=== PATIENT | female | born 1945 | race Caucasian/White ===

== ENCOUNTER → 2016-11-07 | Outpatient (CLI) | payer MEDICARE ==
--- NOTE | 2016-11-08 09:52 | MM ---
Reason for exam: screening (asymptomatic). Last mammogram was performed 3 years and 8 months ago. History: Patient is postmenopausal. Physical Findings: A clinical breast exam by your physician is recommended on an annual basis and results should be correlated with mammographic findings. MG 3D Screening Mammo W/Cad Bilateral CC and MLO view(s) were taken. Prior study comparison: March 03, 2013, bilateral digital screening mammo w/CAD. July 22, 2011, bilateral digital screening mammo w/CAD. There are scattered fibroglandular densities. Finding: There are typically benign round calcifications. There is no discrete abnormality. No significant changes in finding since March 03, 2013 and July 22, 2011. ASSESSMENT: Benign, BI-RAD 2 RECOMMENDATION: Routine screening mammogram of both breasts in 1 year.
== END | disposition home or self-care (01) ==
LOC: RADMAMWWP 10:33
PROVIDERS: ATTEND Family Medicine
DX: Z12.31 Encounter for screening mammogram for malignant neoplasm of breast (principal)
CPT/HCPCS: 77063; G0202

== ENCOUNTER → 2017-03-18 | Outpatient (CLI) | payer MEDICARE ==
--- NOTE | 2017-03-18 13:49 | US ---
EXAMINATION TYPE: US extremity nonvascular ltd RT DATE OF EXAM: 03/18/2017 10:24 AM COMPARISON: NONE CLINICAL HISTORY: S90.851A SUSPECTED FOREIGN BODY. Patient stepped on glass 42 yrs ago, for many year s she has noticed a lump on the bottom of her right foot, doctor shaved it down when it became larger and started to hurt. No pain now but noticeable lump with discolored skin still there 0.9cm hypoechoic area noted on posterior right foot at site of lump. Non vascular, normal appearing soft tissue around it. IMPRESSION: Findings could possibly represent a granuloma or scar.
== END | disposition home or self-care (01) ==
LOC: RADUSWWP 10:08
PROVIDERS: ATTEND Podiatrist Foot & Ankle Surgery
DX: S90.851A Superficial foreign body, right foot, initial encounter (principal); X58.XXXA Exposure to other specified factors, initial encounter

== ENCOUNTER 2019-08-11 08:15 | Emergency (ER) | payer MEDICARE ==
[2019-08-11 08:33] VITALS: RESP 18; TEMP 97.3
--- NOTE | 2019-08-11 09:18 | ED ---
General Adult HPI - General Chief complaint: Upper Respiratory Infection Stated complaint: sinus infection/tremors Time Seen by Provider: 08/11/19 08:34 Source: patient, family, RN notes reviewed, old records reviewed Mode of arrival: ambulatory Limitations: no limitations - History of Present Illness Initial comments: This is a 74-year-old female with a history of hypertension and a history of tremors who states she's been fighting a upper respiratory infection for the past 6 days. She was started on antibiotic x-rays ago she has had phlegm that c hanged from yellow clear she states she doesn't feel that she feels tired all time she still has nasal congestion with drainage she has a slight cough. No earache sore throat though this is how the incident started she believes she may have caught it from her brother. No nausea no vomiting she states she's eating well no diarrhea no dysuria hematuria she does state her head feels full. She has had increased shaking she is on a different antibiotic including steroids. She does state her blood pressure is been elevated. She also states she's feeling more depressed than usual due to her being in a senior living. No thoughts of harm or hurting herself. No other modifying factors at this time - Related Data Home Medications Medication Instructions Recorded Confirmed Biotin 10 mg PO DAILY 08/11/19 08/11/19 Cholecalciferol [Vitamin D3 (25 1,000 unit PO DAILY 08/11/19 08/11/19 Mcg = 1000 Iu)] Fluticasone Nasal [place] [Flonase 1 spr EA NOSTRIL DAILY 08/11/19 08/11/19 Nasal [place]] Levofloxacin [Levaquin] 500 mg PO DAILY 08/11/19 08/11/19 Lisinopril [Zestril] 10 mg PO DAILY 08/11/19 08/11/19 Meclizine [Antivert] 25 mg PO Q12H PRN 08/11/19 08/11/19 Mirtazapine [Remeron] 45 mg PO HS 08/11/19 08/11/19 Omeprazole [PriLOSEC] 20 mg PO AC-BRKFST 08/11/19 08/11/19 Primidone [Mysoline] 250 mg PO BID 08/11/19 08/11/19 Propranolol LA [Inderal LA] 80 mg PO DAILY 08/11/19 08/11/19 Simvastatin [Zocor] 20 mg PO HS 08/11/19 08/11/19 buPROPion HCL [Wellbutrin SR] 150 mg PO BID 08/11/19 08/11/19 methylPREDNISolone Dose Pack See Taper PO DAILY 08/11/19 08/11/19 [Medrol Dose Pack] Allergies Allergy/AdvReac Type Severity Reaction Status Date / Time Sulfa (Sulfonamide Allergy Unknown Verified 08/11/19 09:27 Antibiotics) Childhood Review of Systems ROS Statement: Those systems with pertinent positive or pertinent negative responses have been documented in the HPI. ROS Other: All systems not noted in ROS Statement are negative. Past Medical History Past Medical History: GERD/Reflux, Hyperlipidemia, Hypertension Additional Past Medical History / Comment(s): tremors History of Any Multi-Drug Resistant Organisms: None Reported Past Surgical History: Tonsillectomy Past Psychological History: Bipolar, Depression Smoking Status: Former smoker Past Alcohol Use History: None Reported Past Drug Use History: None Reported General Exam - General Exam Comments Initial Comments: This a well-developed well-nourished awake alert oriented 3 female Limitations: no limitations General appearance: alert, anxious Head exam: Present: atraumatic, normocephalic, normal inspection Eye exam: Present: normal appearance, PERRL, EOMI. Absent: scleral icterus, conjunctival injection, periorbital swelling ENT exam: Present: mucous membranes moist, TM's normal bilaterally, other (Boggy swollen nasal mucosa no evidence of any bleeding) Neck exam: Present: normal inspection. Absent: tenderness, meningismus, lymphadenopathy Respiratory exam: Present: normal lung sounds bilaterally. Absent: respiratory distress, wheezes, rales, rhonchi, stridor Cardiovascular Exam: Present: regular rate, normal rhythm, normal heart sounds. Absent: systolic murmur, diastolic murmur, rubs, gallop, clicks GI/Abdominal exam: Present: soft, normal bowel sounds. Absent: distended, tenderness, guarding, rebound, rigid Extremities exam: Present: normal inspection, full ROM, normal capillary refill. Absent: tenderness, pedal edema, joint swelling, calf tenderness Back exam: Present: normal inspection Neurological exam: Present: alert, oriented X3, CN II-XII intact Psychiatric exam: Present: normal affect, normal mood Skin exam: Present: warm, dry, intact, normal color. Absent: rash Course Vital Signs 08/11/19 08/11/19 08:26 10:51 Temperature 97.3 F L Pulse Rate 66 90 Respiratory 18 18 Rate Blood Pressure 161/84 153/87 O2 Sat by Pulse 98 100 Oximetry Medical Decision Making - Medical Decision Making I did a long discussion with patient regarding findings and her daughter was present. Patient will be discharged with instructions to continue with her current medications she is also instructed to increase her oral fluids and follow-up with her doctor as needed - Lab Data Result diagrams: 08/11/19 09:00 08/11/19 09:00 Lab Results 08/11/19 08/11/19 08/11/19 Range/Units 09:00 09:00 09:00 WBC 11.0 H (3.8-10.6) k/uL RBC 4.88 (3.80-5.40) m/uL Hgb 14.6 (11.4-16.0) gm/dL Hct 43.3 (34.0-46.0) % MCV 88.9 (80.0-100.0) fL MCH 30.0 (25.0-35.0) pg MCHC 33.7 (31.0-37.0) g/dL RDW 13.8 (11.5-15.5) % Plt Count 229 (150-450) k/uL Neutrophils % 72 % Lymphocytes % 19 % Monocytes % 6 % Eosinophils % 1 % Basophils % 0 % Neutrophils # 7.9 H (1.3-7.7) k/uL Lymphocytes # 2.1 (1.0-4.8) k/uL Monocytes # 0.6 (0-1.0) k/uL Eosinophils # 0.1 (0-0.7) k/uL Basophils # 0.0 (0-0.2) k/uL Sodium 135 L (137-145) mmol/L Potassium 4.8 (3.5-5.1) mmol/L Chloride 101 (98-107) mmol/L Carbon Dioxide 22 (22-30) mmol/L Anion Gap 12 mmol/L BUN 23 H (7-17) mg/dL Creatinine 1.03 (0.52-1.04) mg/dL Est GFR (CKD-EPI)AfAm 61 (>60 ml/min/1.73 sqM) Est GFR (CKD-EPI)NonAf 53 (>60 ml/min/1.73 sqM) Glucose 106 H (74-99) mg/dL Calcium 9.4 (8.4-10.2) mg/dL Magnesium 2.1 (1.6-2.3) mg/dL Total Bilirubin 0.6 (0.2-1.3) mg/dL AST 24 (14-36) U/L ALT 31 (9-52) U/L Alkaline Phosphatase 117 (38-126) U/L Creatine Kinase 25 L (30-135) U/L Troponin I (0.000-0.034) ng/mL Total Protein 7.5 (6.3-8.2) g/dL Albumin 4.1 (3.5-5.0) g/dL TSH 2.410 (0.465-4.680) mIU/L Urine Color Urine Appearance (Clear) Urine pH (5.0-8.0) Ur Specific [place] (1.001-1.035) Urine Protein (Negative) Urine Glucose (UA) (Negative) Urine Ketones (Negative) Urine Blood (Negative) Urine Nitrite (Negative) Urine Bilirubin (Negative) Urine Urobilinogen (<2.0) mg/dL Ur Leukocyte Esterase (Negative) Urine RBC (0-5) /hpf Urine WBC (0-5) /hpf Ur Squamous Epith Cells (0-4) /hpf Hyaline Casts (0-2) /lpf Urine Mucus (None) /hpf Influenza Type A RNA Not Detected (Not Detectd) Influenza Type B (PCR) Not Detected (Not Detectd) 08/11/19 08/11/19 Range/Units 09:00 10:15 WBC (3.8-10.6) k/uL RBC (3.80-5.40) m/uL Hgb (11.4-16.0) gm/dL Hct (34.0-46.0) % MCV (80.0-100.0) fL MCH (25.0-35.0) pg MCHC (31.0-37.0) g/dL RDW (11.5-15.5) % Plt Count (150-450) k/uL Neutrophils % % Lymphocytes % % Monocytes % % Eosinophils % % Basophils % % Neutrophils # (1.3-7.7) k/uL Lymphocytes # (1.0-4.8) k/uL Monocytes # (0-1.0) k/uL Eosinophils # (0-0.7) k/uL Basophils # (0-0.2) k/uL Sodium (137-145) mmol/L Potassium (3.5-5.1) mmol/L Chloride (98-107) mmol/L Carbon Dioxide (22-30) mmol/L Anion Gap mmol/L BUN (7-17) mg/dL Creatinine (0.52-1.04) mg/dL Est GFR (CKD-EPI)AfAm (>60 ml/min/1.73 sqM) Est GFR (CKD-EPI)NonAf (>60 ml/min/1.73 sqM) Glucose (74-99) mg/dL Calcium (8.4-10.2) mg/dL Magnesium (1.6-2.3) mg/dL Total Bilirubin (0.2-1.3) mg/dL AST (14-36) U/L ALT (9-52) U/L Alkaline Phosphatase (38-126) U/L Creatine Kinase (30-135) U/L Troponin I <0.012 (0.000-0.034) ng/mL Total Protein (6.3-8.2) g/dL Albumin (3.5-5.0) g/dL TSH (0.465-4.680) mIU/L Urine Color Yellow Urine Appearance Clear (Clear) Urine pH 5.5 (5.0-8.0) Ur Specific [place] 1.016 (1.001-1.035) Urine Protein Negative (Negative) Urine Glucose (UA) Negative (Negative) Urine Ketones Negative (Negative) Urine Blood Negative (Negative) Urine Nitrite Negative (Negative) Urine Bilirubin Negative (Negative) Urine Urobilinogen <2.0 (<2.0) mg/dL Ur Leukocyte Esterase Small H (Negative) Urine RBC 1 (0-5) /hpf Urine WBC 4 (0-5) /hpf Ur Squamous Epith Cells 3 (0-4) /hpf Hyaline Casts 4 H (0-2) /lpf Urine Mucus Rare H (None) /hpf Influenza Type A RNA (Not Detectd) Influenza Type B (PCR) (Not Detectd) - EKG Data -: EKG Interpreted by Id EKG shows normal: sinus rhythm, axis, intervals, QRS complexes, ST-T waves (Sinus rhythm a 64. Interval 148 QRS duration 80 QT since QTC 380/400) Rate: normal - Radiology Data Radiology results: report reviewed (I did review the imaging and report no acute findings.), image reviewed Disposition Clinical Impression: Upper respiratory tract infection, Dehydration Disposition: HOME SELF-CARE Condition: Good Instructions (If sedation given, give patient instructions): Upper Respiratory Infection (ED), Dehydration (ED) Is patient prescribed a controlled substance at d/c from ED?: No Referrals: Brenda Barrera III, MD [Primary Care Provider] - 1-2 days
--- NOTE | 2019-08-11 09:31 | XR ---
EXAMINATION TYPE: XR chest 2V DATE OF EXAM: 08/11/2019 COMPARISON: NONE HISTORY: Productive cough and sinus infection. TECHNIQUE: Frontal and lateral views of the chest are obtained. FINDINGS: There is chronic parenchymal changes without suspicious focal air space opacity, pleural e ffusion, or pneumothorax seen. Eventration of right hemidiaphragm. The cardiac silhouette size is upp er limits of normal with atherosclerotic aorta. The osseous structures are demineralized. Rounded d ensity right mid to lower cervical spine on frontal view not clearly seen on lateral view may be exte rnal to patient. IMPRESSION: Chronic changes without suspicious acute infiltrate.
[2019-08-11 09:51] LABS: Basophils % (A) 0 %; Eosinophils # (A) 0.1 k/uL (0-0.7); Eosinophils % (A) 1 %; HCT 43.3 % (34.0-46.0); HGB 14.6 gm/dL (11.4-16.0); Lymphocytes # (A) 2.1 k/uL (1.0-4.8); Lymphocytes % (A) 19 %; MCHC 33.7 g/dL (31.0-37.0); MCV 88.9 fL (80.0-100.0); Mean Platelet Volume 9.5; Monocytes # (A) 0.6 k/uL (0-1.0); Monocytes % (A) 6 %; Neutrophils # (A) 7.9 k/uL (1.3-7.7); Neutrophils % (A) 72 %; Platelet Count 229 k/uL (150-450); RBC 4.88 m/uL (3.80-5.40); RDW 13.8 % (11.5-15.5)
[2019-08-11 10:11] LABS: Albumin 4.1 g/dL (3.5-5.0); Calcium 9.4 mg/dL (8.4-10.2); Magnesium 2.1 mg/dL (1.6-2.3); Potassium 4.8 mmol/L (3.5-5.1); Total Bilirubin 0.6 mg/dL (0.2-1.3); Total Protein 7.5 g/dL (6.3-8.2)
[2019-08-11 10:44] LABS: Appearance,Urine Clear (Clear); Bilirubin,Urine Negative (Negative); Blood,Urine Negative (Negative); Color,Urine Yellow; Glucose,Urine (UA) Negative (Negative); Hyaline Casts,Urine 4 /lpf (0-2); Ketones,Urine Negative (Negative); Leukocyte Esterase,Urine Small (Negative); Mucus,Urine Rare /hpf; Nitrite,Urine Negative (Negative); PH, Urine 5.5 (5.0-8.0); Protein,Urine Negative (Negative); RBC,Urine 1 /hpf (0-5); Specific Gravity,Urine 1.016 (1.001-1.035); Squamous Epithelial Cell,Urine 3 /hpf (0-4); Urobilinogen,Urine <2.0 mg/dL (<2.0)
[2019-08-11 10:54] VITALS: BP 153/87; PULSE 90
== END 2019-08-11 11:35 | disposition home or self-care (01) ==
LOC: EC 08:15
DX: J06.9 Acute upper respiratory infection, unspecified (principal); E86.0 Dehydration; R25.9 Unspecified abnormal involuntary movements; K21.9 Gastro-esophageal reflux disease without esophagitis; E78.5 Hyperlipidemia, unspecified; I10 Essential (primary) hypertension; F31.9 Bipolar disorder, unspecified; Z87.891 Personal history of nicotine dependence; Z88.2 Allergy status to sulfonamides; Z79.51 Long term (current) use of inhaled steroids; Z79.52 Long term (current) use of systemic steroids; Z79.82 Long term (current) use of aspirin; Z79.899 Other long term (current) drug therapy; Z90.89 Acquired absence of other organs
CPT/HCPCS: 36415; 71046; 80053; 81001; 82550; 83735; 84443; 84484; 85025; 87040; 87502; 93005; 99284

== ENCOUNTER 2019-12-21 22:05 | Emergency (ER) | payer MEDICARE ==
--- NOTE | 2019-12-21 22:21 | ED ---
Nausea/Vomiting/Diarrhea HPI - General Stated complaint: NVD Time Seen by Provider: 12/21/19 22:09 Source: patient, family Limitations: no limitations - History of Present Illness Initial comments: This patient is 74-year-old woman with history of previous episodes of vertigo who states that she had been at the [facility] this afternoon when she developed the same. The patient states she had an intense sensation that things were spinning and she was having multiple episodes of vomiting. She states that initially things were better if she closed her eyes. She states that she had her brother bring her home, she took some meclizine that was there and then was better for a period of time. The symptoms started to recur tonight and when she took the meclizine she had vomiting. She states that now closing her eyes does not really help either. Patient denies headache or neck pain. No ear symptoms. No neurologic symptoms. No chest or abdominal pain. No change in bowel movements MD complaint: nausea, vomiting, other (Vertigo) -: hour(s) Description of Vomiting: food contents Severity scale (1-10): 0 Improves with: none Worsens with: movement Associated Symptoms: nausea/vomiting - Related Data Home Medications Medication Instructions Recorded Confirmed Fluticasone Nasal [place] [Flonase 1 spray EA NOSTRIL BID 08/11/19 12/21/19 Nasal [place]] Lisinopril [Zestril] 10 mg PO HS 08/11/19 12/21/19 Mirtazapine [Remeron] 45 mg PO HS 08/11/19 12/21/19 Primidone [Mysoline] 250 mg PO BID 08/11/19 12/21/19 Propranolol LA [Inderal LA] 80 mg PO DAILY 08/11/19 12/21/19 Simvastatin [Zocor] 20 mg PO HS 08/11/19 12/21/19 buPROPion HCL [Wellbutrin SR] 150 mg PO BID 08/11/19 12/21/19 Aspirin/Acetaminophen/Caffeine 1 tab PO ONCE PRN 12/21/19 12/21/19 [Excedrin Migraine Caplet] Loratadine [Claritin] 10 mg PO HS 12/21/19 12/21/19 Multivit with Calcium,Iron,Min 1 tab PO DAILY 12/21/19 12/21/19 [Women's Multivitamin] Vit A/Vit C/Vit E/Zinc/Copper 1 cap PO DAILY 12/21/19 12/21/19 [ICAPS SOFTGEL] Previous Rx's Medication Instructions Recorded Ondansetron Odt [Zofran ODT] 4 mg PO Q8HR PRN #10 tab 12/22/19 Allergies Allergy/AdvReac Type Severity Reaction Status Date / Time Sulfa (Sulfonamide Allergy Unknown Verified 12/21/19 23:17 Antibiotics) Childhood methylprednisolone AdvReac Makes Verified 12/21/19 23:17 tremors worse Review of Systems ROS Statement: Those systems with pertinent positive or pertinent negative responses have been documented in the HPI. ROS Other: All systems not noted in ROS Statement are negative. Constitutional: Denies: fever, chills, weakness Eyes: Denies: vision change ENT: Denies: ear pain, hearing loss Respiratory: Denies: cough, dyspnea Cardiovascular: Denies: chest pain, palpitations, syncope Gastrointestinal: Reports: nausea, vomiting. Denies: abdominal pain, diarrhea, constipation Genitourinary: Denies: dysuria, frequency Musculoskeletal: Denies: back pain Skin: Denies: rash Neurological: Reports: vertigo. Denies: headache, weakness, numbness, paresthesias, confusion Past Medical History Past Medical History: GERD/Reflux, Hyperlipidemia, Hypertension Additional Past Medical History / Comment(s): tremors History of Any Multi-Drug Resistant Organisms: None Reported Past Surgical History: Tonsillectomy Past Psychological History: Bipolar, Depression Smoking Status: Former smoker Past Alcohol Use History: None Reported Past Drug Use History: None Reported General Exam General appearance: alert, in no apparent distress Head exam: Present: atraumatic, normocephalic Eye exam: Present: normal appearance, PERRL, EOMI, nystagmus. Absent: scleral icterus, conjunctival injection ENT exam: Present: normal oropharynx, TM's normal bilaterally, normal external e ar exam Neck exam: Present: normal inspection, full ROM, other (No carotid bruit) Respiratory exam: Present: normal lung sounds bilaterally. Absent: respiratory distress, wheezes, rales, rhonchi, stridor Cardiovascular Exam: Present: regular rate, normal rhythm, normal heart sounds. Absent: systolic murmur, diastolic murmur, rubs, gallop GI/Abdominal exam: Present: soft. Absent: distended, tenderness, guarding, rebound, rigid, mass Extremities exam: Present: normal inspection, normal capillary refill. Absent: pedal edema Back exam: Present: normal inspection Neurological exam: Present: alert, oriented X3, CN II-XII intact. Absent: motor sensory deficit Skin exam: Present: warm, dry, intact, normal color. Absent: rash Course Vital Signs 12/21/19 12/21/19 12/21/19 22:10 22:30 23:00 Temperature 97.8 F Pulse Rate 72 74 70 Respiratory 18 17 Rate Blood Pressure 180/89 180/89 182/81 O2 Sat by Pulse 99 99 99 Oximetry 12/22/19 00:17 Temperature Pulse Rate 64 Respiratory 18 Rate Blood Pressure 155/73 O2 Sat by Pulse 100 Oximetry Medical Decision Making - Lab Data Result diagrams: 12/21/19 22:52 12/21/19 22:52 Lab Results 12/21/19 12/21/19 12/21/19 Range/Units 22:52 22:52 22:52 WBC 10.4 (3.8-10.6) k/uL RBC 4.15 (3.80-5.40) m/uL Hgb 11.8 (11.4-16.0) gm/dL Hct 36.4 (34.0-46.0) % MCV 87.8 (80.0-100.0) fL MCH 28.5 (25.0-35.0) pg MCHC 32.4 (31.0-37.0) g/dL RDW 13.6 (11.5-15.5) % Plt Count 189 (150-450) k/uL Neutrophils % 77 % Lymphocytes % 14 % Monocytes % 4 % Eosinophils % 3 % Basophils % 0 % Neutrophils # 8.0 H (1.3-7.7) k/uL Lymphocytes # 1.5 (1.0-4.8) k/uL Monocytes # 0.4 (0-1.0) k/uL Eosinophils # 0.3 (0-0.7) k/uL Basophils # 0.0 (0-0.2) k/uL Sodium 133 L (137-145) mmol/L Potassium 4.7 (3.5-5.1) mmol/L Chloride 103 (98-107) mmol/L Carbon Dioxide 25 (22-30) mmol/L Anion Gap 5 mmol/L BUN 17 (7-17) mg/dL Creatinine 0.96 (0.52-1.04) mg/dL Est GFR (CKD-EPI)AfAm 67 (>60 ml/min/1.73 sqM) Est GFR (CKD-EPI)NonAf 58 (>60 ml/min/1.73 sqM) Glucose 129 H (74-99) mg/dL Calcium 8.5 (8.4-10.2) mg/dL Total Bilirubin 0.2 (0.2-1.3) mg/dL AST 27 (14-36) U/L ALT 21 (4-34) U/L Alkaline Phosphatase 87 (38-126) U/L Troponin I <0.012 (0.000-0.034) ng/mL Total Protein 6.7 (6.3-8.2) g/dL Albumin 3.8 (3.5-5.0) g/dL - EKG Data -: EKG Interpreted by Ga EKG shows normal: sinus rhythm, axis (Normal), intervals (Normal), QRS complexes (Normal) Rate: normal (Rate 74 bpm) Interpretation: nonspecific ST-T wave changes Disposition Clinical Impression: Vertigo Disposition: HOME SELF-CARE Condition: Good Instructions (If sedation given, give patient instructions): Vertigo (ED) Prescriptions: Ondansetron Odt [Zofran ODT] 4 mg PO Q8HR PRN #10 tab PRN Reason: Nausea Is patient prescribed a controlled substance at d/c from ED?: No Referrals: Brenda Barrera III, MD [Primary Care Provider] - 1-2 days
[2019-12-21 22:32] VITALS: TEMP 97.8
[2019-12-21] MEDS ORDERED: METOCLOPRAMIDE 5 MG/ML 2 ML VIAL IVP STA (22:35)
[2019-12-21] MEDS ORDERED: DIAZEPAM 5 MG/ML 2 ML INJ IVP STA (22:35)
[2019-12-21 23:04] LABS: Basophils % (A) 0 %; Eosinophils # (A) 0.3 k/uL (0-0.7); Eosinophils % (A) 3 %; HCT 36.4 % (34.0-46.0); HGB 11.8 gm/dL (11.4-16.0); Lymphocytes # (A) 1.5 k/uL (1.0-4.8); Lymphocytes % (A) 14 %; MCH 28.5 pg (25.0-35.0); MCHC 32.4 g/dL (31.0-37.0); MCV 87.8 fL (80.0-100.0); Mean Platelet Volume 10.1; Monocytes # (A) 0.4 k/uL (0-1.0); Monocytes % (A) 4 %; Neutrophils % (A) 77 %; Platelet Count 189 k/uL (150-450); RBC 4.15 m/uL (3.80-5.40); RDW 13.6 % (11.5-15.5); WBC 10.4 k/uL (3.8-10.6)
[2019-12-21 23:10] LABS: Albumin 3.8 g/dL (3.5-5.0); Calcium 8.5 mg/dL (8.4-10.2); Potassium 4.7 mmol/L (3.5-5.1); Total Bilirubin 0.2 mg/dL (0.2-1.3); Total Protein 6.7 g/dL (6.3-8.2)
--- NOTE | 2019-12-22 00:10 | CT ---
EXAMINATION TYPE: CT angio head neck DATE OF EXAM: 12/21/2019 COMPARISON: None HISTORY: Dizziness CT DLP: 402.70 mGycm Automated exposure control for dose reduction was used. CONTRAST: Performed with IV Contrast, patient injected with 65 mL of Isovue 370. There are 3-D post processed images. There is normal branching pattern of the great vessels on the aortic arch. There is bilateral arteria l flow in the subclavian arteries. There is bilateral arterial flow in the common internal and machine deicer element winder al carotid arteries. There is bilateral arterial flow in the vertebral arteries. I see no evidence of carotid or vertebral artery aneurysm or dissection. There is minimal plaque at the carotid artery bi furcations and less than 10% stenosis. There is arterial flow in the vertebrobasilar artery system. There is arterial flow in the anterior m iddle and posterior cerebral arteries. The right posterior cerebral artery appears to fill mostly thr ough the right posterior communicating artery. I see no mass effect. There is no evidence of intracra nial aneurysm or neovascularity. I see no evidence of intracranial arterial stenosis. There is extens rowdy mucosal thickening in the sphenoid sinus. This is more likely related to inflammatory disease. I see no bone destruction. Temporal bones appear intact. IMPRESSION: Minimal atherosclerotic disease at the carotid arteries without evidence of stenosis. Less than 10% s tenosis of the proximal internal carotid arteries.
[2019-12-22 00:20] VITALS: BP 155/73; PULSE 64; RESP 18
== END 2019-12-22 01:01 | disposition home or self-care (01) ==
LOC: EC 22:05
DX: H55.00 Unspecified nystagmus (principal); R11.2 Nausea with vomiting, unspecified; E78.5 Hyperlipidemia, unspecified; I10 Essential (primary) hypertension; F31.9 Bipolar disorder, unspecified; Z87.891 Personal history of nicotine dependence; Z88.2 Allergy status to sulfonamides; Z88.8 Allergy status to other drugs, medicaments and biological substances; Z79.51 Long term (current) use of inhaled steroids; Z79.899 Other long term (current) drug therapy; Z87.19 Personal history of other diseases of the digestive system
CPT/HCPCS: 36415; 93005; 80053; 84484; 85025; 70496; 70498; 99285; 96374; 96375; J2765; J3360; Q9967

== ENCOUNTER 2019-12-25 13:49 | Emergency (ER) | payer MEDICARE ==
[2019-12-25 14:13] VITALS: TEMP 96.8
[2019-12-25] MEDS ORDERED: DIAZEPAM 5 MG/ML 2 ML INJ IVP STA (14:41)
[2019-12-25] MEDS ORDERED: ONDANSETRON 4 MG/2 ML VIAL IVP STA (14:42)
[2019-12-25] MEDS ORDERED: SODIUM CHLORIDE 0.9% 1,000 ML IV STA (14:42)
[2019-12-25] MEDS ORDERED: diphenhydrAMINE 50 MG/ML 1 ML VIAL IVP STA (14:42)
--- NOTE | 2019-12-25 14:46 | ED ---
General Adult HPI - General Chief complaint: Dizziness Stated complaint: vertigo Time Seen by Provider: 12/25/19 14:23 Source: patient, EMS Mode of arrival: EMS Limitations: no limitations - History of Present Illness Initial comments: Dictation was produced using [employer] dictation software. please excuse any grammatical, word or spelling errors. Chief Complaint: 74-year-old female past medical history of vertigo, dyslipidemia and hypertension presents with persistent vertigo History of Present Illness: 74-year-old female she presents today with persistent vertigo. Patient states that she has had these multiple times in the past. She reports that her first episode happened when she was 18 years old. Since then she has had 4 episodes. She was recently seen here in emergency department 3 days ago for the same complaint. Patient states she was at home feeling well when she try to get 70 to eat when she all of a sudden developed acute onset vertigo. She denies any pain complaints. As soon as her symptoms started she began having nausea and vomiting. Patient has not seen a specialist for this before. She started taking some meclizine however throughout before she could swallow it. Patient is here in emergency department 3 days ago were she was evaluated for the same thing. She is given some Valium and discharged home with prescription for meclizine. Patient denies any history of strokes. The ROS documented in this emergency department record has been reviewed and confirmed by me. Those systems with pertinent positive or negative responses have been documented in the HPI. All other systems are other negative and/or noncontributory. PHYSICAL EXAM: General Impression: Alert and oriented x3, acute distress secondary to nausea, tremulous HEENT: Normocephalic atraumatic, extra-ocular movements intact, pupils equal and reactive to light bilaterally, mucous membranes moist, poor dentition Cardiovascular: Heart regular rate and rhythm, S1&S2 audible, no murmurs, rubs or gallops Chest: Lungs clear to auscultation bilaterally, no rhonchi, no wheeze, no rales Abdomen: Bowel sounds present, abdomen soft, non-tender, non-distended, no organomegaly Musculoskeletal: Pulses present and equal in all extremities, no peripheral edema Motor: no focal deficits noted Neurological: CN II-XII grossly intact, persistent nystagmus to bilateral pupils Skin: Intact with no visualized rashes ED course: 74 -year-old female presents with acute severe vertiginous symptoms since 11 AM this morning. Upon arrival are within acceptable limits Laboratory evaluation obtained. CBC, metabolic panel is unremarkable. Patient treated with Valium, Benadryl and Zofran. Patient reevaluated bedside still appears very toxic. She has is persistent nystagmus with fast beating face to the left. Does not direction changing. Been patient has intractable vertigo that patient transferred to [facility] for evaluation by neurology. Patient understandable agreeable to plan. Patient's symptoms are likely peripheral vertigo however she does have some features to consider central vertigo. Discussed patient case Dr. Moran who is willing to accept transfer. EKG interpretation: Ventricular rate 62, normal sinus rhythm, NV interval 144, QRS 74, QTC 421. No NV prolongation, no QTC prolongation, no ST or T-wave changes noted. . Overall, this EKG is unremarkable - Related Data Home Medications Medication Instructions Recorded Confirmed Fluticasone Nasal [place] [Flonase 1 spray EA NOSTRIL BID 08/11/19 12/21/19 Nasal [place]] Lisinopril [Zestril] 10 mg PO HS 08/11/19 12/21/19 Mirtazapine [Remeron] 45 mg PO HS 08/11/19 12/21/19 Primidone [Mysoline] 250 mg PO BID 08/11/19 12/21/19 Propranolol LA [Inderal LA] 80 mg PO DAILY 08/11/19 12/21/19 Simvastatin [Zocor] 20 mg PO HS 08/11/19 12/21/19 buPROPion HCL [Wellbutrin SR] 150 mg PO BID 08/11/19 12/21/19 Aspirin/Acetaminophen/Caffeine 1 tab PO ONCE PRN 12/21/19 12/21/19 [Excedrin Migraine Caplet] Loratadine [Claritin] 10 mg PO HS 12/21/19 12/21/19 Multivit with Calcium,Iron,Min 1 tab PO DAILY 12/21/19 12/21/19 [Women's Multivitamin] Vit A/Vit C/Vit E/Zinc/Copper 1 cap PO DAILY 12/21/19 12/21/19 [ICAPS SOFTGEL] Previous Rx's Medication Instructions Recorded Ondansetron Odt [Zofran ODT] 4 mg PO Q8HR PRN #10 tab 12/22/19 Allergies Allergy/AdvReac Type Severity Reaction Status Date / Time Sulfa (Sulfonamide Allergy Unknown Verified 12/21/19 23:17 Antibiotics) Childhood methylprednisolone AdvReac Makes Verified 12/21/19 23:17 tremors worse Review of Systems ROS Statement: Those systems with pertinent positive or pertinent negative responses have been documented in the HPI. ROS Other: All systems not noted in ROS Statement are negative. Past Medical History Past Medical History: GERD/Reflux, Hyperlipidemia, Hypertension Additional Past Medical History / Comment(s): tremors. Vertigo History of Any Multi-Drug Resistant Organisms: None Reported Past Surgical History: Tonsillectomy Past Psychological History: Bipolar, Depression Smoking Status: Former smoker Past Alcohol Use History: None Reported Past Drug Use History: None Reported General Exam Limitations: no limitations Course Vital Signs 12/25/19 14:07 Temperature 96.8 F L Pulse Rate 63 Respiratory 20 Rate Blood Pressure 146/100 O2 Sat by Pulse 99 Oximetry Medical Decision Making - Lab Data Result diagrams: 12/25/19 14:38 12/25/19 14:38 Lab Results 12/25/19 12/25/19 12/25/19 Range/Units 13:56 14:38 14:38 WBC 10.6 (3.8-10.6) k/uL RBC 4.31 (3.80-5.40) m/uL Hgb 12.2 (11.4-16.0) gm/dL Hct 38.4 (34.0-46.0) % MCV 89.1 (80.0-100.0) fL MCH 28.3 (25.0-35.0) pg MCHC 31.8 (31.0-37.0) g/dL RDW 14.0 (11.5-15.5) % Plt Count 183 (150-450) k/uL Neutrophils % 81 % Lymphocytes % 11 % Monocytes % 5 % Eosinophils % 2 % Basophils % 0 % Neutrophils # 8.6 H (1.3-7.7) k/uL Lymphocytes # 1.1 (1.0-4.8) k/uL Monocytes # 0.5 (0-1.0) k/uL Eosinophils # 0.2 (0-0.7) k/uL Basophils # 0.0 (0-0.2) k/uL Sodium 135 L (137-145) mmol/L Potassium 4.6 (3.5-5.1) mmol/L Chloride 104 (98-107) mmol/L Carbon Dioxide 23 (22-30) mmol/L Anion Gap 8 mmol/L BUN 15 (7-17) mg/dL Creatinine 0.85 (0.52-1.04) mg/dL Est GFR (CKD-EPI)AfAm 77 (>60 ml/min/1.73 sqM) Est GFR (CKD-EPI)NonAf 67 (>60 ml/min/1.73 sqM) Glucose 129 H (74-99) mg/dL Plasma Lactic Acid Bladimir 1.3 (0.7-2.0) mmol/L Calcium 8.7 (8.4-10.2) mg/dL Magnesium 2.1 (1.6-2.3) mg/dL Disposition Clinical Impression: Vertigo Disposition: OTHER INSTITUTION NOT DEFINED Condition: Fair Referrals: Brenda Barrera III, MD [Primary Care Provider] - 1-2 days Time of Disposition: 15:46 - Out of Hospital Transfer - Req. Specs Out of Hospital Transfer - Requested Specifics: Other Emergency Center ([facility])
[2019-12-25 14:52] LABS: Basophils % (A) 0 %; Eosinophils # (A) 0.2 k/uL (0-0.7); Eosinophils % (A) 2 %; HCT 38.4 % (34.0-46.0); HGB 12.2 gm/dL (11.4-16.0); Lymphocytes # (A) 1.1 k/uL (1.0-4.8); Lymphocytes % (A) 11 %; MCH 28.3 pg (25.0-35.0); MCHC 31.8 g/dL (31.0-37.0); MCV 89.1 fL (80.0-100.0); Mean Platelet Volume 10.4; Monocytes # (A) 0.5 k/uL (0-1.0); Monocytes % (A) 5 %; Neutrophils # (A) 8.6 k/uL (1.3-7.7); Neutrophils % (A) 81 %; Platelet Count 183 k/uL (150-450); RBC 4.31 m/uL (3.80-5.40); WBC 10.6 k/uL (3.8-10.6)
[2019-12-25 15:06] LABS: Calcium 8.7 mg/dL (8.4-10.2); Magnesium 2.1 mg/dL (1.6-2.3); Potassium 4.6 mmol/L (3.5-5.1)
[2019-12-25 16:02] VITALS: BP 180/72; PULSE 61
[2019-12-25 16:06] VITALS: RESP 20
== END 2019-12-25 17:10 | disposition other institution (70) ==
LOC: EC 13:49
DX: R42 Dizziness and giddiness (principal); I10 Essential (primary) hypertension; E78.5 Hyperlipidemia, unspecified; F31.9 Bipolar disorder, unspecified; H55.00 Unspecified nystagmus; Z79.51 Long term (current) use of inhaled steroids; Z79.899 Other long term (current) drug therapy; Z88.2 Allergy status to sulfonamides; Z88.8 Allergy status to other drugs, medicaments and biological substances; Z87.891 Personal history of nicotine dependence
CPT/HCPCS: 36415; 93005; 80048; 83605; 83735; 85025; 99285; 96374; 96375 ×2; 96361; J1200; J3360; J2405

== ENCOUNTER → 2020-04-21 | Outpatient (CLI) | payer MEDICARE ==
--- NOTE | 2020-04-23 19:46 | CT ---
EXAMINATION TYPE: CT sinus wo/w con DATE OF EXAM: 04/21/2020 COMPARISON: None HISTORY: 74-year-old female Vertigo and sinusitis. CT DLP: 844.8 mGycm Automated exposure control for dose reduction was used. TECHNIQUE: Pre and postcontrast axial views of the paranasal sinuses were obtained after administrati on of 100 mL Isovue 300 IV contrast. Coronal reconstructions performed. FINDINGS: PARANASAL SINUSES: Minimal trace mucosal thickening floor of the right maxillary sinus. Moderate to severe mucosal thick ening left maxillary sinus with some hyperdense material within. Right maxillary, ethmoid, and frontal sinuses are well-pneumatized. There is no air-fluid level. Reactive jaymie- osteogenesis is not seen. There is no destruction of the osseous santoro of the paranasal sinuses. THE NASAL CAVITY: The osteomeatal complexes are patent. No significant nasal septal deviation. The orbits are normal in appearance. Minimal scattered fluid in the left mastoid air cells. Middle ear cavities are clear. Reformatted images confirm above findings. IMPRESSION: Moderate to severe chronic left sphenoid sinus disease. Some hyperdense material within likely repres ents inspissated mucus. Trace mucosal thickening left maxillary sinus.
== END | disposition home or self-care (01) ==
LOC: RADCTMAIN 16:41
PROVIDERS: ATTEND Psychiatry & Neurology Neurology
DX: J32.3 Chronic sphenoidal sinusitis (principal)
CPT/HCPCS: 70488

== ENCOUNTER → 2020-04-21 | Outpatient (CLI) | payer MEDICARE ==
--- NOTE | 2020-04-23 19:42 | CT ---
EXAMINATION TYPE: CT brain wo/w con DATE OF EXAM: 04/21/2020 COMPARISON: None HISTORY: 74-year-old male Vertigo and sinusitis. TECHNIQUE: Examination was done in axial plane before and after administration of 100 mL Isovue 300 intravenous contrast. Coronal and sagittal reconstructions performed. CT DLP: 2127.2 mGycm Automated exposure control for dose reduction was used. FINDINGS: There is no evidence of acute intracranial hemorrhage, acute ischemic changes, mass, mass-effect, or extra-axial fluid collection. There is no effacement of cerebral sulci or basal subarachnoid cister ns. There is no hydrocephalus. There is no midline shift. Haines-white matter distinction is preserv ed. Tiny lacunar infarct left basal ganglia. Mild atherosclerotic calcifications within the carotid sipho ns. Persistent origin right posterior cerebral artery. No enhancing intracranial lesions. Dural venous sinuses are patent. Moderate to severe mucosal thickening left sphenoid sinus with some hyperdense material within, likel y inspissated mucus. Some scattered minimal fluid within left mastoid air cells. Globes appear intact . IMPRESSION: Tiny old lacunar infarct left basal ganglia. No acute intracranial abnormality seen. No enhancing int racranial lesions. Severe chronic left sphenoid sinus disease. Small amount of fluid in the left mastoid air cells. Ashley elate for any mastoid and to exclude mastoiditis.
--- NOTE | 2020-04-23 19:51 | CT ---
EXAMINATION TYPE: CT iac wo/w con DATE OF EXAM: 04/21/2020 COMPARISON: None HISTORY: 74-year-old female Vertigo and sinusitis. CT DLP: 292.7 mGycm Automated exposure control for dose reduction was used. TECHNIQUE: Contiguous high-resolution axial scanning of the temporal bones performed without and wit h IV Contrast, patient injected with 100ml mL of Isovue 300. Coronal reformatted images obtained. FINDINGS: There is no evident cerebellopontine angle mass. The skull base appears normal. Minimal linear debris in the right external auditory canal. Otherwise, the external auditory canals a re clear. The middle ear cavities are well pneumatized. Small amount of scattered fluid in the left mastoid air cells. The adjacent dural venous sinus remains well opacified. There is no abnormality of middle ear ossicles. The round and oval windows are normal. There is no abnormality of bony labyrinths. No dehiscence of the superior semicircular canals. The vestibular and cochlear aqueducts are well visualized. The facial nerve canal is normal bilaterally. The internal auditory canal and meati are symmetrical bilaterally. There is no evidence of fractures. Paranasal sinuses and brain reported separately. Reformatted images confirm above findings. IMPRESSION: Minimal linear debris within the right external auditory canal. Small amount of scattered fluid in le ft mastoid air cells. Correlate for any mastoid pain to exclude mastoiditis. Otherwise, unremarkable CT of the temporal bones.
== END | disposition home or self-care (01) ==
LOC: RADCTMAIN 16:33
PROVIDERS: ATTEND Psychiatry & Neurology Neurology
DX: J32.9 Chronic sinusitis, unspecified (principal); R93.0 Abnormal findings on diagnostic imaging of skull and head, not elsewhere classified
CPT/HCPCS: 82565; 84520; 70482; 70470; 36415; Q9967; 70488

== ENCOUNTER → 2020-07-06 | Outpatient (CLI) | payer MEDICARE | END | disposition home or self-care (01) | LOC: LABWHC1 11:48 | PROVIDERS: ATTEND Psychiatry & Neurology Neurology | DX: Z20.828 Contact with and (suspected) exposure to other viral communicable diseases (principal) | CPT/HCPCS: 36415; 86769 ==

== ENCOUNTER 2020-10-06 06:33 | Day surgery (SDC) | payer MEDICARE ==
[2020-10-04 16:16] VITALS: BMI 32.9
[~2020-10-06 06:33] MED LIST: ALPRAZolam 0.25 MG TAB PO PRN; ALPRAZolam 0.5 MG TAB PO PRN; NITROGLYCERIN SL TABS 0.4 MG TAB SUBLINGUAL PRN; SODIUM CHLORIDE 0.9% 1,000 ML in EMPTY BAG 1 BAG IV ONE
[2020-10-06] MEDS ORDERED: SODIUM CHLORIDE 0.9% 1,000 ML IV ONE (06:53)
[2020-10-06] MEDS ORDERED: ATORVASTATIN 80 MG TAB PO ONE (07:00)
[2020-10-06] MEDS ORDERED: ASPIRIN 325 MG TAB PO ONE (07:00)
[2020-10-06 07:24] VITALS: RESP 16; TEMP 98.2
[2020-10-06] MEDS ORDERED: BENZOCAINE SPRAY 1 CAN TOPICAL ONE (07:44)
[2020-10-06] MEDS ORDERED: fentaNYL (PF) 50 MCG/ML 2 ML AMP IVP ONE (07:58)
[2020-10-06] MEDS ORDERED: MIDAZOLAM 2 MG/2 ML VIAL IVP ONE ×2 (07:58→08:01)
[2020-10-06] MEDS ORDERED: IV FLUID CONTINUATION 1,000 ML IV ONE (08:25)
[2020-10-06] MEDS ORDERED: LIDOCAINE 1% INJ 10MG/ML (20 ML MDV) SQ ONE (08:33)
[2020-10-06] MEDS ORDERED: ONDANSETRON 4 MG/2 ML VIAL IVP ONE (08:53)
[2020-10-06] MEDS ORDERED: IOPAMIDOL-370 125ML BTL INJ ONE (08:53)
[2020-10-06] MEDS ORDERED: RX INFO: IV CONTRAST WAS GIVEN 1 EACH MISC MISCELLANE PRN (08:54)
[2020-10-06] MEDS ORDERED: SODIUM CHLORIDE 0.9% 1,000 ML IV SCH (09:00)
--- NOTE | 2020-10-06 10:29 | ECHOT ---
TRANSESOPHAGEAL ECHOCARDIOGRAM DATE OF SERVICE: 10/06/2020 PERFORMING PHYSICIAN: Jay Chapa MD. PROCEDURE PERFORMED: Transesophageal echocardiogram. INDICATION: Mitral regurgitation. COMPLICATION: None. LEVEL OF SEDATION: Moderate with sedation length of 12 minutes. PROCEDURE DESCRIPTION: After obtaining an informed consent, the patient was brought to the cardiac labor standards director. The patient was turned into left lateral position. A bite guard was placed. The throat was sprayed using lidocaine. A pulse oximetry and heart rate monitors were attached to the patient. Subsequently, the transesophageal echocardiogram probe was advanced through the bite guard to the mid esophageal where 2D echocardiogram images as well as color Doppler images of various cardiac structures were obtained. After that, I did interrogate the mitral valve using 2-D images, color Doppler images, pulse-wave Doppler, as well as continuous-wave Doppler images. The procedure was completed without any complication. FINDING: The left ventricular dimension and systolic function appeared to be within normal limits. The ejection fraction appeared to be in the range of 50% to 55%. The right ventricle appeared to be of normal size and function. The left atrium appeared to be severely dilated. The left atrial appendage appeared to be free from any thrombus. The interatrial septum appeared to be intact. The aortic valve is trileaflet valve without stenosis and without regurgitation. The mitral valve appeared to be thickened with evidence of severe mitral regurgitation. I could not do quantitative mitral regurgitation because I could not achieve good piece. But there was reversal flow in the into pulmonic veins. The tricuspid valve showed evidence of moderate tricuspid regurgitation. The pulmonic valve showed evidence of mild pulmonic insufficiency. No pericardial effusion seen. CONCLUSION: 1. Normal left ventricular dimension and systolic function. 2. Normal right ventricular dimension and systolic function. 3. Severe left atrial dilatation. 4. Intact interatrial septum without any evidence of shunt. 5. Normal left atrial appendage without any evidence of thrombus. 6. Trileaflet aortic valve without stenosis or regurgitation. 7. Thickened mitral valve leaflets with evidence of severe mitral regurgitation by color-flow Doppler. Quantitative measurements were not done because I could not achieve good piece. There was reversal flow in the right and left lower pulmonic vein. 8. Moderate tricuspid regurgitation. 9. Mild pulmonic insufficiency. 10.No evidence of pericardial effusion. MMODL / IJN: [id number] /
--- NOTE | 2020-10-06 10:59 | CC ---
CARDIAC CATHETERIZATION REPORT DATE OF SERVICE: 10/06/2020 PERFORMING PHYSICIAN: Jay Chapa MD. PROCEDURE PERFORMED: 1. Right heart catheterization. 2. Left heart catheterization. 3. Left ventriculography. 4. Selective right and left coronary angiogram. 5. Selective right common femoral artery angiogram. INDICATION: This is a 75-year-old female patient who was diagnosed recently with severe mitral regurgitation after she was experiencing symptoms of shortness of breath with exertion associated with symptoms of being tired and fatigued. She underwent a AMY earlier today and she was brought today to undergo a heart catheterization. APPROACH: Right common femoral vein and right common femoral artery. COMPLICATION: None. LEVEL OF SEDATION CATHETERIZATION: Sedation length of 21 minutes. PROCEDURE DESCRIPTION: After obtaining an informed consent, the patient was brought to the cardiac cardiac cath tech. The right common femoral artery and the right common femoral vein were cannulated using micropuncture technique and a micropuncture wire passed easily, then I placed a 6- [place] sheath in the right common femoral vein and right common femoral arteries. Right heart catheterization was performed using 6-[place] Busby catheter. Left heart catheterization was performed using 6-[place] pigtail catheter. Also, left ventriculography was performed using 6-[place] pigtail catheter. Selective right and left coronary angiogram performed using JR4 and JL4 catheters. The procedure was completed without any complication. HEMODYNAMICS: 1. The pulmonary capillary wedge pressure was 14 mmHg. 2. PA pressures were as follows: Systolic 32, end-diastolic of 13, and mean of 23 mmHg. 3. RV pressures were as follows: Systolic 33 and end-diastolic of 10 mmHg. 4. RA pressure was 7 mmHg. 5. EDP was 14 mm Hg. LEFT VENTRICULOGRAPHY: Left ventriculography was performed in the LESTER projection and using a power injection. The left ventricular systolic function appeared to be around 50% with about 2+ mitral regurgitation seen. SELECTIVE CORONARY ANGIOGRAM: 1. The RCA is a moderate caliber vessel. It is a dominant vessel and appeared to be angiographically normal. Distally bifurcates into PDA and PLV branches, both appeared to be angiographically normal. 2. The left main is angiographically normal, it bifurcates into LCX and LAD. 3. The LCX is a large caliber vessel, it is a nondominant vessel. The LCX is angiographically normal. In the proximal portion, it gives rise into a small to medium first OM branch and then it gives rise into a second OM branch which appeared to be angiographically normal. 4. The LAD, the LAD is a large caliber vessel. It is angiographically normal, it gives rise into a large diagonal branch which seems to be angiographically normal. CONCLUSION: 1. Normal right heart pressures. 2. Normal coronary angiogram. 3. Low normal left ventricular systolic function with ejection fraction around 50%. 4. 2+ mitral regurgitation on LV-gram. POSTPROCEDURE MANAGEMENT: 1. Medical treatment. 2. Follow up with the patient. MMODL / IJN: [id number] /
[2020-10-06 15:16] VITALS: PULSE 54
[2020-10-06 15:18] VITALS: BP 145/68
== END 2020-10-06 15:28 | disposition home or self-care (01) ==
LOC: CATHCVL 06:33
PROVIDERS: ATTEND Internal Medicine Interventional Cardiology
DX: I08.8 Other rheumatic multiple valve diseases (principal); I10 Essential (primary) hypertension; E78.5 Hyperlipidemia, unspecified; R41.3 Other amnesia; G25.0 Essential tremor; E78.00 Pure hypercholesterolemia, unspecified; Z87.828 Personal history of other (healed) physical injury and trauma; Z72.0 Tobacco use; Z79.899 Other long term (current) drug therapy; Z88.8 Allergy status to other drugs, medicaments and biological substances; Z88.2 Allergy status to sulfonamides
CPT/HCPCS: 93312; 93320; 93325; 93460; C1769 ×3; C1751; C1894; J2250; J2405; J2001; J3010; Q9967

== ENCOUNTER 2020-11-03 09:18 | Emergency (ER) | payer MEDICARE ==
[2020-11-03 09:27] VITALS: RESP 18
[2020-11-03] MEDS ORDERED: MECLIZINE 12.5 MG TAB PO STA (09:31)
[2020-11-03] MEDS ORDERED: SODIUM CHLORIDE 0.9% 1,000 ML IV STA (09:31)
[2020-11-03] MEDS ORDERED: diphenhydrAMINE 50 MG/ML 1 ML VIAL IVP STA (09:31)
[2020-11-03] MEDS ORDERED: METOCLOPRAMIDE 5 MG/ML 2 ML VIAL IVP STA (09:32)
--- NOTE | 2020-11-03 09:44 | ED ---
Dizziness HPI - General Chief Complaint: Dizziness Stated Complaint: Vertigo Time Seen by Provider: 11/03/20 09:22 Source: patient, EMS Mode of arrival: EMS - History of Present Illness Initial Comments: Patient is a 75-year-old female with history of vertigo, presenting to emergency Department via EMS with complaints of vertigo, nausea and vomiting that started first thing this morning. Patient states she did have a fall about 3 days ago, she tripped and fell onto her laundry basket. she thought she bruised her arm, but shes having no pain today. She denies hitting her head, she has no other pain from this fall. Patient states she feels like the room is spinning and she is very nauseous. she said it feels exactly like her other episodes. She denies any recent fever or chills. She denies any chest pain or shortness of breath, no abdominal pain. She denies recent coughs. She states she normally walks with a walker at home. She has no further complaints at this time. Patient received 4 mg of Zofran and the EMS prior to arrival. Her vital signs are stable. - Related Data Home Medications Medication Instructions Recorded Confirmed Mirtazapine [Remeron] 45 mg PO HS 08/11/19 10/06/20 Primidone [Mysoline] 250 mg PO HS 08/11/19 10/06/20 Propranolol LA [Inderal LA] 80 mg PO DAILY 08/11/19 10/06/20 Simvastatin [Zocor] 20 mg PO HS 08/11/19 10/06/20 buPROPion HCL [Wellbutrin SR] 150 mg PO BID 08/11/19 10/06/20 lisinopriL [Zestril] 10 mg PO HS 08/11/19 10/06/20 Cetirizine HCl [Zyrtec] 10 mg PO DAILY 10/04/20 10/06/20 Primidone [Mysoline] 500 mg PO QAM 10/04/20 10/06/20 Aspirin 81 mg PO DAILY 10/06/20 10/06/20 Multivitamin [Multivitamins Adult 1 tablet PO DAILY 10/06/20 10/06/20 Gummies] Allergies Allergy/AdvReac Type Severity Reaction Status Date / Time Sulfa (Sulfonamide Allergy Unknown Verified 10/06/20 06:57 Antibiotics) Childhood methylprednisolone AdvReac Makes Verified 10/06/20 06:57 tremors worse Review of Systems ROS Statement: Those systems with pertinent positive or pertinent negative responses have been documented in the HPI. ROS Other: All systems not noted in ROS Statement are negative. Past Medical History Past Medical History: GERD/Reflux, Hyperlipidemia, Hypertension Additional Past Medical History / Comment(s): tremors. Vertigo History of Any Multi-Drug Resistant Organisms: None Reported Past Surgical History: Tonsillectomy Past Psychological History: Bipolar, Depression Smoking Status: Former smoker Past Alcohol Use History: None Reported Past Drug Use History: None Reported General Exam - General Exam Comments Initial Comments: GENERAL: Patient is well-developed and well-nourished. Patient is nontoxic and in mild distress, actively vomiting in the ER. HEAD: Atraumatic, normocephalic. EYES: Pupils equal round and reactive to light, extraocular movements intact, sclera anicteric, conjunctiva are normal. Eyelids were unremarkable. ENT: TMs normal, nares patent, oropharynx clear without exudates. Moist mucous membranes. NECK: Normal range of motion, supple without lymphadenopathy or JVD. LUNGS: Unlabored respirations. Breath sounds clear to auscultation bilaterally and equal. No wheezes rales or rhonchi. HEART: Regular rate and rhythm without murmurs, rubs or gallops. ABDOMEN: Soft, nontender, normoactive bowel sounds. No guarding, no rebound. No masses appreciated. : Deferred MUSCULOSKELETAL: Normal extremities with adequate strength and normal range of motion, no pitting or edema. No clubbing or cyanosis. NEUROLOGICAL: Patient is alert and oriented x 3. Motor and sensory are also intact. Cranial nerves II through XII grossly intact. Symmetrical smile. Normal speech, normal gait. Normal finger to nose, no ataxia. Patient does have mild tremors of bilateral hands, but this is normal for patient. PSYCH: Normal mood, normal affect. SKIN: Warm, Dry, normal turgor, no rashes or lesions noted. Course Vital Signs 11/03/20 11/03/20 11/03/20 09:22 11:54 13:18 Temperature 96.9 F L 98.2 F Pulse Rate 68 55 L 62 Respiratory 18 18 18 Rate Blood Pressure 166/76 154/67 132/84 O2 Sat by Pulse 95 97 98 Oximetry EKG Findings - EKG Comments: EKG Findings:: Normal sinus rhythm, nonspecific T-wave abnormalities, no signs of acute process. Ventricular rate 64, DE 174, QT 432. Medical Decision Making - Medical Decision Making Patient is a 75-year-old female with history of vertigo presenting for vertigo-type symptoms started this morning along with nausea and vomiting. She did receive 4mg Zofran EMS prior to arrival. She is afebrile, vitals are normal. Patient's exam is unremarkable, no acute neuro deficits, she does have a mild tremor however patient and patient's daughter states this is normal for her. Patient received fluids, Reglan, meclizine, Benadryl and Valium. She does report improvement in her symptoms. I did sit patient up, she does admit to some very mild dizziness still for patient wishes to go home. Patient's daughter is here with her now and states that she will take patient home with her. Patient needs to follow up with her PCP in the next 1-3 days. Patient is in agreement this plan of care. Strict return parameters were discussed with the patient she verbalized understanding. Case discussed Dr. Meraz. - Lab Data Result diagrams: 11/03/20 09:59 11/03/20 09:59 Lab Results 11/03/20 11/03/20 11/03/20 Range/Units 09:59 09:59 09:59 WBC 8.6 (3.8-10.6) k/uL RBC 4.07 (3.80-5.40) m/uL Hgb 12.2 (11.4-16.0) gm/dL Hct 36.4 (34.0-46.0) % MCV 89.3 (80.0-100.0) fL MCH 29.9 (25.0-35.0) pg MCHC 33.5 (31.0-37.0) g/dL RDW 13.8 (11.5-15.5) % Plt Count 180 (150-450) k/uL MPV 9.7 Neutrophils % 72 % Lymphocytes % 18 % Monocytes % 5 % Eosinophils % 4 % Basophils % 1 % Neutrophils # 6.2 (1.3-7.7) k/uL Lymphocytes # 1.6 (1.0-4.8) k/uL Monocytes # 0.4 (0-1.0) k/uL Eosinophils # 0.3 (0-0.7) k/uL Basophils # 0.1 (0-0.2) k/uL Sodium 138 (137-145) mmol/L Potassium 4.8 (3.5-5.1) mmol/L Chloride 110 H (98-107) mmol/L Carbon Dioxide 23 (22-30) mmol/L Anion Gap 5 mmol/L BUN 19 H (7-17) mg/dL Creatinine 0.80 (0.52-1.04) mg/dL Est GFR (CKD-EPI)AfAm 82 (>60 ml/min/1.73 sqM) Est GFR (CKD-EPI)NonAf 72 (>60 ml/min/1.73 sqM) Glucose 145 H (74-99) mg/dL Calcium 8.7 (8.4-10.2) mg/dL Total Bilirubin 0.3 (0.2-1.3) mg/dL AST 26 (14-36) U/L ALT 25 (4-34) U/L Alkaline Phosphatase 96 (38-126) U/L Troponin I <0.012 (0.000-0.034) ng/mL Total Protein 6.4 (6.3-8.2) g/dL Albumin 3.5 (3.5-5.0) g/dL Urine Color Urine Appearance (Clear) Urine pH (5.0-8.0) Ur Specific [place] (1.001-1.035) Urine Protein (Negative) Urine Glucose (UA) (Negative) Urine Ketones (Negative) Urine Blood (Negative) Urine Nitrite (Negative) Urine Bilirubin (Negative) Urine Urobilinogen (<2.0) mg/dL Ur Leukocyte Esterase (Negative) 11/03/20 Range/Units 11:17 WBC (3.8-10.6) k/uL RBC (3.80-5.40) m/uL Hgb (11.4-16.0) gm/dL Hct (34.0-46.0) % MCV (80.0-100.0) fL MCH (25.0-35.0) pg MCHC (31.0-37.0) g/dL RDW (11.5-15.5) % Plt Count (150-450) k/uL MPV Neutrophils % % Lymphocytes % % Monocytes % % Eosinophils % % Basophils % % Neutrophils # (1.3-7.7) k/uL Lymphocytes # (1.0-4.8) k/uL Monocytes # (0-1.0) k/uL Eosinophils # (0-0.7) k/uL Basophils # (0-0.2) k/uL Sodium (137-145) mmol/L Potassium (3.5-5.1) mmol/L Chloride (98-107) mmol/L Carbon Dioxide (22-30) mmol/L Anion Gap mmol/L BUN (7-17) mg/dL Creatinine (0.52-1.04) mg/dL Est GFR (CKD-EPI)AfAm (>60 ml/min/1.73 sqM) Est GFR (CKD-EPI)NonAf (>60 ml/min/1.73 sqM) Glucose (74-99) mg/dL Calcium (8.4-10.2) mg/dL Total Bilirubin (0.2-1.3) mg/dL AST (14-36) U/L ALT (4-34) U/L Alkaline Phosphatase (38-126) U/L Troponin I (0.000-0.034) ng/mL Total Protein (6.3-8.2) g/dL Albumin (3.5-5.0) g/dL Urine Color Yellow Urine Appearance Clear (Clear) Urine pH 6.5 (5.0-8.0) Ur Specific [place] 1.016 (1.001-1.035) Urine Protein Negative (Negative) Urine Glucose (UA) Negative (Negative) Urine Ketones Negative (Negative) Urine Blood Negative (Negative) Urine Nitrite Negative (Negative) Urine Bilirubin Negative (Negative) Urine Urobilinogen <2.0 (<2.0) mg/dL Ur Leukocyte Esterase Negative (Negative) Disposition Clinical Impression: Vertigo, Nausea & vomiting Disposition: HOME SELF-CARE Condition: Stable Instructions (If sedation given, give patient instructions): Vertigo (ED) Additional Instructions: Please return to the Emergency Department if symptoms worsen or any other concerns. May take meclizine for continued dizziness. Please follow-up with your regular doctor as discussed. Is patient prescribed a controlled substance at d/c from ED?: No Referrals: Brenda Barrera III, MD [Primary Care Provider] - 1-2 days
[2020-11-03 10:13] LABS: Basophils # (A) 0.1 k/uL (0-0.2); Basophils % (A) 1 %; Eosinophils # (A) 0.3 k/uL (0-0.7); Eosinophils % (A) 4 %; HCT 36.4 % (34.0-46.0); HGB 12.2 gm/dL (11.4-16.0); Lymphocytes # (A) 1.6 k/uL (1.0-4.8); Lymphocytes % (A) 18 %; MCH 29.9 pg (25.0-35.0); MCHC 33.5 g/dL (31.0-37.0); MCV 89.3 fL (80.0-100.0); Mean Platelet Volume 9.7; Monocytes # (A) 0.4 k/uL (0-1.0); Monocytes % (A) 5 %; Neutrophils # (A) 6.2 k/uL (1.3-7.7); Neutrophils % (A) 72 %; Platelet Count 180 k/uL (150-450); RBC 4.07 m/uL (3.80-5.40); RDW 13.8 % (11.5-15.5); WBC 8.6 k/uL (3.8-10.6)
[2020-11-03 10:22] LABS: Albumin 3.5 g/dL (3.5-5.0); Calcium 8.7 mg/dL (8.4-10.2); Potassium 4.8 mmol/L (3.5-5.1); Total Bilirubin 0.3 mg/dL (0.2-1.3); Total Protein 6.4 g/dL (6.3-8.2)
[2020-11-03] MEDS ORDERED: DIAZEPAM 5 MG/ML 2 ML INJ IVP STA (11:12)
[2020-11-03 11:38] LABS: Appearance,Urine Clear (Clear); Bilirubin,Urine Negative (Negative); Blood,Urine Negative (Negative); Color,Urine Yellow; Glucose,Urine (UA) Negative (Negative); Ketones,Urine Negative (Negative); Leukocyte Esterase,Urine Negative (Negative); Nitrite,Urine Negative (Negative); PH, Urine 6.5 (5.0-8.0); Protein,Urine Negative (Negative); Specific Gravity,Urine 1.016 (1.001-1.035); Urobilinogen,Urine <2.0 mg/dL (<2.0)
[2020-11-03 13:19] VITALS: BP 132/84; PULSE 62; TEMP 98.2
== END 2020-11-03 13:29 | disposition home or self-care (01) ==
LOC: EC 09:18
DX: R42 Dizziness and giddiness (principal); R11.2 Nausea with vomiting, unspecified; F31.9 Bipolar disorder, unspecified; Z79.899 Other long term (current) drug therapy; Z88.2 Allergy status to sulfonamides; Z88.8 Allergy status to other drugs, medicaments and biological substances; Z90.89 Acquired absence of other organs; Z87.891 Personal history of nicotine dependence; W01.0XXA Fall on same level from slipping, tripping and stumbling without subsequent striking against object, initial encounter
CPT/HCPCS: 36415; 93005; 80053; 84484; 85025; 81003; 99284; 96374; 96375 ×2; 96361 ×3; J1200; J2765; J3360

== ENCOUNTER 2020-11-04 21:04 | Inpatient (IN) | payer MEDICARE ==
--- NOTE | 2020-11-04 21:31 | ED ---
General Adult HPI - General Chief complaint: Dizziness Stated complaint: Vertigo Time Seen by Provider: 11/04/20 21:22 Source: patient, family Mode of arrival: wheelchair Limitations: no limitations - History of Present Illness Initial comments: Patient presents the ED with her daughter for evaluation. Patient states that she was seen in the ED yesterday for vertigo, and she was offered admission at that time, but she declined. Patient states that she made the wrong decision, and she now wishes to be admitted to the hospital. Patient states that she continues to have vertigo, and she states that her vertigo has become worse today. Patient describes her vertigo as a spinning sensation with associated nausea that is worse with changes in position and when laying flat. Patient states that she was vomiting yesterday, but she denies vomiting today. Patient does state that she has had a diffuse headache today, which she states was not present yesterday. Patient's daughter states that she has been giving the patient meclizine regularly without much improvement. Patient states that she awoke with her vertigo yesterday morning. Patient denies trauma or injury, sudden onset of headache, LOC, neck pain or stiffness, fever or chills, focal numbness/weakness/neuro deficit, visual changes, speech difficulty, otalgia, sore throat, chest pain, dyspnea, cough or cold symptoms, palpitations, syncope, abdominal pain, nausea/vomiting/diarrhea, bloody or melanotic stool, dysuria or urinary symptoms, or any other symptoms or complaints. - Related Data Home Medications Medication Instructions Recorded Confirmed Mirtazapine [Remeron] 45 mg PO HS 08/11/19 11/04/20 Primidone [Mysoline] 250 mg PO HS 08/11/19 11/04/20 Propranolol LA [Inderal LA] 80 mg PO HS 08/11/19 11/04/20 Simvastatin [Zocor] 20 mg PO HS 08/11/19 11/04/20 buPROPion HCL [Wellbutrin SR] 150 mg PO BID 08/11/19 11/04/20 lisinopriL [Zestril] 10 mg PO HS 08/11/19 11/04/20 Cetirizine HCl [Zyrtec] 10 mg PO HS 10/04/20 11/04/20 Primidone [Mysoline] 500 mg PO QA 10/04/20 11/04/20 Aspirin 81 mg PO HS 10/06/20 11/04/20 Multivitamin [Multivitamins Adult 1 tablet PO DAILY 10/06/20 11/04/20 Gummies] Acetaminophen Tab [Tylenol] 650 mg PO Q4H PRN 11/04/20 11/04/20 Ibuprofen [Motrin Ib] 400 mg PO Q8H PRN 11/04/20 11/04/20 Meclizine HCl [Bonine] 25 mg PO TID PRN 11/04/20 11/04/20 dimenhyDRINATE [Dimenhydrinate] 50 mg PO Q4H PRN 11/04/20 11/04/20 Allergies Allergy/AdvReac Type Severity Reaction Status Date / Time Sulfa (Sulfonamide Allergy Unknown Verified 11/04/20 22:32 Antibiotics) Childhood methylprednisolone AdvReac Makes Verified 11/04/20 22:32 tremors worse Review of Systems ROS Statement: Those systems with pertinent positive or pertinent negative responses have been documented in the HPI. ROS Other: All systems not noted in ROS Statement are negative. Past Medical History Past Medical History: GERD/Reflux, Hyperlipidemia, Hypertension Additional Past Medical History / Comment(s): tremors. Vertigo History of Any Multi-Drug Resistant Organisms: None Reported Past Surgical History: Tonsillectomy Past Psychological History: Bipolar, Depression Smoking Status: Former smoker Past Alcohol Use History: None Reported Past Drug Use History: None Reported General Exam Limitations: no limitations General appearance: alert, in no apparent distress Head exam: Present: atraumatic, normocephalic Eye exam: Present: normal appearance, PERRL, EOMI, other (Subtle horizontal nystagmus is noted) ENT exam: Present: mucous membranes moist Neck exam: Present: other (Trachea is in midline). Absent: tenderness, meningismus Respiratory exam: Present: normal lung sounds bilaterally. Absent: respiratory distress, wheezes, rales, rhonchi, stridor Cardiovascular Exam: Present: regular rate, normal rhythm, normal heart sounds, other (Normal radial pulses bilaterally) GI/Abdominal exam: Present: soft. Absent: distended, tenderness, guarding Extremities exam: Present: full ROM. Absent: tenderness, pedal edema, calf tenderness Neurological exam: Present: alert, oriented X3, CN II-XII intact. Absent: motor sensory deficit Psychiatric exam: Present: normal affect, normal mood Skin exam: Present: warm, dry, intact, normal color Course Vital Signs 11/04/20 11/04/20 21:11 22:15 Temperature 98.6 F Pulse Rate 66 70 Respiratory 19 16 Rate Blood Pressure 194/87 188/87 O2 Sat by Pulse 98 Oximetry - Reevaluation(s) Reevaluation #1: 11/04/20 22:09 Case was discussed with Dr. Liu. He accepts hospital admission. He has no further recommendations at time. 11/04/20 22:48 Patient denies development of any new symptoms while in the ED. Patient and daughter are aware the patient's test results, and they both agree with hospital admission at this time. Patient remains alert and breathing comfortably. EKG Findings - EKG Comments: EKG Findings:: Normal sinus rhythm, ventricular rate of 64 bpm, normal OH and QRS intervals, normal QT interval, normal axis, no ST or T-wave abnormality Medical Decision Making - Medical Decision Making Patient's labs, EKG and noncontrast head CT are all fairly unremarkable. Patient has a normal/nonfocal neurological exam. Patient reports that her dizziness is worse with changes in position and when laying down. Patient reports that her dizziness began when she awoke yesterday morning. Patient describes her dizziness as a spinning sensation with associated nausea. I suspect that the patient's dizziness is likely secondary to positional vertigo. Patient and daughter are requesting hospital admission, and Dr. Liu has accepted hospital admission. - Lab Data Result diagrams: 11/04/20 21:54 11/04/20 21:54 Lab Results 11/04/20 11/04/20 11/04/20 Range/Units 21:54 21:54 21:54 WBC 6.5 (3.8-10.6) k/uL RBC 3.86 (3.80-5.40) m/uL Hgb 11.8 (11.4-16.0) gm/dL Hct 34.5 (34.0-46.0) % MCV 89.3 (80.0-100.0) fL MCH 30.5 (25.0-35.0) pg MCHC 34.1 (31.0-37.0) g/dL RDW 13.8 (11.5-15.5) % Plt Count 168 (150-450) k/uL MPV 10.0 Neutrophils % 48 % Lymphocytes % 36 % Monocytes % 8 % Eosinophils % 5 % Basophils % 1 % Neutrophils # 3.1 (1.3-7.7) k/uL Lymphocytes # 2.3 (1.0-4.8) k/uL Monocytes # 0.5 (0-1.0) k/uL Eosinophils # 0.3 (0-0.7) k/uL Basophils # 0.1 (0-0.2) k/uL Sodium 137 (137-145) mmol/L Potassium 4.3 (3.5-5.1) mmol/L Chloride 107 (98-107) mmol/L Carbon Dioxide 26 (22-30) mmol/L Anion Gap 4 mmol/L BUN 20 H (7-17) mg/dL Creatinine 1.06 H (0.52-1.04) mg/dL Est GFR (CKD-EPI)AfAm 59 (>60 ml/min/1.73 sqM) Est GFR (CKD-EPI)NonAf 51 (>60 ml/min/1.73 sqM) Glucose 105 H (74-99) mg/dL Calcium 8.6 (8.4-10.2) mg/dL Total Bilirubin 0.2 (0.2-1.3) mg/dL AST 29 (14-36) U/L ALT 29 (4-34) U/L Alkaline Phosphatase 97 (38-126) U/L Troponin I <0.012 (0.000-0.034) ng/mL Total Protein 6.6 (6.3-8.2) g/dL Albumin 3.6 (3.5-5.0) g/dL - Radiology Data Radiology results: report reviewed (Noncontrast head CT shows no acute intracranial abnormality) Disposition Clinical Impression: Nausea & vomiting, Dizziness Narrative: Suspected positional vertigo Disposition: ADMITTED IP TO THIS [facility] Condition: Stable Is patient prescribed a controlled substance at d/c from ED?: No Referrals: Brenda Barrera III, MD [Primary Care Provider] - 1-2 days Time of Disposition: 22:46
[2020-11-04] MEDS ORDERED: LORazepam 2 MG/ML INJ IV STA (21:38)
[2020-11-04] MEDS ORDERED: ONDANSETRON 4 MG/2 ML VIAL IVP STA (21:38)
[2020-11-04] MEDS ORDERED: SODIUM CHLORIDE 0.9% 500 ML 500 ML IV STA (21:38)
[2020-11-04 22:04] LABS: Basophils # (A) 0.1 k/uL (0-0.2); Basophils % (A) 1 %; Eosinophils # (A) 0.3 k/uL (0-0.7); Eosinophils % (A) 5 %; HCT 34.5 % (34.0-46.0); HGB 11.8 gm/dL (11.4-16.0); Lymphocytes # (A) 2.3 k/uL (1.0-4.8); Lymphocytes % (A) 36 %; MCH 30.5 pg (25.0-35.0); MCHC 34.1 g/dL (31.0-37.0); MCV 89.3 fL (80.0-100.0); Monocytes # (A) 0.5 k/uL (0-1.0); Monocytes % (A) 8 %; Neutrophils # (A) 3.1 k/uL (1.3-7.7); Neutrophils % (A) 48 %; Platelet Count 168 k/uL (150-450); RBC 3.86 m/uL (3.80-5.40); RDW 13.8 % (11.5-15.5); WBC 6.5 k/uL (3.8-10.6)
[2020-11-04 22:14] LABS: Albumin 3.6 g/dL (3.5-5.0); Calcium 8.6 mg/dL (8.4-10.2); Potassium 4.3 mmol/L (3.5-5.1); Total Bilirubin 0.2 mg/dL (0.2-1.3); Total Protein 6.6 g/dL (6.3-8.2)
--- NOTE | 2020-11-04 22:35 | CT ---
EXAMINATION TYPE: CT brain wo con DATE OF EXAM: 11/04/2020 COMPARISON: 04/21/2020 HISTORY: vertigo CT DLP: 1091.4 mGycm Automated exposure control for dose reduction was used. There is mild cerebral atrophy. There is no mass effect nor midline shift. There is no sign of intrac ranial hemorrhage. The calvarium is intact. There is extensive sphenoid sinus mucosal thickening with out bone destruction. IMPRESSION: Mild atrophy. No acute intracranial abnormality. Chronic sphenoid sinusitis unchanged compared to old exam.
[2020-11-04] MEDS ORDERED: ONDANSETRON 4 MG/2 ML VIAL IVP PRN (22:46)
[2020-11-04] MEDS ORDERED: lisinopriL 10 MG TAB PO STA (22:51)
[2020-11-04] MEDS ORDERED: ATORVASTATIN 20 MG TAB PO STA (22:52)
[2020-11-04] MEDS ORDERED: PROPRANOLOL LA 80 MG CAP.SA.24H PO ONE (23:15)
[2020-11-05 07:04] LABS: Basophils % (A) 1 %; Eosinophils # (A) 0.3 k/uL (0-0.7); Eosinophils % (A) 5 %; HCT 33.3 % (34.0-46.0); HGB 11.2 gm/dL (11.4-16.0); Lymphocytes # (A) 1.8 k/uL (1.0-4.8); Lymphocytes % (A) 30 %; MCH 30.5 pg (25.0-35.0); MCHC 33.7 g/dL (31.0-37.0); MCV 90.8 fL (80.0-100.0); Mean Platelet Volume 9.7; Monocytes # (A) 0.4 k/uL (0-1.0); Monocytes % (A) 6 %; Neutrophils # (A) 3.4 k/uL (1.3-7.7); Neutrophils % (A) 56 %; Platelet Count 146 k/uL (150-450); RBC 3.67 m/uL (3.80-5.40); RDW 13.9 % (11.5-15.5)
[2020-11-05 07:07] LABS: Albumin 3.3 g/dL (3.5-5.0); Calcium 8.4 mg/dL (8.4-10.2); Potassium 4.2 mmol/L (3.5-5.1); Total Bilirubin 0.4 mg/dL (0.2-1.3); Total Protein 6.1 g/dL (6.3-8.2)
[2020-11-05] MEDS ORDERED: MECLIZINE 25 MG TAB PO PRN (09:00)
--- NOTE | 2020-11-05 13:03 | P.HPIM ---
History of Present Illness 75-year-old cousin female came in with complaints of vertigo. 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 Patient the vertigo worsens with head movement. Although her symptoms completely resolved with meclizine at this time. Patient is bit unstable. Patient has a generalized deconditioning going on for a while and patient recently lost her because of which patient has not been functional much. Patient is quite a bit depressed and is on antidepressants. Patient does have benign essential tremor for which patient is on propranolol patient is bit weak because of which she will need evaluation by physical therapy and occupational therapy, PT and OT will be consulted. Patient had a recent fall. Patient usually uses a walker. Patient doesn't is comparing of mild headache Review of Systems REVIEW OF SYSTEMS: CONSTITUTIONAL: No fever, no malaise, no fatigue. HEENT: No recent visual problems or hearing problems. Denied any sore throat. CARDIOVASCULAR: No chest pain, orthopnea, PND, no palpitations, no syncope. PULMONARY: No shortness of breath, no cough, no hemoptysis. GASTROINTESTINAL: No diarrhea, no nausea, no vomiting, no abdominal pain. NEUROLOGICAL: no weakness, no numbness. HEMATOLOGICAL: Denies any bleeding or petechiae. GENITOURINARY: Denies any burning micturition, frequency, or urgency. MUSCULOSKELETAL/RHEUMATOLOGICAL: Denies any joint pain, swelling, or any muscle pain. ENDOCRINE: Denies any polyuria or polydipsia. The rest of the 14-point review of systems is negative. Past Medical History Past Medical History: GERD/Reflux, Hyperlipidemia, Hypertension Additional Past Medical History / Comment(s): tremors. Vertigo History of Any Multi-Drug Resistant Organisms: None Reported Past Surgical History: Tonsillectomy Past Anesthesia/Blood Transfusion Reactions: Postoperative Nausea & Vomiting (PO NV) Past Psychological History: Bipolar, Depression Smoking Status: Former smoker Past Alcohol Use History: None Reported Past Drug Use History: None Reported Medications and Allergies Home Medications Medication Instructions Recorded Confirmed Type Mirtazapine [Remeron] 45 mg PO HS 08/11/19 11/04/20 History Primidone [Mysoline] 250 mg PO HS 08/11/19 11/04/20 History Propranolol LA [Inderal LA] 80 mg PO HS 08/11/19 11/04/20 History Simvastatin [Zocor] 20 mg PO HS 08/11/19 11/04/20 History buPROPion HCL [Wellbutrin SR] 150 mg PO BID 08/11/19 11/04/20 History lisinopriL [Zestril] 10 mg PO HS 08/11/19 11/04/20 History Cetirizine HCl [Zyrtec] 10 mg PO HS 10/04/20 11/04/20 History Primidone [Mysoline] 500 mg PO QAM 10/04/20 11/04/20 History Aspirin 81 mg PO HS 10/06/20 11/04/20 History Multivitamin [Multivitamins Adult 1 tablet PO DAILY 10/06/20 11/04/20 History Gummies] Acetaminophen Tab [Tylenol] 650 mg PO Q4H PRN 11/04/20 11/04/20 History Ibuprofen [Motrin Ib] 400 mg PO Q8H PRN 11/04/20 11/04/20 History Meclizine HCl [Bonine] 25 mg PO TID PRN 11/04/20 11/04/20 History dimenhyDRINATE [Dimenhydrinate] 50 mg PO Q4H PRN 11/04/20 11/04/20 History Allergies Allergy/AdvReac Type Severity Reaction Status Date / Time Sulfa (Sulfonamide Allergy Unknown Verified 11/04/20 22:32 Antibiotics) Childhood methylprednisolone AdvReac Makes Verified 11/04/20 22:32 tremors worse Physical Exam Vitals: Vital Signs Temp Pulse Pulse Resp BP BP Pulse Ox 11/05/20 07:29 97.1 F L 68 18 144/90 98 11/05/20 02:00 97.4 F L 63 18 133/78 99 11/04/20 23:16 98.0 F 60 16 174/76 96 11/04/20 23:04 97.5 F L 64 16 167/73 98 11/04/20 22:15 70 16 188/87 11/04/20 21:11 98.6 F 66 19 194/87 98 Intake and Output 11/04/20 11/05/20 11/05/20 22:59 06:59 14:59 Intake Total 250 450 Balance 250 450 Intake: Oral 250 450 Other: Voiding Method Bedside Commode Bedside Commode Weight 90.718 kg 90.718 kg PHYSICAL EXAMINATION: GENERAL: The patient is alert and oriented x3, not in any acute distress. Well developed, well nourished. HEENT: Pupils are round and equally reacting to light. EOMI. No scleral icterus. No conjunctival pallor. Normocephalic, atraumatic. No pharyngeal erythema. No thyromegaly. CARDIOVASCULAR: S1 and S2 present. No murmurs, rubs, or gallops. PULMONARY: Chest is clear to auscultation, no wheezing or crackles. ABDOMEN: Soft, nontender, nondistended, normoactive bowel sounds. No palpable organomegaly. MUSCULOSKELETAL: No joint swelling or deformity. EXTREMITIES: No cyanosis, clubbing, or pedal edema. NEUROLOGICAL: She does have a benign essential tremor and a tremor at rest. Patient does have generalized weakness without any focal weakness patient doesn't have any truncal ataxia SKIN: No rashes. Results CBC & Chem 7: 11/05/20 06:45 11/05/20 06:45 Labs: Abnormal Lab Results - Last 24 Hours (Table) 11/04/20 11/05/20 11/05/20 Range/Units 21:54 06:45 06:45 RBC 3.67 L (3.80-5.40) m/uL Hgb 11.2 L (11.4-16.0) gm/dL Hct 33.3 L (34.0-46.0) % Plt Count 146 L (150-450) k/uL Chloride 109 H (98-107) mmol/L BUN 20 H (7-17) mg/dL Creatinine 1.06 H (0.52-1.04) mg/dL Glucose 105 H (74-99) mg/dL Total Protein 6.1 L (6.3-8.2) g/dL Albumin 3.3 L (3.5-5.0) g/dL Thrombosis Risk Factor Assmnt - Choose All That Apply Any of the Below Risk Factors Present?: Yes Each Factor Represents 1 point: Obesity (BMI >25) Other Risk Factors: Yes Each Risk Factor Represents 3 Points: Age 75 years or older Thrombosis Risk Factor Assessment Total Risk Factor Score: 4 Thrombosis Risk Factor Assessment Level: Moderate Risk Assessment and Plan Plan: -Vertigo: Appears to be benign push vertigo continue meclizine her symptoms appear to have improved -Generalized deconditioning: Secondary to age-related muscle atrophy, depression. Physical therapy and occupational therapy will evaluate the patient depending on the recommendations patient most probably can be discharged tomorrow -Mild acute renal failure prerenal azotemia resolved at this time -Benign essential tremor for which patient uses propranolol which will be continued -Hypertension -Hyperlipidemia -Bipolar disorder for which the patient uses bupropion which she wants to continue. -DVT prophylaxis: Early ambulation
[2020-11-05] MEDS: ACETAMINOPHEN TAB 325 MG TAB PO PRN ×2 (15:27→19:31)
[2020-11-05] MEDS ORDERED: ASPIRIN 81 MG PO SCH (21:00)
[2020-11-05] MEDS ORDERED: lisinopriL 10 MG TAB PO SCH (21:00)
[2020-11-05] MEDS ORDERED: ATORVASTATIN 10 MG TAB PO SCH (21:00)
[2020-11-05] MEDS ORDERED: PROPRANOLOL LA 80 MG CAP.SA.24H PO SCH (21:00)
[2020-11-05] MEDS ORDERED: PRIMIDONE 250 MG TAB PO SCH (21:00)
[2020-11-05] MEDS ORDERED: LORATADINE 10 MG TAB PO SCH (21:00)
[2020-11-05] MEDS: buPROPion SR 150 MG TABLET.ER PO SCH (21:53)
[2020-11-06] MEDS: buPROPion SR 150 MG TABLET.ER PO SCH (08:05)
[2020-11-06] MEDS: ACETAMINOPHEN TAB 325 MG TAB PO PRN (08:06)
[2020-11-06] MEDS ORDERED: PRIMIDONE 250 MG TAB PO SCH (09:00)
--- NOTE | 2020-11-06 16:07 | P.DS ---
Providers Date of admission: 11/04/20 22:46 Expected date of discharge: 11/06/20 Attending physician: Rocio Liu Consults: 11/06/20 10:50 Consult Physician Stat Consulting Provider: Karely Marrero Reason/Comments: vertigo Do you want consulting provider notified?: Yes Primary care physician: Brenda Barrera [facility] Course: Final diagnosis -Vertigo: Appears to be benign paroxysmal vertigo -Generalized deconditioning: Secondary to age-related muscle atrophy, depression -Mild acute renal failure prerenal azotemia resolved at this time -Benign essential tremor -Hypertension -Hyperlipidemia -Bipolar disorder -DVT prophylaxis Discharge disposition Patient is being discharged in a stable condition with guarded prognosis to home. Patient will follow-up with Dr. Barrera upon discharge. Patient also instructed to follow up with neurology that she has seen previously in the outpatient setting upon discharge. Patient will continue with home care in the outpatient setting. Total time taken is greater than 35 minutes. Hospital course This is a 75-year-old female who was recently admitted with vertigo and dizziness and was being closely monitored. 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 Patient underwent head CT during this admission showing mild atrophy with no acute intracranial abnormality and chronic sphenoid sinusitis unchanged from previous exam with no mass or midline shift noted. Neurology was consulted although patient was not seen by them and would like to follow-up outpatient with the neurologist she was seen before. Patient's Dizziness has subsided and would like to go home. Her brother will be staying with her and she will be continuing with home care in the outpatient setting. Patient also instructed to call Dr. Barrera and follow-up upon discharge. Currently no reports of chest pain, shortness of breath, or palpitations. Patient is afebrile. No reports of nausea or vomiting and patient is tolerating diet. Patient denies any dizziness, lightheadedness and gait was steady with a walker to the bathroom witnessed on exam. Patient will be discharged today and again instructed to follow-up with neurologist along with primary care provider upon discharge. Guarded prognosis. On exam vital signs are stable. Temp is 97.6F, pulse is 67, respirations are 16, blood pressure is 157/86, oxygen saturation is 99% on room air. Cardio S1, S2 are muffled. Respiratory shows diminished breath sounds at the bases with no wheezing or rhonchi noted. Abdomen is soft and nontender. Nervous system shows no focal deficits. Please refer to medication reconciliation sheet for a list of medications. Patient Condition at Discharge: Stable Plan - Discharge Summary Discharge Rx Participant: No New Discharge Prescriptions: Continue Primidone [Mysoline] 250 mg PO HS lisinopriL [Zestril] 10 mg PO HS buPROPion HCL [Wellbutrin SR] 150 mg PO BID Simvastatin [Zocor] 20 mg PO HS Propranolol LA [Inderal LA] 80 mg PO HS Cetirizine HCl [Zyrtec] 10 mg PO HS Primidone [Mysoline] 500 mg PO QAM Multivitamin [Multivitamins Adult Gummies] 1 tablet PO DAILY Aspirin 81 mg PO HS dimenhyDRINATE [Dimenhydrinate] 50 mg PO Q4H PRN PRN Reason: Vertigo Acetaminophen Tab [Tylenol] 650 mg PO Q4H PRN PRN Reason: Pain Meclizine HCl [Bonine] 25 mg PO TID PRN PRN Reason: Vertigo Ibuprofen [Motrin Ib] 400 mg PO Q8H PRN PRN Reason: Pain Discontinued Mirtazapine [Remeron] 45 mg PO HS Discharge Medication List Primidone [Mysoline] 250 mg PO HS 08/11/19 [History] Propranolol LA [Inderal LA] 80 mg PO HS 08/11/19 [History] Simvastatin [Zocor] 20 mg PO HS 08/11/19 [History] buPROPion HCL [Wellbutrin SR] 150 mg PO BID 08/11/19 [History] lisinopriL [Zestril] 10 mg PO HS 08/11/19 [History] Cetirizine HCl [Zyrtec] 10 mg PO HS 10/04/20 [History] Primidone [Mysoline] 500 mg PO QAM 10/04/20 [History] Aspirin 81 mg PO HS 10/06/20 [History] Multivitamin [Multivitamins Adult Gummies] 1 tablet PO DAILY 10/06/20 [History] Acetaminophen Tab [Tylenol] 650 mg PO Q4H PRN 11/04/20 [History] Ibuprofen [Motrin Ib] 400 mg PO Q8H PRN 11/04/20 [History] Meclizine HCl [Bonine] 25 mg PO TID PRN 11/04/20 [History] dimenhyDRINATE [Dimenhydrinate] 50 mg PO Q4H PRN 11/04/20 [History] Follow up Appointment(s)/Referral(s): Brenda Barrera III, MD [Primary Care Provider] - 1-2 days [facility] Visiting Nurse, [NON-STAFF] - 1-2 Days Activity/Diet/Wound Care/Special Instructions: Activity Limited until follow-up Follow-up with primary care provider upon discharge Continue follow-up with cardiology as previously scheduled Follow-up with neurology in the outpatient setting Continue to use a walker while walking Sit up 1-2 minutes at the edge of the bed or chair prior to standing Discharge Disposition: HOME WITH HOME HEALTH SERVICES
[2020-11-06 19:21] VITALS: BP 151/80; PULSE 77; RESP 17; TEMP 97.9
--- NOTE | 2020-11-06 19:59 | P.CNNES ---
History of Present Illness Consult date: 11/06/20 Requesting physician: Yessenia Fraser Reason for Consult: Vertigo History of Present Illness: Patient is a 75-year-old female with history of benign familial tremors came to the hospital on 11/04/2020 at around 9:15 PM for dizziness. Patient states that she has history of vertigo and was hospitalized multiple times from November through April 2020. At one point she had severe vertigo. She also has followed up with Dr. Samayoa, who performed EEG. Patient tells me that she was at one time diagnosed with carbon monoxide poisoning. Patient states that since April she has been doing quite well, but the symptoms reappeared a week ago. She has been feeling dizzy, not to the point of vertigo. She has been to [facility] twice as well. Last Friday, a week ago patient went to the bathroom, and sat down on laundry basket instead of the commode. She did not hurt herself. She has been feeling dizzy recently. She was afraid that she may get vertigo therefore she decided to come to the ER. This time her daughter brought her to [facility]. Patient denies any focal symptoms. Vital signs on arrival blood pressure 194/87, pulse rate [address] head showed mild atrophy. No acute intracranial abnormality. Chronic sphenoid sinusitis unchanged compared to old exam. EKG shows normal sinus rhythm. Patient had a CTA of head and neck on 12/21/2019, which revealed minimal atherosclerotic disease at the carotid arteries without evidence of stenosis. Less than 10% stenosis of proximal ICAs. Patient's previous CT of the sinuses shows moderate to severe chronic left sphenoid sinus disease. Some hyperdense material within likely represent inspissated mucus. Trace mucosal thickening left medullary sinus. CT of the IAC from 04/23/2020 showed minimal linear database within the right external auditory canal. Small amount of scattered fluid in the left mastoid air cells. Correlate for any mastoid pain to exclude mastoiditis. Otherwise unremarkable CT of the temporal bones. Nhung ent had a AMY in 10/06/2020, which revealed normal left-ventricular dimension and systolic function. Severe left atrial dilation. Intact interatrial septum without any evidence of shunt. Normal left atrial appendage. Moderate TR. Patient does take aspirin 81 mg, Lipitor 10 mg meclizine, primidone 250 mg at bedtime and 500 mg every morning. Propranolol 80 mg at bedtime. Patient's blood tests shows WBC 6.0 hemoglobin 11.2, platelets 146. Chem-20 is normal. UA negative. Hepatic panel normal. Patient had a normal TSH 2.41 on 08/11/2019. Patient states that her recently on 10/15/2020. She has been under a lot of stress. Patient has history of chronic sinus disease. She has seen ENT specialist long time ago. Patient states that sometimes she uses [place] pot, Zyrtec and Flonase, which helps her dizziness. 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 She is currently on primidone 500 mg the morning and 250 mg at bedtime. Patient has history of smoking 1 pack per day from age [age], that after she quit. She never drank any alcohol. Patient states her son also has tremors. Review of Systems As above in detail per HPI. All other review of systems completely unremarkable. Denies any chest pain shortness of breath. She does have chronic tremors. Past Medical History Past Medical History: GERD/Reflux, Hyperlipidemia, Hypertension Additional Past Medical History / Comment(s): tremors. Vertigo History of Any Multi-Drug Resistant Organisms: None Reported Past Surgical History: Tonsillectomy Past Anesthesia/Blood Transfusion Reactions: Postoperative Nausea & Vomiting (PONV) Past Psychological History: Bipolar, Depression Smoking Status: Former smoker Past Alcohol Use History: None Reported Past Drug Use History: None Reported Medications and Allergies Home Medications Medication Instructions Recorded Confirmed Type Primidone [Mysoline] 250 mg PO HS 08/11/19 11/04/20 History Propranolol LA [Inderal LA] 80 mg PO HS 08/11/19 11/04/20 History Simvastatin [Zocor] 20 mg PO HS 08/11/19 11/04/20 History buPROPion HCL [Wellbutrin SR] 150 mg PO BID 08/11/19 11/04/20 History lisinopriL [Zestril] 10 mg PO HS 08/11/19 11/04/20 History Cetirizine HCl [Zyrtec] 10 mg PO HS 10/04/20 11/04/20 History Primidone [Mysoline] 500 mg PO QA 10/04/20 11/04/20 History Aspirin 81 mg PO HS 10/06/20 11/04/20 History Multivitamin [Multivitamins Adult 1 tablet PO DAILY 10/06/20 11/04/20 History Gummies] Acetaminophen Tab [Tylenol] 650 mg PO Q4H PRN 11/04/20 11/04/20 History Ibuprofen [Motrin Ib] 400 mg PO Q8H PRN 11/04/20 11/04/20 History Meclizine HCl [Bonine] 25 mg PO TID PRN 11/04/20 11/04/20 History dimenhyDRINATE [Dimenhydrinate] 50 mg PO Q4H PRN 11/04/20 11/04/20 History Allergies Allergy/AdvReac Type Severity Reaction Status Date / Time Sulfa (Sulfonamide Allergy Unknown Verified 11/04/20 22:32 Antibiotics) Childhood methylprednisolone AdvReac Makes Verified 11/04/20 22:32 tremors worse Physical Examination - Vital Signs Vital Signs: Vital Signs Temp Pulse Pulse Resp BP Pulse Ox 11/06/20 12:43 97.6 F 67 16 157/86 99 11/06/20 08:00 16 11/06/20 07:03 97.9 F 64 16 167/77 97 11/06/20 01:39 97.9 F 66 17 105/56 96 11/05/20 19:17 97.6 F 65 18 162/84 Intake and Output 11/06/20 11/06/20 11/06/20 06:59 14:59 22:59 Other: # Voids 0 On examination patient is an elderly female, in no acute distress. Patient is alert and awake her speech has mild to moderate tremors noticed. She has had tremors, as well as postural and intention tremors consistent with her diagnosis of essential tremors. Attention and concentration fund of knowledge is adequate. Detail testing deferred. On cranial nerve examination pupils are round and reacting, visual pascual are full, extraocular muscles are intact with no nystagmus. Face is symmetric, tongue protrudes to the midline. Palatal elevation and sensation normal. Hearing and shoulder shrug normal. Facial sensations normal. On muscle strength testing, there is no pronator drift and the strength is normal in arms and legs distally and proximally reflexes are 1+ and plantars downgoing. Sensory touch is equal. No ataxia for [id number] testing. She does have significant tremors of outstretched hands. Tone and bulk of muscles normal. Gait deferred. There is no obvious bruit, S1 and S2 audible, abdomen soft nontender, chest is clear, peripheral pulses present. Results - Laboratory Findings CBC and BMP: 11/05/20 06:45 11/05/20 06:45 Abnormal Lab Findings: Abnormal Labs 11/04/20 11/05/20 11/05/20 21:54 06:45 06:45 RBC 3.67 L Hgb 11.2 L Hct 33.3 L Plt Count 146 L Chloride 109 H BUN 20 H Creatinine 1.06 H Glucose 105 H Total Protein 6.1 L Albumin 3.3 L Assessment and Plan Assessment: * Chronic recurrent vertigo. 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 Patient does have chronic left sphenoid sinusitis, and also has some left mastoid sinus disease, which likely is contributing to this dizziness/vertigo. * Benign essential tremors * Chronic sphenoid sinusitis. * Hypertension Plan: * Patient's vertigo has improved. Patient states that she will continue using [place] pot, with Zyrtec and Flonase to help with sinus drainage. Patient was recommended to follow up with ENT specialist as outpatient for chronic sphenoid sinusitis, rule out Mnire's, if vertigo and dizziness persist. * Patient also has benign familial tremors. Patient is on fairly high dose of Mysoline. Patient was recommended to follow up with her primary physician and undergo primidone and phenobarbital level checked. * Consider checking B12, folate. Patient is already to go home. Neurologically clear.
== END 2020-11-06 19:30 | disposition home health service (06) | DRG 149 ==
LOC: EC 21:04 → 5NMEDONC 22:46 → OBSVTOIN 11-06 16:40
PROVIDERS: ADMIT Hospitalist; ATTEND Hospitalist
DX: H81.10 Benign paroxysmal vertigo, unspecified ear (principal); N17.9 Acute kidney failure, unspecified; F31.9 Bipolar disorder, unspecified; E78.5 Hyperlipidemia, unspecified; I10 Essential (primary) hypertension; G25.0 Essential tremor; J32.3 Chronic sphenoidal sinusitis; K21.9 Gastro-esophageal reflux disease without esophagitis; R51.9 Headache, unspecified; M62.50 Muscle wasting and atrophy, not elsewhere classified, unspecified site; Z79.82 Long term (current) use of aspirin; Z79.899 Other long term (current) drug therapy; Z63.4 Disappearance and death of family member; Z87.891 Personal history of nicotine dependence; Z90.89 Acquired absence of other organs; Z98.890 Other specified postprocedural states; Z88.2 Allergy status to sulfonamides; Z88.8 Allergy status to other drugs, medicaments and biological substances
CPT/HCPCS: 36415; 70450; 80053; 84484; 85025; 93005; 96374; 96375; 99285

== ENCOUNTER 2022-03-01 08:32 | Day surgery (SDC) | payer MEDICARE ==
[2022-02-28 12:37] VITALS: BMI 32.9
[~2022-03-01 08:32] MED LIST changes: +ASPIRIN 325 MG TAB PO STA; +ATORVASTATIN 80 MG TAB PO STA; +HEPARIN SODIUM,PORCINE 10,000 UNIT in SODIUM CHLORIDE 0.9% 1,000 ML IRRIGATION PRN; +HEPARIN SODIUM,PORCINE 2,500 UNIT in SODIUM CHLORIDE 0.9% 250 ML IRRIGATION PRN; -SODIUM CHLORIDE 0.9% 1,000 ML in EMPTY BAG 1 BAG IV ONE; +SODIUM CHLORIDE 0.9% 1,000 ML in EMPTY BAG 1 BAG IV SCH
[2022-03-01 09:35] VITALS: TEMP 98.2
[2022-03-01] MEDS ORDERED: ONDANSETRON 4 MG/2 ML VIAL IVP STA (09:36)
[2022-03-01 09:39] LABS: Basophils # (A) 0.1 k/uL (0-0.2); Basophils % (A) 1 %; Eosinophils # (A) 0.2 k/uL (0-0.7); Eosinophils % (A) 2 %; HCT 36.7 % (34.0-46.0); HGB 11.8 gm/dL (11.4-16.0); Lymphocytes # (A) 1.6 k/uL (1.0-4.8); Lymphocytes % (A) 23 %; MCH 29.4 pg (25.0-35.0); MCHC 32.2 g/dL (31.0-37.0); MCV 91.2 fL (80.0-100.0); Mean Platelet Volume 9.7; Monocytes # (A) 0.4 k/uL (0-1.0); Monocytes % (A) 6 %; Neutrophils # (A) 4.5 k/uL (1.3-7.7); Neutrophils % (A) 64 %; Platelet Count 217 k/uL (150-450); RBC 4.02 m/uL (3.80-5.40); RDW 14.2 % (11.5-15.5)
[2022-03-01] MEDS ORDERED: PROPOFOL 10 MG/ML 20 ML VIAL IV ONE (10:07)
[2022-03-01] MEDS ORDERED: IV FLUID CONTINUATION 1,000 ML IV ONE (10:16)
[2022-03-01] MEDS ORDERED: BENZOCAINE SPRAY 1 CAN MUCOUS MEM ONE (10:16)
[2022-03-01] MEDS ORDERED: VERAPAMIL 2.5 MG/ML 2 ML AMP ONE (10:59)
[2022-03-01] MEDS ORDERED: HEPARIN SODIUM 1,000 UN/ML (10ML VL) ONE (11:01)
[2022-03-01] MEDS: LIDOCAINE 1% INJ 10MG/ML (30 ML VIAL-PF) SQ ONE ×2 (11:09→11:15)
[2022-03-01] MEDS: VERAPAMIL SYRINGE (5 MG/10 ML) INTRAARTER ONE ×2 (11:10→11:30)
[2022-03-01] MEDS ORDERED: MIDAZOLAM 2 MG/2 ML VIAL IV ONE (11:15)
[2022-03-01] MEDS ORDERED: IOPAMIDOL-370 125ML BTL INJ ONE (11:30)
[2022-03-01] MEDS ORDERED: RX INFO: IV CONTRAST WAS GIVEN 1 EACH MISC MISCELLANE PRN (11:37)
[2022-03-01] MEDS ORDERED: SODIUM CHLORIDE 0.9% 1,000 ML IV SCH (11:45)
--- NOTE | 2022-03-01 11:48 | P.PCN ---
Date of Procedure: 03/01/22 Operative Findings: CARDIAC CATHETERIZATION PERFORMING PHYSICIAN: Jay Chapa MD, RPVI PROCEDURE PERFORMED: 1. Selective right and left coronary angiogram 2. Left heart catheterization 3. Right heart catheterization 4. Ultrasound-guided access of the right common femoral vein INDICATION: Severe mitral regurgitation COMPLICATION: None APPROACH: Right common femoral vein Right radial artery LEVEL OF SEDATION: Moderate with a sedation length of 23 minutes PROCEDURE DESCRIPTION: After obtaining an informed consent, the patient was brought to cardiac open hearth laborer. Local anesthesia was performed using lidocaine subcutaneously. The right radial artery was cannulated using Seldinger technique, the guidewire passed easily, following that we advanced a 5-Polish sheath dilator assembly, the wire and dilator were removed and sheath was flushed. Subsequently the right common femoral vein was cannulated using micropuncture technique under ultrasound guidance, the wire passed easily then I placed an 8-Polish sheath. Right heart catheterization was performed using 6-Polish Walton catheter which was advanced into wedge position initially it was pulled back into the pulmonary artery and RV and RA. Selective right and left coronary angiogram using a 6-Polish JR4 and JL 3.5 catheters. Following that we did left heart catheterization using 6-Polish pigtail catheter. Please note that the patient was given 2 mg of verapamil intra-arterial through the radial sheath and also she was given 4000 use of heparin intravenous The procedure was completed there was no complication. SELECTIVE CORONARY ANGIOGRAM: The right coronary artery: Is a large caliber vessel and dominant vessel. The RCA has mild disease in the midportion. Distally bifurcates into PDA and PLV branches both appeared to be angiographically normal Left main: Is angiographically normal. Bifurcates into LCx and LAD The left circumflex: Is a large caliber vessel and nondominant vessel. Its angiographically normal. It gives rises into an OM branch which seems to be angiographically normal The left anterior descending artery: Is a large caliber vessel. Its angiographically normal and gives rise into a diagonal branch which seems to be angiographically normal HEMODYNAMICS: #1 the pulmonary capillary wedge pressure was 15 mmHg was a V-wave up to 25 mmHg #2 PA pressures were as follow systolic of 37 and diastolic of 13 and mean of 25 mmHg #3 RV pressures were as follow systolic of 46 and end-diastolic of 14 mmHg #4 RA pressure was 10 mmHg #5 cardiac output was 4.30 L/m with a cardiac index of 2.13 L/m/m #6 transpulmonary gradient was 10 mm #7 the LVEDP was 10 mmHg #8 pulmonary vascular resistance was 2.3 Eldridge units CONCLUSION: 1. Mildly elevated left and right side filling pressures 2. Mild pulmonary hypertension, WHO group 2 3. Mild nonobstructive coronary artery disease POSTPROCEDURE MANAGEMENT: The patient to be evaluated for mitral valve repair surgically or percutaneously
--- NOTE | 2022-03-01 11:50 | P.PCN ---
Date of Procedure: 03/01/22 Operative Findings: TRANSESOPHAGEAL ECHOCARDIOGRAM PLANER OPERATOR: DEV MARIA MD, RPVI INDICATION: Mitral regurgitation SEDATION: Conscious sedation COMPLICATION: None LEVEL OF SEDATION The procedure was performed under general anesthesia PROCEDURE DESCRIPTION: After obtaining an informed consent, the patient was brought to transesophageal echocardiogram room. Pulse oximetry and heart monitors were attached to the patient. The patient throat was sprayed using lidocaine. The patient was turned into left lateral position. After that a bite guard was placed. The patient requested the procedure to be under general anesthesia and for that reason the p atient was sedated using propofol with DIVISION SUPERVISOR A 2-D echocardiogram images, color Doppler images, continuous wave images, pulse-wave images, of various cardiac structure were performed. After that the transesophageal echocardiogram probe was advanced into the stomach and fixed to obtain transgastric view was. The probe was brought into the mid esophagus. Inter-atrial septum was interrogated using 2D images, color Doppler images, and then contrast study. After that transesophageal echocardiogram was withdrawn out and upon withdrawing the descending thoracic aorta all the way up to the arch was evaluated. FINDING: The left ventricular systolic function appeared to be on the low limits of normal was EF around 50% with global hypokinesia appeared to be very mild. The right ventricle appeared to be mildly dilated. The left atrium is severely dilated. Left atrial appendage appeared to be free from any thrombus. The interatrial septum appeared to be intact. The aortic valve is trileaflet valve without stenosis with mild insufficiency of the valve appeared to be sclerotic. The mitral valve seems to be thickened with thickness of the anterior and posterior mitral leaflet with evidence of severe mitral regurgitation with evidence of reversal of flow in the right lower pulmonary vein. There is moderate tricuspid regurgitation seen. No evidence of pericardial effusion identified. CONCLUSION: 1. Thickened anterior and posterior mitral leaflets with evidence of severe mitral regurgitation with a central jet and reversal flow in the right lower pulmonary vein 2. The left ventricular systolic function appeared to be on the limits of normal was EF around 50% 3. Mildly dilated right ventricle with a normal function 4. Aortic sclerosis without stenosis with mild insufficiency 5. Moderate tricuspid regurgitation 6. No evidence of pericardial effusion
[2022-03-01 17:06] VITALS: RESP 16
[2022-03-01 17:28] VITALS: BP 132/60; PULSE 58
== END 2022-03-01 16:35 | disposition home or self-care (01) ==
LOC: CATHCVL 08:32
PROVIDERS: ATTEND Internal Medicine Interventional Cardiology
DX: I08.3 Combined rheumatic disorders of mitral, aortic and tricuspid valves (principal); I27.20 Pulmonary hypertension, unspecified; I25.10 Atherosclerotic heart disease of native coronary artery without angina pectoris; I10 Essential (primary) hypertension; E78.5 Hyperlipidemia, unspecified; F32.A Depression, unspecified; K21.9 Gastro-esophageal reflux disease without esophagitis; I69.398 Other sequelae of cerebral infarction; R25.1 Tremor, unspecified; Z20.822 Contact with and (suspected) exposure to COVID-19; Z87.891 Personal history of nicotine dependence; Z79.899 Other long term (current) drug therapy; Z88.2 Allergy status to sulfonamides; Z88.8 Allergy status to other drugs, medicaments and biological substances
CPT/HCPCS: 93312; 93320; 93325; 93460; 76937; 85025; 87635; C1769 ×3; C1894 ×2; J2250; J2405; J2001; J2704; J1644; Q9967

== ENCOUNTER 2022-03-28 20:09 | Inpatient (IN) | payer MEDICARE ==
--- NOTE | 2022-03-28 21:35 | XR ---
EXAMINATION TYPE: XR chest 2V DATE OF EXAM: 03/28/2022 9:21 PM COMPARISON: Chest radiographs from 08/11/2019 TECHNIQUE: XR chest 2V Frontal and lateral views of the chest. CLINICAL INDICATION:Female, 76 years old with history of altered mental status; FINDINGS: Lungs/Pleura: Airspace opacities within the right mid and upper lung which are new from prior imaging . No evidence of pleural effusion or pneumothorax. Pulmonary vascularity: Unremarkable. Heart/mediastinum: Cardiomediastinal silhouette is unremarkable. Musculoskeletal: No acute osseous pathology. IMPRESSION: Airspace opacities in the right mid and upper lung correlate for pneumonia.
[2022-03-28 21:57] LABS: Basophils # (A) 0.1 k/uL (0-0.2); Basophils % (A) 0 %; Eosinophils % (A) 0 %; HCT 37.1 % (34.0-46.0); HGB 11.5 gm/dL (11.4-16.0); Lymphocytes # (A) 1.4 k/uL (1.0-4.8); Lymphocytes % (A) 8 %; MCH 28.8 pg (25.0-35.0); Monocytes # (A) 1.1 k/uL (0-1.0); Monocytes % (A) 6 %; Neutrophils # (A) 15.5 k/uL (1.3-7.7); Neutrophils % (A) 83 %; Platelet Count 199 k/uL (150-450); RBC 3.99 m/uL (3.80-5.40); RDW 13.3 % (11.5-15.5); WBC 18.6 k/uL (3.8-10.6)
[2022-03-28 22:01] LABS: Partial Thromboplastin Time 22.5 sec (22.0-30.0); Prothrombin Time 10.5 sec (9.0-12.0)
[2022-03-28 22:03] LABS: Albumin 3.8 g/dL (3.5-5.0); Calcium 8.3 mg/dL (8.4-10.2); Potassium 4.3 mmol/L (3.5-5.1); Total Bilirubin 0.7 mg/dL (0.2-1.3)
[2022-03-28] MEDS ORDERED: ASPIRIN 325 MG TAB PO STA (22:30)
[2022-03-28] MEDS ORDERED: AZITHROMYCIN 500 MG in SODIUM CHLORIDE 0.9% 250 ML IVPB STA (23:11)
[2022-03-28] MEDS ORDERED: SODIUM CHLORIDE 0.9% 1,000 ML IV STA (23:11)
--- NOTE | 2022-03-28 23:11 | ED ---
Altered Mental Status HPI - General Chief Complaint: Altered Mental Status Stated Complaint: Weakness Time Seen by Provider: 03/28/22 20:35 Source: patient, family, EMS Mode of arrival: EMS - History of Present Illness Initial Comments: Patient is a 76-year-old female who presents for evaluation of altered mental status. Patient's daughter states that patient has been acting confused for the past couple days. She states that patient has had a runny nose and dry cough this week but has otherwise not expressed other concerns. Patient is a questionable historian. She denies fever, chills, upper respiratory symptoms, shortness of breath, chest pain, abdominal pain, nausea, vomiting, and burning with urination. - Related Data Home Medications Medication Instructions Recorded Confirmed Primidone [Mysoline] 500 mg PO DAILY 08/11/19 03/28/22 Propranolol LA [Inderal LA] 80 mg PO HS 08/11/19 03/28/22 Simvastatin [Zocor] 20 mg PO HS 08/11/19 03/28/22 buPROPion HCL [Wellbutrin SR] 150 mg PO BID 08/11/19 03/28/22 lisinopriL [Zestril] 10 mg PO HS 08/11/19 03/28/22 Cetirizine HCl [Zyrtec] 10 mg PO HS 10/04/20 03/28/22 Multivitamin [Multivitamins Adult 1 tab PO DAILY 10/06/20 03/28/22 Gummies] Acetaminophen Tab [Tylenol] 650 mg PO Q4H PRN 11/04/20 03/28/22 Meclizine HCl [Bonine Chew] 25 mg PO TID PRN 11/04/20 03/28/22 dimenhyDRINATE [Dimenhydrinate] 50 mg PO Q4H PRN 11/04/20 03/28/22 Mirtazapine 45 mg PO HS 03/28/22 03/28/22 Primidone [Mysoline] 250 mg PO HS 03/28/22 03/28/22 Allergies Allergy/AdvReac Type Severity Reaction Status Date / Time Sulfa (Sulfonamide Allergy Unknown Verified 03/28/22 22:03 Antibiotics) Childhood methylprednisolone AdvReac Makes Verified 03/28/22 22:03 tremors worse Review of Systems ROS Statement: Those systems with pertinent positive or pertinent negative responses have been documented in the HPI. ROS Other: All systems not noted in ROS Statement are negative. Past Medical History Past Medical History: GERD/Reflux, Hyperlipidemia, Hypertension Additional Past Medical History / Comment(s): tremors. Vertigo History of Any Multi-Drug Resistant Organisms: None Reported Past Surgical History: Tonsillectomy Additional Past Surgical History / Comment(s): COLONOSCOPY Past Anesthesia/Blood Transfusion Reactions: Postoperative Nausea & Vomiting (PONV) Past Psychological History: Bipolar, Depression Smoking Status: Former smoker Past Alcohol Use History: None Reported Past Drug Use History: None Reported - Past Family History Mother Family Medical History: No Reported History General Exam General appearance: alert, in no apparent distress Head exam: Present: atraumatic, normocephalic, normal inspection ENT exam: Present: normal oropharynx Neck exam: Present: normal inspection, full ROM. Absent: tenderness Respiratory exam: Present: rales (right sided ). Absent: respiratory distress, wheezes, rhonchi, stridor, chest wall tenderness, accessory muscle use, prolonged expiratory Cardiovascular Exam: Present: regular rate, normal rhythm, normal heart sounds. Absent: systolic murmur, diastolic murmur, rubs, gallop, clicks GI/Abdominal exam: Present: soft, normal bowel sounds. Absent: distended, tenderness, guarding, rebound, rigid Neurological exam: Present: alert, CN II-XII intact. Absent: oriented X3 (Oriented to person and place but not time) Psychiatric exam: Present: normal affect, normal mood Skin exam: Present: warm, dry, intact, normal color. Absent: rash Course Vital Signs 03/28/22 03/29/22 20:34 00:00 Pulse Rate 100 93 Respiratory 24 32 H Rate Blood Pressure 183/80 153/67 O2 Sat by Pulse 98 95 Oximetry Medical Decision Making - Medical Decision Making This is a 76-year-old female who presents with confusion and upper respiratory symptoms. Thorough history and examination were performed. Patient is well- appearing and in no apparent distress .Right-sided rales are appreciated on lung auscultation. Pulse ox is 98% on room air. Pulse and respiratory rate are normal. Laboratory studies were obtained and significant for elevation of white count at 18.6 and elevated troponin at 0.087. Patient denies chest pain and shortness of breath. EKG shows sinus rhythm with shortened NM interval with possible ST depression in avF however there is artifact. Chest x-ray shows airspace opacities in the right mid and upper lung. Covid-19 and influenza A/B are not detected. Blood cultures pending. Patient given ceftriaxone and azithromycin for pneumonia. I will trend troponin. Case discussed with Yessenia Fraser NP. Patient will be admitted to her service for further evaluation and management. Results discussed with patient and her family. They verbalize understanding and are agreeable to admission. Dr. Mc is my attending. - Lab Data Result diagrams: 03/28/22 21:28 03/28/22 21:28 Lab Results 03/28/22 03/28/22 03/28/22 Range/Units 21:28 21:28 21:28 WBC 18.6 H (3.8-10.6) k/uL RBC 3.99 (3.80-5.40) m/uL Hgb 11.5 (11.4-16.0) gm/dL Hct 37.1 (34.0-46.0) % MCV 93.0 (80.0-100.0) fL MCH 28.8 (25.0-35.0) pg MCHC 31.0 (31.0-37.0) g/dL RDW 13.3 (11.5-15.5) % Plt Count 199 (150-450) k/uL MPV 10.0 Neutrophils % 83 % Lymphocytes % 8 % Monocytes % 6 % Eosinophils % 0 % Basophils % 0 % Neutrophils # 15.5 H (1.3-7.7) k/uL Lymphocytes # 1.4 (1.0-4.8) k/uL Monocytes # 1.1 H (0-1.0) k/uL Eosinophils # 0.0 (0-0.7) k/uL Basophils # 0.1 (0-0.2) k/uL PT 10.5 (9.0-12.0) sec INR 1.0 (<1.2) APTT 22.5 (22.0-30.0) sec Sodium 136 L (137-145) mmol/L Potassium 4.3 (3.5-5.1) mmol/L Chloride 104 (98-107) mmol/L Carbon Dioxide 20 L (22-30) mmol/L Anion Gap 12 mmol/L BUN 16 (7-17) mg/dL Creatinine 0.81 (0.52-1.04) mg/dL Est GFR (CKD-EPI)AfAm 81 (>60 ml/min/1.73 sqM) Est GFR (CKD-EPI)NonAf 70 (>60 ml/min/1.73 sqM) Glucose 127 H (74-99) mg/dL Calcium 8.3 L (8.4-10.2) mg/dL Total Bilirubin 0.7 (0.2-1.3) mg/dL AST 28 (14-36) U/L ALT 22 (4-34) U/L Alkaline Phosphatase 153 H (38-126) U/L Troponin I (0.000-0.034) ng/mL Total Protein 7.0 (6.3-8.2) g/dL Albumin 3.8 (3.5-5.0) g/dL Coronavirus (PCR) (Not Detectd) Influenza Type A RNA (Not Detectd) Influenza Type B (PCR) (Not Detectd) 03/28/22 03/28/22 03/28/22 Range/Units 21:28 21:28 21:28 WBC (3.8-10.6) k/uL RBC (3.80-5.40) m/uL Hgb (11.4-16.0) gm/dL Hct (34.0-46.0) % MCV (80.0-100.0) fL MCH (25.0-35.0) pg MCHC (31.0-37.0) g/dL RDW (11.5-15.5) % Plt Count (150-450) k/uL MPV Neutrophils % % Lymphocytes % % Monocytes % % Eosinophils % % Basophils % % Neutrophils # (1.3-7.7) k/uL Lymphocytes # (1.0-4.8) k/uL Monocytes # (0-1.0) k/uL Eosinophils # (0-0.7) k/uL Basophils # (0-0.2) k/uL PT (9.0-12.0) sec INR (<1.2) APTT (22.0-30.0) sec Sodium (137-145) mmol/L Potassium (3.5-5.1) mmol/L Chloride (98-107) mmol/L Carbon Dioxide (22-30) mmol/L Anion Gap mmol/L BUN (7-17) mg/dL Creatinine (0.52-1.04) mg/dL Est GFR (CKD-EPI)AfAm (>60 ml/min/1.73 sqM) Est GFR (CKD-EPI)NonAf (>60 ml/min/1.73 sqM) Glucose (74-99) mg/dL Calcium (8.4-10.2) mg/dL Total Bilirubin (0.2-1.3) mg/dL AST (14-36) U/L ALT (4-34) U/L Alkaline Phosphatase (38-126) U/L Troponin I 0.087 H* (0.000-0.034) ng/mL Total Protein (6.3-8.2) g/dL Albumin (3.5-5.0) g/dL Coronavirus (PCR) Not Detected (Not Detectd) Influenza Type A RNA Not Detected (Not Detectd) Influenza Type B (PCR) Not Detected (Not Detectd) Disposition Clinical Impression: Pneumonia, Elevated troponin, Confusion associated with infection Disposition: ADMITTED IP TO THIS [facility] Condition: Fair Referrals: Brenda Barrera III, MD [Primary Care Provider] - 1-2 days Decision Time: 23:11
[2022-03-28] MEDS ORDERED: cefTRIAXone IN SWFI 1,000 MG/10 ML SYRINGE IVP STA (23:12)
[2022-03-28] MEDS ORDERED: MECLIZINE 25 MG TAB PO PRN (23:46)
[2022-03-29] MEDS: lisinopriL 10 MG TAB PO SCH ×2 (00:59→20:06)
[2022-03-29] MEDS: ATORVASTATIN 10 MG TAB PO SCH ×2 (00:59→20:06)
[2022-03-29] MEDS: PROPRANOLOL LA 80 MG CAP.SA.24H PO SCH ×2 (00:59→20:06)
[2022-03-29] MEDS: buPROPion SR 150 MG TABLET.ER PO SCH ×3 (01:00→20:06)
[2022-03-29] MEDS ORDERED: ALPRAZolam 0.25 MG TAB PO STA (06:20)
[2022-03-29] MEDS ORDERED: ASPIRIN 81 MG PO STA (07:58)
[2022-03-29] MEDS ORDERED: SODIUM CHLORIDE 0.9% 1,000 ML IV SCH (08:00)
--- NOTE | 2022-03-29 08:43 | P.HPIM ---
History of Present Illness This is a pleasant 76 years old female with past medical history of GERD/Reflux, Hyperlipidemia, Hypertension, Vertigo,Bipolar, Depression. She is patient of Dr. Barrera. She follows up with Dr. Chapa for leaky valves Patient presents because of tachypnea and shortness of breath is been going on for about a month as per patient associated with a little green yellowish phlegm. With no chest pain, no abdominal pain or nausea vomiting. No dysuria but she has stress incontinence. No headache or dizziness. No weakness or numbness in one limb. She has generalized weakness and she has tremor of head and extremities worse with movement Denies smoking, alcohol or illicit drugs. She smoked from age [age] Patient blood pressures and heart rate looks stable and she is saturating 96% on room air blood patient is tachypneic 24 breaths per minute. Labs show leukocytosis at 18.6, INR, BMP is unremarkable. Creatinine is normal 0.8. Liver enzymes and bilirubin not elevated. Elevated troponin 0.08 0.1 and 0.14 Influenza and covid and detected EKG showing normal sinus rhythm at [address]-T changes and QTC of 397. Chest x-ray right middle and upper lung opacities suspicious for pneumonia On admission was started on Zithromax and ceftriaxone Review of Systems CONSTITUTIONAL: No fever, no malaise, no fatigue. HEENT: No recent visual problems or hearing problems. Denied any sore throat. CARDIOVASCULAR: No orthopnea, PND, no palpitations, no syncope. PULMONARY: No shortness of breath, no cough, no hemoptysis. GASTROINTESTINAL: No diarrhea, no nausea, no vomiting, no abdominal pain. Normoactive bowel sounds. NEUROLOGICAL: No headaches, no weakness, no numbness. HEMATOLOGICAL: Denies any bleeding or petechiae. GENITOURINARY: Denies any burning micturition, frequency, or urgency. MUSCULOSKELETAL/RHEUMATOLOGICAL: Denies any joint pain, swelling, or any muscle pain. ENDOCRINE: Denies any polyuria or polydipsia. Past Medical History Past Medical History: GERD/Reflux, Hyperlipidemia, Hypertension Additional Past Medical History / Comment(s): tremors. Vertigo History of Any Multi-Drug Resistant Organisms: None Reported Past Surgical History: Tonsillectomy Additional Past Surgical History / Comment(s): COLONOSCOPY Past Anesthesia/Blood Transfusion Reactions: Postoperative Nausea & Vomiting ( PONV) Past Psychological History: Bipolar, Depression Smoking Status: Former smoker Past Alcohol Use History: None Reported Past Drug Use History: None Reported - Past Family History Mother Family Medical History: No Reported History Medications and Allergies Home Medications Medication Instructions Recorded Confirmed Type Primidone [Mysoline] 500 mg PO DAILY 08/11/19 03/28/22 History Propranolol LA [Inderal LA] 80 mg PO HS 08/11/19 03/28/22 History Simvastatin [Zocor] 20 mg PO HS 08/11/19 03/28/22 History buPROPion HCL [Wellbutrin SR] 150 mg PO BID 08/11/19 03/28/22 History lisinopriL [Zestril] 10 mg PO HS 08/11/19 03/28/22 History Cetirizine HCl [Zyrtec] 10 mg PO HS 10/04/20 03/28/22 History Multivitamin [Multivitamins Adult 1 tab PO DAILY 10/06/20 03/28/22 History Gummies] Acetaminophen Tab [Tylenol] 650 mg PO Q4H PRN 11/04/20 03/28/22 History Meclizine HCl [Bonine Chew] 25 mg PO TID PRN 11/04/20 03/28/22 History dimenhyDRINATE [Dimenhydrinate] 50 mg PO Q4H PRN 11/04/20 03/28/22 History Mirtazapine 45 mg PO HS 03/28/22 03/28/22 History Primidone [Mysoline] 250 mg PO HS 03/28/22 03/28/22 History Allergies Allergy/AdvReac Type Severity Reaction Status Date / Time Sulfa (Sulfonamide Allergy Unknown Verified 03/28/22 22:03 Antibiotics) Childhood methylprednisolone AdvReac Makes Verified 03/28/22 22:03 tremors worse Physical Exam Vitals: Vital Signs Pulse Resp BP Pulse Ox 03/29/22 06:00 84 24 148/124 96 03/29/22 01:00 82 24 134/100 03/29/22 00:00 93 32 H 153/67 95 03/28/22 20:34 100 24 183/80 98 Intake and Output 03/28/22 03/29/22 03/29/22 22:59 06:59 14:59 Other: Weight 72 kg -GENERAL: The patient is alert and oriented x3, not in any acute distress. Well developed, well nourished. Head and upper extremity tremor worse with movement. Generally weak HEENT: Pupils are round and equally reacting to light. EOMI. No scleral icterus. No conjunctival pallor. Normocephalic, atraumatic. No pharyngeal erythema. No thyromegaly. CARDIOVASCULAR: S1 and S2 present. No murmurs, rubs, or gallops. -PULMONARY: Chest is clear to auscultation, Scattered wheezing and harsh breath sounds on the right side. Patient is tachypneic ABDOMEN: Soft, nontender, nondistended, normoactive bowel sounds. No palpable organomegaly. MUSCULOSKELETAL: No joint swelling or deformity. EXTREMITIES: No cyanosis, clubbing, or pedal edema. NEUROLOGICAL: Gross neurological examination did not reveal any focal deficits. SKIN: No rashes. No petechiae Results CBC & Chem 7: 03/28/22 21:28 03/28/22 21:28 Labs: Abnormal Lab Results - Last 24 Hours (Table) 03/28/22 03/28/22 03/28/22 Range/Units 21:28 21:28 21:28 WBC 18.6 H (3.8-10.6) k/uL Neutrophils # 15.5 H (1.3-7.7) k/uL Monocytes # 1.1 H (0-1.0) k/uL Sodium 136 L (137-145) mmol/L Carbon Dioxide 20 L (22-30) mmol/L Glucose 127 H (74-99) mg/dL Calcium 8.3 L (8.4-10.2) mg/dL Alkaline Phosphatase 153 H (38-126) U/L Troponin I 0.087 H* (0.000-0.034) ng/mL 03/29/22 03/29/22 Range/Units 00:20 04:22 WBC (3.8-10.6) k/uL Neutrophils # (1.3-7.7) k/uL Monocytes # (0-1.0) k/uL Sodium (137-145) mmol/L Carbon Dioxide (22-30) mmol/L Glucose (74-99) mg/dL Calcium (8.4-10.2) mg/dL Alkaline Phosphatase (38-126) U/L Troponin I 0.149 H* 0.145 H* (0.000-0.034) ng/mL Assessment and Plan Assessment: Right upper and middle lung Community acquired pneumonia Mild COPD exacerbation elevated troponin Metabolic encephalopathy secondary to above Exaggerated essential tremor Stress incontinence Hypertension Hyperlipidemia History of GERD History of vertigo History of bipolar and depression, 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 Continue same treatment. Continue with symptomatic treatment. Resume home medication. Monitor lytes and vitals. DVT and GI prophylaxis. Further recommendations depends on the clinical course of the patient DVT prophylaxis: Subcutaneous heparin GI Prophylaxis: Pepcid PT/OT: Pending Prognosis is guarded
[2022-03-29 09:23] LABS: African American GFR (CKD) >90 (>60 ml/min/1.73 sqM); Anion Gap 14 mmol/L; Blood Urea Nitrogen 16 mg/dL (7-17); Calcium 8.1 mg/dL (8.4-10.2); Carbon Dioxide 14 mmol/L (22-30); Chloride 111 mmol/L (98-107); Glucose 112 mg/dL (74-99); Non-African American GFR(CKD) 83 (>60 ml/min/1.73 sqM); Potassium 4.4 mmol/L (3.5-5.1); Sodium 139 mmol/L (137-145)
[2022-03-29 09:34] LABS: Basophils # (A) 0.1 k/uL (0-0.2); Basophils % (A) 0 %; Eosinophils % (A) 0 %; HCT 34.1 % (34.0-46.0); HGB 10.9 gm/dL (11.4-16.0); Lymphocytes # (A) 1.1 k/uL (1.0-4.8); Lymphocytes % (A) 6 %; MCH 29.3 pg (25.0-35.0); MCHC 31.9 g/dL (31.0-37.0); MCV 91.9 fL (80.0-100.0); Mean Platelet Volume 9.7; Monocytes # (A) 1.1 k/uL (0-1.0); Monocytes % (A) 6 %; Neutrophils # (A) 15.1 k/uL (1.3-7.7); Neutrophils % (A) 84 %; Platelet Count 219 k/uL (150-450); RBC 3.71 m/uL (3.80-5.40); RDW 13.9 % (11.5-15.5); WBC 17.9 k/uL (3.8-10.6)
[2022-03-29] MEDS: FAMOTIDINE 20 MG/2 ML VIAL IV SCH ×2 (10:12→20:06)
[2022-03-29] MEDS: HEPARIN SODIUM,PORCINE/PF 5,000 UNIT/0.5 ML SYRINGE SQ SCH ×2 (10:12→20:06)
--- NOTE | 2022-03-29 11:48 | P.CRDCN ---
History of Present Illness History of present illness: HISTORY OF PRESENTING ILLNESS This is a pleasant 76-year-old female past medical history significant for mild nonobstructive coronary artery disease, severe mitral regurgitation, hypertension, dyslipidemia, tremors. She follows in the office with Dr. Chapa. We have been asked to see in consultation for elevated troponin. Patient presents to the ER via EMS secondary to altered mental status. Patient states she was at home and her daughter came to visit, apparently she had increased confusion, dry cough, runny nose. She was brought to the ER for further evaluation. She denies any chest pain, lightheadedness, dizziness, palpitations, symptoms of orthopnea or PND. She is alert and oriented x 3 on exam. She does continue to have some shortness of breath. Patient recently underwent AMY, Right and left heart catheterization with Dr. Chapa on 03/01/2022. * AMY Revealed thickened anterior and posterior mitral leaflets with evidence of severe mitral regurgitation. EF 50%, mildly dilated right ventricle and normal function, aortic sclerosis without stenosis with mild insufficiency. Moderate tricuspid regurgitation, no evidence of pericardial effusion * Right and Left Heart cath Revealed mild nonobstructive coronary artery disease, mild pulmonary hypertension, WHO group 2, mildly elevated left and right sided filling pressures Patient following up outpatient with Dr. Wade in regards to her mitral valve. DIAGNOSTICS EKG reveals sinus rhythm, heart rate 92, mild ST depression in inferior leads, no acute ischemia noted. Prior EKG in 2020 with similar findings. Telemetry tracings indicate sinus mechanism Chest xray airspace opacity in the right mid and upper lung correlate for pneumonia. Laboratory reviewed, WBC 17.9, hemoglobin 10.9, platelets 219, sodium 139, potassium 4.4, BUN 16, serum 0.7, Troponin 0.08, 0.14, 0.14, 0.09, ProBNP 1230, COVID-19 Negative, Influenza A and Influenza B Negative Current home medications include lisinopril 10 mg nightly, simvastatin 20 mg nightly, propranolol 80 mg nightly REVIEW OF SYSTEMS At the time of my exam: CONSTITUTIONAL: Denies fever or chills. CARDIOVASCULAR: Denies chest pain, reports shortness of breath, denies orthopnea, PND or palpitations. RESPIRATORY: Denies cough. GASTROINTESTINAL: Denies abdominal pain, diarrhea, constipation, nausea or vomiting. MUSCULOSKELETAL: Denies myalgias. NEUROLOGIC: Denies numbness, tingling, headacbe or weakness. ENDOCRINE: Denies fatigue, weight change, polydipsia or polyurina. GENITOURINARY: Denies burning, hematuria or urgency with micturation. HEMATOLOGIC: Denies history of anemia or bleeding. PHYSICAL EXAMINATION Blood pressure 160/67, heart rate 82, afebrile, oxygen saturation 97% room air CONSTITUTIONAL: No apparent distress. HEENT: Head is normocephalic. Pupils are equal, round. Sclerae anicteric. Mucous membranes of the mouth are moist. No JVD. No carotid bruit. CHEST EXAMINATION: Lungs are clear to auscultation. No chest wall tenderness is noted on palpation or with deep breathing. HEART EXAMINATION: Regular rate and rhythm. S1, S2 heard. No murmurs, gallops or rub. ABDOMEN: Soft, nontender. Positive bowel sounds. EXTREMITIES: 2+ peripheral pulses, no lower extremity edema and no calf tenderness. NEUROLOGIC EXAMINATION: Patient is awake, alert and oriented x3. ASSESSMENT Altered mental status, improved Possible Pneumonia Elevated troponin, not indicative of acute coronary syndrome, likely related to hypoxia and pneumonia, recent left cardiac catheterization on 03/01/22 with mild non-obstructive CAD, AMY performed with normal LV systolic function, no acute ischemia on EKG Severe mitral regurgitation Hypertension Dyslipidemia Essential tremors PLAN From cardiology perspective no further inpatient treatment indicate this time for elevated troponin. Start Lasix PO 20mg BID Continue home cardiac medications. We will follow the patient has been reviewed. Please reconsult if needed. Follow up as scheduled with Dr. Wade and Dr. Chapa Nurse practitioner note has been reviewed by physician. Signing provider agrees with the documented findings, assessment, and plan of care. Past Medical History Past Medical History: GERD/Reflux, Hyperlipidemia, Hypertension Additional Past Medical History / Comment(s): tremors. Vertigo History of Any Multi-Drug Resistant Organisms: None Reported Past Surgical History: Tonsillectomy Additional Past Surgical History / Comment(s): COLONOSCOPY Past Anesthesia/Blood Transfusion Reactions: Postoperative Nausea & Vomiting (PONV) Past Psychological History: Bipolar, Depression Smoking Status: Former smoker Past Alcohol Use History: None Reported Past Drug Use History: None Reported - Past Family History Mother Family Medical History: No Reported History Medications and Allergies Home Medications Medication Instructions Recorded Confirmed Type Primidone [Mysoline] 500 mg PO DAILY 08/11/19 03/28/22 History Propranolol LA [Inderal LA] 80 mg PO HS 08/11/19 03/28/22 History Simvastatin [Zocor] 20 mg PO HS 08/11/19 03/28/22 History buPROPion HCL [Wellbutrin SR] 150 mg PO BID 08/11/19 03/28/22 History lisinopriL [Zestril] 10 mg PO HS 08/11/19 03/28/22 History Cetirizine HCl [Zyrtec] 10 mg PO HS 10/04/20 03/28/22 History Multivitamin [Multivitamins Adult 1 tab PO DAILY 10/06/20 03/28/22 History Gummies] Acetaminophen Tab [Tylenol] 650 mg PO Q4H PRN 11/04/20 03/28/22 History Meclizine HCl [Bonine Chew] 25 mg PO TID PRN 11/04/20 03/28/22 History dimenhyDRINATE [Dimenhydrinate] 50 mg PO Q4H PRN 11/04/20 03/28/22 History Mirtazapine 45 mg PO HS 03/28/22 03/28/22 History Primidone [Mysoline] 250 mg PO HS 03/28/22 03/28/22 History Allergies Allergy/AdvReac Type Severity Reaction Status Date / Time Sulfa (Sulfonamide Allergy Unknown Verified 03/28/22 22:03 Antibiotics) Childhood methylprednisolone AdvReac Makes Verified 03/28/22 22:03 tremors worse Physical Exam Vitals: Vital Signs Pulse Resp BP Pulse Ox 03/29/22 06:00 84 24 148/124 96 03/29/22 01:00 82 24 134/100 03/29/22 00:00 93 32 H 153/67 95 03/28/22 20:34 100 24 183/80 98 Intake and Output 03/28/22 03/29/22 03/29/22 22:59 06:59 14:59 Other: Weight 72 kg Results 03/29/22 08:45 03/29/22 08:45 Cardiac Enzymes 03/28/22 03/28/22 03/29/22 Range/Units 21:28 21:28 00:20 AST 28 (14-36) U/L Troponin I 0.087 H* 0.149 H* (0.000-0.034) ng/mL 03/29/22 Range/Units 04:22 AST (14-36) U/L Troponin I 0.145 H* (0.000-0.034) ng/mL Coagulation 03/28/22 Range/Units 21:28 PT 10.5 (9.0-12.0) sec APTT 22.5 (22.0-30.0) sec CBC 03/28/22 Range/Units 21:28 WBC 18.6 H (3.8-10.6) k/uL RBC 3.99 (3.80-5.40) m/uL Hgb 11.5 (11.4-16.0) gm/dL Hct 37.1 (34.0-46.0) % Plt Count 199 (150-450) k/uL Comprehensive Metabolic Panel 03/28/22 Range/Units 21:28 Sodium 136 L (137-145) mmol/L Potassium 4.3 (3.5-5.1) mmol/L Chloride 104 (98-107) mmol/L Carbon Dioxide 20 L (22-30) mmol/L BUN 16 (7-17) mg/dL Creatinine 0.81 (0.52-1.04) mg/dL Glucose 127 H (74-99) mg/dL Calcium 8.3 L (8.4-10.2) mg/dL AST 28 (14-36) U/L ALT 22 (4-34) U/L Alkaline Phosphatase 153 H (38-126) U/L Total Protein 7.0 (6.3-8.2) g/dL Albumin 3.8 (3.5-5.0) g/dL Current Medications Generic Name Dose Route Start Last Admin Trade Name Freq PRN Reason Stop Dose Admin Atorvastatin Calcium 10 mg 03/28/22 23:45 03/29/22 00:59 Atorvastatin 10 Mg Tab PO 10 mg HS LEMUEL Administration Bupropion HCl 150 mg 03/28/22 23:45 03/29/22 01:00 Bupropion Sr 150 Mg Tablet.Er PO 150 mg BID LEMUEL Administration Lisinopril 10 mg 03/28/22 23:45 03/29/22 00:59 Lisinopril 10 Mg Tab PO 10 mg HS LEMUEL Administration Loratadine 10 mg 03/29/22 21:00 Loratadine 10 Mg Tab PO HS LEMUEL Meclizine HCl 25 mg 03/28/22 23:46 Meclizine 25 Mg Tab PO TID PRN Vertigo Mirtazapine 45 mg 03/29/22 21:00 Mirtazapine 45 Mg Tablet PO HS LEMUEL Primidone 250 mg 03/29/22 21:00 Primidone 250 Mg Tab PO HS LEMUEL Propranolol HCl 80 mg 03/28/22 23:45 03/29/22 00:59 Propranolol La 80 Mg Cap.Sa.24h PO 80 mg HS LEMUEL Administration Intake and Output 03/28/22 03/29/22 03/29/22 22:59 06:59 14:59 Other: Weight 72 kg 03/28/22 21:28 03/28/22 21:28
--- NOTE | 2022-03-29 12:03 | P.CNPUL ---
History of Present Illness Consult date: 03/29/22 Requesting physician: Brenda Barrera III Reason for consult: dyspnea, cough, hypoxemia, pneumonia, abnormal CXR/CT Chief complaint: Pneumonia. History of present illness: Pulmonary consult dated 03/29/2022. 76-year-old female who was seen in, in room 25. The patient was seen in the emergency department on March 28, for mental status changes, and weakness. The patient apparently had been confused according to her daughter for a number days prior to admission. The patient was having a runny nose, and a dry cough. The patient was a very poor historian, and cannot give me any additional history. All the history is obtained from the ER nich[facility], and subsequent evaluations by other physicians and nurses. The patient's resting comfortably in the room. She's on room air. A basic IV is running. White count 17.9, hemoglobin 10.9, hematocrit 34.1, and platelet count is normal. Sodium 139, potassium 4.4, chlorides 111, CO2 14, anion gap 14, BUN 16, and creatinine 0.7. Magnesium is 2. Troponins were 0.087, 0.149, 0.145, and 0.090. N-terminal proBNP was 1230. Chest x-ray showed primarily right sided abnormalities, consistent with possible pneumonia. The patient was started on azithromycin, and Rocephin. Review of Systems REVIEW OF SYSTEMS: The patient herself, cannot really add anything to her history. She is very confused, and cannot detail any symptoms or issues that she was having prior to admission. CONSTITUTIONAL: [Negative.] NEUROLOGIC: [ Negative.] HEENT: [ Negative.] CARDIAC: [Negative.] PULMONARY: [Negative.] GI: [Negative.] : [Negative.] RHEUMATOLOGIC: [ Negative.] IMMUNOLOGIC: [ Negative.] ENDOCRINE: [Negative. ] DERMATOLOGIC: [Negative.] Past Medical History Past Medical History: GERD/Reflux, Hyperlipidemia, Hypertension Additional Past Medical History / Comment(s): tremors. Vertigo History of Any Multi-Drug Resistant Organisms: None Reported Past Surgical History: Tonsillectomy Additional Past Surgical History / Comment(s): COLONOSCOPY Past Anesthesia/Blood Transfusion Reactions: Postoperative Nausea & Vomiting (PONV) Past Psychological History: Bipolar, Depression Smoking Status: Former smoker Past Alcohol Use History: None Reported Past Drug Use History: None Reported - Past Family History Mother Family Medical History: No Reported History Medications and Allergies Home Medications Medication Instructions Recorded Confirmed Type Primidone [Mysoline] 500 mg PO DAILY 08/11/19 03/28/22 History Propranolol LA [Inderal LA] 80 mg PO HS 08/11/19 03/28/22 History Simvastatin [Zocor] 20 mg PO HS 08/11/19 03/28/22 History buPROPion HCL [Wellbutrin SR] 150 mg PO BID 08/11/19 03/28/22 History lisinopriL [Zestril] 10 mg PO HS 08/11/19 03/28/22 History Cetirizine HCl [Zyrtec] 10 mg PO HS 10/04/20 03/28/22 History Multivitamin [Multivitamins Adult 1 tab PO DAILY 10/06/20 03/28/22 History Gummies] Acetaminophen Tab [Tylenol] 650 mg PO Q4H PRN 11/04/20 03/28/22 History Meclizine HCl [Bonine Chew] 25 mg PO TID PRN 11/04/20 03/28/22 History dimenhyDRINATE [Dimenhydrinate] 50 mg PO Q4H PRN 11/04/20 03/28/22 History Mirtazapine 45 mg PO HS 03/28/22 03/28/22 History Primidone [Mysoline] 250 mg PO HS 03/28/22 03/28/22 History Allergies Allergy/AdvReac Type Severity Reaction Status Date / Time Sulfa (Sulfonamide Allergy Unknown Verified 03/28/22 22:03 Antibiotics) Childhood methylprednisolone AdvReac Makes Verified 03/28/22 22:03 tremors worse Physical Exam Osteopathic Statement: *. No significant issues noted on an osteopathic structural exam other than those noted in the History and Physical/Consult. Vitals: Vital Signs Temp Pulse Pulse Resp BP BP Pulse Ox 03/29/22 10:00 82 24 162/67 97 03/29/22 08:00 98.1 F 79 26 H 162/67 94 L 03/29/22 06:00 84 24 148/124 96 03/29/22 01:00 82 24 134/100 03/29/22 00:00 93 32 H 153/67 95 03/28/22 20:34 100 24 183/80 98 Intake and Output 03/28/22 03/29/22 03/29/22 22:59 06:59 14:59 Other: Voiding Method Diaper Incontinent Weight 72 kg No acute distress, confused, currently on room air. Room air saturation 97%. HEENT examination is grossly unremarkable. Neck supple. Full range of motion. No adenopathy thyromegaly or neck vein distention. Cardiovascular examination reveals regular rhythm rate. S1-S2 normal. No S3 or S4. No discernible murmur noted. Heart rate 82 bpm. Lungs reveal mostly clear breath sounds. Scattered rhonchi are noted, with predominance in the right lung. No wheezes or crackles. Room air saturation 97%. Abdomen soft bowel sounds are heard. No masses or tenderness. Extremities are intact. No cyanosis clubbing or edema. Skin is without rash or lesion. Neurologic examination is brief but nonfocal. Results - Laboratory Findings CBC and BMP: 03/29/22 08:45 03/29/22 08:45 PT/INR, D-dimer PT 10.5 sec (9.0-12.0) 03/28/22 21:28 INR 1.0 (<1.2) 03/28/22 21:28 Abnormal lab findings: Abnormal Labs 03/28/22 03/28/22 03/28/22 21:28 21:28 21:28 WBC 18.6 H RBC Hgb Neutrophils # 15.5 H Monocytes # 1.1 H Sodium 136 L Chloride Carbon Dioxide 20 L Glucose 127 H Calcium 8.3 L Alkaline Phosphatase 153 H Troponin I 0.087 H* 03/29/22 03/29/22 03/29/22 00:20 04:22 08:45 WBC 17.9 H RBC 3.71 L Hgb 10.9 L Neutrophils # 15.1 H Monocytes # 1.1 H Sodium Chloride Carbon Dioxide Glucose Calcium Alkaline Phosphatase Troponin I 0.149 H* 0.145 H* 03/29/22 03/29/22 08:45 08:45 WBC RBC Hgb Neutrophils # Monocytes # Sodium Chloride 111 H Carbon Dioxide 14 L Glucose 112 H Calcium 8.1 L Alkaline Phosphatase Troponin I 0.090 H* - Diagnostic Findings Chest x-ray: image reviewed Assessment and Plan Assessment: Acute mental status changes, likely secondary to pneumonia and possible sepsis. Elevated troponins, thought to be related to supply demand mismatch, in a patient with nonobstructive CAD, based on recent cardiac catheterization. Severe mitral regurgitation. Mild anion gap metabolic acidosis. History of hypertension. History of hyperlipidemia. History of essential tremor. History of gastroesophageal reflux disease. History of bipolar disorder. Plan: Plan dated 03/29/2022. The patient was started on Rocephin and azithromycin. The patient will be given DuoNeb's 4 times a day and when necessary. No corticosteroids aren't necessary at this time. We will continue to follow make recommendations were appropriate. Follow-up chest x-ray in a day or 2. The patient has been seen by cardiology. Prognosis is guarded. Time with Patient: Greater than 30
[2022-03-29] MEDS ORDERED: IPRATROPIUM-ALBUTEROL 3 ML NEB INHALATION PRN (12:04)
[2022-03-29] MEDS: IPRATROPIUM-ALBUTEROL 3 ML NEB INHALATION SCH ×2 (15:42→20:33)
[2022-03-29] MEDS: FUROSEMIDE 20 MG TAB PO SCH (16:50)
[2022-03-29 19:40] LABS: Amorphous Sediment,Urine Few /hpf; Appearance,Urine Cloudy (Clear); Bacteria,Urine Occasional /hpf; Bilirubin,Urine 1+ (Negative); Blood,Urine Small (Negative); Color,Urine Yellow; Glucose,Urine (UA) Negative (Negative); Ketones,Urine 2+ (Negative); Leukocyte Esterase,Urine Moderate (Negative); Mucus,Urine Rare /hpf; Nitrite,Urine Negative (Negative); Protein,Urine 2+ (Negative); RBC,Urine 7 /hpf (0-5); Specific Gravity,Urine 1.031 (1.001-1.035); Squamous Epithelial Cell,Urine 8 /hpf (0-4); WBC,Urine 47 /hpf (0-5)
[2022-03-29] MEDS ORDERED: BUDESONIDE 1 MG/2 ML NEBU INHALATION SCH (20:00)
[2022-03-29] MEDS ORDERED: FORMOTEROL FUMARATE 20 MCG/2 ML NEBU INHALATION SCH (20:00)
[2022-03-29] MEDS: PRIMIDONE 250 MG TAB PO SCH (20:06)
[2022-03-29] MEDS: LORATADINE 10 MG TAB PO SCH (20:06)
[2022-03-29] MEDS: MIRTAZAPINE 45 MG TABLET PO SCH (20:06)
[2022-03-29] MEDS: AZITHROMYCIN 500 MG in SODIUM CHLORIDE 0.9% 250 ML IVPB SCH (20:12)
[2022-03-30] MEDS: IPRATROPIUM-ALBUTEROL 3 ML NEB INHALATION SCH ×4 (08:11→20:01)
[2022-03-30] MEDS: FAMOTIDINE 20 MG TAB PO SCH ×2 (08:41→20:34)
[2022-03-30] MEDS: FUROSEMIDE 20 MG TAB PO SCH ×2 (08:41→17:26)
[2022-03-30] MEDS: HEPARIN SODIUM,PORCINE/PF 5,000 UNIT/0.5 ML SYRINGE SQ SCH ×2 (08:42→20:34)
[2022-03-30] MEDS: buPROPion SR 150 MG TABLET.ER PO SCH ×2 (08:42→20:34)
[2022-03-30 09:30] LABS: Basophils # (A) 0.1 k/uL (0-0.2); Basophils % (A) 1 %; Eosinophils # (A) 0.2 k/uL (0-0.7); Eosinophils % (A) 2 %; HGB 10.1 gm/dL (11.4-16.0); Lymphocytes # (A) 1.4 k/uL (1.0-4.8); Lymphocytes % (A) 11 %; MCH 28.7 pg (25.0-35.0); MCHC 31.4 g/dL (31.0-37.0); MCV 91.2 fL (80.0-100.0); Mean Platelet Volume 9.1; Monocytes % (A) 8 %; Neutrophils # (A) 10.3 k/uL (1.3-7.7); Neutrophils % (A) 77 %; Platelet Count 227 k/uL (150-450); RBC 3.51 m/uL (3.80-5.40); RDW 13.3 % (11.5-15.5); WBC 13.3 k/uL (3.8-10.6)
[2022-03-30 09:50] LABS: African American GFR (CKD) >90 (>60 ml/min/1.73 sqM); Anion Gap 13 mmol/L; Blood Urea Nitrogen 14 mg/dL (7-17); Calcium 7.3 mg/dL (8.4-10.2); Carbon Dioxide 18 mmol/L (22-30); Chloride 99 mmol/L (98-107); Glucose 117 mg/dL (74-99); Magnesium 1.9 mg/dL (1.6-2.3); Non-African American GFR(CKD) 85 (>60 ml/min/1.73 sqM); Potassium 3.9 mmol/L (3.5-5.1); Sodium 130 mmol/L (137-145)
--- NOTE | 2022-03-30 10:42 | P.PN ---
Subjective This is a pleasant 76 years old female with past medical history of GERD/Reflux, Hyperlipidemia, Hypertension, Vertigo,Bipolar, Depression. She is patient of Dr. Barrera. She follows up with Dr. Chapa for leaky valves Patient presents because of tachypnea and shortness of breath is been going on for about a month as per patient associated with a little green yellowish phlegm. With no chest pain, no abdominal pain or nausea vomiting. No dysuria but she has stress incontinence. No headache or dizziness. No weakness or numbness in one limb. She has generalized weakness and she has tremor of head and extremities worse with movement Denies smoking, alcohol or illicit drugs. She smoked from age [age] Patient blood pressures and heart rate looks stable and she is saturating 96% on room air blood patient is tachypneic 24 breaths per minute. Labs show leukocytosis at 18.6, INR, BMP is unremarkable. Creatinine is normal 0.8. Liver enzymes and bilirubin not elevated. Elevated troponin 0.08 0.1 and 0.14 Influenza and covid and detected EKG showing normal sinus rhythm at [address]-T changes and QTC of 397. Chest x-ray right middle and upper lung opacities suspicious for pneumonia On admission was started on Zithromax and ceftriaxone 03/30/2022 Patient awake but lethargic, she follows commands, she looks good with drowsy and confused but same as yesterday. She still tachypneic with some better air entry. She is saturating well on 2 L oxygen via nasal cannula She has evidence of conjunctivitis and she was started on ophthalmic Cipro. She feels generally weak. Urine analysis Suspicious for UTI and urine culture is pending. She remains on Zithromax and and ceftriaxone Patient had negative cardiac cath recently Objective - Vital Signs Vital signs: Vital Signs Temp 98.9 F 03/30/22 08:00 Pulse 60 03/30/22 08:00 Resp 20 03/30/22 08:00 BP 176/72 03/30/22 08:00 Pulse Ox 98 03/30/22 08:00 FiO2 Intake & Output 03/29/22 03/30/22 03/30/22 18:59 06:59 18:59 Intake Total 118 400 Output Total 602 Balance 118 -202 Intake: Intake, IV Titration 250 Amount Azithromycin 500 mg In 250 Sodium Chloride 0.9% 250 ml @ 250 mls/hr IVPB [facility] Rx#:[id number] Oral 118 150 Output: Urine 602 Other: Voiding Method Diaper Diaper Incontinent Incontinent External Catheter - Exam -GENERAL: The patient is alert and oriented x3, not in any acute distress. Generally weak -HEENT: Pupils are round and equally reacting to light. EOMI. No scleral icterus. No conjunctival pallor. Normocephalic, atraumatic. No pharyngeal erythema. No thyromegaly. Bilateral purulent conjunctivitis CARDIOVASCULAR: S1 and S2 present. No murmurs, rubs, or gallops. -PULMONARY: Chest is clear to auscultation, no wheezing or crackles. Tachypnea ABDOMEN: Soft, nontender, nondistended, normoactive bowel sounds. No palpable organomegaly. MUSCULOSKELETAL: No joint swelling or deformity. EXTREMITIES: No cyanosis, clubbing, or pedal edema. NEUROLOGICAL: Gross neurological examination did not reveal any focal deficits. SKIN: No rashes. no petechiae. - Labs CBC & Chem 7: 03/30/22 09:15 03/30/22 09:15 Labs: Abnormal Lab Results - Last 24 Hours (Table) 03/29/22 03/29/22 03/30/22 Range/Units 08:45 17:20 09:15 WBC 13.3 H (3.8-10.6) k/uL RBC 3.51 L (3.80-5.40) m/uL Hgb 10.1 L (11.4-16.0) gm/dL Hct 32.0 L (34.0-46.0) % Neutrophils # 10.3 H (1.3-7.7) k/uL Sodium (137-145) mmol/L Carbon Dioxide (22-30) mmol/L Glucose (74-99) mg/dL Calcium (8.4-10.2) mg/dL Procalcitonin 0.10 H (0.02-0.09) ng/mL Urine Appearance Cloudy H (Clear) Urine Protein 2+ H (Negative) Urine Ketones 2+ H (Negative) Urine Blood Small H (Negative) Urine Bilirubin 1+ H (Negative) Ur Leukocyte Esterase Moderate H (Negative) Urine RBC 7 H (0-5) /hpf Urine WBC 47 H (0-5) /hpf Ur Squamous Epith Cells 8 H (0-4) /hpf Amorphous Sediment Few H (None) /hpf Urine Bacteria Occasional H (None) /hpf Urine Mucus Rare H (None) /hpf 03/30/22 Range/Units 09:15 WBC (3.8-10.6) k/uL RBC (3.80-5.40) m/uL Hgb (11.4-16.0) gm/dL Hct (34.0-46.0) % Neutrophils # (1.3-7.7) k/uL Sodium 130 L (137-145) mmol/L Carbon Dioxide 18 L (22-30) mmol/L Glucose 117 H (74-99) mg/dL Calcium 7.3 L (8.4-10.2) mg/dL Procalcitonin (0.02-0.09) ng/mL Urine Appearance (Clear) Urine Protein (Negative) Urine Ketones (Negative) Urine Blood (Negative) Urine Bilirubin (Negative) Ur Leukocyte Esterase (Negative) Urine RBC (0-5) /hpf Urine WBC (0-5) /hpf Ur Squamous Epith Cells (0-4) /hpf Amorphous Sediment (None) /hpf Urine Bacteria (None) /hpf Urine Mucus (None) /hpf Microbiology - Last 24 Hours (Table) 03/29/22 17:20 Urine Culture - Preliminary Urine,Voided 03/29/22 00:20 Blood Culture - Preliminary Blood No Growth after 24 hours Assessment and Plan Assessment: Right upper and middle lung Community acquired pneumonia Mild COPD exacerbation elevated troponin Metabolic encephalopathy secondary to above Exaggerated essential tremor Stress incontinence Hypertension Hyperlipidemia History of GERD History of vertigo History of bipolar and depression, 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 Continue same treatment. Continue with symptomatic treatment. Resume home medication. Monitor lytes and vitals. DVT and GI prophylaxis. Further recommendations depends on the clinical course of the patient DVT prophylaxis: Subcutaneous heparin GI Prophylaxis: Pepcid PT/OT: Pending Prognosis is guarded
--- NOTE | 2022-03-30 12:01 | P.PN ---
Subjective Progress Note Date: 03/30/22 Principal diagnosis: Pneumonia. Pulmonary consult dated 03/29/2022. 76-year-old female who was seen in, in room 25. The patient was seen in the emergency department on March 28, for mental status changes, and weakness. The patient apparently had been confused according to her daughter for a number days prior to admission. The patient was having a runny nose, and a dry cough. The patient was a very poor historian, and cannot give me any additional history. All the history is obtained from the ER nich[facility], and subsequent evaluations by other physicians and nurses. The patient's resting comfortably in the room. She's on room air. A basic IV is running. White count 17.9, hemoglobin 10.9, hematocrit 34.1, and platelet count is normal. Sodium 139, potassium 4.4, chlorides 111, CO2 14, anion gap 14, BUN 16, and creatinine 0.7. Magnesium is 2. Troponins were 0.087, 0.149, 0.145, and 0.090. N-terminal proBNP was 1230. Chest x-ray showed primarily right sided abnormalities, consistent with possible pneumonia. The patient was started on azithromycin, and Rocephin. Progress note dated 03/30/2022. 76-year-old female seen in the emergency room, yesterday, for pneumonia. She was admitted with a diagnosis of acute mental status changes, and weakness. The patient was discovered to have pneumonia. She is a very poor historian. No additional history can be obtained from the patient. The patient remains on antibiotics. White count 13.3, hemoglobin 10.1, hematocrit 32, and platelet count 227,000. Sodium 1:30, potassium 3.9, chlorides 99, CO2 18, anion gap 13, BUN 14, creatinine 0.66. Urine is suspicious. Chest x-ray showed right-sided infiltrate, suspicious for pneumonia. Objective - Vital Signs Vital signs: Vital Signs Temp 98.9 F 03/30/22 08:00 Pulse 85 03/30/22 11:38 Resp 20 03/30/22 08:00 BP 176/72 03/30/22 08:00 Pulse Ox 98 03/30/22 08:00 FiO2 Intake & Output 03/29/22 03/30/22 03/30/22 18:59 06:59 18:59 Intake Total 118 400 120 Output Total 602 Balance 118 -202 120 Intake: Intake, IV Titration 250 Amount Azithromycin 500 mg In 250 Sodium Chloride 0.9% 250 ml @ 250 mls/hr IVPB HS [facility] Rx#:[id number] Oral 118 150 120 Output: Urine 602 Other: Voiding Method Diaper Diaper Diaper Incontinent Incontinent Incontinent External Catheter External Catheter - Exam No acute distress, confused, currently on room air. 2 L saturation is 98%. HEENT examination is grossly unremarkable. Neck supple. Full range of motion. No adenopathy thyromegaly or neck vein distention. Cardiovascular examination reveals regular rhythm rate. S1-S2 normal. No S3 or S4. No discernible murmur noted. Heart rate 85 bpm. Lungs reveal mostly clear breath sounds. Scattered rhonchi are noted, with predominance in the right lung. No wheezes or crackles. Abdomen soft bowel sounds are heard. No masses or tenderness. Extremities are intact. No cyanosis clubbing or edema. Skin is without rash or lesion. Neurologic examination is brief but nonfocal. - Labs CBC & Chem 7: 03/30/22 09:15 03/30/22 09:15 Labs: Abnormal Lab Results - Last 24 Hours (Table) 03/29/22 03/29/22 03/30/22 Range/Units 08:45 17:20 09:15 WBC 13.3 H (3.8-10.6) k/uL RBC 3.51 L (3.80-5.40) m/uL Hgb 10.1 L (11.4-16.0) gm/dL Hct 32.0 L (34.0-46.0) % Neutrophils # 10.3 H (1.3-7.7) k/uL Sodium (137-145) mmol/L Carbon Dioxide (22-30) mmol/L Glucose (74-99) mg/dL Calcium (8.4-10.2) mg/dL Procalcitonin 0.10 H (0.02-0.09) ng/mL Urine Appearance Cloudy H (Clear) Urine Protein 2+ H (Negative) Urine Ketones 2+ H (Negative) Urine Blood Small H (Negative) Urine Bilirubin 1+ H (Negative) Ur Leukocyte Esterase Moderate H (Negative) Urine RBC 7 H (0-5) /hpf Urine WBC 47 H (0-5) /hpf Ur Squamous Epith Cells 8 H (0-4) /hpf Amorphous Sediment Few H (None) /hpf Urine Bacteria Occasional H (None) /hpf Urine Mucus Rare H (None) /hpf 03/30/22 Range/Units 09:15 WBC (3.8-10.6) k/uL RBC (3.80-5.40) m/uL Hgb (11.4-16.0) gm/dL Hct (34.0-46.0) % Neutrophils # (1.3-7.7) k/uL Sodium 130 L (137-145) mmol/L Carbon Dioxide 18 L (22-30) mmol/L Glucose 117 H (74-99) mg/dL Calcium 7.3 L (8.4-10.2) mg/dL Procalcitonin (0.02-0.09) ng/mL Urine Appearance (Clear) Urine Protein (Negative) Urine Ketones (Negative) Urine Blood (Negative) Urine Bilirubin (Negative) Ur Leukocyte Esterase (Negative) Urine RBC (0-5) /hpf Urine WBC (0-5) /hpf Ur Squamous Epith Cells (0-4) /hpf Amorphous Sediment (None) /hpf Urine Bacteria (None) /hpf Urine Mucus (None) /hpf Microbiology - Last 24 Hours (Table) 03/29/22 17:20 Urine Culture - Preliminary Urine,Voided 03/29/22 00:20 Blood Culture - Preliminary Blood No Growth after 24 hours Assessment and Plan Assessment: Acute mental status changes, likely secondary to pneumonia and possible sepsis. Possible urinary tract infection/urosepsis. Elevated troponins, thought to be related to supply demand mismatch, in a patient with nonobstructive CAD, based on recent cardiac catheterization. Severe mitral regurgitation. Mild anion gap metabolic acidosis. History of hypertension. History of hyperlipidemia. History of essential tremor. History of gastroesophageal reflux disease. History of bipolar disorder. Plan: Plan dated 03/29/2022. The patient was started on Rocephin and azithromycin. The patient will be given DuoNeb's 4 times a day and when necessary. No corticosteroids aren't necessary at this time. We will continue to follow make recommendations were appropriate. Follow-up chest x-ray in a day or 2. The patient has been seen by cardiology. Prognosis is guarded. Plan dated 03/30/2022. The patient currently remains on antibiotics. The patient is on breathing treatments as well. Her respiratory status is stable. The patient is a very poor historian. Pro-calcitonin level though, was rather low at 0.10. N- terminal proBNP is 1230. The patient has been seen by cardiology. Labs, x- rays, and medications are reviewed. Her prognosis is guarded. We will continue to follow the patient and make recommendations where appropriate. Time with Patient: Less than 30
[2022-03-30] MEDS: CIPROFLOXACIN 0.3% OPHTH SOLN 5 ML BTL BOTH EYES SCH ×4 (12:13→23:31)
[2022-03-30] MEDS: AZITHROMYCIN 500 MG in SODIUM CHLORIDE 0.9% 250 ML IVPB SCH (19:50)
[2022-03-30] MEDS: PROPRANOLOL LA 80 MG CAP.SA.24H PO SCH (20:34)
[2022-03-30] MEDS: PRIMIDONE 250 MG TAB PO SCH (20:34)
[2022-03-30] MEDS: LORATADINE 10 MG TAB PO SCH (20:34)
[2022-03-30] MEDS: lisinopriL 10 MG TAB PO SCH (20:34)
[2022-03-30] MEDS: MIRTAZAPINE 45 MG TABLET PO SCH (20:34)
[2022-03-30] MEDS: ATORVASTATIN 10 MG TAB PO SCH (20:34)
[2022-03-31] MEDS: CIPROFLOXACIN 0.3% OPHTH SOLN 5 ML BTL BOTH EYES SCH ×5 (04:37→20:58)
[2022-03-31] MEDS: IPRATROPIUM-ALBUTEROL 3 ML NEB INHALATION SCH ×4 (07:46→19:52)
[2022-03-31] MEDS: FUROSEMIDE 20 MG TAB PO SCH ×2 (09:19→17:44)
[2022-03-31] MEDS: buPROPion SR 150 MG TABLET.ER PO SCH ×2 (09:20→20:57)
[2022-03-31] MEDS: FAMOTIDINE 20 MG TAB PO SCH ×2 (09:20→20:57)
[2022-03-31] MEDS: HEPARIN SODIUM,PORCINE/PF 5,000 UNIT/0.5 ML SYRINGE SQ SCH ×2 (09:20→20:57)
[2022-03-31] MEDS: methylPREDNISolone SOD SUCCI 40 MG/ML 1 ML VIAL IV SCH ×3 (12:15→21:04)
[2022-03-31] MEDS ORDERED: PHENAZOPYRIDINE 100 MG TAB PO PRN (13:01)
--- NOTE | 2022-03-31 13:54 | P.PN ---
Subjective Progress Note Date: 03/31/22 Principal diagnosis: Pneumonia. Pulmonary consult dated 03/29/2022. 76-year-old female who was seen in, in room 25. The patient was seen in the emergency department on March 28, for mental status changes, and weakness. The patient apparently had been confused according to her daughter for a number days prior to admission. The patient was having a runny nose, and a dry cough. The patient was a very poor historian, and cannot give me any additional history. All the history is obtained from the ER nicholas, and subsequent evaluations by other physicians and nurses. The patient's resting comfortably in the room. She's on room air. A basic IV is running. White count 17.9, hemoglobin 10.9, hematocrit 34.1, and platelet count is normal. Sodium 139, potassium 4.4, chlorides 111, CO2 14, anion gap 14, BUN 16, and creatinine 0.7. Magnesium is 2. Troponins were 0.087, 0.149, 0.145, and 0.090. N-terminal proBNP was 1230. Chest x-ray showed primarily right sided abnormalities, consistent with possible pneumonia. The patient was started on azithromycin, and Rocephin. Progress note dated 03/30/2022. 76-year-old female seen in the emergency room, yesterday, for pneumonia. She was admitted with a diagnosis of acute mental status changes, and weakness. The patient was discovered to have pneumonia. She is a very poor historian. No additional history can be obtained from the patient. The patient remains on antibiotics. White count 13.3, hemoglobin 10.1, hematocrit 32, and platelet count 227,000. Sodium 1:30, potassium 3.9, chlorides 99, CO2 18, anion gap 13, BUN 14, creatinine 0.66. Urine is suspicious. Chest x-ray showed right-sided infiltrate, suspicious for pneumonia. Progress note dated 03/31/2022. 76-year-old female admitted with a diagnosis of pneumonia. The patient presented to the hospital with mental status changes, and profound weakness. She is much more alert and awake today. In fact, her daughter is at the bedside. He is able to answer questions whereas, yesterday she was not able to. No new labs today. Most recent white count was 13.3. Sodium 130. From the pulmonary standpoint, the patient remains on Symbicort, Rocephin, updrafts, and Solu-Medrol. Objective - Vital Signs Vital signs: Vital Signs Temp 97.4 F L 03/31/22 08:00 Pulse 76 03/31/22 13:17 Resp 18 03/31/22 13:17 BP 134/80 03/31/22 12:00 Pulse Ox 99 03/31/22 12:00 FiO2 Intake & Output 03/30/22 03/31/22 03/31/22 18:59 06:59 18:59 Intake Total 960 1220 420 Output Total 700 2120 1000 Balance 260 -900 -580 Intake: Intake, IV Titration 735 Amount Azithromycin 500 mg In 735 Sodium Chloride 0.9% 250 ml @ 250 mls/hr IVPB [facility] Rx#:[id number] Oral 960 485 420 Output: Urine 700 2120 1000 Other: Voiding Method Diaper Diaper Diaper Incontinent Incontinent Incontinent External Catheter External Catheter External Catheter - Exam No acute distress, confused, currently on room air. Room air saturation 99%. HEENT examination is grossly unremarkable. Neck supple. Full range of motion. No adenopathy thyromegaly or neck vein distention. Cardiovascular examination reveals regular rhythm rate. S1-S2 normal. No S3 or S4. No discernible murmur noted. Heart rate 76 bpm. Lungs reveal mostly clear breath sounds. Scattered rhonchi are noted, with predominance in the right lung. No wheezes or crackles. Abdomen soft bowel sounds are heard. No masses or tenderness. Extremities are intact. No cyanosis clubbing or edema. Skin is without rash or lesion. Neurologic examination is brief but nonfocal. - Labs CBC & Chem 7: 03/30/22 09:15 03/30/22 09:15 Labs: Microbiology - Last 24 Hours (Table) 03/29/22 17:20 Urine Culture - Final Urine,Voided 03/29/22 00:20 Blood Culture - Preliminary Blood No Growth after 48 hours Assessment and Plan Assessment: Acute mental status changes, likely secondary to pneumonia and possible sepsis. Possible urinary tract infection/urosepsis. Elevated troponins, thought to be related to supply demand mismatch, in a patient with nonobstructive CAD, based on recent cardiac catheterization. Severe mitral regurgitation. Mild anion gap metabolic acidosis. History of hypertension. History of hyperlipidemia. History of essential tremor. History of gastroesophageal reflux disease. History of bipolar disorder. Plan: Plan dated 03/29/2022. The patient was started on Rocephin and azithromycin. The patient will be given DuoNeb's 4 times a day and when necessary. No corticosteroids aren't necessary at this time. We will continue to follow make recommendations were appropriate. Follow-up chest x-ray in a day or 2. The patient has been seen by cardiology. Prognosis is guarded. Plan dated 03/30/2022. The patient currently remains on antibiotics. The patient is on breathing treatments as well. Her respiratory status is stable. The patient is a very poor historian. Pro-calcitonin level though, was rather low at 0.10. N- terminal proBNP is 1230. The patient has been seen by cardiology. Labs, x- rays, and medications are reviewed. Her prognosis is guarded. We will continue to follow the patient and make recommendations where appropriate. Plan dated 03/31/2022. The patient appears to be doing much better. Room air saturation is 98%. She remains on Rocephin. Labs, x-rays, and medications are reviewed. We will continue to follow make recommendations where appropriate. Microbiologic studies are thus far negative. X-rays, and laboratory data reviewed. Prognosis is certainly guarded. The patient was much more awake and alert today. Her daughter is sitting at the bedside. Time with Patient: Less than 30
--- NOTE | 2022-03-31 15:39 | P.PN ---
Subjective This is a pleasant 76 years old female with past medical history of GERD/Reflux, Hyperlipidemia, Hypertension, Vertigo,Bipolar, Depression. She is patient of Dr. Barrera. She follows up with Dr. Chapa for leaky valves Patient presents because of tachypnea and shortness of breath is been going on for about a month as per patient associated with a little green yellowish phlegm. With no chest pain, no abdominal pain or nausea vomiting. No dysuria but she has stress incontinence. No headache or dizziness. No weakness or numbness in one limb. She has generalized weakness and she has tremor of head and extremities worse with movement Denies smoking, alcohol or illicit drugs. She smoked from age [age] Patient blood pressures and heart rate looks stable and she is saturating 96% on room air blood patient is tachypneic 24 breaths per minute. Labs show leukocytosis at 18.6, INR, BMP is unremarkable. Creatinine is normal 0.8. Liver enzymes and bilirubin not elevated. Elevated troponin 0.08 0.1 and 0.14 Influenza and covid and detected EKG showing normal sinus rhythm at [address]-T changes and QTC of 397. Chest x-ray right middle and upper lung opacities suspicious for pneumonia On admission was started on Zithromax and ceftriaxone 03/30/2022 Patient awake but lethargic, she follows commands, she looks good with drowsy and confused but same as yesterday. She still tachypneic with some better air entry. She is saturating well on 2 L oxygen via nasal cannula She has evidence of conjunctivitis and she was started on ophthalmic Cipro. She feels generally weak. Urine analysis Suspicious for UTI and urine culture is pending. She remains on Zithromax and and ceftriaxone Patient had negative cardiac cath recently 03/31/2022 Patient still looks very tired however she is less tachypneic, she still have scattered wheezing on like examination and currently she is scoped and antibiotic Zithromax and ceftriaxone and inhaled steroids. However looks like she is improving although we will keep monitoring closely. Her conjunctivitis also improving. She is continued on ophthalmic Cipro eyedrops Urine culture came back negative. Repeat labs in the morning Objective - Vital Signs Vital signs: Vital Signs Temp 97.4 F L 03/31/22 08:00 Pulse 87 03/31/22 11:29 Resp 18 03/31/22 08:00 BP 112/74 03/31/22 08:00 Pulse Ox 92 L 03/31/22 08:00 FiO2 Intake & Output 03/30/22 03/31/22 03/31/22 18:59 06:59 18:59 Intake Total 960 1220 240 Output Total 700 2120 550 Balance 260 -900 -310 Intake: Intake, IV Titration 735 Amount Azithromycin 500 mg In 735 Sodium Chloride 0.9% 250 ml @ 250 mls/hr IVPB HS [facility] Rx#:[id number] Oral 960 485 240 Output: Urine 700 2120 550 Other: Voiding Method Diaper Diaper Diaper Incontinent Incontinent Incontinent External Catheter External Catheter External Catheter - Exam -GENERAL: The patient is alert and oriented x3, not in any acute distress. Generally weak -HEENT: Pupils are round and equally reacting to light. EOMI. No scleral icterus. No conjunctival pallor. Normocephalic, atraumatic. No pharyngeal erythema. No thyromegaly. Bilateral purulent conjunctivitis CARDIOVASCULAR: S1 and S2 present. No murmurs, rubs, or gallops. -PULMONARY: Chest is clear to auscultation, no wheezing or crackles. Tachypnea ABDOMEN: Soft, nontender, nondistended, normoactive bowel sounds. No palpable organomegaly. MUSCULOSKELETAL: No joint swelling or deformity. EXTREMITIES: No cyanosis, clubbing, or pedal edema. NEUROLOGICAL: Gross neurological examination did not reveal any focal deficits. SKIN: No rashes. no petechiae. 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 Continue same treatment. Continue with symptomatic treatment. Resume home medication. Monitor lytes and vitals. DVT and GI prophylaxis. Further recommendations depends on the clinical course of the patient DVT prophylaxis: Subcutaneous heparin GI Prophylaxis: Pepcid PT/OT: Pending Prognosis is guarded
[2022-03-31] MEDS: SYMBICORT 160-4.5 MCG INHALER INHALATION SCH (19:52)
[2022-03-31] MEDS: ATORVASTATIN 10 MG TAB PO SCH (20:57)
[2022-03-31] MEDS: PRIMIDONE 250 MG TAB PO SCH (20:58)
[2022-03-31] MEDS: MIRTAZAPINE 45 MG TABLET PO SCH (20:58)
[2022-03-31] MEDS: PROPRANOLOL LA 80 MG CAP.SA.24H PO SCH (20:58)
[2022-03-31] MEDS: lisinopriL 10 MG TAB PO SCH (20:58)
[2022-04-01] MEDS: CIPROFLOXACIN 0.3% OPHTH SOLN 5 ML BTL BOTH EYES SCH ×5 (00:06→16:54)
[2022-04-01] MEDS: methylPREDNISolone SOD SUCCI 40 MG/ML 1 ML VIAL IV SCH ×2 (03:59→11:41)
[2022-04-01 06:13] LABS: Glucose,Whole Blood 131 mg/dL (75-99)
[2022-04-01 08:26] VITALS: TEMP 97.3
[2022-04-01] MEDS: HEPARIN SODIUM,PORCINE/PF 5,000 UNIT/0.5 ML SYRINGE SQ SCH (08:31)
[2022-04-01] MEDS: FAMOTIDINE 20 MG TAB PO SCH (08:32)
[2022-04-01] MEDS: FUROSEMIDE 20 MG TAB PO SCH ×2 (08:32→16:54)
[2022-04-01] MEDS: buPROPion SR 150 MG TABLET.ER PO SCH (08:32)
[2022-04-01] MEDS: SYMBICORT 160-4.5 MCG INHALER INHALATION SCH (08:37)
[2022-04-01] MEDS: IPRATROPIUM-ALBUTEROL 3 ML NEB INHALATION SCH ×3 (08:37→16:03)
--- NOTE | 2022-04-01 08:59 | XR ---
EXAMINATION TYPE: XR chest 1V portable DATE OF EXAM: 04/01/2022 COMPARISON: 03/28/2022 HISTORY: Cough TECHNIQUE: Single frontal view of the chest is obtained. FINDINGS: Patchy multifocal areas of infiltrate are seen. Heart is enlarged suspect underlying COPD and chronic interstitial lung disease. No pneumothorax. Atherosclerotic change aorta. IMPRESSION: Patchy bilateral areas of infiltrate/pneumonia with small effusion likely superimposed o n a background COPD chronic interstitial lung disease. Interstitial pneumonitis or venous congestion not excluded correlate clinically.
[2022-04-01 09:42] LABS: Basophils # (A) 0.1 k/uL (0-0.2); Basophils % (A) 1 %; Eosinophils # (A) 0.2 k/uL (0-0.7); Eosinophils % (A) 1 %; HCT 34.8 % (34.0-46.0); HGB 11.2 gm/dL (11.4-16.0); Lymphocytes # (A) 1.1 k/uL (1.0-4.8); Lymphocytes % (A) 9 %; MCH 29.3 pg (25.0-35.0); MCHC 32.2 g/dL (31.0-37.0); Mean Platelet Volume 9.3; Monocytes # (A) 0.9 k/uL (0-1.0); Monocytes % (A) 8 %; Neutrophils # (A) 9.5 k/uL (1.3-7.7); Neutrophils % (A) 80 %; Platelet Count 308 k/uL (150-450); RBC 3.82 m/uL (3.80-5.40); RDW 13.7 % (11.5-15.5)
[2022-04-01 10:18] LABS: African American GFR (CKD) >90 (>60 ml/min/1.73 sqM); Anion Gap 15 mmol/L; Blood Urea Nitrogen 12 mg/dL (7-17); Calcium 8.4 mg/dL (8.4-10.2); Carbon Dioxide 22 mmol/L (22-30); Chloride 96 mmol/L (98-107); Glucose 166 mg/dL (74-99); Magnesium 1.9 mg/dL (1.6-2.3); Non-African American GFR(CKD) 83 (>60 ml/min/1.73 sqM); Sodium 133 mmol/L (137-145)
--- NOTE | 2022-04-01 11:32 | P.PN ---
Subjective Progress Note Date: 04/01/22 76-year-old female who was seen in, in room 25. The patient was seen in the emergency department on March 28, for mental status changes, and weakness. The patient apparently had been confused according to her daughter for a number days prior to admission. The patient was having a runny nose, and a dry cough. The patient was a very poor historian, and cannot give me any additional history. All the history is obtained from the ER nicholas, and subsequent evaluations by other physicians and nurses. The patient's resting comfortably in the room. She's on room air. A basic IV is running. White count 17.9, hemoglobin 10.9, hematocrit 34.1, and platelet count is normal. Sodium 139, potassium 4.4, ch lorides 111, CO2 14, anion gap 14, BUN 16, and creatinine 0.7. Magnesium is 2. Troponins were 0.087, 0.149, 0.145, and 0.090. N-terminal proBNP was 1230. Chest x-ray showed primarily right sided abnormalities, consistent with possible pneumonia. The patient was started on azithromycin, and Rocephin. Progress note dated 03/30/2022. 76-year-old female seen in the emergency room, yesterday, for pneumonia. She was admitted with a diagnosis of acute mental status changes, and weakness. The patient was discovered to have pneumonia. She is a very poor historian. No additional history can be obtained from the patient. The patient remains on antibiotics. White count 13.3, hemoglobin 10.1, hematocrit 32, and platelet count 227,000. Sodium 1:30, potassium 3.9, chlorides 99, CO2 18, anion gap 13, BUN 14, creatinine 0.66. Urine is suspicious. Chest x-ray showed right-sided infiltrate, suspicious for pneumonia. Progress note dated 03/31/2022. 76-year-old female admitted with a diagnosis of pneumonia. The patient presented to the hospital with mental status changes, and profound weakness. She is much more alert and awake today. In fact, her daughter is at the bedside. He is able to answer questions whereas, yesterday she was not able to. No new labs today. Most recent white count was 13.3. Sodium 130. From the pulmonary standpoint, the patient remains on Symbicort, Rocephin, updrafts, and Solu-Medrol. 04/01/2022, the patient is doing well. The patient has been sitting up on a chair on the recliner on room air oxygen. She was admitted for altered mentation sepsis. This was suspected to be related to pneumonia/UTI. The follow-up chest x-ray showed patchy bilateral areas of infiltrates with small effusion along with possible underlying COPD/ALT. The right sided patchy pulmonary infiltrates have been showing some interval improvement. The white cell count is down to 12. UA was abnormal. The urine cultures were negative. The pro calcitonin LEVEL AT THE TIME OF ADMISSION WAS 0.1. PROBNP LEVEL WAS 1230. THE PATIENT IS CURRENTLY ON ROOM AIR OXYGEN. HER CARDIAC STATUS IS STABLE. NO HYPOTENSION. NO HEMODYNAMIC INSTABILITY. NO POSITIVE BLOOD CUL TURES AND THE PATIENT HAS BEEN MAINTAINED ON IV ROCEPHIN AN EMPIRIC ANTIBIOTIC COVERAGE. The patient also has history of admission still tremors. She does have also history of valvular heart disease and she's been worked up through cardiology in [place] for possible TAVR. Locally, she has seen Dr. Leal and she has undergone a cardiac catheterization that showed mild nonobstructive coronary artery disease. AMY showed thickening of the anterior and the posterior mitral valve leaflets and the patient has severe MR with an ejection fraction of 50%. Objective - Vital Signs Vital signs: Vital Signs Temp 97.3 F L 04/01/22 08:24 Pulse 82 04/01/22 08:49 Resp 18 04/01/22 08:24 BP 119/71 04/01/22 08:24 Pulse Ox 95 04/01/22 08:37 FiO2 Intake & Output 03/31/22 04/01/22 04/01/22 18:59 06:59 18:59 Intake Total 540 Output Total 1000 Balance -460 Intake: Oral 540 Output: Urine 1000 Other: Voiding Method Diaper Toilet Toilet Incontinent Diaper Diaper External Catheter # Voids 3 4 - Exam No acute distress, confused, currently on room air. Room air saturation 99%. HEENT examination is grossly unremarkable. Neck supple. Full range of motion. No adenopathy thyromegaly or neck vein distention. Cardiovascular examination reveals regular rhythm rate. S1-S2 normal. No S3 or S4. No discernible murmur noted. Lungs reveal mostly clear breath sounds. Scattered rhonchi are noted, with predominance in the right lung. No wheezes or crackles. Abdomen soft bowel sounds are heard. No masses or tenderness. Extremities are intact. No cyanosis clubbing or edema. Skin is without rash or lesion. Neurologic examination is brief but nonfocal. He has tremors - Labs CBC & Chem 7: 04/01/22 08:34 04/01/22 08:34 Labs: Abnormal Lab Results - Last 24 Hours (Table) 04/01/22 04/01/22 04/01/22 Range/Units 06:11 08:34 08:34 WBC 12.0 H (3.8-10.6) k/uL Hgb 11.2 L (11.4-16.0) gm/dL Neutrophils # 9.5 H (1.3-7.7) k/uL Sodium 133 L (137-145) mmol/L Chloride 96 L (98-107) mmol/L Glucose 166 H (74-99) mg/dL POC Glucose (mg/dL) 131 H (75-99) mg/dL Microbiology - Last 24 Hours (Table) 03/29/22 00:20 Blood Culture - Preliminary Blood No Growth after 72 hours 03/29/22 17:20 Urine Culture - Final Urine,Voided Assessment and Plan Plan: Acute mental status changes, likely secondary to pneumonia and possible sepsis. Improved and the patient's mentation air is back to baseline at this point in time. Cultures of been all negative and this acute mental status changes were thought to be related to an underlying infection/sepsis and the patient was found to improve with empiric antibiotic coverage. All of the cultures are negative thus far. Chest x-ray showing patchy right-sided pulmonary infiltrates, probably with some slight interval improvement. Oxygenation is stable and the patient is currently on room air oxygen. Possible urinary tract infection/urosepsis. Severe mitral regurgitation Elevated troponins, thought to be related to supply demand mismatch, in a sejal ent with nonobstructive CAD, based on recent cardiac catheterization. Mild anion gap metabolic acidosis, recovered History of hypertension. History of hyperlipidemia. History of essential tremor. History of gastroesophageal reflux disease. History of bipolar disorder. Essential tremors Plan Clinically improved Complete a seven-day course of antibiotics which will be essentially an empiric antibiotic coverage for now. Patient is currently on room air oxygen Discharge planning is in progress. She is being followed up with cardiology in [facility] regarding her severe mitral regurgitation.
[2022-04-01 11:43] LABS: Glucose,Whole Blood 126 mg/dL (75-99)
[2022-04-01] MEDS ORDERED: risperiDONE 0.5 MG TAB PO PRN (12:27)
--- NOTE | 2022-04-01 12:38 | P.CN ---
Psychiatric Consult - . Consult date: 04/01/22 Consult:: 04/01/22 11:43 IDENTIFYING DATA: This patient is a 76-year-old female who currently is , lives alone in a house and has 4 children. REASON FOR REFERRAL: Psychiatry was consulted for changing Remeron due to patient's tremor urinary frequency and tiredness HISTORY OF PRESENT ILLNESS: The patient presented to the hospital on 03/28 for altered mental status and weakness. Patient was found to have pneumonia and UTI was also found to be septic. The patient's cultures were negative. Patient was placed on broad-spectrum antibiotics and has been improving since then. Patient's nurse claims that patient is improving and is more clear today in terms of her mental status. She also reports the patient does have a significant tremor. The patient was seen today at the bedside and was agreeable to seek a staff writer. Patient was calm and pleasant with staff writer. She was directable during conversation and appropriate. She claims that she has a history of depression however has been seeing a therapist in [place] which she likes a lot. She claims that she has a good connection and trusts her primary care physician as well with her medications. She did speak about an oncoming mitral valve surgery that she has soon in [place]. She claims that her mood at this time is "okay" and is denying any depression or anxiety at this time. She was mildly confused when asked about her orientation and states that it is "04/02/2022 and does not know the current name of the president however and described him. She claims that she is in [facility]. She knows her full name and age. She claims that she has been dealing with pneumonia for about a week now. She states that she has essential tremor and it runs in the family and the propranolol has been helping her. She claims that she has been on Remeron for several decades now and does not want to have it changed. She states that her sleep is fair and appetite is fair.. At this time patient denies any suicidal or homical ideations, intent or plan. Patient denies any auditory, visual hallucinations and denies any paranoia or delusions. Patients admits to using PAST PSYCHIATRIC HISTORY: Patient has a a history of depression and anxiety. Patient is currently on Wellbutrin and Remeron. Patient denies any previous psychiatric hospitalizations. Patient denies any psychiatric outpatient follow- up. Patient does state that she sees a therapist regularly in [place]. Patient denies any history of suicide attempts in the past. PAST MEDICAL HISTORY: As per medicine H&P ALLERGIES: as per EMR. CHEMICAL DEPENDENCY HISTORY: as per HPI. FAMILY PSYCHIATRIC/SUBSTANCE USE HISTORY: Claims that her son has schizophrenia SOCIAL HISTORY: Patient was born and raised in [place], [place]. She states that she also grew up around the [facility]. She claims that she has had various jobs in the past. She states that she completed her GED in school. She claims that she has 4 kids, currently lives in a house. She lives alone. She is . MENTAL STATUS EXAM: General Appearance: Patient appears to be stated age is alert, pleasant, and cooperative. Prominent tremor. Patient appears to have fair hygiene and grooming wearing hospital gown with fair eye contact. Behavior: Patient is calmly lying in bed without any agitated behavior. Cooperative Speech: Patient's speech is fluent and nonpressured. Mood/Affect: Patient reports their mood is "good", affect is congruent and euthymic Suicidality/Homicidality: Patient denies having any suicidal or homicidal ideation intent or plan. Perceptions: Patient denies any visual hallucinations and denies any auditory hallucinations Though content/process: There is no evidence of any delusional thought content and thought process is linear and goal-directed. Rambles at times. Memory and concentration: AOX3, grossly intact for the purposes of this session. Can spell "WORLD" backwards Judgment and insight: Fair IMPRESSIONS: Delirium, likely secondary to medications i.e. steroids and also infection PLAN: -At this time patient DOES NOT meet criteria for inpatient psychiatric admission. -Delirium precautions recommended with patient including - avoiding use of narcotics and MET[employer] WIRE [employer]ATING OPER[employer] sedatives, limit anticholinergic medications when possible, frequent re-orientation, minimize use of restraints, open window shades during the day and close them at night -Would recommend the following medication changes/additions: Steroids were likely the cause of patient's delirium/confusion and will take time to clear from her body. Continue with current treatment of underlying infection and me dical comorbidities. [employer] discussed with patient about alternatives including trazodone or melatonin to Remeron however she claims that she does not want it changed at this time and claims that it is helping her significantly. Can continue with current dose of Remeron and Wellbutrin. added risperdal 0.5 mg daily prn for delirium/psychosis however if patient is being d/c home then she will not need this -painting trades worker to provide patient with outpatient mental health/psychiatry resources for appropriate follow up upon discharge -Communicated plan to patient's nurse -Psychiatry will sign off at this time -Please contact with any questions. 04/01/22 12:28
[2022-04-01 16:54] VITALS: BP 151/75; PULSE 81; RESP 16
--- NOTE | 2022-04-04 15:07 | P.DS ---
Providers Date of admission: 03/29/22 01:02 Expected date of discharge: 04/01/22 Attending physician: Rocio Liu Consults: 03/29/22 01:49 Consult Physician Urgent Consulting Provider: Otilio Kerr Consult Reason/Comments: elevated troponin Do you want consulting provider notified?: Yes 03/29/22 08:39 Consult Physician Urgent Consulting Provider: Chris Wilson Consult Reason/Comments: pna Do you want consulting provider notified?: Yes 03/31/22 15:41 Consult Physician Routine Consulting Provider: Barry Martin Consult Reason/Comments: change remeron for tremor and urinary frequency and tirdnress Do you want consulting provider notified?: Yes Primary care physician: Brenda Barrera Hospital Course: Discharge diagnosis Right upper and middle lung Community acquired pneumonia Mild COPD exacerbation elevated troponin likley due to Pna. 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 She is patient of Dr. Barrera. She follows up with Dr. Chapa for leaky valves Patient presents because of tachypnea and shortness of breath is been going on for about a month as per patient associated with a little green yellowish phlegm. With no chest pain, no abdominal pain or nausea vomiting. No dysuria but she has stress incontinence. No headache or dizziness. No weakness or numbness in one limb. She has generalized weakness and she has tremor of head and extremities worse with movement Denies smoking, alcohol or illicit drugs. She smoked from age [age] Patient blood pressures and heart rate looks stable and she is saturating 96% on room air blood patient is tachypneic 24 breaths per minute. Labs show leukocytosis at 18.6, INR, BMP is unremarkable. Creatinine is normal 0.8. Liver enzymes and bilirubin not elevated. Elevated troponin 0.08 0.1 and 0.14 Influenza and covid and detected EKG showing normal sinus rhythm at [address]-T changes and QTC of 397. Chest x-ray right middle and upper lung opacities suspicious for pneumonia On admission was started on Zithromax and ceftriaxone 03/30/2022 Patient awake but lethargic, she follows commands, she looks good with drowsy and confused but same as yesterday. She still tachypneic with some better air entry. She is saturating well on 2 L oxygen via nasal cannula She has evidence of conjunctivitis and she was started on ophthalmic Cipro. She feels generally weak. Urine analysis Suspicious for UTI and urine culture is pending. She remains on Zithromax and and ceftriaxone Patient had negative cardiac cath recently 03/31/2022 Patient still looks very tired however she is less tachypneic, she still have scattered wheezing on like examination and currently she is scoped and antibiotic Zithromax and ceftriaxone and inhaled steroids. However looks like she is improving although we will keep monitoring closely. Her conjunctivitis also improving. She is continued on ophthalmic Cipro eyedrops Urine culture came back negative. Repeat labs in the morning 04/01/2022 Patient is currently sitting up in a chair. Saturating well on room air. Mental status is much improved. Patient is being continued on antibiotics in the form of ceftriaxone and azithromycin. Clinically improved. Patient was see n by cardiology due to elevated troponin level. Recently had cardiac catheterization on 03/01/2022 which is nonobstructive. Patient had a AMY showed thickening of the anterior and posterior mitral valve leaflets and severe MR. Ejection fraction 50%. Patient is currently hemodynamically stable. Started on Lasix 20 mg twice a day. Patient will be continued on antibiotic course to be completed for 7 days. Would like to be discharged home. Laboratory data reviewed. Patient is being discharged home today. - Exam -GENERAL: The patient is alert and oriented x3, not in any acute distress. Generally weak -HEENT: Pupils are round and equally reacting to light. EOMI. No scleral icterus. No conjunctival pallor. Normocephalic, atraumatic. No pharyngeal erythema. No thyromegaly. Bilateral purulent conjunctivitis CARDIOVASCULAR: S1 and S2 present. No murmurs, rubs, or gallops. -PULMONARY: Chest is clear to auscultation, no wheezing or crackles. Tachypnea ABDOMEN: Soft, nontender, nondistended, normoactive bowel sounds. No palpable organomegaly. MUSCULOSKELETAL: No joint swelling or deformity. EXTREMITIES: No cyanosis, clubbing, or pedal edema. NEUROLOGICAL: Gross neurological examination did not reveal any focal deficits. SKIN: No rashes. no petechiae. Vital signs: Vital Signs Temp 97.3 F L 04/01/22 08:24 Pulse 82 04/01/22 08:49 Resp 18 04/01/22 08:24 BP 119/71 04/01/22 08:24 Pulse Ox 95 04/01/22 08:37 FiO2 Intake & Output 03/31/22 04/01/22 04/01/22 18:59 06:59 18:59 Intake Total 540 Output Total 1000 Balance -460 Intake: Oral 540 Output: Urine 1000 Other: Voiding Method Diaper Toilet Toilet Incontinent Diaper Diaper External Catheter # Voids 3 4 Total time taken greater than 35 minutes including 18 minutes for counseling and coordination of care. Patient Condition at Discharge: Fair Plan - Discharge Summary New Discharge Prescriptions: New Cefuroxime Axetil [Ceftin] 500 mg PO BID 4 Days #8 tab Ciprofloxacin Ophth Soln [Ciloxan 0.3% Ophth Soln] 2 drops BOTH EYES Q4HR 5 Days #15 ml predniSONE See Taper PO DIRECTED #15 tab Furosemide [Lasix] 20 mg PO BID@0900,1600 #30 tab Continue Primidone [Mysoline] 500 mg PO DAILY lisinopriL [Zestril] 10 mg PO HS buPROPion HCL [Wellbutrin SR] 150 mg PO BID Simvastatin [Zocor] 20 mg PO HS Propranolol LA [Inderal LA] 80 mg PO HS Cetirizine HCl [Zyrtec] 10 mg PO HS Multivitamin [Multivitamins Adult Gummies] 1 tab PO DAILY dimenhyDRINATE [Dimenhydrinate] 50 mg PO Q4H PRN PRN Reason: Vertigo Acetaminophen Tab [Tylenol] 650 mg PO Q4H PRN PRN Reason: Pain Meclizine HCl [Bonine Chew] 25 mg PO TID PRN PRN Reason: Vertigo Mirtazapine 45 mg PO HS Primidone [Mysoline] 250 mg PO HS Discharge Medication List Primidone [Mysoline] 500 mg PO DAILY 08/11/19 [History] Propranolol LA [Inderal LA] 80 mg PO HS 08/11/19 [History] Simvastatin [Zocor] 20 mg PO HS 08/11/19 [History] buPROPion HCL [Wellbutrin SR] 150 mg PO BID 08/11/19 [History] lisinopriL [Zestril] 10 mg PO HS 08/11/19 [History] Cetirizine HCl [Zyrtec] 10 mg PO HS 10/04/20 [History] Multivitamin [Multivitamins Adult Gummies] 1 tab PO DAILY 10/06/20 [History] Acetaminophen Tab [Tylenol] 650 mg PO Q4H PRN 11/04/20 [History] Meclizine HCl [Bonine Chew] 25 mg PO TID PRN 11/04/20 [History] dimenhyDRINATE [Dimenhydrinate] 50 mg PO Q4H PRN 11/04/20 [History] Mirtazapine 45 mg PO HS 03/28/22 [History] Primidone [Mysoline] 250 mg PO HS 03/28/22 [History] Cefuroxime Axetil [Ceftin] 500 mg PO BID 4 Days #8 tab 04/01/22 [Rx] Ciprofloxacin Ophth Soln [Ciloxan 0.3% Ophth Soln] 2 drops BOTH EYES Q4HR 5 Days #15 ml 04/01/22 [Rx] Furosemide [Lasix] 20 mg PO BID@0900,1600 #30 tab 04/01/22 [Rx] predniSONE See Taper PO DIRECTED #15 tab 04/01/22 [Rx] Follow up Appointment(s)/Referral(s): Brenda Barrera III, MD [Primary Care Provider] - 1-2 days (Unable to get through. Please call to schedule appointment) Samantha Cabrera MD [STAFF PHYSICIAN] - 1 Week (Office is closed, please call to schedule appointment) [facility] Visiting Nurse, [NON-STAFF] - 1-2 Days Patient Instructions/Handouts: Pneumonia (DC) Activity/Diet/Wound Care/Special Instructions: Follow up with your freight adjuster in [place] Discharge/Stand Alone Forms: Who Do I Call?, Personal Entry Level Finance Discharge Disposition: HOME WITH HOME HEALTH SERVICES
--- NOTE | 2022-04-05 06:00 | CDI ---
Documentation Clarification Form Date: 04/05/22 From: Francisca Lazaro Admit Date: 03/29/2022 01:02:00 AM Patient Name: Ashley Wilson Visit Number: [id number] Discharge Date: 04/01/2022 07:45:00 PM ATTENTION: The Clinical Documentation Specialists (CDI) and [facility] Coding Staff appreciate your assistance in clarifying documentation. Please respond to the clarification below the line at the bottom and electronically sign. The CDI & [facility] Coding staff will review the response and follow-up if needed. Please note: Queries are made part of the Legal Health Record. If you have any questions, please contact the author of this message via ITS. Dr. Amadeo Watson, Documentation has been found in the medical record that needs clarification. As attending physician, please provide clarification. Per Dr Wilson's consult "Acute mental status changes, likely secondary to pneumonia and possible sepsis." Per Dr Cabrera's 03/01 PN "Acute mental status changes, likely secondary to pneumonia and possible sepsis" History/Risk Factors: COPD, pulmonary HTN, Bipolar, HTN, HLD, essential tremor, stress incontinence, CAD, GERD Clinical Indicators: WBC 18.6, Neutrophils 15.5, no lactic acid, t 98.1, P 79, R 26, BP 163/67, O2 94, mental status changes, pneumonia Treatment: IV Azithromycin, IV Rocephin, IV fluids Please clarify which diagnosis is most appropriate: [ x ] Sepsis ruled in [ ] Sepsis ruled out [ ] Other (please specify) [ ] Unable to determine MTDD
== END 2022-04-01 19:45 | disposition home health service (06) | DRG 871 ==
LOC: EC 20:09 → 3SCARD 03-29 01:02
PROVIDERS: ADMIT Hospitalist; ATTEND Hospitalist
DX: A41.9 Sepsis, unspecified organism (principal); J18.9 Pneumonia, unspecified organism; G93.41 Metabolic encephalopathy; J44.0 Chronic obstructive pulmonary disease with (acute) lower respiratory infection; J44.1 Chronic obstructive pulmonary disease with (acute) exacerbation; E87.2 Acidosis; I27.22 Pulmonary hypertension due to left heart disease; F31.9 Bipolar disorder, unspecified; Z20.822 Contact with and (suspected) exposure to COVID-19; I10 Essential (primary) hypertension; E78.5 Hyperlipidemia, unspecified; I08.3 Combined rheumatic disorders of mitral, aortic and tricuspid valves; G25.0 Essential tremor; N39.3 Stress incontinence (female) (male); R35.0 Frequency of micturition; K21.9 Gastro-esophageal reflux disease without esophagitis; I25.10 Atherosclerotic heart disease of native coronary artery without angina pectoris; H10.9 Unspecified conjunctivitis; R09.02 Hypoxemia; R77.8 Other specified abnormalities of plasma proteins; Z79.899 Other long term (current) drug therapy; Z87.891 Personal history of nicotine dependence; Z60.2 Problems related to living alone; Z90.89 Acquired absence of other organs; Z98.890 Other specified postprocedural states; Z88.2 Allergy status to sulfonamides; Z88.8 Allergy status to other drugs, medicaments and biological substances
CPT/HCPCS: 36415; 71045; 71046; 80048; 80053; 81001; 83735; 83880; 84145; 84484; 85025; 85610; 85730; 87040; 87086; 87502; 87635; 93005; 94640; 94760; 96361; 96365; 96367; 96372; 96375; 99285

== ENCOUNTER 2022-04-04 11:34 | Inpatient (IN) | payer MEDICARE ==
[2022-04-04] MEDS ORDERED: SODIUM CHLORIDE 0.9% 500 ML 500 ML IV ONE (11:48)
[2022-04-04 11:49] LABS: Glucose,Whole Blood 113 mg/dL (75-99)
[2022-04-04 12:19] LABS: Appearance,Urine Clear (Clear); Bilirubin,Urine Negative (Negative); Blood,Urine Negative (Negative); Color,Urine Yellow; Glucose,Urine (UA) Negative (Negative); Ketones,Urine 1+ (Negative); Leukocyte Esterase,Urine Negative (Negative); Nitrite,Urine Negative (Negative); PH, Urine 5.5 (5.0-8.0); Protein,Urine Trace (Negative); Urobilinogen,Urine <2.0 mg/dL (<2.0)
[2022-04-04 12:20] LABS: Basophils # (A) 0.1 k/uL (0-0.2); Basophils % (A) 1 %; Eosinophils # (A) 0.2 k/uL (0-0.7); Eosinophils % (A) 2 %; HCT 34.9 % (34.0-46.0); HGB 11.2 gm/dL (11.4-16.0); Lymphocytes # (A) 1.8 k/uL (1.0-4.8); Lymphocytes % (A) 15 %; MCH 29.1 pg (25.0-35.0); MCHC 32.2 g/dL (31.0-37.0); MCV 90.3 fL (80.0-100.0); Mean Platelet Volume 8.5; Monocytes # (A) 0.7 k/uL (0-1.0); Monocytes % (A) 6 %; Neutrophils # (A) 8.9 k/uL (1.3-7.7); Neutrophils % (A) 75 %; Platelet Count 404 k/uL (150-450); RBC 3.86 m/uL (3.80-5.40); RDW 13.8 % (11.5-15.5); WBC 11.9 k/uL (3.8-10.6)
[2022-04-04 12:30] LABS: Cocaine Screen,Urine Not Detected (NotDetected); Phencyclidine Screen,Urine Not Detected (NotDetected); Urn Cannabinoid Scrn Not Detected (NotDetected)
--- NOTE | 2022-04-04 12:30 | ED ---
Altered Mental Status HPI - General Chief Complaint: Altered Mental Status Stated Complaint: Altered Mental Status Time Seen by Provider: 04/04/22 11:39 Source: patient, EMS, RN notes reviewed Mode of arrival: EMS Limitations: altered mental status - History of Present Illness Initial Comments: 76-year-old female presents emergency from via EMS from home chief complaint altered mental status. Patient reportedly was admitted recently for pneumonia and discharged on antibiotics, steroids. Patient's been having bouts of intermittent confusion over the last couple days and which family contribute this to the prednisone. Patient reportedly took her prednisone dose today became very confused and remains very confused. Patient has intermittent coher ent thoughts. Patient does have mild cough states that she has pain diffusely. Patient denies any chest pain, abdominal pain or any focal weakness. She states she just feels weak, not eating and drinking well. - Related Data Home Medications Medication Instructions Recorded Confirmed Primidone [Mysoline] 500 mg PO DAILY 08/11/19 04/04/22 Propranolol LA [Inderal LA] 80 mg PO HS 08/11/19 04/04/22 Simvastatin [Zocor] 20 mg PO HS 08/11/19 04/04/22 buPROPion HCL [Wellbutrin SR] 150 mg PO BID 08/11/19 04/04/22 lisinopriL [Zestril] 10 mg PO HS 08/11/19 04/04/22 Cetirizine HCl [Zyrtec] 10 mg PO HS 10/04/20 04/04/22 Multivitamin [Multivitamins Adult 1 tab PO DAILY 10/06/20 04/04/22 Gummies] Acetaminophen Tab [Tylenol] 650 mg PO Q4H PRN 11/04/20 04/04/22 Meclizine HCl [Bonine Chew] 25 mg PO TID PRN 11/04/20 04/04/22 dimenhyDRINATE [Dimenhydrinate] 50 mg PO Q4H PRN 11/04/20 04/04/22 Mirtazapine 45 mg PO HS 03/28/22 04/04/22 Primidone [Mysoline] 250 mg PO HS 03/28/22 04/04/22 Previous Rx's Medication Instructions Recorded Cefuroxime Axetil [Ceftin] 500 mg PO BID 4 Days #8 tab 04/01/22 Ciprofloxacin Ophth Soln [Ciloxan 2 drops BOTH EYES Q4HR 5 Days #15 04/01/22 0.3% Ophth Soln] ml Furosemide [Lasix] 20 mg PO BID@0900,1600 #30 tab 04/01/22 predniSONE See Taper PO DIRECTED #15 tab 04/01/22 Allergies Allergy/AdvReac Type Severity Reaction Status Date / Time Sulfa (Sulfonamide Allergy Unknown Verified 04/04/22 12:56 Antibiotics) Childhood methylprednisolone AdvReac Makes Verified 04/04/22 12:56 tremors worse prednisone AdvReac See Verified 04/04/22 13:00 Comments Review of Systems ROS Statement: Those systems with pertinent positive or pertinent negative responses have been documented in the HPI. ROS Other: All systems not noted in ROS Statement are negative. Past Medical History Past Medical History: GERD/Reflux, Hyperlipidemia, Hypertension Additional Past Medical History / Comment(s): tremors. Vertigo History of Any Multi-Drug Resistant Organisms: None Reported Past Surgical History: Unable to Obtain, Tonsillectomy Additional Past Surgical History / Comment(s): COLONOSCOPY Past Anesthesia/Blood Transfusion Reactions: Postoperative Nausea & Vomiting (PONV) Past Psychological History: Bipolar, Depression Smoking Status: Former smoker Past Alcohol Use History: None Reported Past Drug Use History: None Reported - Past Family History Mother Family Medical History: No Reported History General Exam Limitations: altered mental status General appearance: alert, in no apparent distress Head exam: Present: atraumatic, normocephalic, normal inspection Eye exam: Present: normal appearance, PERRL, EOMI. Absent: scleral icterus, conjunctival injection, periorbital swelling ENT exam: Present: normal exam, normal oropharynx, mucous membranes moist Neck exam: Present: normal inspection, full ROM. Absent: tenderness, meningismus, lymphadenopathy Respiratory exam: Present: normal lung sounds bilaterally. Absent: respiratory distress, wheezes, rales, rhonchi, stridor Cardiovascular Exam: Present: regular rate, normal rhythm, normal heart sounds. Absent: systolic murmur, diastolic murmur, rubs, gallop, clicks GI/Abdominal exam: Present: soft, normal bowel sounds. Absent: distended, tenderness, guarding, rebound, rigid Neurological exam: Present: alert, CN II-XII intact. Absent: oriented X3 Skin exam: Present: warm, dry, intact, normal color. Absent: rash Course Vital Signs 04/04/22 04/04/22 11:35 12:46 Temperature 98.4 F Pulse Rate 79 75 Respiratory 18 18 Rate Blood Pressure 186/103 187/74 O2 Sat by Pulse 97 97 Oximetry Medical Decision Making - Medical Decision Making 76-year-old female presented for confusion or altered mental status. Patient persistently has evidence of bilateral pneumonia, patient is confused. CT of brain diarrhea acute processes. Patient mild leukocytosis. Patient be admitted for altered mental status, bilateral pneumonia was started on Zosyn but cult ures are drawn. - Lab Data Result diagrams: 04/04/22 11:51 04/04/22 11:51 Lab Results 04/04/22 04/04/22 04/04/22 Range/Units 11:48 11:51 11:51 WBC 11.9 H (3.8-10.6) k/uL RBC 3.86 (3.80-5.40) m/uL Hgb 11.2 L (11.4-16.0) gm/dL Hct 34.9 (34.0-46.0) % MCV 90.3 (80.0-100.0) fL MCH 29.1 (25.0-35.0) pg MCHC 32.2 (31.0-37.0) g/dL RDW 13.8 (11.5-15.5) % Plt Count 404 (150-450) k/uL MPV 8.5 Neutrophils % 75 % Lymphocytes % 15 % Monocytes % 6 % Eosinophils % 2 % Basophils % 1 % Neutrophils # 8.9 H (1.3-7.7) k/uL Lymphocytes # 1.8 (1.0-4.8) k/uL Monocytes # 0.7 (0-1.0) k/uL Eosinophils # 0.2 (0-0.7) k/uL Basophils # 0.1 (0-0.2) k/uL PT 10.1 (9.0-12.0) sec INR 0.9 (<1.2) APTT 23.1 (22.0-30.0) sec Sodium (137-145) mmol/L Potassium (3.5-5.1) mmol/L Chloride (98-107) mmol/L Carbon Dioxide (22-30) mmol/L Anion Gap mmol/L BUN (7-17) mg/dL Creatinine (0.52-1.04) mg/dL Est GFR (CKD-EPI)AfAm (>60 ml/min/1.73 sqM) Est GFR (CKD-EPI)NonAf (>60 ml/min/1.73 sqM) Glucose (74-99) mg/dL POC Glucose (mg/dL) 113 H (75-99) mg/dL POC Glu Bonbon Dipper ID Lazaro Torres Calcium (8.4-10.2) mg/dL Total Bilirubin (0.2-1.3) mg/dL AST (14-36) U/L ALT (4-34) U/L Alkaline Phosphatase (38-126) U/L Ammonia (<30) umol/L Troponin I (0.000-0.034) ng/mL Total Protein (6.3-8.2) g/dL Albumin (3.5-5.0) g/dL Urine Color Urine Appearance (Clear) Urine pH (5.0-8.0) Ur Specific [place] (1.001-1.035) Urine Protein (Negative) Urine Glucose (UA) (Negative) Urine Ketones (Negative) Urine Blood (Negative) Urine Nitrite (Negative) Urine Bilirubin (Negative) Urine Urobilinogen (<2.0) mg/dL Ur Leukocyte Esterase (Negative) Urine Opiates Screen (NotDetected) Ur Oxycodone Screen (NotDetected) Urine Methadone Screen (NotDetected) Ur Propoxyphene Screen (NotDetected) Ur Barbiturates Screen (NotDetected) U Tricyclic Antidepress (NotDetected) Ur Phencyclidine Scrn (NotDetected) Ur Amphetamines Screen (NotDetected) U Methamphetamines Scrn (NotDetected) U Benzodiazepines Scrn (NotDetected) Urine Cocaine Screen (NotDetected) U Marijuana (THC) Screen (NotDetected) 04/04/22 04/04/22 04/04/22 Range/Units 11:51 11:51 11:51 WBC (3.8-10.6) k/uL RBC (3.80-5.40) m/uL Hgb (11.4-16.0) gm/dL Hct (34.0-46.0) % MCV (80.0-100.0) fL MCH (25.0-35.0) pg MCHC (31.0-37.0) g/dL RDW (11.5-15.5) % Plt Count (150-450) k/uL MPV Neutrophils % % Lymphocytes % % Monocytes % % Eosinophils % % Basophils % % Neutrophils # (1.3-7.7) k/uL Lymphocytes # (1.0-4.8) k/uL Monocytes # (0-1.0) k/uL Eosinophils # (0-0.7) k/uL Basophils # (0-0.2) k/uL PT (9.0-12.0) sec INR (<1.2) APTT (22.0-30.0) sec Sodium 136 L (137-145) mmol/L Potassium 4.1 (3.5-5.1) mmol/L Chloride 99 (98-107) mmol/L Carbon Dioxide 26 (22-30) mmol/L Anion Gap 11 mmol/L BUN 21 H (7-17) mg/dL Creatinine 0.77 (0.52-1.04) mg/dL Est GFR (CKD-EPI)AfAm 86 (>60 ml/min/1.73 sqM) Est GFR (CKD-EPI)NonAf 74 (>60 ml/min/1.73 sqM) Glucose 115 H (74-99) mg/dL POC Glucose (mg/dL) (75-99) mg/dL POC Glu Bon[place] Dipper ID Calcium 8.2 L (8.4-10.2) mg/dL Total Bilirubin 0.5 (0.2-1.3) mg/dL AST 65 H (14-36) U/L ALT 59 H (4-34) U/L Alkaline Phosphatase 183 H (38-126) U/L Ammonia <9 (<30) umol/L Troponin I (0.000-0.034) ng/mL Total Protein 6.7 (6.3-8.2) g/dL Albumin 3.3 L (3.5-5.0) g/dL Urine Color Yellow Urine Appearance Clear (Clear) Urine pH 5.5 (5.0-8.0) Ur Specific [place] 1.010 (1.001-1.035) Urine Protein Trace H (Negative) Urine Glucose (UA) Negative (Negative) Urine Ketones 1+ H (Negative) Urine Blood Negative (Negative) Urine Nitrite Negative (Negative) Urine Bilirubin Negative (Negative) Urine Urobilinogen <2.0 (<2.0) mg/dL Ur Leukocyte Esterase Negative (Negative) Urine Opiates Screen Not Detected (NotDetected) Ur Oxycodone Screen Not Detected (NotDetected) Urine Methadone Screen Not Detected (NotDetected) Ur Propoxyphene Screen Not Detected (NotDetected) Ur Barbiturates Screen Detected H (NotDetected) U Tricyclic Antidepress Not Detected (NotDetected) Ur Phencyclidine Scrn Not Detected (NotDetected) Ur Amphetamines Screen Not Detected (NotDetected) U Methamphetamines Scrn Not Detected (NotDetected) U Benzodiazepines Scrn Not Detected (NotDetected) Urine Cocaine Screen Not Detected (NotDetected) U Marijuana (THC) Screen Not Detected (NotDetected) 04/04/22 Range/Units 11:51 WBC (3.8-10.6) k/uL RBC (3.80-5.40) m/uL Hgb (11.4-16.0) gm/dL Hct (34.0-46.0) % MCV (80.0-100.0) fL MCH (25.0-35.0) pg MCHC (31.0-37.0) g/dL RDW (11.5-15.5) % Plt Count (150-450) k/uL MPV Neutrophils % % Lymphocytes % % Monocytes % % Eosinophils % % Basophils % % Neutrophils # (1.3-7.7) k/uL Lymphocytes # (1.0-4.8) k/uL Monocytes # (0-1.0) k/uL Eosinophils # (0-0.7) k/uL Basophils # (0-0.2) k/uL PT (9.0-12.0) sec INR (<1.2) APTT (22.0-30.0) sec Sodium (137-145) mmol/L Potassium (3.5-5.1) mmol/L Chloride (98-107) mmol/L Carbon Dioxide (22-30) mmol/L Anion Gap mmol/L BUN (7-17) mg/dL Creatinine (0.52-1.04) mg/dL Est GFR (CKD-EPI)AfAm (>60 ml/min/1.73 sqM) Est GFR (CKD-EPI)NonAf (>60 ml/min/1.73 sqM) Glucose (74-99) mg/dL POC Glucose (mg/dL) (75-99) mg/dL POC Glu Bonbon Dipper ID Calcium (8.4-10.2) mg/dL Total Bilirubin (0.2-1.3) mg/dL AST (14-36) U/L ALT (4-34) U/L Alkaline Phosphatase (38-126) U/L Ammonia (<30) umol/L Troponin I 0.025 (0.000-0.034) ng/mL Total Protein (6.3-8.2) g/dL Albumin (3.5-5.0) g/dL Urine Color Urine Appearance (Clear) Urine pH (5.0-8.0) Ur Specific [place] (1.001-1.035) Urine Protein (Negative) Urine Glucose (UA) (Negative) Urine Ketones (Negative) Urine Blood (Negative) Urine Nitrite (Negative) Urine Bilirubin (Negative) Urine Urobilinogen (<2.0) mg/dL Ur Leukocyte Esterase (Negative) Urine Opiates Screen (NotDetected) Ur Oxycodone Screen (NotDetected) Urine Methadone Screen (NotDetected) Ur Propoxyphene Screen (NotDetected) Ur Barbiturates Screen (NotDetected) U Tricyclic Antidepress (NotDetected) Ur Phencyclidine Scrn (NotDetected) Ur Amphetamines Screen (NotDetected) U Methamphetamines Scrn (NotDetected) U Benzodiazepines Scrn (NotDetected) Urine Cocaine Screen (NotDetected) U Marijuana (THC) Screen (NotDetected) Disposition Clinical Impression: Bilateral pneumonia, Altered mental status, Failure of outpatient treatment Disposition: ADMITTED IP TO THIS HOSP Condition: Poor Referrals: Brenda Barrera III, MD [Primary Care Provider] - 1-2 days Time of Disposition: 12:55
[2022-04-04 12:31] LABS: Amphetamine Screen,Urine Not Detected (NotDetected); Barbiturate Screen,Urine Detected (NotDetected); Benzodiazepines Screen,Urine Not Detected (NotDetected); Methadone Screen, Urine Not Detected (NotDetected); Opiate Screen,Urine Not Detected (NotDetected); Oxycodone Screen, Urine Not Detected (NotDetected); Tricyclic Antidepressant,Urine Not Detected (NotDetected)
[2022-04-04 12:37] LABS: Albumin 3.3 g/dL (3.5-5.0); Calcium 8.2 mg/dL (8.4-10.2); Total Bilirubin 0.5 mg/dL (0.2-1.3); Total Protein 6.7 g/dL (6.3-8.2)
--- NOTE | 2022-04-04 12:42 | XR ---
EXAMINATION TYPE: XR chest 2V DATE OF EXAM: 04/04/2022 COMPARISON: NONE TECHNIQUE: PA and lateral views submitted. HISTORY: altered mental status FINDINGS: Patchy multifocal areas of infiltrate are seen. Heart is enlarged suspect underlying COPD and chronic interstitial lung disease. No pneumothorax. Atherosclerotic change aorta. IMPRESSION: 1. Patchy bilateral areas of infiltrate/pneumonia with small effusion likely superimposed on a backgr ound COPD chronic interstitial lung disease. Interstitial pneumonitis or venous congestion not exclud ed correlate clinically.
--- NOTE | 2022-04-04 12:45 | CT ---
EXAMINATION TYPE: CT brain wo con DATE OF EXAM: 04/04/2022 COMPARISON: CT dated 11/04/2020 HISTORY: Altered mental status CT DLP: 1143.4 mGycm Automated exposure control for dose reduction was used. TECHNIQUE: CT scan of the brain is performed without IV contrast administration. FINDINGS: Brain volume loss changes, likely age-related. Bilateral cerebral white matter hypodensities, likely representing minimal chronic microvascular ischemic changes. Scattered arterial atherosclerotic calci fications. No acute intracranial hemorrhage. No gross acute cortical infarct. No midline shift, herniation or ve ntriculomegaly. Unremarkable [place]-white matter differentiation, basal cisterns, sella and CP angles. No gross space-o ccupying lesion, vasogenic edema or mass effect. Unremarkable orbits. Mucosal thickening of the sphenoid sinus. Opacified left inferior mastoid air ce lls. No aggressive bone lesion. IMPRESSION: No acute intracranial abnormality or gross space-occupying lesion by this nonenhanced CT scan. Chroni c and incidental findings as described above.
[2022-04-04 12:47] LABS: INR 0.9 (<1.2); Partial Thromboplastin Time 23.1 sec (22.0-30.0); Potassium 4.1 mmol/L (3.5-5.1); Prothrombin Time 10.1 sec (9.0-12.0)
[2022-04-04] MEDS ORDERED: PIPERACILLIN-TAZOBACTAM 3.375 GM in SODIUM CHLORIDE 0.9% 100 ML IVPB STA (13:05)
[2022-04-04] MEDS ORDERED: PNEUMONIA PROTOCOL UTILIZED 1 EACH MISC PO PRN (13:06)
[2022-04-04] MEDS ORDERED: RX INFO: IV CONTRAST WAS GIVEN 1 EACH MISC MISCELLANE PRN (13:12)
[2022-04-04] MEDS ORDERED: ACETAMINOPHEN TAB 325 MG TAB PO PRN (14:56)
--- NOTE | 2022-04-04 16:37 | CT ---
EXAMINATION TYPE: CT chest w con DATE OF EXAM: 04/04/2022 COMPARISON: No previous CT scan is available for comparison HISTORY: Bilateral pneumonia, confusion CT DLP: 337 mGycm Automated exposure control for dose reduction was used. TECHNIQUE: CT scan of the chest is performed with IV Contrast, patient injected with 100 mL of Isovue 300. FINDINGS: LUNGS: Areas of pulmonary consolidation and ground glass opacities seen in the right lower lobe and t o a lesser extent in the right upper lobe, middle lobe and lingula. This could be inflammatory/infect ious in etiology, please correlate clinically. Follow-up to complete resolution is advised. Patent tr achea and main bronchi. Small right pleural effusion. MEDIASTINUM: Enlarged left atrium, please correlate with echocardiographic results. Coronary and zaira rial atherosclerotic calcifications. No pathologically enlarged lymph nodes in the chest. No pericard ial effusion. OTHER: Right upper pole renal cyst without suspicious feature. Mild degenerative changes of the thor acic spine. IMPRESSION: The above-described pulmonary changes are likely related to acute inflammatory/infectious process lik e pneumonia however associated pulmonary edema cannot be excluded. Recommend clinical correlation and follow-up to complete resolution after appropriate treatment. Other findings as described above.
--- NOTE | 2022-04-04 16:47 | P.CNPUL ---
History of Present Illness Consult date: 04/04/22 Reason for consult: dyspnea, pneumonia History of present illness: 76-year-old female patient who got readmitted to the hospital after 3 days of being discharged because of altered mentation ongoing difficulties with shortness of breath and right lung pneumonia. The patient was in the hospital for the same where she was admitted on 03/29/2022. She came in for altered mentation. She was found to have a right lung pneumonia. The patient without antibiotics and she was given accommodation Rocephin and Zithromax. She improved clinically. I saw her in the hospital on 04/01/2022 and she was doing well and she was sitting up on a chair and she was on room air oxygen. The chest x-ray was showing patchy right-sided pulmonary infiltrates with interval improvement. The white cell count was now. The patient's UA was negative. Urine cultures was negative. The pro-calcitonin level was at 0.1. ProBNP level was 1230. She was hemodynamically stable. She was known to have valvular heart disease and she was supposed to follow-up with the cardiology group at planned for a possible TAVR at the later stage. There cardiac catheterization showed nonobstructive CAD. AMY showed thickening of the anterior and the posterior mitral valve leaflets and severe MR with an ejection fraction of 50%. The patient came in to the emergency on 04/04/2022 for the same. She was altered mentally. Her thoughts were noncoherent. The patient had ongoing mild cough. She was complaining of pain which was diffuse body aches. No chest pain. No nausea vomiting or abdominal pain. No focal neurological deficit. She was feeling weak. Upon discharge, she was given Ceftin and prednisone burst taper. Her temperature was afebrile. BP was stable. White cell count was 11.9. BUN was 21 with a creatinine of 0.7 and the electrodes were all within normal limits. The patient's LFTs were abnormal with an AST of 65, ALT of 59 and alkaline phosphatase of 183. Urine drug screen was positive for barbiturates. Chest x-ray showed persistent right lung patchy pulmonary infiltrates, and the CAT scan of the chest was consistent with multilobar pneum onia, worse in the right lower lobe.. Based on that, the patient was admitted to the hospital. Review of Systems CONSTITUTIONAL: No fever, no malaise, increased weakness and body aches HEENT: No recent visual problems or hearing problems. Denied any sore throat. CARDIOVASCULAR: No orthopnea, PND, no palpitations, no syncope. PULMONARY: No shortness of breath, no cough, no hemoptysis. GASTROINTESTINAL: No diarrhea, no nausea, no vomiting, no abdominal pain. Normo active bowel sounds. NEUROLOGICAL: No headaches, generalized weakness and altered mentation and phy sical dictated confusion. No focal neurological deficits. HEMATOLOGICAL: Denies any bleeding or petechiae. GENITOURINARY: Denies any burning micturition, frequency, or urgency. MUSCULOSKELETAL/RHEUMATOLOGICAL: Denies any joint pain, swelling, or any muscle pain. ENDOCRINE: Denies any polyuria or polydipsia. Past Medical History Past Medical History: GERD/Reflux, Hyperlipidemia, Hypertension Additional Past Medical History / Comment(s): tremors. Vertigo History of Any Multi-Drug Resistant Organisms: None Reported Past Surgical History: Unable to Obtain, Tonsillectomy Additional Past Surgical History / Comment(s): COLONOSCOPY Past Anesthesia/Blood Transfusion Reactions: Postoperative Nausea & Vomiting (PONV) Past Psychological History: Bipolar, Depression Smoking Status: Former smoker Past Alcohol Use History: None Reported Past Drug Use History: None Reported - Past Family History Mother Family Medical History: No Reported History Medications and Allergies Home Medications Medication Instructions Recorded Confirmed Type Primidone [Mysoline] 500 mg PO DAILY 08/11/19 04/04/22 History Propranolol LA [Inderal LA] 80 mg PO HS 08/11/19 04/04/22 History Simvastatin [Zocor] 20 mg PO HS 08/11/19 04/04/22 History buPROPion HCL [Wellbutrin SR] 150 mg PO BID 08/11/19 04/04/22 History lisinopriL [Zestril] 10 mg PO HS 08/11/19 04/04/22 History Cetirizine HCl [Zyrtec] 10 mg PO HS 10/04/20 04/04/22 History Multivitamin [Multivitamins Adult 1 tab PO DAILY 10/06/20 04/04/22 History Gummies] Acetaminophen Tab [Tylenol] 650 mg PO Q4H PRN 11/04/20 04/04/22 History Meclizine HCl [Bonine Chew] 25 mg PO TID PRN 11/04/20 04/04/22 History dimenhyDRINATE [Dimenhydrinate] 50 mg PO Q4H PRN 11/04/20 04/04/22 History Mirtazapine 45 mg PO HS 03/28/22 04/04/22 History Primidone [Mysoline] 250 mg PO HS 03/28/22 04/04/22 History Cefuroxime Axetil [Ceftin] 500 mg PO BID 4 Days #8 tab 04/01/22 04/04/22 Rx Ciprofloxacin Ophth Soln [Ciloxan 2 drops BOTH EYES Q4HR 5 Days #15 04/01/22 04/04/22 Rx 0.3% Ophth Soln] ml Furosemide [Lasix] 20 mg PO BID@0900,1600 #30 tab 04/01/22 04/04/22 Rx predniSONE See Taper PO DIRECTED #15 tab 04/01/22 04/04/22 Rx Allergies Allergy/AdvReac Type Severity Reaction Status Date / Time Sulfa (Sulfonamide Allergy Unknown Verified 04/04/22 12:56 Antibiotics) Childhood methylprednisolone AdvReac Makes Verified 04/04/22 12:56 tremors worse prednisone AdvReac See Verified 04/04/22 13:00 Comments Physical Exam Vitals: Vital Signs Temp Pulse Resp BP Pulse Ox 04/04/22 14:36 82 18 188/92 96 04/04/22 12:46 75 18 187/74 97 04/04/22 11:35 98.4 F 79 18 186/103 97 Intake and Output 04/04/22 04/04/22 04/04/22 06:59 14:59 22:59 Other: Weight 91.9 kg No acute distress, confused, currently on room air. Room air saturation 99%. HEENT examination is grossly unremarkable. Neck supple. Full range of motion. No adenopathy thyromegaly or neck vein distention. Cardiovascular examination reveals regular rhythm rate. S1-S2 normal. No S3 or S4. No discernible murmur noted. Lungs reveal mostly clear breath sounds. Scattered rhonchi are noted, with predominance in the right lung. No wheezes or crackles. Abdomen soft bowel sounds are heard. No masses or tenderness. Extremities are intact. No cyanosis clubbing or edema. Skin is without rash or lesion. Neurologic examination is brief but nonfocal. He has tremors Results - Laboratory Findings CBC and BMP: 04/04/22 11:51 04/04/22 11:51 PT/INR, D-dimer PT 10.1 sec (9.0-12.0) 04/04/22 11:51 INR 0.9 (<1.2) 04/04/22 11:51 Abnormal lab findings: Abnormal Labs 04/04/22 04/04/22 04/04/22 11:48 11:51 11:51 WBC 11.9 H Hgb 11.2 L Neutrophils # 8.9 H Sodium BUN Glucose POC Glucose (mg/dL) 113 H Calcium AST ALT Alkaline Phosphatase Albumin Urine Protein Trace H Urine Ketones 1+ H Ur Barbiturates Screen Detected H 04/04/22 11:51 WBC Hgb Neutrophils # Sodium 136 L BUN 21 H Glucose 115 H POC Glucose (mg/dL) Calcium 8.2 L AST 65 H ALT 59 H Alkaline Phosphatase 183 H Albumin 3.3 L Urine Protein Urine Ketones Ur Barbiturates Screen - Diagnostic Findings Chest x-ray: image reviewed CT scan - chest: image reviewed Assessment and Plan Plan: Acute mental status changes, likely secondary to pneumonia and possible sepsis. This computed tomography scan of the brain showed no acute abnormalities. Neurologic exam is nonfocal. This is likely secondary to metabolic encephalopathy. Multilobar pneumonia involving the right lung worse in the right lower lobe, treated initially with some initial Rocephin and Zithromax and she was sent home on Ceftin on a prednisone burst taper. Currently, the patient is readmitted and the patient is being treated for the same. Severe mitral regurgitation Elevated troponins, thought to be related to supply demand mismatch, in a patient with nonobstructive CAD, based on recent cardiac catheterization. History of hypertension. History of hyperlipidemia. History of essential tremor. History of gastroesophageal reflux disease. History of bipolar disorder. Plan Admit to the hospital Cover the patient with broad-spectrum antibiotics and give the patient combination of Levaquin and Zosyn Recheck pro-calcitonin level to evaluate the trend Oxygen therapy needed to maintain a saturation above 90% Put the patient on low-dose steroids 40 mg every 12 hours IV Solu-Medrol Resume all medications Check Legionella urine antigen We'll continue to follow
[2022-04-04] MEDS: LEVOFLOXACIN 500MG-D5W PMX 500 MG in DEXTROSE/WATER 1 100ML.BAG IVPB SCH (17:01)
[2022-04-04] MEDS: HEPARIN SODIUM,PORCINE/PF 5,000 UNIT/0.5 ML SYRINGE SQ SCH (17:01)
[2022-04-04] MEDS: lisinopriL 10 MG TAB PO SCH ×2 (17:01→20:50)
[2022-04-04] MEDS: FUROSEMIDE 10 MG/ML 2 ML VIAL IV SCH ×2 (17:01→21:54)
[2022-04-04] MEDS: MIRTAZAPINE 15 MG TAB PO SCH (21:54)
[2022-04-04] MEDS: ATORVASTATIN 10 MG TAB PO SCH (21:54)
[2022-04-04] MEDS: PROPRANOLOL LA 80 MG CAP.SA.24H PO SCH (22:03)
--- NOTE | 2022-04-05 00:55 | P.HPIM ---
History of Present Illness H&P Date: 04/04/22 Chief Complaint: Shortness of breath Patient is a 76-year-old female with a known history of hypertension, hyperlipidemia, GERD, bipolar disorder and previous history of smoking presents to ER with complaints of worsening shortness of breath. Patient was recently admitted to hospital due to right lung pneumonia and was continued on antibiotics in the form of ceftriaxone azithromycin. Patient was discharged home with oral antibiotic course. Patient did improve clinically and was discharged home. Patient was also found to have severe MR and had recent cardiac catheterization on 03/01/2022 which was nonobstructive. AMY showed thickening of the anterior and posterior mitral leaflets and severe MR. Ejection fraction 50%. Patient was started on Lasix 20 mg twice daily upon discharge. On admission patient has been afebrile. Blood pressures 186/103 and pulse 79 respiration 18 and pulse ox 97% on room air. Laboratory data showed WBC 11.9 hemoglobin 11.2 platelets 404 sodium 136 potassium 4.1 chloride 99 bicarb is 26 BUN 21 creatinine 0.77 and blood sugar 115 liver enzymes showed AST 65 ALT 59 alk phos 483 albumin 3.3 Urinalysis negative for infection UDS is positive for barbiturates. Chest x-ray showed patchy bilateral areas of infiltrate/pneumonia with small effusion likely superimposed on a background COPD, chronic interstitial lung disease. EKG showed sinus rhythm CT head showed no acute intracranial abnormality or gross space-occupying lesion by this nonenhanced CT scan. Review of Systems Complete review of systems could not be obtained from the patient except as per HPI. Past Medical History Past Medical History: GERD/Reflux, Hyperlipidemia, Hypertension Additional Past Medical History / Comment(s): tremors. Vertigo History of Any Multi-Drug Resistant Organisms: None Reported Past Surgical History: Unable to Obtain, Tonsillectomy Additional Past Surgical History / Comment(s): COLONOSCOPY Past Anesthesia/Blood Transfusion Reactions: Postoperative Nausea & Vomiting (PONV) Past Psychological History: Bipolar, Depression Smoking Status: Former smoker Past Alcohol Use History: None Reported Past Drug Use History: None Reported - Past Family History Mother Family Medical History: No Reported History Medications and Allergies Home Medications Medication Instructions Recorded Confirmed Type Primidone [Mysoline] 500 mg PO DAILY 08/11/19 04/04/22 History Propranolol LA [Inderal LA] 80 mg PO HS 08/11/19 04/04/22 History Simvastatin [Zocor] 20 mg PO HS 08/11/19 04/04/22 History buPROPion HCL [Wellbutrin SR] 150 mg PO BID 08/11/19 04/04/22 History lisinopriL [Zestril] 10 mg PO HS 08/11/19 04/04/22 History Cetirizine HCl [Zyrtec] 10 mg PO HS 10/04/20 04/04/22 History Multivitamin [Multivitamins Adult 1 tab PO DAILY 10/06/20 04/04/22 History Gummies] Acetaminophen Tab [Tylenol] 650 mg PO Q4H PRN 11/04/20 04/04/22 History Meclizine HCl [Bonine Chew] 25 mg PO TID PRN 11/04/20 04/04/22 History dimenhyDRINATE [Dimenhydrinate] 50 mg PO Q4H PRN 11/04/20 04/04/22 History Mirtazapine 45 mg PO HS 03/28/22 04/04/22 History Primidone [Mysoline] 250 mg PO HS 03/28/22 04/04/22 History Cefuroxime Axetil [Ceftin] 500 mg PO BID 4 Days #8 tab 04/01/22 04/04/22 Rx Ciprofloxacin Ophth Soln [Ciloxan 2 drops BOTH EYES Q4HR 5 Days #15 04/01/22 04/04/22 Rx 0.3% Ophth Soln] ml Furosemide [Lasix] 20 mg PO BID@0900,1600 #30 tab 04/01/22 04/04/22 Rx predniSONE See Taper PO DIRECTED #15 tab 04/01/22 04/04/22 Rx Allergies Allergy/AdvReac Type Severity Reaction Status Date / Time Sulfa (Sulfonamide Allergy Unknown Verified 04/04/22 12:56 Antibiotics) Childhood methylprednisolone AdvReac Makes Verified 04/04/22 12:56 tremors worse prednisone AdvReac See Verified 04/04/22 13:00 Comments Physical Exam Vitals: Vital Signs Temp Pulse Resp BP Pulse Ox 04/04/22 14:36 82 18 188/92 96 04/04/22 12:46 75 18 187/74 97 04/04/22 11:35 98.4 F 79 18 186/103 97 Intake and Output 04/03/22 04/04/22 04/04/22 22:59 06:59 14:59 Other: Weight 91.9 kg PHYSICAL EXAMINATION: Patient is lying in the bed. Awake alert but confused and delirious. HEENT: Normocephalic. Neck is supple. Pupils reactive. Nostrils clear. Oral cavity is moist. Neck reveals no JVD, carotid bruits, or thyromegaly. CHEST EXAMINATION: Trachea is central. Symmetrical expansion. Bibasilar diminished sounds. Coarse breath sounds.. CARDIAC: Normal S1, S2 with no gallops. No murmurs ABDOMEN: Soft. Bowel sounds present. Nontender. No organomegaly. No abdominal bruits. Extremities: Trace bilateral pedal edema. No clubbing or cyanosis Neurologically awake, alert, confused and delirious. No gross focal neurological deficit. Skin: No rash or skin lesions. Psychiatric: Coperative. Could not be assessed at this time.. Musculoskeletal: No joint swelling or deformity. Results CBC & Chem 7: 04/04/22 11:51 04/04/22 11:51 Labs: Abnormal Lab Results - Last 24 Hours (Table) 04/04/22 04/04/22 04/04/22 Range/Units 11:48 11:51 11:51 WBC 11.9 H (3.8-10.6) k/uL Hgb 11.2 L (11.4-16.0) gm/dL Neutrophils # 8.9 H (1.3-7.7) k/uL Sodium (137-145) mmol/L BUN (7-17) mg/dL Glucose (74-99) mg/dL POC Glucose (mg/dL) 113 H (75-99) mg/dL Calcium (8.4-10.2) mg/dL AST (14-36) U/L ALT (4-34) U/L Alkaline Phosphatase (38-126) U/L Albumin (3.5-5.0) g/dL Urine Protein Trace H (Negative) Urine Ketones 1+ H (Negative) Ur Barbiturates Screen Detected H (NotDetected) 04/04/22 Range/Units 11:51 WBC (3.8-10.6) k/uL Hgb (11.4-16.0) gm/dL Neutrophils # (1.3-7.7) k/uL Sodium 136 L (137-145) mmol/L BUN 21 H (7-17) mg/dL Glucose 115 H (74-99) mg/dL POC Glucose (mg/dL) (75-99) mg/dL Calcium 8.2 L (8.4-10.2) mg/dL AST 65 H (14-36) U/L ALT 59 H (4-34) U/L Alkaline Phosphatase 183 H (38-126) U/L Albumin 3.3 L (3.5-5.0) g/dL Urine Protein (Negative) Urine Ketones (Negative) Ur Barbiturates Screen (NotDetected) Thrombosis Risk Factor Assmnt - DVT/VTE Prophylaxis DVT/VTE Prophylaxis: Pharmacologic Prophylaxis ordered Assessment and Plan Assessment: Altered mental status possible metabolic encephalopathy due to infection Worsening shortness of breath due to multilobar pneumonia versus acute CHF Acute CHF with diastolic dysfunction with valvular abnormalities/severe MR. Recent echocardiogram showed ejection fraction 50%. Uncontrolled hypertension Recent admission with pneumonia and was on antibiotics in the form of ceftriaxone azithromycin with clinical improvement before discharge. Mild transaminitis Hypertension Hyperlipidemia GERD Bipolar/depression Previous history of smoking DVT prophylaxis Plan: Patient will be continued on antibiotics in the form of Zosyn and continue with Lasix 20 mg IV twice daily. Start back on losartan and propranolol and titrate dose as needed. Follow-up BNP level and procalcitonin level. Pulmonary was consulted. Current home medications and follow-up closely. Time with Patient: Greater than 30
[2022-04-05] MEDS: HEPARIN SODIUM,PORCINE/PF 5,000 UNIT/0.5 ML SYRINGE SQ SCH ×2 (01:15→08:43)
[2022-04-05] MEDS: FUROSEMIDE 10 MG/ML 2 ML VIAL IV SCH ×2 (08:44→20:58)
[2022-04-05] MEDS: PRIMIDONE 250 MG TAB PO SCH ×2 (08:44→20:58)
[2022-04-05] MEDS: SPIRONOLACTONE 25 MG TAB PO SCH (08:44)
[2022-04-05 08:57] LABS: Basophils % (A) 0.7 %; Eosinophils # (A) 0.11 X 10*3/uL (0.04-0.35); Eosinophils % (A) 0.8 %; HCT 36.8 % (37.2-46.3); HGB 11.9 g/dL (12.0-15.0); Immature Grans, Automated 2.1 %; Lymphocytes # (A) 1.81 X 10*3/uL (0.90-5.00); MCH 28.2 pg (27.0-32.0); MCHC 32.3 g/dL (32.0-37.0); MCV 87.2 fL (80.0-97.0); Mean Platelet Volume 11.3 fL (9.5-12.2); Monocytes % (A) 8.6 %; NRBC Per 100 WBC 0 /100 WBCS (0.0-0.0); Neutrophils # (A) 10.43 X 10*3/uL (1.80-7.70); Neutrophils % (A) 74.8 %; Platelet Count 456 X 10*3/uL (140-440); RBC 4.22 X 10*6/uL (4.10-5.20); RDW 13.8 % (11.5-14.5); WBC 13.94 X 10*3/uL (4.50-10.00)
[2022-04-05 09:04] LABS: African American GFR (CKD) 62.5 (60.0-200.0); Albumin 3.3 g/dL (3.8-4.9); Albumin/Globulin Ratio 1.06 (1.60-3.17); Anion Gap 19.8 mmol/L (10.00-18.00); BUN/Creat Ratio 21.3 Ratio (12.00-20.00); Blood Urea Nitrogen 21.3 mg/dL (9.0-27.0); Calcium 8.7 mg/dL (8.7-10.3); Carbon Dioxide 22.2 mmol/L (20.0-27.5); Globulin 3.1 g/dL (1.6-3.3); Non-African American GFR(CKD) 53.9 (60.0-200.0); Total Bilirubin 0.2 mg/dL (0.30-1.20); Total Protein 6.4 g/dL (6.2-8.2)
--- NOTE | 2022-04-05 09:14 | XR ---
EXAMINATION TYPE: XR chest 2V DATE OF EXAM: 04/05/2022 COMPARISON: 04/04/2022 TECHNIQUE: PA and lateral views submitted. HISTORY: Cough FINDINGS: The lungs are clear and there is no pneumothorax, pleural effusion, or focal pneumonia. Coarsened i nterstitium with nodularity in the left upper lobe. Underlying COPD suspected with bilateral subsegme ntal areas of consolidation. Atherosclerotic change aorta. Heart size stable. Biapical pleural thicke shanta. IMPRESSION: 1. Bilateral patchy areas of infiltrate superimposed on a background COPD suspected chronic interstit ial lung disease. Cannot exclude a 1 cm left upper lobe pulmonary nodule.
--- NOTE | 2022-04-05 09:28 | P.CRDCN ---
History of Present Illness Consult date: 04/05/22 History of present illness: HISTORY OF PRESENT ILLNESS: This is a 76-year-old female with a past medical history significant for mild nonobstructive coronary artery disease, severe mitral regurgitation, hypertension, hyperlipidemia, congestive heart failure, and tremors. Patient follows in the office with Dr. Chapa. She also follows with Dr. Wade outpatient for possible intervention of her mitral valve. We have been asked to see the patient in consultation for congestive heart failure. Patient examined at the bedside. Patient is admitted to the hospital with multilobe pneumonia, altered mental status, and possible sepsis. The patient is noncooperative this morning with physical examination or speaking with providers at the bedside. Patient is laying flat in bed and appears comfortable. She does not appear to be any acute distress. Vital signs are stable. * EKG reveals sinus mechanism with no signs of acute ischemia * Chest xray patchy bilateral areas of infiltrate/pneumonia with small effusion likely superimposed on Bactrim of COPD chronic interstitial lung disease. Interstitial pneumonitis versus venous congestion not excluded. * Laboratory data: WBC 13.94. Hemoglobin 11.9. Platelet count 456. Sodium 138. Potassium 4.0. BUN 21. Creatinine 1.0. ProBNP 57,500 * Current home cardiac medications include lisinopril 10 mg at night, Zocor 20 mg at night, Lasix 20 mg twice a day * Cardiac catheterization history: Patient underwent right and left heart catheterization on 03/01/2022 revealing mild nonobjective coronary artery disease, mild pulmonary hypertension, WHo group 2, mildly elevated left and right-sided filling pressures * Patient underwent AMY on 03/01/2022 revealing thickened anterior and posterior mitral leaflets with evidence of severe mitral regurgitation. Ejection fraction 50%, mildly dilated right ventricle and normal function, aortic sclerosis without stenosis with mild insufficiency. Moderate tricuspid regurgitation, no evidence of pericardial effusion REVIEW OF SYSTEMS: Unable to obtain thorough review of systems secondary to altered mental status and patient's lack of cooperation PHYSICAL EXAM: VITAL SIGNS: Reviewed. GENERAL: Well-developed in no acute distress. HEENT: Head is normocephalic. Pupils are equal, round. Sclerae anicteric. Mucous membranes of the mouth are moist. Neck supple. No JVD or thyromegaly LUNGS: Respirations even and unlabored. Lungs diminished to auscultation bilaterally. HEART: Regular rate and rhythm. S1 and S2 heard. Systolic murmur noted. ABDOMEN: Soft. Nondistended. Nontender. EXTREMITIES: Normal range of motion. No clubbing or cyanosis. Peripheral pulses intact. No lower extremity edema NEUROLOGIC: Awake and alert. Oriented x 3. ASSESSMENT: Altered mental status Multilobular pneumonia Acute on chronic heart failure with preserved ejection fraction Mild nonobjective coronary artery disease Severe mitral regurgitation Hypertension Hyperlipidemia PLAN: Obtain 2-D echo to assess cardiac structure and function Continue home cardiac medications Continue IV Lasix Monitor kidney function Accurate I&O Add spironolactone 12.5 mg daily Further recommendations pending patient's course Nurse practitioner note has been reviewed by physician. Signing provider agrees with the documented findings, assessment, and plan of care. Past Medical History Past Medical History: GERD/Reflux, Hyperlipidemia, Hypertension Additional Past Medical History / Comment(s): tremors. Vertigo History of Any Multi-Drug Resistant Organisms: None Reported Past Surgical History: Unable to Obtain, Tonsillectomy Additional Past Surgical History / Comment(s): COLONOSCOPY Past Anesthesia/Blood Transfusion Reactions: Postoperative Nausea & Vomiting (PONV) Past Psychological History: Bipolar, Depression Smoking Status: Former smoker Past Alcohol Use History: None Reported Past Drug Use History: None Reported - Past Family History Mother Family Medical History: No Reported History Medications and Allergies Home Medications Medication Instructions Recorded Confirmed Type Primidone [Mysoline] 500 mg PO DAILY 08/11/19 04/04/22 History Propranolol LA [Inderal LA] 80 mg PO HS 08/11/19 04/04/22 History Simvastatin [Zocor] 20 mg PO HS 08/11/19 04/04/22 History buPROPion HCL [Wellbutrin SR] 150 mg PO BID 08/11/19 04/04/22 History lisinopriL [Zestril] 10 mg PO HS 08/11/19 04/04/22 History Cetirizine HCl [Zyrtec] 10 mg PO HS 10/04/20 04/04/22 History Multivitamin [Multivitamins Adult 1 tab PO DAILY 10/06/20 04/04/22 History Gummies] Acetaminophen Tab [Tylenol] 650 mg PO Q4H PRN 11/04/20 04/04/22 History Meclizine HCl [Bonine Chew] 25 mg PO TID PRN 11/04/20 04/04/22 History dimenhyDRINATE [Dimenhydrinate] 50 mg PO Q4H PRN 11/04/20 04/04/22 History Mirtazapine 45 mg PO HS 03/28/22 04/04/22 History Primidone [Mysoline] 250 mg PO HS 03/28/22 04/04/22 History Cefuroxime Axetil [Ceftin] 500 mg PO BID 4 Days #8 tab 04/01/22 04/04/22 Rx Ciprofloxacin Ophth Soln [Ciloxan 2 drops BOTH EYES Q4HR 5 Days #15 04/01/22 04/04/22 Rx 0.3% Ophth Soln] ml Furosemide [Lasix] 20 mg PO BID@0900,1600 #30 tab 04/01/22 04/04/22 Rx predniSONE See Taper PO DIRECTED #15 tab 04/01/22 04/04/22 Rx Allergies Allergy/AdvReac Type Severity Reaction Status Date / Time Sulfa (Sulfonamide Allergy Unknown Verified 04/04/22 12:56 Antibiotics) Childhood methylprednisolone AdvReac Makes Verified 04/04/22 12:56 tremors worse prednisone AdvReac See Verified 04/04/22 13:00 Comments Physical Exam Vitals: Vital Signs Temp Pulse Pulse Resp BP BP Pulse Ox 04/05/22 07:58 89 19 04/05/22 07:57 98.2 F 89 19 133/76 92 L 04/05/22 01:29 99.7 F H 90 18 144/82 94 L 04/04/22 21:57 88 18 164/79 98 04/04/22 19:00 87 18 166/71 96 04/04/22 17:00 84 18 173/84 97 04/04/22 16:00 84 18 180/98 97 04/04/22 14:36 82 18 188/92 96 04/04/22 12:46 75 18 187/74 97 04/04/22 11:35 98.4 F 79 18 186/103 97 Intake and Output 04/04/22 04/05/22 04/05/22 22:59 06:59 14:59 Output Total 1800 300 Balance -1800 -300 Output: Urine 1800 300 Other: Voiding Method Indwelling Catheter Weight 91.9 kg Results 04/05/22 06:47 04/05/22 06:47 Cardiac Enzymes 04/04/22 04/04/22 Range/Units 11:51 11:51 AST 65 H (14-36) U/L Troponin I 0.025 (0.000-0.034) ng/mL Coagulation 04/04/22 Range/Units 11:51 PT 10.1 (9.0-12.0) sec APTT 23.1 (22.0-30.0) sec CBC 04/04/22 04/05/22 Range/Units 11:51 06:47 WBC 11.9 H 13.94 H (3.8-10.6) k/uL RBC 3.86 4.22 (3.80-5.40) m/uL Hgb 11.2 L 11.9 L (11.4-16.0) gm/dL Hct 34.9 36.8 L (34.0-46.0) % Plt Count 404 456 H (150-450) k/uL Comprehensive Metabolic Panel 04/04/22 Range/Units 11:51 Sodium 136 L (137-145) mmol/L Potassium 4.1 (3.5-5.1) mmol/L Chloride 99 (98-107) mmol/L Carbon Dioxide 26 (22-30) mmol/L BUN 21 H (7-17) mg/dL Creatinine 0.77 (0.52-1.04) mg/dL Glucose 115 H (74-99) mg/dL Calcium 8.2 L (8.4-10.2) mg/dL AST 65 H (14-36) U/L ALT 59 H (4-34) U/L Alkaline Phosphatase 183 H (38-126) U/L Total Protein 6.7 (6.3-8.2) g/dL Albumin 3.3 L (3.5-5.0) g/dL Current Medications Generic Name Dose Route Start Last Admin Trade Name Freq PRN Reason Stop Dose Admin Acetaminophen 650 mg 04/04/22 14:56 Acetaminophen Tab 325 Mg Tab PO Q4H PRN Pain Atorvastatin Calcium 10 mg 04/04/22 21:00 04/04/22 21:54 Atorvastatin 10 Mg Tab PO 10 mg HS LEMUEL Administration Furosemide 20 mg 04/04/22 15:00 04/05/22 08:44 Furosemide 10 Mg/Ml 2 Ml Vial IV 20 mg Q12HR LEMUEL Administration Heparin Sodium (Porcine) 5,000 unit 04/04/22 16:00 04/05/22 08:43 Heparin Sodium,Porcine/Pf 5,000 Unit/0.5 Ml Syringe SQ Not Given Q8HR LEMUEL Levofloxacin 500 mg/ IV 100 mls @ 100 mls/hr 04/04/22 17:00 04/04/22 17:01 Solution IVPB 100 mls/hr Q24H LEMUEL Administration Protocol Lisinopril 10 mg 04/04/22 15:00 04/04/22 20:50 Lisinopril 10 Mg Tab PO Not Given HS LEMUEL Mirtazapine 45 mg 04/04/22 21:00 04/04/22 21:54 Mirtazapine 15 Mg Tab PO 45 mg HS LEMUEL Administration Miscellaneous Information 1 each 04/04/22 13:06 Pneumonia Protocol Utilized 1 Each Misc PO ONCE PRN Per Protocol Miscellaneous Information 1 each 04/04/22 13:12 Rx Info: Iv Contrast Was Given 1 Each Misc MISCELLANE 04/06/22 13:13 DAILY PRN Per Protocol Primidone 250 mg 04/05/22 21:00 Primidone 250 Mg Tab PO HS LEMUEL Primidone 500 mg 04/05/22 09:00 04/05/22 08:44 Primidone 250 Mg Tab PO Not Given DAILY LEMUEL Propranolol HCl 80 mg 04/04/22 21:00 04/04/22 22:03 Propranolol La 80 Mg Cap.Sa.24h PO 80 mg HS LEMUEL Administration Spironolactone 12.5 mg 04/05/22 09:00 04/05/22 08:44 Spironolactone 25 Mg Tab PO Not Given DAILY LEMUEL Intake and Output 04/04/22 04/05/22 04/05/22 22:59 06:59 14:59 Output Total 1800 300 Balance -1800 -300 Output: Urine 1800 300 Other: Voiding Method Indwelling Catheter Weight 91.9 kg 04/05/22 06:47 04/04/22 11:51
--- NOTE | 2022-04-05 13:24 | P.PN ---
Subjective Progress Note Date: 04/05/22 76-year-old female patient who got readmitted to the hospital after 3 days of being discharged because of altered mentation ongoing difficulties with shortness of breath and right lung pneumonia. The patient was in the hospital for the same where she was admitted on 03/29/2022. She came in for altered mentation. She was found to have a right lung pneumonia. The patient without antibiotics and she was given accommodation Rocephin and Zithromax. She improved clinically. I saw her in the hospital on 04/01/2022 and she was doing well and she was sitting up on a chair and she was on room air oxygen. The chest x-ray was showing patchy right-sided pulmonary infiltrates with interval improvement. The white cell count was now. The patient's UA was negative. Urine cultures was negative. The pro-calcitonin level was at 0.1. ProBNP level was 1230. She was hemodynamically stable. She was known to have valvular heart disease and she was supposed to follow-up with the cardiology group at planned for a possible TAVR at the later stage. There cardiac catheterization showed nonobstructive CAD. AMY showed thickening of the anterior and the posterior mitral valve leaflets and severe MR with an ejection fraction of 50%. The patient came in to the emergency on 04/04/2022 for the same. She was altered mentally. Her thoughts were noncoherent. The patient had ongoing mild cough. She was complaining of pain which was diffuse body aches. No chest pain. No nausea vomiting or abdominal pain. No focal neurological deficit. She was feeling weak. Upon discharge, she was given Ceftin and prednisone burst taper. Her temperature was afebrile. BP was stable. White cell count was 11.9 . BUN was 21 with a creatinine of 0.7 and the electrodes were all within normal limits. The patient's LFTs were abnormal with an AST of 65, ALT of 59 and alkaline phosphatase of 183. Urine drug screen was positive for barbiturates. Chest x-ray showed persistent right lung patchy pulmonary infiltrates, and the CAT scan of the chest was consistent with multilobar pneumonia, worse in the right lower lobe.. Based on that, the patient was admitted to the hospital. 04/05/2022, the patient remains altered and confused. She is on room air oxygen. I'm unable to explain her altered mentation and confusion on the basis of a pneumonia. In fact, despite the significant infiltration of the right lung, the patient not having any significant respiratory distress. she has no fever. Chest x-ray findings are unchanged compared to yesterday. her blood work showed a white cell count of 13 , hemoglobin of 11.9, normal coagulation profile, a pro-calcitonin level of 0.12 , normal renal function, LFTs are mildly abnormal, UA was negative, urine drug screen was also negative. CAT scan of the brain showed no acute CLOSET BUILDER abnormalities. the patient will obviously need a neurologic evaluation. Objective - Vital Signs Vital signs: Vital Signs Temp 98.2 F 04/05/22 07:57 Pulse 89 04/05/22 07:58 Resp 19 04/05/22 07:58 BP 133/76 04/05/22 07:57 Pulse Ox 92 L 04/05/22 07:57 FiO2 Intake & Output 04/04/22 04/05/22 04/05/22 18:59 06:59 18:59 Output Total 2100 Balance -2100 Weight 91.9 kg 91.9 kg Output: Urine 2100 Other: Voiding Method Indwelling Catheter - Exam No acute distress, confused, currently on room air. Room air saturation 99%. HEENT examination is grossly unremarkable. Neck supple. Full range of motion. No adenopathy thyromegaly or neck vein distention. Cardiovascular examination reveals regular rhythm rate. S1-S2 normal. No S3 or S4. No discernible murmur noted. Lungs reveal mostly clear breath sounds. Scattered rhonchi are noted, with predominance in the right lung. No wheezes or crackles. Abdomen soft bowel sounds are heard. No masses or tenderness. Extremities are intact. No cyanosis clubbing or edema. Skin is without rash or lesion. Neurologic examination is brief but nonfocal. He has tremors - Labs CBC & Chem 7: 04/05/22 06:47 04/05/22 06:47 Labs: Abnormal Lab Results - Last 24 Hours (Table) 04/04/22 04/05/22 04/05/22 Range/Units 11:51 06:47 06:47 WBC 13.94 H (4.50-10.00) X 10*3/uL Hgb 11.9 L (12.0-15.0) g/dL Hct 36.8 L (37.2-46.3) % Plt Count 456 H (140-440) X 10*3/uL Immature Gran # 0.29 H (0.00-0.04) X 10*3/uL Neutrophils # 10.43 H (1.80-7.70) X 10*3/uL Monocytes # 1.20 H (0.20-1.00) X 10*3/uL Anion Gap 19.80 H (10.00-18.00) mmol/L Est GFR (CKD-EPI)NonAf 53.9 L (60.0-200.0) BUN/Creatinine Ratio 21.30 H (12.00-20.00) Ratio Total Bilirubin 0.20 L (0.30-1.20) mg/dL AST 45 H (13-35) U/L ALT 53 H (8-44) U/L Alkaline Phosphatase 177 H (41-126) U/L Albumin 3.3 L (3.8-4.9) g/dL Albumin/Globulin Ratio 1.06 L (1.60-3.17) g/dL Procalcitonin 0.12 H (0.02-0.09) ng/mL Assessment and Plan Plan: Acute mental status changes, likely secondary to pneumonia and possible sepsis. This computed tomography scan of the brain showed no acute abnormalities. Neurologic exam is nonfocal. This is likely secondary to metabolic en cephalopathy. possibility of CLOSET BUILDER infection cannot be completely ruled out as the patient is neurologic behavior is completely unusual, she is unable to speak appropriately Multilobar pneumonia involving the right lung worse in the right lower lobe, treated initially with some initial Rocephin and Zithromax and she was sent home on Ceftin on a prednisone burst taper. Currently, the patient is readmitted and the patient is being treated for the same. Severe mitral regurgitation Elevated troponins, thought to be related to supply demand mismatch, in a patient with nonobstructive CAD, based on recent cardiac catheterization. History of hypertension. History of hyperlipidemia. History of essential tremor. History of gastroesophageal reflux disease. History of bipolar disorder. Plan Continue Levaquin and Zosyn pro-calcitonin level was low Oxygen therapy needed to maintain a saturation above 90% [id number] mg every 12 hours IV Solu-Medrol Resume all medications Check Legionella urine antigen neurology needs to be consulted as the patient is encephalopathic. May need an MRI of the brain, lumbar puncture to further investigate her ongoing aaltered mentation and cannot be explained on the basis of a pneumonia. We'll continue to follow
--- NOTE | 2022-04-05 15:13 | P.CNNES ---
History of Present Illness Consult date: 04/05/22 Requesting physician: Abida Be Reason for Consult: altered mental status History of Present Illness: This is a 76-year-old woman with medical history of pneumonia, severe mitral regurgitation, hypertension, hyperlipidemia, essential tremor, bipolar who presented to the emergency department for altered mentation. She was obtained from medical record. Neurology is consulted for altered mental status. It seems the patient got readmitted after 3 days being discharged because of altered mental status, ongoing difficulty with shortness of breath and right lung pneumonia. Patient was discharged with antibiotic and steroids. On prior admission the patient was started on Rocephin and Zithromax and was sent home on Ceftin and on prednisone taper. Some of the workup in our facility during this hospital visit consisted of: T-max during this admission is 99.7 Fahrenheit oral and that was today otherwise patient has been afebrile. White blood cell on initial presentation is 11.9 repeated is 13.94 and it's slightly neutrophilic. AST 65 ALT of 59, ammonia is less than 9, glucose is 115. Calcium is 8.2 Urinalysis negative for urinary tract infection. Urine drug screen is positive for barbiturates others nondetected. Legionella of the urine is negative CT of the head is reported as no acute intracranial abnormality or gross space- occupying lesion by this nonenhanced computed tomography scan. I personally reviewed the CT of the head and there is no acute subacute ischemia and there is no intraparenchymal hemorrhages as appreciable. There is hyperdensity over the seems the left basal ganglia is minimal in size that can be due to calcification. CT of chest is reported as above described pulmonary changes are likely related to acute inflammatory/infection process likely pneumonia however associate pulmonary edema cannot be excluded. Review of Systems Review of system: is limited but the pertinent positive and negative as per HPI. Past Medical History Past Medical History: GERD/Reflux, Hyperlipidemia, Hypertension Additional Past Medical History / Comment(s): tremors. Vertigo History of Any Multi-Drug Resistant Organisms: None Reported Past Surgical History: Unable to Obtain, Tonsillectomy Additional Past Surgical History / Comment(s): COLONOSCOPY Past Anesthesia/Blood Transfusion Reactions: Postoperative Nausea & Vomiting (PONV) Past Psychological History: Bipolar, Depression Smoking Status: Former smoker Past Alcohol Use History: None Reported Past Drug Use History: None Reported - Past Family History Mother Family Medical History: No Reported History Medications and Allergies Home Medications Medication Instructions Recorded Confirmed Type Primidone [Mysoline] 500 mg PO DAILY 08/11/19 04/04/22 History Propranolol LA [Inderal LA] 80 mg PO HS 08/11/19 04/04/22 History Simvastatin [Zocor] 20 mg PO HS 08/11/19 04/04/22 History buPROPion HCL [Wellbutrin SR] 150 mg PO BID 08/11/19 04/04/22 History lisinopriL [Zestril] 10 mg PO HS 08/11/19 04/04/22 History Cetirizine HCl [Zyrtec] 10 mg PO HS 10/04/20 04/04/22 History Multivitamin [Multivitamins Adult 1 tab PO DAILY 10/06/20 04/04/22 History Gummies] Acetaminophen Tab [Tylenol] 650 mg PO Q4H PRN 11/04/20 04/04/22 History Meclizine HCl [Bonine Chew] 25 mg PO TID PRN 11/04/20 04/04/22 History dimenhyDRINATE [Dimenhydrinate] 50 mg PO Q4H PRN 11/04/20 04/04/22 History Mirtazapine 45 mg PO HS 03/28/22 04/04/22 History Primidone [Mysoline] 250 mg PO HS 03/28/22 04/04/22 History Cefuroxime Axetil [Ceftin] 500 mg PO BID 4 Days #8 tab 04/01/22 04/04/22 Rx Ciprofloxacin Ophth Soln [Ciloxan 2 drops BOTH EYES Q4HR 5 Days #15 04/01/22 04/04/22 Rx 0.3% Ophth Soln] ml Furosemide [Lasix] 20 mg PO BID@0900,1600 #30 tab 04/01/22 04/04/22 Rx predniSONE See Taper PO DIRECTED #15 tab 04/01/22 04/04/22 Rx Allergies Allergy/AdvReac Type Severity Reaction Status Date / Time Sulfa (Sulfonamide Allergy Unknown Verified 04/04/22 12:56 Antibiotics) Childhood methylprednisolone AdvReac Makes Verified 04/04/22 12:56 tremors worse prednisone AdvReac See Verified 04/04/22 13:00 Comments Physical Examination - Vital Signs Vital Signs: Vital Signs Temp Pulse Pulse Resp BP BP Pulse Ox 04/05/22 14:00 97.1 F L 86 19 135/77 92 L 04/05/22 07:58 89 19 04/05/22 07:57 98.2 F 89 19 133/76 92 L 04/05/22 01:29 99.7 F H 90 18 144/82 94 L 04/04/22 21:57 88 18 164/79 98 04/04/22 19:00 87 18 166/71 96 04/04/22 17:00 84 18 173/84 97 04/04/22 16:00 84 18 180/98 97 Intake and Output 04/04/22 04/05/22 04/05/22 22:59 06:59 14:59 Output Total 1800 300 800 Balance -1800 -300 -800 Output: Urine 1800 300 800 Other: Voiding Method Indwelling Catheter Weight 91.9 kg GENERAL: The patient is lying in bed and does not seem in acute distress. But is restless. HENT: Supple neck. CHEST: The heart rate is regular rate rhythm. No murmurs to auscultation. LUNG: Clear to auscultation bilaterally no wheezing noted throughout. Not labored breathing. ABDOMEN/GI: Bowel sounds present in all 4 quadrants. No tenderness to palpation throughout. NEUROLOGICAL: Limited because of her cooperation. Occasionally is restless. Higher mental function: The patient is drowsy but intermittently aweakeable to voice. she is oriented to self. She could not tell me place or time. She was able to name some objects such as pen, watch. She correctly stated the current state we are in. She is following few simple commands. Language is limited Cranial nerves: The pupils are round, equal and primary gaze is midline. Could not assess reactivitity because of her cooperation. No facial weakness. No dysarthria. Tongue is midline and moves side to side. Motor: The strength is hard to assess invidual muscle strength. Is moving bilateral uppers above gravity and moving ankles antigravity. Has tremors when lifting arms (has essential tremor). Normal tone and bulk. Cerebellum: Unable to assess. Sensation: Unable to assess because of cooperation. Plantars are mute bilaterally. Results - Laboratory Findings CBC and BMP: 04/05/22 06:47 04/05/22 06:47 Abnormal Lab Findings: Abnormal Labs 04/04/22 04/04/22 04/04/22 11:48 11:51 11:51 WBC 11.9 H Hgb 11.2 L Hct Plt Count Immature Gran # Neutrophils # 8.9 H Monocytes # Sodium Anion Gap BUN Est GFR (CKD-EPI)NonAf BUN/Creatinine Ratio Glucose POC Glucose (mg/dL) 113 H Calcium Total Bilirubin AST ALT Alkaline Phosphatase Albumin Albumin/Globulin Ratio Procalcitonin Urine Protein Trace H Urine Ketones 1+ H Ur Barbiturates Screen Detected H 04/04/22 04/04/22 04/05/22 11:51 11:51 06:47 WBC 13.94 H Hgb 11.9 L Hct 36.8 L Plt Count 456 H Immature Gran # 0.29 H Neutrophils # 10.43 H Monocytes # 1.20 H Sodium 136 L Anion Gap BUN 21 H Est GFR (CKD-EPI)NonAf BUN/Creatinine Ratio Glucose 115 H POC Glucose (mg/dL) Calcium 8.2 L Total Bilirubin AST 65 H ALT 59 H Alkaline Phosphatase 183 H Albumin 3.3 L Albumin/Globulin Ratio Procalcitonin 0.12 H Urine Protein Urine Ketones Ur Barbiturates Screen 04/05/22 06:47 WBC Hgb Hct Plt Count Immature Gran # Neutrophils # Monocytes # Sodium Anion Gap 19.80 H BUN Est GFR (CKD-EPI)NonAf 53.9 L BUN/Creatinine Ratio 21.30 H Glucose POC Glucose (mg/dL) Calcium Total Bilirubin 0.20 L AST 45 H ALT 53 H Alkaline Phosphatase 177 H Albumin 3.3 L Albumin/Globulin Ratio 1.06 L Procalcitonin Urine Protein Urine Ketones Ur Barbiturates Screen Assessment and Plan Assessment: Encephalopathy of unknown etiology. Possible due to underlying pneumonia and medication (steroids and antibiotics). Rule out encephalitis (does not seem meningitis has supple neck and has one low grade fever). Multilobar pneumonia involving the right long worse in the right lower lobe Essential hypertension Severe mitral regurgitation History of hypertension History of hyperlipidemia Bipolar Plan: I consulted anesthesiology team STAT for lumbar puncture to rule out PARBOILER infection (encephalitis). Ordered MRI of the brain with and without and an EEG urgently. I will not start the patient on antiepileptic drugs unless there is epileptiform discharges or seizure on the EEG. Ordered TSH, vitamin B12, folate. Every 4 hours neuro checks Rule out other underlying infection. Blood culture is ordered and is pending Pulmonary team is on board Currently the patient is on Levofloxacin. We'll defer the rest of the medical management to primary team For DVT: Avoid anticoagulation for lumbar puncture. The plan is discussed with the patient's nurse. Thank you for the consultation. Karlos Wilson M.D. Neuro-hospital Time with Patient: Greater than 30
--- NOTE | 2022-04-05 15:47 | EEG ---
ELECTROENCEPHALOGRAM REPORT DATE OF SERVICE: 04/05/2022 CLINICAL HISTORY: This is a 76-year-old woman with altered mental status. The video EEG is obtained to evaluate for seizure epileptiform activity. RELEVANT MEDICATION: The patient is not on any antiepileptic drug. EEG TYPE: A routine 21-channel EEG is performed with video using the 10/20 electrode placement system. DESCRIPTION: Only wakefulness is obtained. During awake state the background consists of low to moderate voltage of 9-9.5 hertz activity intermixed with delta. There is no physiological sleep architecture seen. There is no focal slowing. Interictal and ictal is none. ACTIVATION PROCEDURE: Photic stimulation and hyperventilation are not performed. CLINICAL INTERPRETATION: This is an abnormal routine EEG. The background slowing is suggestive of mild encephalopathy. There is no focal slowing, epileptiform discharges or seizure on the EEG. SARBJIT / LENY: [id number] / MTDD
[2022-04-05] MEDS ORDERED: SODIUM CHLORIDE 0.9% 1,000 ML IV ONE ×2 (15:50)
--- NOTE | 2022-04-05 16:27 | P.PCN ---
Date of Procedure: 04/05/22 Preoperative Diagnosis: Mental Status Change Postoperative Diagnosis: Same Procedure(s) Performed: Diagnostic LP Anesthesia: local (1% lidocain skin wheal), none Surgeon: Didier Mohamud Estimated Blood Loss (ml): 0.1 IV fluids (ml): 100 Pathology: other (3 cc clear untinges CSF in each of 4 specimin tubes 1-4 sequential) Condition: stable Disposition: floor Indications for Procedure: Mental Status change Operative Findings: Clear untinged CSF Description of Procedure: With the patient in left lateral decubitus position the the skin over the L3 4 interspace was sterilely prepped and draped. The L3 4 interspace was then palpated and a skin wheal was raised over same in the midline. A 20-gauge quinke spinal needle was then advanced through the skin wheal into the subarachnoid space without difficulty. At this time, 3 mL of clear un-tinged CSF was collected in each of 4 specimen tubes numbered 1 through 4 sequentially. Opening and closing pressures were not performed, however it was obvious that they were not elevated.
[2022-04-05 17:37] LABS: Glucose,CSF 65 mg/dL (40-70); Total Protein,CSF 68 mg/dL (12-60)
[2022-04-05] MEDS: LEVOFLOXACIN 500MG-D5W PMX 500 MG in DEXTROSE/WATER 1 100ML.BAG IVPB SCH (18:06)
--- NOTE | 2022-04-05 18:32 | P.PN ---
Subjective Progress Note Date: 04/05/22 76-year-old female with a known history of hypertension, hyperlipidemia, GERD, bipolar disorder and previous history of smoking presents to ER with complaints of worsening shortness of breath. Patient was recently admitted to hospital due to right lung pneumonia and was continued on antibiotics in the form of ceftriaxone azithromycin. Patient was discharged home with oral antibiotic course. Patient did improve clinically and was discharged home. Patient was also found to have severe MR and had recent cardiac catheterization on 03/01/2022 which was nonobstructive. AMY showed thickening of the anterior and posterior mitral leaflets and severe MR. Ejection fraction 50%. Patient was started on Lasix 20 mg twice daily upon discharge. On admission patient has been afebrile. Blood pressures 186/103 and pulse 79 respiration 18 and pulse ox 97% on room air. Laboratory data showed WBC 11.9 hemoglobin 11.2 platelets 404 sodium 136 potassium 4.1 chloride 99 bicarb is 26 BUN 21 creatinine 0.77 and blood sugar 115 liver enzymes showed AST 65 ALT 59 alk phos 483 albumin 3.3 Urinalysis negative for infection UDS is positive for barbiturates. Chest x-ray showed patchy bilateral areas of infiltrate/pneumonia with small effusion likely superimposed on a background COPD, chronic interstitial lung di sease. EKG showed sinus rhythm CT head showed no acute intracranial abnormality or gross space-occupying lesion by this nonenhanced CT scan. Objective - Vital Signs Vital signs: Vital Signs Temp 98.2 F 04/05/22 07:57 Pulse 89 04/05/22 07:58 Resp 19 04/05/22 07:58 BP 133/76 04/05/22 07:57 Pulse Ox 92 L 04/05/22 07:57 FiO2 Intake & Output 04/04/22 04/05/22 04/05/22 18:59 06:59 18:59 Output Total 2100 Balance -2100 Weight 91.9 kg 91.9 kg Output: Urine 2100 Other: Voiding Method Indwelling Catheter - Exam HEENT: Normocephalic. Neck is supple. Pupils reactive. Nostrils clear. Oral cavity is moist. Neck reveals no JVD, carotid bruits, or thyromegaly. CHEST EXAMINATION: Trachea is central. Symmetrical expansion. Bibasilar diminished sounds. Coarse breath sounds.. CARDIAC: Normal S1, S2 with no gallops. No murmurs ABDOMEN: Soft. Bowel sounds present. Nontender. No organomegaly. No abdominal bruits. Extremities: Trace bilateral pedal edema. No clubbing or cyanosis Neurologically awake, alert, confused and delirious. No gross focal neurological deficit. Skin: No rash or skin lesions. - Labs CBC & Chem 7: 04/05/22 06:47 04/05/22 06:47 Labs: Abnormal Lab Results - Last 24 Hours (Table) 04/04/22 04/04/22 04/05/22 Range/Units 11:51 11:51 06:47 WBC 13.94 H (4.50-10.00) X 10*3/uL Hgb 11.9 L (12.0-15.0) g/dL Hct 36.8 L (37.2-46.3) % Plt Count 456 H (140-440) X 10*3/uL Immature Gran # 0.29 H (0.00-0.04) X 10*3/uL Neutrophils # 10.43 H (1.80-7.70) X 10*3/uL Monocytes # 1.20 H (0.20-1.00) X 10*3/uL Sodium 136 L (137-145) mmol/L Anion Gap (10.00-18.00) mmol/L BUN 21 H (7-17) mg/dL Est GFR (CKD-EPI)NonAf (60.0-200.0) BUN/Creatinine Ratio (12.00-20.00) Ratio Glucose 115 H (74-99) mg/dL Calcium 8.2 L (8.4-10.2) mg/dL Total Bilirubin (0.30-1.20) mg/dL AST 65 H (14-36) U/L ALT 59 H (4-34) U/L Alkaline Phosphatase 183 H (38-126) U/L Albumin 3.3 L (3.5-5.0) g/dL Albumin/Globulin Ratio (1.60-3.17) g/dL Procalcitonin 0.12 H (0.02-0.09) ng/mL 04/05/22 Range/Units 06:47 WBC (4.50-10.00) X 10*3/uL Hgb (12.0-15.0) g/dL Hct (37.2-46.3) % Plt Count (140-440) X 10*3/uL Immature Gran # (0.00-0.04) X 10*3/uL Neutrophils # (1.80-7.70) X 10*3/uL Monocytes # (0.20-1.00) X 10*3/uL Sodium (137-145) mmol/L Anion Gap 19.80 H (10.00-18.00) mmol/L BUN (7-17) mg/dL Est GFR (CKD-EPI)NonAf 53.9 L (60.0-200.0) BUN/Creatinine Ratio 21.30 H (12.00-20.00) Ratio Glucose (74-99) mg/dL Calcium (8.4-10.2) mg/dL Total Bilirubin 0.20 L (0.30-1.20) mg/dL AST 45 H (14-36) U/L ALT 53 H (4-34) U/L Alkaline Phosphatase 177 H (38-126) U/L Albumin 3.3 L (3.5-5.0) g/dL Albumin/Globulin Ratio 1.06 L (1.60-3.17) g/dL Procalcitonin (0.02-0.09) ng/mL Assessment and Plan Assessment: Altered mental status possible metabolic encephalopathy due to infection Worsening shortness of breath due to multilobar pneumonia versus acute CHF Acute CHF with diastolic dysfunction with valvular abnormalities/severe MR. Recent echocardiogram showed ejection fraction 50%. Uncontrolled hypertension Recent admission with pneumonia and was on antibiotics in the form of ceftriaxone azithromycin with clinical improvement before discharge. Mild transaminitis Hypertension Hyperlipidemia GERD Bipolar/depression Previous history of smoking DVT prophylaxis Plan: Patient will be continued on antibiotics in the form of Zosyn and continue with Lasix 20 mg IV twice daily. Start back on losartan and propranolol and titrate dose as needed. Follow-up BNP level and procalcitonin level. Pulmonary was consulted. Current home medications and follow-up closely.
[2022-04-05 18:36] LABS: Appearance,CSF Clear; CSF Tube Number 4; CSF Tube Volume 2.8; Red Blood Cell,CSF 0 u/L (0-10)
[2022-04-05 18:37] LABS: Nucleated Cells, CSF 2 u/L (0-5)
[2022-04-05] MEDS: lisinopriL 10 MG TAB PO SCH (20:57)
[2022-04-05] MEDS: ATORVASTATIN 10 MG TAB PO SCH (20:57)
[2022-04-05] MEDS: MIRTAZAPINE 15 MG TAB PO SCH (20:57)
[2022-04-05] MEDS: PROPRANOLOL LA 80 MG CAP.SA.24H PO SCH (20:59)
[2022-04-06 02:33] LABS: Glucose,Whole Blood 96 mg/dL (75-99)
[2022-04-06] MEDS ORDERED: BENZOCAINE SPRAY 1 CAN MUCOUS MEM PRN (05:05)
[2022-04-06] MEDS ORDERED: Phenol 1.4% Sore Throat Spray Bottle MUCOUS MEM PRN (05:20)
[2022-04-06 06:47] LABS: Glucose,Whole Blood 137 mg/dL (75-99)
[2022-04-06] MEDS: FUROSEMIDE 10 MG/ML 2 ML VIAL IV SCH ×2 (08:27→21:47)
[2022-04-06] MEDS: PRIMIDONE 250 MG TAB PO SCH ×2 (08:29→22:03)
[2022-04-06] MEDS: SPIRONOLACTONE 25 MG TAB PO SCH (08:29)
--- NOTE | 2022-04-06 11:08 | XR ---
EXAMINATION TYPE: XR chest 1V DATE OF EXAM: 04/06/2022 COMPARISON: 04/05/2022 HISTORY: Pneumonia TECHNIQUE: Single frontal view of the chest is obtained. FINDINGS: There is moderate diffuse interstitial opacity unchanged compared to previous. There is no airspace consolidation. There is no pleural effusion or pneumothorax. Heart is normal. The osseous structures are intact. IMPRESSION: Moderate diffuse interstitial opacity similar to that seen on the prior study. Findings could reflect acute interstitial pneumonia or chronic interstitial lung disease. IMPRESSION: No acute process.
[2022-04-06] MEDS ORDERED: LORazepam 2 MG/ML INJ IM STA (11:11)
[2022-04-06 11:37] LABS: Glucose,Whole Blood 119 mg/dL (75-99)
[2022-04-06] MEDS ORDERED: HALOPERIDOL LACTATE 5 MG/ML 1 ML VIAL IM ONE (11:39)
[2022-04-06 12:06] LABS: African American GFR (CKD) 54.5 (60.0-200.0); BUN/Creat Ratio 29.55 Ratio (12.00-20.00); Blood Urea Nitrogen 33.1 mg/dL (9.0-27.0); Calcium 8.5 mg/dL (8.7-10.3); Carbon Dioxide 23.4 mmol/L (20.0-27.5); Chloride 95 mmol/L (96-109); Glucose 126 mg/dL (70-110); Potassium 4.1 mmol/L (3.5-5.5); Sodium 136 mmol/L (135-145)
--- NOTE | 2022-04-06 12:18 | P.PN ---
Subjective Progress Note Date: 04/06/22 76-year-old female patient who got readmitted to the hospital after 3 days of being discharged because of altered mentation ongoing difficulties with shortness of breath and right lung pneumonia. The patient was in the hospital for the same where she was admitted on 03/29/2022. She came in for altered mentation. She was found to have a right lung pneumonia. The patient without antibiotics and she was given accommodation Rocephin and Zithromax. She improved clinically. I saw her in the hospital on 04/01/2022 and she was doing well and she was sitting up on a chair and she was on room air oxygen. The chest x-ray was showing patchy right-sided pulmonary infiltrates with interval improvement. The white cell count was now. The patient's UA was negative. Urine cultures was negative. The pro-calcitonin level was at 0.1. ProBNP level was 1230. She was hemodynamically stable. She was known to have valvular heart disease and she was supposed to follow-up with the cardiology group at planned for a possible TAVR at the later stage. There cardiac catheterization showed nonobstructive CAD. AMY showed thickening of the anterior and the posterior mitral valve leaflets and severe MR with an ejection fraction of 50%. The patient came in to the emergency on 04/04/2022 for the same. She was altered mentally. Her thoughts were noncoherent. The patient had ongoing mild cough. She was complaining of pain which was diffuse body aches. No chest pain. No nausea vomiting or abdominal pain. No focal neurological deficit. She was feeling weak. Upon discharge, she was given Ceftin and prednisone burst taper. Her temperature was afebrile. BP was stable. White cell count was 11.9 . BUN was 21 with a creatinine of 0.7 and the electrodes were all within normal limits. The patient's LFTs were abnormal with an AST of 65, ALT of 59 and alkaline phosphatase of 183. Urine drug screen was positive for barbiturates. Chest x-ray showed persistent right lung patchy pulmonary infiltrates, and the CAT scan of the chest was consistent with multilobar pneumonia, worse in the right lower lobe.. Based on that, the patient was admitted to the hospital. 04/05/2022, the patient remains altered and confused. She is on room air oxygen. I'm unable to explain her altered mentation and confusion on the basis of a pneumonia. In fact, despite the significant infiltration of the right lung, the patient not having any significant respiratory distress. she has no fever. Chest x-ray findings are unchanged compared to yesterday. her blood work showed a white cell count of 13 , hemoglobin of 11.9, normal coagulation profile, a pro-calcitonin level of 0.12 , normal renal function, LFTs are mildly abnormal, UA was negative, urine drug screen was also negative. CAT scan of the brain showed no acute PEDIATRIC MEDICAL ASSISTANT abnormalities. the patient will obviously need a neurologic evaluation. 04/06/2022, the patient remains confused and the mentation continues to be altered. Despite all this, the patient is not having any respiratory decompensation. In view of her underlying altered mentation, a neurologic outpatient is been requested. CAT scan of the brain was negative. The patient underwent a lumbar puncture that showed no acute abnormalities. She will further have an MRI of the brain. Meanwhile, the patient remains on same antibiotic coverage. The patient remains on Levaquin. I'm essentially doubting the possibility of pneumonia and there could be another process involving the patient's lungs including the possibility of malignancy. The patient's BUN is at 32 with a creatinine of 1.1 and sodium level of 136. Her neurologic exam is nonfocal. She continues to be altered. The Legionella urine antigen antigen was negative. Objective - Vital Signs Vital signs: Vital Signs Temp 97.3 F L 04/06/22 07:41 Pulse 71 04/06/22 07:41 Resp 17 04/06/22 07:41 BP 118/74 04/06/22 07:41 Pulse Ox 97 04/06/22 07:41 FiO2 Intake & Output 04/05/22 04/06/22 04/06/22 18:59 06:59 18:59 Intake Total 50 Output Total 800 300 Balance -750 -300 Weight 88.592 kg Intake: IV 50 Output: Urine 800 300 Other: Voiding Method Indwelling Catheter Indwelling Catheter - Exam No acute distress, confused, currently on room air. Room air saturation 99%. HEENT examination is grossly unremarkable. Neck supple. Full range of motion. No adenopathy thyromegaly or neck vein distention. Cardiovascular examination reveals regular rhythm rate. S1-S2 normal. No S3 or S4. No discernible murmur noted. Lungs reveal mostly clear breath sounds. Scattered rhonchi are noted, with predominance in the right lung. No wheezes or crackles. Abdomen soft bowel sounds are heard. No masses or tenderness. Extremities are intact. No cyanosis clubbing or edema. Skin is without rash or lesion. Neurologic examination is brief but nonfocal. He has tremors. The patient remains confused. She remains encephalopathic. At times she has tremors. She is a bit restless and she is unable to tell day time and place. Please refer to the neurologist consultation regarding further details of her neurologic exam. - Labs CBC & Chem 7: 04/05/22 06:47 04/06/22 06:38 Labs: Abnormal Lab Results - Last 24 Hours (Table) 04/05/22 04/06/22 Range/Units 16:04 06:45 POC Glucose (mg/dL) 137 H (75-99) mg/dL CSF Total Protein 68 H (12-60) mg/dL Microbiology - Last 24 Hours (Table) 04/05/22 16:04 CSF Gram Stain - Preliminary Cerebral Spinal Fluid CSF Culture - Preliminary 04/04/22 14:30 Blood Culture - Preliminary Blood No Growth after 24 hours 04/04/22 14:10 Blood Culture - Preliminary Blood No Growth after 24 hours Assessment and Plan Plan: Acute mental status changes, likely secondary to pneumonia and possible sepsis. This computed tomography scan of the brain showed no acute abnormalities. Neurologic exam is nonfocal. This is likely secondary to metabolic encephalopathy. possibility of PEDIATRIC MEDICAL ASSISTANT infection cannot be completely ruled out as the patient is neurologic behavior is completely unusual, she is unable to speak appropriately. The patient underwent a lumbar puncture that came back negative. The patient's is going to undergo an MRI of the brain. Rule out paraneoplastic features. Rule out underlying CVA Multilobar pneumonia involving the right lung worse in the right lower lobe, treated initially with some initial Rocephin and Zithromax and she was sent home on Ceftin on a prednisone burst taper. Currently, the patient is readmitted and the patient is being treated for the same. The patient has a stable oxygenation. The patient remains on Levaquin. I'm essentially doubting the possibility of a pneumonia. Other considerations include malignancy. The pro- calcitonin level is at 0.12. Severe mitral regurgitation Elevated troponins, thought to be related to supply demand mismatch, in a patient with nonobstructive CAD, based on recent cardiac catheterization. History of hypertension. History of hyperlipidemia. History of essential tremor. History of gastroesophageal reflux disease. History of bipolar disorder. Plan Continue Levaquin pro-calcitonin level was low Oxygen therapy needed to maintain a saturation above 90% solumedrol 40 mg every 12 hours Legionella urine antigen is negative No fever no leukocytosis neurology consultations been appreciated MRI of the brain LP was noted We'll continue to follow
[2022-04-06] MEDS ORDERED: LORazepam 2 MG/ML INJ IV STA (12:34)
--- NOTE | 2022-04-06 13:11 | P.PN ---
Subjective Progress Note Date: 04/06/22 Patient is seen at bedside and per the patient's nurse she continues to be confused and agitated and the at times to be hostile. Yesterday the patient had lumbar puncture and clear, colorless, rbc 0, nucleated cell 2, glucose 65 and protein is 68 (normal is 12-60) which is slightly elevated and likely reactive from underlying pneumonia. CSF gram stain: No organism. Blood culture are no growth after 24 hours. Routine EEG on 04/05/22: Mild encephalopathy. There is no focal slowing, epileptiform discharges or seizure on the EEG. Objective - Vital Signs Vital signs: Vital Signs Temp 97.3 F L 04/06/22 07:41 Pulse 71 04/06/22 07:41 Resp 17 04/06/22 07:41 BP 118/74 04/06/22 07:41 Pulse Ox 97 04/06/22 07:41 FiO2 Intake & Output 04/05/22 04/06/22 04/06/22 18:59 06:59 18:59 Intake Total 50 Output Total 800 300 Balance -750 -300 Weight 88.592 kg Intake: IV 50 Output: Urine 800 300 Other: Voiding Method Indwelling Catheter Indwelling Catheter - Exam Neurological exam: Limited since patient is uncooperative/condition. She kept on saying "get away". And was talking in pressure speech and talking all over. Cranial Nerves: Had eyes opens are midline. No facial weakness. No dysarthria. Strength: Could not assess. SOME OF THE WORK-UP DURING THIS HOSPITAL VISIT CONSISTED OF: AST 65 ALT of 59, ammonia is less than 9, glucose is 115. Calcium is 8.2 [place] B12 is 671 Serum folate is more than 20 TSH is 3.3 at 7 Urinalysis negative for urinary tract infection. Urine drug screen is positive for barbiturates others nondetected. Legionella of the urine is negative CT of the head is reported as no acute intracranial abnormality or gross space- occupying lesion by this nonenhanced computed tomography scan. I personally reviewed the CT of the head and there is no acute subacute ischemia and there is no intraparenchymal hemorrhages as appreciable. There is hyperdensity over the seems the left basal ganglia is minimal in size that can be due to calcification. CT of chest is reported as above described pulmonary changes are likely related to acute inflammatory/infection process likely pneumonia however associate pulmonary edema cannot be excluded. CSF: clear, colorless, rbc 0, nucleated cell 2, glucose 65 and protein is 68 (normal is 12-60) which is slightly elevated and likely reactive from underlying pneumonia. CSF gram stain: No organism. Blood culture are no growth after 24 hours. Routine EEG on 04/05/22: Mild encephalopathy. There is no focal slowing, epileptiform discharges or seizure on the EEG. - Labs CBC & Chem 7: 04/05/22 06:47 04/06/22 06:38 Labs: Abnormal Lab Results - Last 24 Hours (Table) 04/05/22 04/06/22 04/06/22 Range/Units 16:04 06:38 06:45 Chloride 95 L (96-109) mmol/L BUN 33.1 H (9.0-27.0) mg/dL Est GFR (CKD-EPI)AfAm 54.5 L (60.0-200.0) Est GFR (CKD-EPI)NonAf 47.0 L (60.0-200.0) BUN/Creatinine Ratio 29.55 H (12.00-20.00) Ratio Glucose 126 H (70-110) mg/dL POC Glucose (mg/dL) 137 H (75-99) mg/dL Calcium 8.5 L (8.7-10.3) mg/dL CSF Total Protein 68 H (12-60) mg/dL 04/06/22 Range/Units 11:35 Chloride (96-109) mmol/L BUN (9.0-27.0) mg/dL Est GFR (CKD-EPI)AfAm (60.0-200.0) Est GFR (CKD-EPI)NonAf (60.0-200.0) BUN/Creatinine Ratio (12.00-20.00) Ratio Glucose (70-110) mg/dL POC Glucose (mg/dL) 119 H (75-99) mg/dL Calcium (8.7-10.3) mg/dL CSF Total Protein (12-60) mg/dL Microbiology - Last 24 Hours (Table) 04/05/22 16:04 CSF Gram Stain - Preliminary Cerebral Spinal Fluid CSF Culture - Preliminary 04/04/22 14:30 Blood Culture - Preliminary Blood No Growth after 24 hours 04/04/22 14:10 Blood Culture - Preliminary Blood No Growth after 24 hours Assessment and Plan Assessment: Encephalopathy of unknown etiology. Possible due to underlying pneumonia and me dication (steroids and antibiotics). Not meningoencephalitis (CSF: 2 nucleated cells). Delerium due to underlying pneumonia and medication use. Multilobar pneumonia involving the right long worse in the right lower lobe Essential hypertension Severe mitral regurgitation History of hypertension History of hyperlipidemia Bipolar Plan: Pending MRI Brain to rule out any stroke (seems unlikely). Per the patient's nurse the she's not cooperating for the MRIs, so ordered Haldol 1 mg once as well as 1mg Ativan prior to the MRI Consulted psychiatry team for her psychosis. Every 4 hours neuro checks Pulmonary team is on board Currently the patient is on Levofloxacin. We'll defer the rest of the medical management to primary team The plan is discussed with the patient's nurse. Karlos Wilson M.D. Neuro-hospital Time with Patient: Less than 30
--- NOTE | 2022-04-06 13:16 | P.PN ---
Subjective Progress Note Date: 04/06/22 The patient is a 76-year-old female with multiple comorbid conditions who follows in the office with Dr. Leal. She is currently admitted to the hospital and multilobular pneumonia and congestive heart failure. The patient was interviewed and examined resting comfortably in her room. No labored breathing GENERAL: Well-appearing, well-nourished and in no acute distress. NECK: Supple without JVD or thyromegaly. LUNGS: Breath sounds clear to auscultation bilaterally. Respiration equal and unlabored. No wheezes, rales or rhonchi. HEART: Regular rate and rhythm without murmurs, rubs or gallops. S1 and S2 heard. EXTREMITIES: Normal range of motion, no edema. No clubbing or cyanosis. Peripheral pulses intact and strong. VITALS: Blood pressure 118/74, pulse 71, respiratory rate 17, temp 97.3F SpO2 97% on room air TELEMETRY: Sinus rhythm overnight LABS: Sodium 136, potassium 4.1, BUN 33, creatinine 1.1, TSH 3.3 IMPRESSION: Altered mental status Multilobular lobe pneumonia Acute on chronic heart failure with preserved ejection fraction Mild nonobstructive coronary artery disease Mitral regurgitation Hypertension Dyslipidemia Elevated liver enzymes PLAN: Awaiting 2-D echo No changes to current medication regimen Continue to monitor electrolytes and kidney function Further recommendations based on clinical course I am dictating on behalf of Dr Octavio Franco's history/physical and ass essment/plan. Objective - Vital Signs Vital signs: Vital Signs Temp 97.3 F L 04/06/22 07:41 Pulse 71 04/06/22 07:41 Resp 17 04/06/22 07:41 BP 118/74 04/06/22 07:41 Pulse Ox 97 04/06/22 07:41 FiO2 Intake & Output 04/05/22 04/06/22 04/06/22 18:59 06:59 18:59 Intake Total 50 Output Total 800 300 Balance -750 -300 Weight 88.592 kg Intake: IV 50 Output: Urine 800 300 Other: Voiding Method Indwelling Catheter Indwelling Catheter - Labs CBC & Chem 7: 04/05/22 06:47 04/06/22 06:38 Labs: Abnormal Lab Results - Last 24 Hours (Table) 04/05/22 04/06/22 Range/Units 16:04 06:45 POC Glucose (mg/dL) 137 H (75-99) mg/dL CSF Total Protein 68 H (12-60) mg/dL Microbiology - Last 24 Hours (Table) 04/05/22 16:04 CSF Gram Stain - Preliminary Cerebral Spinal Fluid CSF Culture - Preliminary 04/04/22 14:30 Blood Culture - Preliminary Blood No Growth after 24 hours 04/04/22 14:10 Blood Culture - Preliminary Blood No Growth after 24 hours
--- NOTE | 2022-04-06 16:13 | MR ---
EXAMINATION TYPE: MR brain wo/w con DATE OF EXAM: 04/06/2022 COMPARISON: CT brain most recent 04/04/2022 HISTORY: altered mental status TECHNIQUE: Multiplanar, multisequence images of the brain and brainstem is performed without and with IV contras t, utilizing 9 mL intravenous Gadavist . FINDINGS: Motion limits evaluation slightly. Diffusion weighted images demonstrate no evidence of a r ecent infarct or other diffusion abnormality. There is no extra-axial fluid collection or significan t white matter signal abnormality. The ventricular system and cisternal spaces are normal in size an d appearance. The brain volume is age appropriate. Scattered areas of high T2 signal intensity are seen within the periventricular white matter. Midline structures demonstrate normal morphology. The craniocervical junction appears within normal limits. Post contrast images demonstrate no abnormal enhancement. The dural venous sinuses appear pa tent. The visualized bases demonstrate mucosal thickening predominantly of the left sphenoid sinus. IMPRESSION: 1. No evidence of intracranial mass, acute/subacute infarct, or abnormal enhancement. 2. Nonspecific white matter changes, likely related to small vessel ischemic disease
[2022-04-06] MEDS: PIPERACILLIN-TAZOBACTAM 3.375 GM in SODIUM CHLORIDE 0.9% 100 ML IVPB SCH ×2 (16:33→23:35)
[2022-04-06 16:34] LABS: Glucose,Whole Blood 104 mg/dL (75-99)
[2022-04-06] MEDS ORDERED: LEVOFLOXACIN 500 MG TAB PO SCH (17:00)
--- NOTE | 2022-04-06 19:02 | P.PN ---
Subjective Progress Note Date: 04/06/22 Principal diagnosis: Altered mental status possible metabolic encephalopathy due to infection Worsening shortness of breath due to multilobar pneumonia versus acute CHF Acute CHF with diastolic dysfunction with valvular abnormalities/severe MR. Recent echocardiogram showed ejection fraction 50%. Uncontrolled hypertension 76-year-old female with a known history of hypertension, hyperlipidemia, GERD, bipolar disorder and previous history of smoking presents to ER with complaints of worsening shortness of breath. Patient was recently admitted to hospital due to right lung pneumonia and was continued on antibiotics in the form of ceftriaxone azithromycin. Patient was discharged home with oral antibiotic course. Patient did improve clinically and was discharged home. Patient was also found to have severe MR and had recent cardiac catheterization on 03/01/2022 which was nonobstructive. AMY showed thickening of the anterior and posterior mitral leaflets and severe MR. Ejection fraction 50%. Patient was started on Lasix 20 mg twice daily upon discharge. On admission patient has been afebrile. Blood pressures 186/103 and pulse 79 respiration 18 and pulse ox 97% on room air. Laboratory data showed WBC 11.9 hemoglobin 11.2 platelets 404 sodium 136 potassium 4.1 chloride 99 bicarb is 26 BUN 21 creatinine 0.77 and blood sugar 115 liver enzymes showed AST 65 ALT 59 alk phos 483 albumin 3.3 Urinalysis negative for infection UDS is positive for barbiturates. Chest x-ray showed patchy bilateral areas of infiltrate/pneumonia with small eff usion likely superimposed on a background COPD, chronic interstitial lung disease. EKG showed sinus rhythm CT head showed no acute intracranial abnormality or gross space-occupying lesion by this nonenhanced CT scan. 04/06/2022 the patient is seen and evaluated with daughter and at bedside; remains confused and the mentation continues to be altered. Despite all this, the patient is not having any respiratory decompensation. In view of her underlying altered mentation, a neurologic outpatient is been requested. CAT scan of the brain was negative. The patient underwent a lumbar puncture that showed no acute abnormalities. She will further have an MRI of the brain. Meanwhile, the patient remains on same antibiotic coverage. The patient remains on Levaquin. I'm essentially doubting the possibility of pneumonia and there could be another process involving the patient's lungs including the possibility of malignancy. The patient's BUN is at 32 with a creatinine of 1.1 and sodium level of 136. Her neurologic exam is nonfocal. She continues to be altered. The Legionella urine antigen antigen was negative. Patient remains on Solu-Medrol 40 mg IV every 12 hours, neurology has evaluated patient; in view of negative. Patient is recommended MRI of the brain for further evaluation of mental status Objective - Vital Signs Vital signs: Vital Signs Temp 97.3 F L 04/06/22 07:41 Pulse 71 04/06/22 07:41 Resp 17 04/06/22 07:41 BP 118/74 04/06/22 07:41 Pulse Ox 97 04/06/22 07:41 FiO2 Intake & Output 04/05/22 04/06/22 04/06/22 18:59 06:59 18:59 Intake Total 50 Output Total 800 300 Balance -750 -300 Weight 88.592 kg Intake: IV 50 Output: Urine 800 300 Other: Voiding Method Indwelling Catheter Indwelling Catheter - Exam HEENT: Normocephalic. Neck is supple. Pupils reactive. Nostrils clear. Oral cavity is moist. Neck reveals no JVD, carotid bruits, or thyromegaly. CHEST EXAMINATION: Trachea is central. Symmetrical expansion. Bibasilar diminished sounds. Coarse breath sounds.. CARDIAC: Normal S1, S2 with no gallops. No murmurs ABDOMEN: Soft. Bowel sounds present. Nontender. No organomegaly. No abdominal bruits. Extremities: Trace bilateral pedal edema. No clubbing or cyanosis Neurologically awake, alert, confused and delirious. No gross focal ne urological deficit. Skin: No rash or skin lesions. - Labs CBC & Chem 7: 04/05/22 06:47 04/06/22 06:38 Labs: Abnormal Lab Results - Last 24 Hours (Table) 04/05/22 04/06/22 04/06/22 Range/Units 16:04 06:38 06:45 Chloride 95 L (96-109) mmol/L BUN 33.1 H (9.0-27.0) mg/dL Est GFR (CKD-EPI)AfAm 54.5 L (60.0-200.0) Est GFR (CKD-EPI)NonAf 47.0 L (60.0-200.0) BUN/Creatinine Ratio 29.55 H (12.00-20.00) Ratio Glucose 126 H (70-110) mg/dL POC Glucose (mg/dL) 137 H (75-99) mg/dL Calcium 8.5 L (8.7-10.3) mg/dL CSF Total Protein 68 H (12-60) mg/dL 04/06/22 Range/Units 11:35 Chloride (96-109) mmol/L BUN (9.0-27.0) mg/dL Est GFR (CKD-EPI)AfAm (60.0-200.0) Est GFR (CKD-EPI)NonAf (60.0-200.0) BUN/Creatinine Ratio (12.00-20.00) Ratio Glucose (70-110) mg/dL POC Glucose (mg/dL) 119 H (75-99) mg/dL Calcium (8.7-10.3) mg/dL CSF Total Protein (12-60) mg/dL Microbiology - Last 24 Hours (Table) 04/05/22 16:04 CSF Gram Stain - Preliminary Cerebral Spinal Fluid CSF Culture - Preliminary 04/04/22 14:30 Blood Culture - Preliminary Blood No Growth after 24 hours 04/04/22 14:10 Blood Culture - Preliminary Blood No Growth after 24 hours Assessment and Plan Assessment: Altered mental status possible metabolic encephalopathy due to infection Worsening shortness of breath due to multilobar pneumonia versus acute CHF Acute CHF with diastolic dysfunction with valvular abnormalities/severe MR. Recent echocardiogram showed ejection fraction 50%. Uncontrolled hypertension Recent admission with pneumonia and was on antibiotics in the form of ceftriaxone azithromycin with clinical improvement before discharge. Mild transaminitis Hypertension Hyperlipidemia GERD Bipolar/depression Previous history of smoking DVT prophylaxis Plan: Patient will be continued on antibiotics in the form of Zosyn and continue with Lasix 20 mg IV twice daily. Start back on losartan and propranolol and titrate dose as needed. Follow-up BNP level and procalcitonin level. Pulmonary was consulted. Current home medications and follow-up closely.
[2022-04-06] MEDS: QUEtiapine 50 MG TAB PO SCH (22:03)
[2022-04-06] MEDS: lisinopriL 10 MG TAB PO SCH (22:03)
[2022-04-06] MEDS: MIRTAZAPINE 15 MG TAB PO SCH (22:03)
[2022-04-06] MEDS: PROPRANOLOL LA 80 MG CAP.SA.24H PO SCH (22:03)
--- NOTE | 2022-04-06 22:25 | P.CONS ---
History of Present Illness - Reason for Consult Consult date: 04/06/22 Mental status changes and pneumonia Requesting physician: Yessenia Fraser - Chief Complaint weakness and confusion x few days - History of Present Illness Patient is a 76-year female presenting to the hospital 3 days ago for evaluation of mental status changes. Patient was recently discharged from hospital with the patient was treated for pneumonia as reported by the hospital concerning for intermittent confusion over the last few days which apparently was intermittent and was steroids, patient, confused intermittently for any thoughts patient did have a mild cough but denies any chest pain abdominal pain or any focal weakness patient on presentation to the hospital did have a low- grade fever of 99.7 F patient did elevated white count of 13.944 procalcitonin was mildly elevated levels and Liver enzymes are mildly elevated patient did have a chest x-ray revealing patchy bilateral areas of infiltrate/pneumonia with small effusion patient also have a CT of the chest showing areas of pulmonary consolidation and groundglass opacities seen in the right lower lobe and right upper lobe patient has been treated with the [facility] infectious disease was c onsulted for further management of antibiotic therapy most information has been obtained from review the chart as patient was unable provide any history Review of Systems Positive points has been mentioned in HPI complete review could not be obtained because of his underlying mental status Past Medical History Past Medical History: GERD/Reflux, Hyperlipidemia, Hypertension Additional Past Medical History / Comment(s): tremors. Vertigo History of Any Multi-Drug Resistant Organisms: None Reported Past Surgical History: Unable to Obtain, Tonsillectomy Additional Past Surgical History / Comment(s): COLONOSCOPY Past Anesthesia/Blood Transfusion Reactions: Postoperative Nausea & Vomiting (PONV) Past Psychological History: Bipolar, Depression Smoking Status: Former smoker Past Alcohol Use History: None Reported Past Drug Use History: None Reported - Past Family History Mother Family Medical History: No Reported History Medications and Allergies Home Medications Medication Instructions Recorded Confirmed Type Primidone [Mysoline] 500 mg PO DAILY 08/11/19 04/04/22 History Propranolol LA [Inderal LA] 80 mg PO HS 08/11/19 04/04/22 History Simvastatin [Zocor] 20 mg PO HS 08/11/19 04/04/22 History buPROPion HCL [Wellbutrin SR] 150 mg PO BID 08/11/19 04/04/22 History lisinopriL [Zestril] 10 mg PO HS 08/11/19 04/04/22 History Cetirizine HCl [Zyrtec] 10 mg PO HS 10/04/20 04/04/22 History Multivitamin [Multivitamins Adult 1 tab PO DAILY 10/06/20 04/04/22 History Gummies] Acetaminophen Tab [Tylenol] 650 mg PO Q4H PRN 11/04/20 04/04/22 History Meclizine HCl [Bonine Chew] 25 mg PO TID PRN 11/04/20 04/04/22 History dimenhyDRINATE [Dimenhydrinate] 50 mg PO Q4H PRN 11/04/20 04/04/22 History Mirtazapine 45 mg PO HS 03/28/22 04/04/22 History Primidone [Mysoline] 250 mg PO HS 03/28/22 04/04/22 History Cefuroxime Axetil [Ceftin] 500 mg PO BID 4 Days #8 tab 04/01/22 04/04/22 Rx Ciprofloxacin Ophth Soln [Ciloxan 2 drops BOTH EYES Q4HR 5 Days #15 04/01/22 04/04/22 Rx 0.3% Ophth Soln] ml Furosemide [Lasix] 20 mg PO BID@0900,1600 #30 tab 04/01/22 04/04/22 Rx predniSONE See Taper PO DIRECTED #15 tab 04/01/22 04/04/22 Rx Allergies Allergy/AdvReac Type Severity Reaction Status Date / Time Sulfa (Sulfonamide Allergy Unknown Verified 04/04/22 12:56 Antibiotics) Childhood methylprednisolone AdvReac Makes Verified 04/04/22 12:56 tremors worse prednisone AdvReac See Verified 04/04/22 13:00 Comments Physical Exam Vitals: Vital Signs Temp Pulse Resp BP Pulse Ox 04/06/22 07:41 97.3 F L 71 17 118/74 97 04/06/22 00:20 97.6 F 78 15 101/51 95 04/05/22 20:56 97.8 F 80 18 116/67 94 L 04/05/22 15:47 86 16 164/72 94 L 04/05/22 14:00 97.1 F L 86 19 135/77 92 L 04/05/22 13:06 92 L Intake and Output 04/05/22 04/06/2222 22:59 06:59 14:59 Intake Total 50 Output Total 300 Balance 50 -300 Intake: IV 50 Output: Urine 300 Other: Voiding Method Indwelling Catheter Weight 88.592 kg GENERAL DESCRIPTION: Elderly female lying in bed, no distress. No tachypnea or accessory muscle of respiration use. HEENT: Shows Pallor , no scleral icterus. Oral mucous membrane is dry. No pharyngeal erythema or thrush NECK: Trachea central, no thyromegaly. LUNGS: Unlabored breathing. Decreased breath sounds at the base No wheeze or crackle. HEART: S1, S2, regular rate and rhythm. No loud murmur ABDOMEN: Soft, no tenderness , guarding or rigidity, no organomegaly EXTREMITIES: No edema of feet. SKIN: No rash, no masses palpable. NEUROLOGICAL: The patient is sleepy lethargic and orientation could not be determined Results CBC & Chem 7: 04/05/22 06:47 04/06/22 06:38 Labs: Abnormal Lab Results - Last 24 Hours (Table) 04/05/22 04/06/22 04/06/22 Range/Units 16:04 06:45 11:35 POC Glucose (mg/dL) 137 H 119 H (75-99) mg/dL CSF Total Protein 68 H (12-60) mg/dL Microbiology - Last 24 Hours (Table) 04/05/22 16:04 CSF Gram Stain - Preliminary Cerebral Spinal Fluid CSF Culture - Preliminary 04/04/22 14:30 Blood Culture - Preliminary Blood No Growth after 24 hours 04/04/22 14:10 Blood Culture - Preliminary Blood No Growth after 24 hours Assessment and Plan (1) Bilateral pneumonia Current Visit: Yes Status: Acute Code(s): J18.9 - PNEUMONIA, UNSPECIFIED ORGANISM SNOMED Code(s): 344043352 Plan: 1patient presented to hospital with mental status changes confusion did have a low-grade fever with evidence of right lower and upper lobe pneumonia question of aspiration etiology, with recent admission to the hospital we need to cover for the resistant gram-negative pathogen. 2we will try to obtain a sputum for gram stain culture. 3add Zosyn 3.375 g every 8 hours We will follow on clinical condition and cultures to further adjust medication if needed Thank you for this consultation will follow this patient along with you Time with Patient: Greater than 30
[2022-04-06] MEDS: LORazepam 2 MG/ML INJ IV PRN (23:49)
[2022-04-07] MEDS: LORazepam 2 MG/ML INJ IV PRN (05:29)
[2022-04-07 06:55] LABS: Glucose,Whole Blood 117 mg/dL (75-99)
[2022-04-07] MEDS: FUROSEMIDE 10 MG/ML 2 ML VIAL IV SCH ×2 (07:18→21:56)
[2022-04-07] MEDS: PIPERACILLIN-TAZOBACTAM 3.375 GM in SODIUM CHLORIDE 0.9% 100 ML IVPB SCH ×3 (07:18→23:42)
[2022-04-07] MEDS: PRIMIDONE 250 MG TAB PO SCH ×2 (07:19→21:56)
[2022-04-07] MEDS: SPIRONOLACTONE 25 MG TAB PO SCH (07:19)
--- NOTE | 2022-04-07 10:48 | P.PN ---
Subjective Progress Note Date: 04/07/22 The patient is a 76-year-old female with multiple comorbid conditions who follows in the office with Dr. Leal. She is currently admitted to the hospital and multilobular pneumonia and congestive heart failure. The patient was interviewed and examined resting comfortably in her room. No labored breathing. She does apparently more alert today. She denies any chest pain or chest pressure. No difficulty breathing. Positive for back pain when moving around. GENERAL: Well-appearing, well-nourished and in no acute distress. NECK: Supple without JVD or thyromegaly. LUNGS: Breath sounds clear to auscultation bilaterally. Respiration equal and unlabored. No wheezes, rales or rhonchi. HEART: Regular rate and rhythm without murmurs, rubs or gallops. S1 and S2 heard. EXTREMITIES: Normal range of motion, no edema. No clubbing or cyanosis. Peripheral pulses intact and strong. VITALS: Blood pressure 140/83, pulse 81, respiratory rate 20, temp 98.5F, SpO2 95% on room air TELEMETRY: Sinus rhythm overnight IMPRESSION: Altered mental status Multilobular lobe pneumonia Acute on chronic heart failure with preserved ejection fraction Mild nonobstructive coronary artery disease Mitral regurgitation Hypertension Dyslipidemia Elevated liver enzymes PLAN: Awaiting 2-D echo No changes to current medication regimen Further recommendations based on clinical course I am dictating on behalf of Dr Octavio Franco's history/physical and assessment/plan. Objective - Vital Signs Vital signs: Vital Signs Temp 98.5 F 04/07/22 07:15 Pulse 81 04/07/22 07:15 Resp 20 04/07/22 07:15 BP 140/83 04/07/22 07:15 Pulse Ox 95 04/07/22 07:15 FiO2 Intake & Output 04/06/22 04/07/22 04/07/22 18:59 06:59 18:59 Other: Voiding Method Indwelling Catheter - Labs CBC & Chem 7: 04/05/22 06:47 04/06/22 06:38 Labs: Abnormal Lab Results - Last 24 Hours (Table) 04/06/22 04/06/22 04/06/22 Range/Units 06:38 11:35 16:32 Chloride 95 L (96-109) mmol/L BUN 33.1 H (9.0-27.0) mg/dL Est GFR (CKD-EPI)AfAm 54.5 L (60.0-200.0) Est GFR (CKD-EPI)NonAf 47.0 L (60.0-200.0) BUN/Creatinine Ratio 29.55 H (12.00-20.00) Ratio Glucose 126 H (70-110) mg/dL POC Glucose (mg/dL) 119 H 104 H (75-99) mg/dL Calcium 8.5 L (8.7-10.3) mg/dL Procalcitonin (0.02-0.09) ng/mL 04/07/22 04/07/22 Range/Units 04:08 06:53 Chloride (96-109) mmol/L BUN (9.0-27.0) mg/dL Est GFR (CKD-EPI)AfAm (60.0-200.0) Est GFR (CKD-EPI)NonAf (60.0-200.0) BUN/Creatinine Ratio (12.00-20.00) Ratio Glucose (70-110) mg/dL POC Glucose (mg/dL) 117 H (75-99) mg/dL Calcium (8.7-10.3) mg/dL Procalcitonin 0.13 H (0.02-0.09) ng/mL Microbiology - Last 24 Hours (Table) 04/05/22 16:04 CSF Gram Stain - Preliminary Cerebral Spinal Fluid CSF Culture - Preliminary 04/04/22 14:10 Blood Culture - Preliminary Blood No Growth after 48 hours 04/04/22 14:30 Blood Culture - Preliminary Blood No Growth after 48 hours
[2022-04-07 11:28] LABS: Glucose,Whole Blood 105 mg/dL (75-99)
--- NOTE | 2022-04-07 12:36 | P.CN ---
Psychiatric Consult - . Consult date: 04/07/22 Consult:: 04/07/22 12:27 Psychiatric evaluation: This is a psych evaluation on Ashley Wilson who is a 76-year-old female and was recently hospitalized for bilateral pneumonia Following his and except from the assessment done by the PCP: Patient is a 76-year female presenting to the hospital 3 days ago for evaluation of mental status changes. Patient was recently discharged from hospital with the patient was treated for pneumonia as reported by the hospital concerning for intermittent confusion over the last few days which apparently was intermittent and was steroids, patient, confused intermittently for any thoughts patient did have a mild cough but denies any chest pain abdominal pain or any focal weakness patient on presentation to the hospital did have a low- grade fever of 99.7 F patient did elevated white count of 13.944 procalcitonin was mildly elevated levels and Liver enzymes are mildly elevated patient did have a chest x-ray revealing patchy bilateral areas of infiltrate/pneumonia with small effusion patient also have a CT of the chest showing areas of pulmonary consolidation and groundglass opacities seen in the right lower lobe and right upper lobe patient has been treated with the [facility] infectious disease was consulted for further management of antibiotic therapy most information has been obtained from review the chart as patient was unable provide any history Patient's current psychotropic medications show Wellbutrin which has been discontinued since she's been hospital Other medications continued include Remeron 45 mg at bedtime Patient currently is also on quetiapine 50 mg at bedtime Nursing reports intermittent periods of confusion and occasional lucid intervals Patient has not shown any physical or verbal aggression but appears and remains lethargic She seems to occasionally having a conversation with herself No other collateral information is available at this time Mental status examination reveals a elderly female who was laying in bed in a slouched posture On approach patient stated that she did not want to infect me with her disease When asked as to who she was talking to patient reports that she is talking to Ashley Patient remains confused Patient exhibits some looseness of associations and flight of ideas Thought processes remain disorganized flighty Patient's formal and operational judgment and insight are poor Patient exhibits poor concentration and attention span Patient is unable to give any specifics about her history of depression in the medications that she is taking for them Patient's problem-solving skills are impaired Cognitively patient also appears to be impaired Diagnostic impression: Major neurocognitive disorder/delirium Rule out psychotic disorder steroid related Depressive disorder by history Plan: The nursing reports intermittent periods of confusion delusional thinking and flight of ideas with periods of lucid intervals Would continue current supervision and care Would recommend decreasing the Remeron to 30 mg at bedtime Continue Seroquel and we'll increase it to 25 mg in the morning and 50 at nighttime If intramuscular dosage as needed would recommend Haldol 1 mg IM every 6-8 hours when necessary for acute agitation Monitor for EPS tremors tardive dyskinesia akathisia QTC prolongation electrolyte imbalance etc. Psych department will follow the patient with you Thank you very much for kind referral and please feel free to contact me if any further questions Sudhakar Hardy M.D. 04/07/2022
[2022-04-07] MEDS ORDERED: HALOPERIDOL LACTATE 5 MG/ML 1 ML VIAL IM PRN (12:38)
[2022-04-07 13:05] LABS: Anion Gap 20.3 mmol/L (10.00-18.00); BUN/Creat Ratio 33.94 Ratio (12.00-20.00); Blood Urea Nitrogen 33.7 mg/dL (9.0-27.0); Calcium 8.7 mg/dL (8.7-10.3); Carbon Dioxide 22.7 mmol/L (20.0-27.5); Non-African American GFR(CKD) 54.4 (60.0-200.0)
--- NOTE | 2022-04-07 13:35 | P.PN ---
Subjective Progress Note Date: 04/07/22 The patient is seen at bedside and per nurse she continues to be confused but would fluctuate. Patient had MRI of the brain on 04/06/2022 inch reported as no evidence of intracranial mass, acute subacute infarct or abnormal enhancement. Nonspecific white matter changes likely related to small vessel ischemic disease. I so reviewed the MRI and agree with the report. Objective - Vital Signs Vital signs: Vital Signs Temp 98.5 F 04/07/22 07:15 Pulse 81 04/07/22 07:15 Resp 20 04/07/22 07:15 BP 140/83 04/07/22 07:15 Pulse Ox 95 04/07/22 07:15 FiO2 Intake & Output 04/06/22 04/07/22 04/07/22 18:59 06:59 18:59 Other: Voiding Method Indwelling Catheter - Exam PSYCH: Has at times pressured speech and restless Neurological exam: Some limited but exam better today compared to yesterday. Higher mental function: Drowsy but awakeable. Oriented to self, place and time. She correctly stated that the current state but later stated "I am not in [place]". Is following simple commands. She stated the current emergency services dispatcher is a "woman". Cranial nerves: Pupils are round, equal and reactive to light. No facial weakness. No dysarthria. Rest are limited. Strength: Could not assess because of cooperation but moving uppers above gravity and had tremor upon lifting them. SOME OF THE WORK-UP DURING THIS HOSPITAL VISIT CONSISTED OF: AST 65 ALT of 59, ammonia is less than 9, glucose is 115. Calcium is 8.2 Leeanna B12 is 671 Serum folate is more than 20 TSH is 3.3 at 7 Urinalysis negative for urinary tract infection. Urine drug screen is positive for barbiturates others nondetected. Legionella of the urine is negative CT of the head is reported as no acute intracranial abnormality or gross space- occupying lesion by this nonenhanced computed tomography scan. I personally reviewed the CT of the head and there is no acute subacute ischemia and there is no intraparenchymal hemorrhages as appreciable. There is hyperdensity over the seems the left basal ganglia is minimal in size that can be due to calcification. MRI of the brain on 04/06/2022 inch reported as no evidence of intracranial mass, acute subacute infarct or abnormal enhancement. Nonspecific white matter changes likely related to small vessel ischemic disease. I so reviewed the MRI and agree with the report. CT of chest is reported as above described pulmonary changes are likely related to acute inflammatory/infection process likely pneumonia however associate pulmonary edema cannot be excluded. CSF: clear, colorless, rbc 0, nucleated cell 2, glucose 65 and protein is 68 (normal is 12-60) which is slightly elevated and likely reactive from underlying pneumonia. CSF gram stain: No organism. Blood culture are no growth after 24 hours. Routine EEG on 04/05/22: Mild encephalopathy. There is no focal slowing, epileptiform discharges or seizure on the EEG. - Labs CBC & Chem 7: 04/05/22 06:47 04/07/22 04:08 Labs: Abnormal Lab Results - Last 24 Hours (Table) 04/06/22 04/07/22 04/07/22 Range/Units 16:32 04:08 04:08 Anion Gap 20.30 H (10.00-18.00) mmol/L BUN 33.7 H (9.0-27.0) mg/dL Est GFR (CKD-EPI)NonAf 54.4 L (60.0-200.0) BUN/Creatinine Ratio 33.94 H (12.00-20.00) Ratio POC Glucose (mg/dL) 104 H (75-99) mg/dL C-Reactive Protein 6.00 H (0.00-0.80) mg/dL Procalcitonin 0.13 H (0.02-0.09) ng/mL 04/07/22 04/07/22 Range/Units 06:53 11:17 Anion Gap (10.00-18.00) mmol/L BUN (9.0-27.0) mg/dL Est GFR (CKD-EPI)NonAf (60.0-200.0) BUN/Creatinine Ratio (12.00-20.00) Ratio POC Glucose (mg/dL) 117 H 105 H (75-99) mg/dL C-Reactive Protein (0.00-0.80) mg/dL Procalcitonin (0.02-0.09) ng/mL Microbiology - Last 24 Hours (Table) 04/05/22 16:04 CSF Gram Stain - Preliminary Cerebral Spinal Fluid CSF Culture - Preliminary 04/04/22 14:10 Blood Culture - Preliminary Blood No Growth after 48 hours 04/04/22 14:30 Blood Culture - Preliminary Blood No Growth after 48 hours Assessment and Plan Assessment: Encephalopathy with psychotic behavior of unknown etiology. Possible due to underlying pneumonia and medication (steroids and antibiotics). Not meningoencephalitis (CSF: 2 nucleated cells) MRI brain is unremarkable and EEG is negative for seizure--today somewhat better compared to yesterday. Delerium due to underlying pneumonia and medication use. Multilobar pneumonia involving the right long worse in the right lower lobe Essential hypertension Severe mitral regurgitation History of hypertension History of hyperlipidemia Bipolar Plan: Patient does not have a stroke on MRI and there is no enhancement on the MRI. She does not have any underlying infection on the CSF. Cannot absolutely rule out any underlying encephalitis such as an NMDA encephalitis or underlying cause a paraneoplastic which the pulmonary team is requesting. I ordered an NMDA receptor antibody which is send out test and will take time to obtain result. I also ordered paraneoplastic testing on CSF result (will attempt to contact lab to coordinate getting sample from CSF). Possibly consideration of repeating an EEG down the line if she continues to be altered. Consulted psychiatry team for her psychosis. She is on Seroquel 50mg qhs and 25mg daily. Every 4 hours neuro checks Pulmonary team is on board Currently the patient is on Levofloxacin. We'll defer the rest of the medical management to primary team The plan is discussed with the patient's nurse. Dr. Marrero will provide neurology service tomorrow AM. Karlos Wilson M.D. Neuro-hospital Time with Patient: Less than 30
--- NOTE | 2022-04-07 13:35 | P.PN ---
Subjective Progress Note Date: 04/07/22 76-year-old female patient who got readmitted to the hospital after 3 days of being discharged because of altered mentation ongoing difficulties with shortness of breath and right lung pneumonia. The patient was in the hospital for the same where she was admitted on 03/29/2022. She came in for altered mentation. She was found to have a right lung pneumonia. The patient without antibiotics and she was given accommodation Rocephin and Zithromax. She improved clinically. I saw her in the hospital on 04/01/2022 and she was doing well and she was sitting up on a chair and she was on room air oxygen. The chest x-ray was showing patchy right-sided pulmonary infiltrates with interval improvement. The white cell count was now. The patient's UA was negative. Urine cultures was negative. The pro-calcitonin level was at 0.1. ProBNP level was 1230. She was hemodynamically stable. She was known to have valvular heart disease and she was supposed to follow-up with the cardiology group at planned for a possible TAVR at the later stage. There cardiac catheterization showed nonobstructive CAD. AMY showed thickening of the anterior and the posterior mitral valve leaflets and severe MR with an ejection fraction of 50%. The patient came in to the emergency on 04/04/2022 for the same. She was altered mentally. Her thoughts were noncoherent. The patient had ongoing mild cough. She was complaining of pain which was diffuse body aches. No chest pain. No nausea vomiting or abdominal pain. No focal neurological deficit. She was feeling weak. Upon discharge, she was given Ceftin and prednisone burst taper. Her temperature was afebrile. BP was stable. White cell count was 11.9 . BUN was 21 with a creatinine of 0.7 and the electrodes were all within normal limits. The patient's LFTs were abnormal with an AST of 65, ALT of 59 and alkaline phosphatase of 183. Urine drug screen was positive for barbiturates. Chest x-ray showed persistent right lung patchy pulmonary infiltrates, and the CAT scan of the chest was consistent with multilobar pneumonia, worse in the right lower lobe.. Based on that, the patient was admitted to the hospital. 04/05/2022, the patient remains altered and confused. She is on room air oxygen. I'm unable to explain her altered mentation and confusion on the basis of a pneumonia. In fact, despite the significant infiltration of the right lung, the patient not having any significant respiratory distress. she has no fever. Chest x-ray findings are unchanged compared to yesterday. her blood work showed a white cell count of 13 , hemoglobin of 11.9, normal coagulation profile, a pro-calcitonin level of 0.12 , normal renal function, LFTs are mildly abnormal, UA was negative, urine drug screen was also negative. CAT scan of the brain showed no acute [employer] abnormalities. the patient will obviously need a neurologic evaluation. 04/06/2022, the patient remains confused and the mentation continues to be altered. Despite all this, the patient is not having any respiratory decompensation. In view of her underlying altered mentation, a neurologic outpatient is been requested. CAT scan of the brain was negative. The patient underwent a lumbar puncture that showed no acute abnormalities. She will further have an MRI of the brain. Meanwhile, the patient remains on same antibiotic coverage. The patient remains on Levaquin. I'm essentially doubting the possibility of pneumonia and there could be another process involving the patient's lungs including the possibility of malignancy. The patient's BUN is at 32 with a creatinine of 1.1 and sodium level of 136. Her neurologic exam is nonfocal. She continues to be altered. The Legionella urine antigen antigen was negative. 04/07/2022, the patient continues to have neurologic impairment and the workup is been essentially negative including a CAT scan of the brain, MRI of the brain and a lumbar puncture. Neurologist on the case. The patient is also seen by psychiatry. There is a component of delirium. Exact cause is not clear. Consider paraneoplastic. The patient is on room air oxygen pH is having any respiratory difficulties patient remains on examination Zosyn and Levaquin. A follow-up chest x-ray will be obtained tomorrow. Meanwhile, she seems to be slightly more oriented on today's evaluation she is communicating more so compared to yesterday. On blood work, no major abnormality is identified and the patient has a sodium level of 139, BUN of 33 with a creatinine of 1.0 and a potassium level of 4.0. Objective - Vital Signs Vital signs: Vital Signs Temp 98.5 F 04/07/22 07:15 Pulse 81 04/07/22 07:15 Resp 20 04/07/22 07:15 BP 140/83 04/07/22 07:15 Pulse Ox 95 04/07/22 07:15 FiO2 Intake & Output 04/06/22 04/07/22 04/07/22 18:59 06:59 18:59 Other: Voiding Method Indwelling Catheter - Exam No acute distress, confused, currently on room air. Room air saturation 99%. HEENT examination is grossly unremarkable. Neck supple. Full range of motion. No adenopathy thyromegaly or neck vein distention. Cardiovascular examination reveals regular rhythm rate. S1-S2 normal. No S3 or S4. No discernible murmur noted. Lungs reveal mostly clear breath sounds. Scattered rhonchi are noted, with predominance in the right lung. No wheezes or crackles. Abdomen soft bowel sounds are heard. No masses or tenderness. Extremities are intact. No cyanosis clubbing or edema. Skin is without rash or lesion. Neurologic examination is brief but nonfocal. He has tremors. The patient re minesh confused. She remains encephalopathic. At times she has tremors. She is a bit restless and she is unable to tell day time and place. Please refer to the neurologist consultation regarding further details of her neurologic exam. - Labs CBC & Chem 7: 04/05/22 06:47 04/07/22 04:08 Labs: Abnormal Lab Results - Last 24 Hours (Table) 04/06/22 04/07/22 04/07/22 Range/Units 16:32 04:08 06:53 POC Glucose (mg/dL) 104 H 117 H (75-99) mg/dL Procalcitonin 0.13 H (0.02-0.09) ng/mL 04/07/22 Range/Units 11:17 POC Glucose (mg/dL) 105 H (75-99) mg/dL Procalcitonin (0.02-0.09) ng/mL Microbiology - Last 24 Hours (Table) 04/05/22 16:04 CSF Gram Stain - Preliminary Cerebral Spinal Fluid CSF Culture - Preliminary 04/04/22 14:10 Blood Culture - Preliminary Blood No Growth after 48 hours 04/04/22 14:30 Blood Culture - Preliminary Blood No Growth after 48 hours Assessment and Plan Plan: Acute mental status changes, likely secondary to pneumonia and possible sepsis. This computed tomography scan of the brain showed no acute abnormalities. Neurologic exam is nonfocal. This is likely secondary to metabolic encephalopathy. possibility of [employer] infection cannot be completely ruled out as the patient is neurologic behavior is completely unusual, she is unable to speak appropriately. The patient underwent a lumbar puncture that came back negative. The MRI of the brain was also negative for any acute abnormalities of CVA. Rule out paraneoplastic features. Rule out underlying CVA. The patient was seen by neurology and psychiatry. Multilobar pneumonia involving the right lung worse in the right lower lobe, treated initially with some initial Rocephin and Zithromax and she was sent home on Ceftin on a prednisone burst taper. Currently, the patient is readmitted and the patient is being treated for the same. The patient has a stable oxygenation. The patient remains on Levaquin. I'm essentially doubting the possibility of a pneumonia. Other considerations include malignancy. The pro- calcitonin level is at 0.12. Severe mitral regurgitation Elevated troponins, thought to be related to supply demand mismatch, in a patient with nonobstructive CAD, based on recent cardiac catheterization. History of hypertension. History of hyperlipidemia. History of essential tremor. History of gastroesophageal reflux disease. History of bipolar disorder. Plan Continue Levaquin and Zosyn Repeat chest x-ray in the morning Monitor neurologic status MRI of the brain is negative pro-calcitonin level was low Oxygen therapy needed to maintain a saturation above 90% solumedrol 40 mg every 12 hours Legionella urine antigen is negative No fever no leukocytosis neurology consultations been appreciated We'll continue to follow
[2022-04-07 16:37] LABS: Glucose,Whole Blood 95 mg/dL (75-99)
[2022-04-07] MEDS ORDERED: MIRTAZAPINE 15 MG TAB PO SCH (21:00)
[2022-04-07] MEDS: LEVOFLOXACIN 500MG-D5W PMX 500 MG in DEXTROSE/WATER 1 100ML.BAG IVPB SCH (21:49)
[2022-04-07] MEDS: lisinopriL 10 MG TAB PO SCH (21:56)
[2022-04-07] MEDS: ATORVASTATIN 10 MG TAB PO SCH (21:56)
[2022-04-07] MEDS: PROPRANOLOL LA 80 MG CAP.SA.24H PO SCH (21:57)
[2022-04-07] MEDS: QUEtiapine 50 MG TAB PO SCH (21:57)
[2022-04-08] MEDS: LORazepam 2 MG/ML INJ IV PRN ×2 (01:05→14:10)
--- NOTE | 2022-04-08 08:15 | XR ---
EXAMINATION TYPE: XR chest 1V DATE OF EXAM: 04/08/2022 COMPARISON: Chest x-ray 04/06/2022 HISTORY: Pneumonia TECHNIQUE: Single frontal view of the chest is obtained. FINDINGS: Technique is somewhat limited. Patient is rotated. Right hemidiaphragm is mildly elevated. Cardiac mediastinal silhouette is similar accounting for differences in technique. Poor penetration is noted. Patchy density is present in the right lung base and right upper lobe. No evident pneumotho rax or sizable pleural effusion. IMPRESSION: Correlate for pneumonia
[2022-04-08] MEDS: SPIRONOLACTONE 25 MG TAB PO SCH ×2 (08:43→13:54)
[2022-04-08] MEDS: PRIMIDONE 250 MG TAB PO SCH ×4 (08:44→22:58)
[2022-04-08] MEDS: FUROSEMIDE 10 MG/ML 2 ML VIAL IV SCH (08:44)
[2022-04-08] MEDS: QUEtiapine 25 MG TAB PO SCH ×4 (08:44→22:59)
[2022-04-08] MEDS: PIPERACILLIN-TAZOBACTAM 3.375 GM in SODIUM CHLORIDE 0.9% 100 ML IVPB SCH ×2 (08:45→15:41)
--- NOTE | 2022-04-08 11:15 | P.PN ---
Subjective This is a 76-year-old female with a past medical history significant for mild nonobstructive coronary artery disease, severe mitral regurgitation, hy pertension, hyperlipidemia, congestive heart failure, and tremors. Patient follows in the office with Dr. Chapa. She also follows with Dr. Wade outpatient for possible intervention of her mitral valve. We have been asked to see the patient in consultation for congestive heart failure. Patient is admitted to the hospital with multilobe pneumonia, altered mental status, and possible sepsis. The patient is noncooperative this morning with physical examination or speaking with providers at the bedside. Patient is laying flat in bed, appears comfortable. She does not appear to be any acute distress. Once speaking with the patient she continues to start yelling repeatedly. Vital signs are stable. She is confused and agitated. Neurology and Psychiatry has evaluated the patient. DIAGNOSTICS: Patient underwent AMY on 03/01/2022 revealing thickened anterior and posterior mitral leaflets with evidence of severe mitral regurgitation. Ejection fraction 50%, mildly dilated right ventricle and normal function, aortic sclerosis without stenosis with mild insufficiency. Moderate tricuspid regurgitation, no evidence of pericardial effusion Patient underwent right and left heart catheterization on 03/01/2022 revealing mild nonobjective coronary artery disease, mild pulmonary hypertension, WHo group 2, mildly elevated left and right-sided filling pressures MRI of the brain on 04/06/2022 report revealed no evidence of intracranial mass, acute subacute infarct or abnormal enhancement. Nonspecific white matter changes likely related to small vessel ischemic disease. Lumbar puncture was also negative PHYSICAL EXAM Blood pressure 158/52, heart rate 87, afebrile, saturations 96% on room air GENERAL: in no acute distress. NECK: Supple without JVD or thyromegaly. LUNGS: Breath sounds clear to auscultation bilaterally. Respiration equal and unlabored. No wheezes, rales or rhonchi. HEART: Regular rate and rhythm systolic ejection murmur at apex. S1 and S2 heard. EXTREMITIES: Normal range of motion, no edema. No clubbing or cyanosis. Peripheral pulses intact. NEURO: Lethargic, not oriented ASSESSMENT Altered mental status Encephalopathy, unclear etiology Delirium Multilobular lobe pneumonia Acute on chronic heart failure with preserved ejection fraction Mild nonobstructive coronary artery disease Severe Mitral regurgitation Hypertension Dyslipidemia Elevated liver enzymes Status post Lumbar puncture on 04/05/22 PLAN No need to repeat echocardiogram at this time with recent AMY. Patient is not a candidate for invasive therapy at this time secondary to mental status. We recommend transitioning to PO Lasix when patient can tolerate oral medications. Continue home cardiac medications. We will follow the patient as needed. Please reconsult if needed. Nurse Practitioner note has been reviewed, I agree with a documented findings and plan of care. Patient was seen and examined. Objective - Vital Signs Vital signs: Vital Signs Temp 98.3 F 04/08/22 07:26 Pulse 87 04/08/22 07:26 Resp 19 04/08/22 07:26 BP 158/52 04/08/22 08:54 Pulse Ox 96 04/08/22 07:26 FiO2 Intake & Output 04/07/22 04/08/22 04/08/22 18:59 06:59 18:59 Output Total 700 500 Balance -700 -500 Weight 88 kg Output: Urine 700 500 Other: Voiding Method Indwelling Catheter - Labs CBC & Chem 7: 04/05/22 06:47 04/07/22 04:08 Labs: Abnormal Lab Results - Last 24 Hours (Table) 04/07/22 04/07/22 Range/Units 04:08 11:17 Anion Gap 20.30 H (10.00-18.00) mmol/L BUN 33.7 H (9.0-27.0) mg/dL Est GFR (CKD-EPI)NonAf 54.4 L (60.0-200.0) BUN/Creatinine Ratio 33.94 H (12.00-20.00) Ratio POC Glucose (mg/dL) 105 H (75-99) mg/dL C-Reactive Protein 6.00 H (0.00-0.80) mg/dL Microbiology - Last 24 Hours (Table) 04/04/22 14:30 Blood Culture - Preliminary Blood No Growth after 72 hours 04/04/22 14:10 Blood Culture - Preliminary Blood No Growth after 72 hours 04/05/22 16:04 CSF Gram Stain - Preliminary Cerebral Spinal Fluid CSF Culture - Preliminary
--- NOTE | 2022-04-08 14:14 | P.PN ---
Subjective Progress Note Date: 04/07/22 76-year-old female with a known history of hypertension, hyperlipidemia, GERD, bipolar disorder and previous history of smoking presents to ER with complaints of worsening shortness of breath. Patient was recently admitted to hospital due to right lung pneumonia and was continued on antibiotics in the form of ceftriaxone azithromycin. Patient was discharged home with oral antibiotic course. Patient did improve clinically and was discharged home. Patient was also found to have severe MR and had cardiac catheterization on 03/01/2022 which was nonobstructive. AMY showed thickening of the anterior and posterior mitral leaflets and severe MR. Ejection fraction 50%. Patient was started on Lasix 20 mg twice daily upon discharge. On admission patient has been afebrile. Blood pressures 186/103 and pulse 79 respiration 18 and pulse ox 97% on room air. Laboratory data showed WBC 11.9 hemoglobin 11.2 platelets 404 sodium 136 potassium 4.1 chloride 99 bicarb is 26 BUN 21 creatinine 0.77 and blood sugar 115 liver enzymes showed AST 65 ALT 59 alk phos 483 albumin 3.3 Urinalysis negative for infection is positive for barbiturates. Chest x-ray showed patchy bilateral areas of infiltrate/pneumonia with small effusion likely superimposed on a background COPD, chronic interstitial lung disease. EKG showed sinus rhythm CT head showed no acute intracranial abnormality or gross space-occupying lesion by this nonenhanced CT scan. 04/06/2022 the patient is seen and evaluated with daughter and at bedside; remains confused and the mentation continues to be altered. Despite all this, the patient is not having any respiratory decompensation. In view of her underlying altered mentation, a neurologic outpatient is been requested. CAT scan of the brain was negative. The patient underwent a lumbar puncture that showed no acute abnormalities. She will further have an MRI of the brain. Meanwhile, the patient remains on same antibiotic coverage. The patient remains on Levaquin. I'm essentially doubting the possibility of pneumonia and there could be another process involving the patient's lungs including the possibility of malignancy. The patient's BUN is at 32 with a creatinine of 1.1 and sodium level of 136. Her neurologic exam is nonfocal. She continues to be altered. The Legionella urine antigen antigen was negative. Patient remains on Solu-Medrol 40 mg IV every 12 hours, neurology has evaluated patient; in view of negative. Patient is recommended MRI of the brain for further evaluation of mental status 03/28/2022. Patient is currently lying in bed. delirious and confused. Saturating at 96% on room air. Patient had workup including MRI of the brain and lumbar puncture. MRI of the brain showed intracranial mass, acute/subacute infarct or abnormal enhancement. Prednisone has been discontinued. Laboratory data showed sodium 139 potassium 4.0 chloride 96 BUN 33.7 and creatinine 1.0 and pro 0.13 Patient Is Being Continued on Antibiotics the Form of Zosyn and Levaquin. Current medications reviewed. Objective - Vital Signs Vital signs: Vital Signs Temp 98.5 F 04/07/22 07:15 Pulse 81 04/07/22 07:15 Resp 20 04/07/22 07:15 BP 140/83 04/07/22 07:15 Pulse Ox 95 04/07/22 07:15 FiO2 Intake & Output 04/06/22 04/07/22 04/07/22 18:59 06:59 18:59 Other: Voiding Method Indwelling Catheter - Exam - Exam HEENT: Normocephalic. Neck is supple. Pupils reactive. Nostrils clear. Oral cavity is moist. Neck reveals no JVD, carotid bruits, or thyromegaly. CHEST EXAMINATION: Trachea is central. Symmetrical expansion. Bibasilar diminished sounds. No wheezing or rhonchi. CARDIAC: Normal S1, S2 with no gallops. No murmurs ABDOMEN: Soft. Bowel sounds present. Nontender. No organomegaly. No abdominal bruits. Extremities: Trace bilateral pedal edema. No clubbing or cyanosis Neurologically awake, alert, confused and delirious. No gross focal neurological deficit. Skin: No rash or skin lesions. - Labs - Labs CBC & Chem 7: 04/05/22 06:47 04/07/22 04:08 Labs: Abnormal Lab Results - Last 24 Hours (Table) 04/06/22 04/07/22 04/07/22 Range/Units 16:32 04:08 04:08 Anion Gap 20.30 H (10.00-18.00) mmol/L BUN 33.7 H (9.0-27.0) mg/dL Est GFR (CKD-EPI)NonAf 54.4 L (60.0-200.0) BUN/Creatinine Ratio 33.94 H (12.00-20.00) Ratio POC Glucose (mg/dL) 104 H (75-99) mg/dL C-Reactive Protein 6.00 H (0.00-0.80) mg/dL Procalcitonin 0.13 H (0.02-0.09) ng/mL 04/07/22 04/07/22 Range/Units 06:53 11:17 Anion Gap (10.00-18.00) mmol/L BUN (9.0-27.0) mg/dL Est GFR (CKD-EPI)NonAf (60.0-200.0) BUN/Creatinine Ratio (12.00-20.00) Ratio POC Glucose (mg/dL) 117 H 105 H (75-99) mg/dL C-Reactive Protein (0.00-0.80) mg/dL Procalcitonin (0.02-0.09) ng/mL Microbiology - Last 24 Hours (Table) 04/05/22 16:04 CSF Gram Stain - Preliminary Cerebral Spinal Fluid CSF Culture - Preliminary 04/04/22 14:10 Blood Culture - Preliminary Blood No Growth after 48 hours 04/04/22 14:30 Blood Culture - Preliminary Blood No Growth after 48 hours Assessment and Plan Assessment: Altered mental status possible metabolic encephalopathy /sepsis. Patient had workup including MRI of the brain and lumbar puncture. Workup has been negative so far. Possible delirious/steroid psychosis is in consideration. Worsening shortness of breath due to multilobar pneumonia versus acute CHF Acute CHF with diastolic dysfunction with valvular abnormalities/severe MR. Recent echocardiogram showed ejection fraction 50%. Uncontrolled hypertension Recent admission with pneumonia and was on antibiotics in the form of ceftriaxone azithromycin with clinical improvement before discharge. Mild transaminitis Hypertension Hyperlipidemia GERD Bipolar/depression Previous history of smoking DVT prophylaxis Plan: Patient will be continued on antibiotics in the form of Zosyn and Levaquin. . Start back on losartan and propranolol and titrate dose as needed. Continue with Lasix. MRI of the brain is negative for any acute process. CSF culture no growth as per preliminary report. Patient is being continued on current psychiatric medications. Pulmonary and neurology and ID is on board. Current home medications and follow-up closely. Prognosis is guarded this time. Time with Patient: Greater than 30
--- NOTE | 2022-04-08 14:51 | P.PN ---
Subjective Progress Note Date: 04/08/22 Principal diagnosis: altered mental status 76-year-old female patient who got readmitted to the hospital after 3 days of being discharged because of altered mentation ongoing difficulties with shortness of breath and right lung pneumonia. The patient was in the hospital for the same where she was admitted on 03/29/2022. She came in for altered mentation. She was found to have a right lung pneumonia. The patient without antibiotics and she was given accommodation Rocephin and Zithromax. She improved clinically. I saw her in the hospital on 04/01/2022 and she was doing well and she was sitting up on a chair and she was on room air oxygen. The chest x-ray was showing patchy right-sided pulmonary infiltrates with interval improvement. The white cell count was now. The patient's UA was negative. Urine cultures was negative. The pro-calcitonin level was at 0.1. ProBNP level was 1230. She was hemodynamically stable. She was known to have valvular heart disease and she was supposed to follow-up with the cardiology group at planned for a possible TAVR at the later stage. There cardiac catheterization showed nonobstructive CAD. AMY showed thickening of the anterior and the posterior mitral valve leaflets and severe MR with an ejection fraction of 50%. The patient came in to the emergency on 04/04/2022 for the same. She was altered mentally. Her thoughts were noncoherent. The patient had ongoing mild cough. She was complaining of pain which was diffuse body aches. No chest pain. No nausea vomiting or abdominal pain. No focal neurological deficit. She was feeling weak. Upon discharge, she was given Ceftin and prednisone burst taper. Her temperature was afebrile. BP was stable. White cell count was 11.9. BUN was 21 with a creatinine of 0.7 and the electrodes were all within normal limits. The patient's LFTs were abnormal with an AST of 65, ALT of 59 and alkaline phosphatase of 183. Urine drug screen was positive for barbiturat es. Chest x-ray showed persistent right lung patchy pulmonary infiltrates, and the CAT scan of the chest was consistent with multilobar pneumonia, worse in the right lower lobe.. Based on that, the patient was admitted to the hospital. 04/05/2022, the patient remains altered and confused. She is on room air oxygen. I'm unable to explain her altered mentation and confusion on the basis of a pneumonia. In fact, despite the significant infiltration of the right lung, the patient not having any significant respiratory distress. she has no fever. Chest x-ray findings are unchanged compared to yesterday. her blood work showed a white cell count of 13 , hemoglobin of 11.9, normal coagulation profile, a pro-calcitonin level of 0.12 , normal renal function, LFTs are mildly abnormal, UA was negative, urine drug screen was also negative. CAT scan of the brain showed no acute BANQUET ATTENDANT abnormalities. the patient will obviously need a neurologic evaluation. 04/06/2022, the patient remains confused and the mentation continues to be altered. Despite all this, the patient is not having any respiratory decompensation. In view of her underlying altered mentation, a neurologic outpatient is been requested. CAT scan of the brain was negative. The patient underwent a lumbar puncture that showed no acute abnormalities. She will further have an MRI of the brain. Meanwhile, the patient remains on same antibiotic coverage. The patient remains on Levaquin. I'm essentially doubting the possibility of pneumonia and there could be another process involving the patient's lungs including the possibility of malignancy. The patient's BUN is at 32 with a creatinine of 1.1 and sodium level of 136. Her neurologic exam is nonfocal. She continues to be altered. The Legionella urine antigen antigen was negative. 04/07/2022, the patient continues to have neurologic impairment and the workup is been essentially negative including a CAT scan of the brain, MRI of the brain and a lumbar puncture. Neurologist on the case. The patient is also seen by psychiatry. There is a component of delirium. Exact cause is not clear. Consider paraneoplastic. The patient is on room air oxygen pH is having any respiratory difficulties patient remains on examination Zosyn and Levaquin. A follow-up chest x-ray will be obtained tomorrow. Meanwhile, she seems to be slightly more oriented on today's evaluation she is communicating more so compared to yesterday. On blood work, no major abnormality is identified and the patient has a sodium level of 139, BUN of 33 with a creatinine of 1.0 and a potassium level of 4.0. on 04/08/2022 patient seen in follow-up on medical surgical floor, her mentation remains altered, she does not follow any commands, but her eyes are open, she doesn't track with her eyes, does not make eye contact. She moans continuously. no cough, she does not appear to be dyspneic, room air pulse ox is 96%, she's been afebrile. breathing pattern is nonlabored. Her chest x-ray from yesterday on 04/08/2022 showed elevation of the right hemidiaphragm, patchy density in the right lung base and right upper lobe. today's labs are still pending, Prograf sternal level has been stable compared the admission level, and is currently a 0.13 compared to 0.12 on admission. Patient had lumbar puncture done, and CSF cultures shown no growth thus far. Objective - Vital Signs Vital signs: Vital Signs Temp 98.3 F 04/08/22 07:26 Pulse 87 04/08/22 07:26 Resp 19 04/08/22 07:26 BP 158/52 04/08/22 08:54 Pulse Ox 96 04/08/22 07:26 FiO2 Intake & Output 04/07/22 04/08/22 04/08/22 18:59 06:59 18:59 Output Total 700 500 Balance -700 -500 Weight 88 kg Output: Urine 700 500 Other: Voiding Method Indwelling Catheter - Exam GENERAL EXAM: 76-year-old confused, female, on room air, her eyes are spontaneously open but she does not make any eye contact or follow any command comfortable in no apparent distress. HEAD: Normocephalic/atraumatic. EYES: Normal reaction of pupils, equal size. Conjunctiva pink, sclera white. NOSE: Clear with pink turbinates. THROAT: No erythema or exudates. NECK: No masses, no JVD, no thyroid enlargement, no adenopathy. CHEST: No chest wall deformity. Symmetrical expansion. LUNGS: Equal air entry with no crackles, wheeze, rhonchi or dullness. CVS: Regular rate and rhythm, normal S1 and S2, no gallops, no murmurs, no rubs ABDOMEN: Soft, nontender. No hepatosplenomegaly, normal bowel sounds, no guarding or rigidity. EXTREMITIES: No clubbing, no edema, no cyanosis, 2+ pulses and upper and lower extremities. MUSCULOSKELETAL: Muscle strength and tone normal. SPINE: No scoliosis or deformity SKIN: No rashes CENTRAL NERVOUS SYSTEM: patient is confused, with twitching over extremities, does not follow simple commands, but spontaneously awake - Labs CBC & Chem 7: 04/05/22 06:47 04/07/22 04:08 Labs: Microbiology - Last 24 Hours (Table) 04/05/22 16:04 CSF Gram Stain - Preliminary Cerebral Spinal Fluid CSF Culture - Preliminary 04/04/22 14:30 Blood Culture - Preliminary Blood No Growth after 72 hours 04/04/22 14:10 Blood Culture - Preliminary Blood No Growth after 72 hours Assessment and Plan Plan: #1.Acute mental status changes, likely secondary to pneumonia and possible sepsis. This computed tomography scan of the brain showed no acute abnormalities. Neurologic exam is nonfocal. This is likely secondary to metabolic encephalopathy. possibility of BANQUET ATTENDANT infection cannot be completely ruled out as the patient is neurologic behavior is completely unusual, she is unable to speak appropriately. The patient underwent a lumbar puncture that came back negative. The MRI of the brain was also negative for any acute abnormalities of CVA. Rule out paraneoplastic features. Rule out underlying CVA. The patient was seen by neurology and psychiatry. #2.Multilobar pneumonia involving the right lung worse in the right lower lobe, treated initially with some initial Rocephin and Zithromax and she was sent home on Ceftin on a prednisone burst taper. Currently, the patient is readmitted and the patient is being treated for the same. The patient has a stable oxygenation. The patient remains on Levaquin. I'm essentially doubting the possibility of a pneumonia. Other considerations include malignancy. The pro-calcitonin level is at 0.12. #3.Severe mitral regurgitation #4. Elevated troponins, thought to be related to supply demand mismatch, in a patient with nonobstructive CAD, based on recent cardiac catheterization. #5.History of hypertension. #6.History of hyperlipidemia. #7.History of essential tremor. #8. History of gastroesophageal reflux disease. #9. History of bipolar disorder. Plan: continue current medical management vital signs are stable, patient is on room air, Chest x-ray is improved CSF cultures have shown no growth thus far No fever,However her mentation stil remains altered Neurology recommendations From pulm perspective, would recommend current treatment Pulm service will sign off and follow as needed I have personally seen and examined the patient, performed the documentation and the assessment and plan as written. Number of minutes spent on the visit: [10] Time with Patient: Less than 30
[2022-04-08] MEDS: FUROSEMIDE 20 MG TAB PO SCH (15:32)
[2022-04-08] MEDS ORDERED: HALOPERIDOL LACTATE 5 MG/ML 1 ML VIAL IM PRN (15:33)
--- NOTE | 2022-04-08 15:41 | P.CN ---
Psychiatric Consult - . Consult date: 04/08/22 Consult:: 04/08/22 12:43 IDENTIFYING DATA: This patient is a 76-year-old female who currently is , lives alone in a house and has 4 children. REASON FOR REFERRAL: Psychiatry was consulted for psychosis HISTORY OF PRESENT ILLNESS: The patient presented as a rehospitalization for altered mental status. Apparently patient was discharged to long ago from the medical floors and readmitted for pneumonia and discharged previously on antibiotics and steroids. Apparently patient has been having episodes of confusion at home. Patient's brain CT is negative for any acute changes. Patient positive for barbiturates in her urine. Patient's nurse states that patient has been fairly similar throughout the day and not responding to much. Patient did receive Ativan earlier for agitation. Patient is currently on Seroquel and Remeron. She was seen by marketing writer at the bedside and appeared to have her arms spread open and laying with her how old head tilted back on her pillow. Patient responded only briefly due to some questions. She had fairly inappropriate and bizarre answers. She was also somewhat irritable, illogical and disorganized in her answers. She kept her eyes closed the entire time and didn't follow any commands at all. She believes that she was "[place] and does not know her situation for coming in the hospital and knows her name however does not know today's date. She is denying any auditory or visual hallucinations and denying any suicidal or homicidal ideation intent or plan. Patient was a poor historian and the rest of history was gathered from the EMR. PAST PSYCHIATRIC HISTORY: Patient has a a history of depression and anxiety. Patient is currently on Wellbutrin and Remeron. Patient denies any previous psychiatric hospitalizations. Patient denies any psychiatric outpatient follow- up. Patient does state that she sees a therapist regularly in [place]. Patient denies any history of suicide attempts in the past. PAST MEDICAL HISTORY: As per medicine H&P ALLERGIES: as per EMR. CHEMICAL DEPENDENCY HISTORY: as per HPI. FAMILY PSYCHIATRIC/SUBSTANCE USE HISTORY: Claims that her son has schizophrenia SOCIAL HISTORY: Patient was born and raised in [place], [place]. She states that she also grew up around the [facility]. She claims that she has had various jobs in the past. She states that she completed her GED in school. She claims that she has 4 kids, currently lives in a house. She lives alone. She is . MENTAL STATUS EXAM: General Appearance: Patient appears to be somnolent however is responding to some questions. Her arms are spread open in her head is tilted back. Eyes closed. Patient appears to have fair hygiene and grooming wearing hospital gown Behavior: Patient is calmly lying in bed without any agitated behavior. Somewhat responsive Speech: Patient's speech is fluent and nonpressured. Bizarre and disorganized Mood/Affect: Unable to assess Suicidality/Homicidality: Unable to assess Perceptions: Unable to assess Though content/process: Patient is rambling, tangential/circumstantial. Memory and concentration: AOX1, grossly disorganized with poor attention span, does not know her location or date. Cannot spell "WORLD" backwards Judgment and insight: Poor IMPRESSIONS: Delirium, likely secondary to medications i.e. steroids and medication PLAN: -At this time patient DOES NOT meet criteria for inpatient psychiatric admission. -Delirium precautions recommended with patient including - avoiding use of narcotics and OPERATIONS SUPPORT SPECIALIST sedatives, limit anticholinergic medications when possible, frequent re-orientation, minimize use of restraints, open window shades during the day and close them at night -Would recommend the following medication changes/additions: Steroids were likely the cause of patient's delirium/confusion. Continue with current treatment of underlying infection and medical comorbidities. Discontinued Remeron at this time and replace with melatonin 2 mg daily at bedtime for sleep. haldol im prn for agitation/psychosis. Increase Seroquel to 75 mg daily at bedtime +25 mg daily for psychosis. -Communicated plan to patient's nurse -At this time psychiatry will continue to follow along. -Please contact with any questions. 04/08/22 15:34
[2022-04-08 16:20] LABS: Basophils # (A) 0.1 k/uL (0-0.2); Basophils % (A) 1 %; Eosinophils # (A) 0.2 k/uL (0-0.7); Eosinophils % (A) 2 %; HCT 36.1 % (34.0-46.0); HGB 11.5 gm/dL (11.4-16.0); Hypochromasia Slight; Lymphocytes # (A) 1.3 k/uL (1.0-4.8); Lymphocytes % (A) 12 %; MCH 29.3 pg (25.0-35.0); MCHC 31.8 g/dL (31.0-37.0); MCV 92.1 fL (80.0-100.0); Mean Platelet Volume 9.2; Monocytes # (A) 0.7 k/uL (0-1.0); Monocytes % (A) 6 %; Neutrophils # (A) 8.5 k/uL (1.3-7.7); Neutrophils % (A) 77 %; Platelet Count 413 k/uL (150-450); RBC 3.92 m/uL (3.80-5.40); RDW 14.6 % (11.5-15.5)
--- NOTE | 2022-04-08 18:15 | P.PN ---
Subjective Progress Note Date: 04/08/22 Patient was seen for a follow-up. Patient initially seen by Dr. Karlos Wilson. Please refer to his note for details. Patient is a 76-year-old female with recent pneumonia, has continued to have confusion since pneumonia, patient on antibiotics and steroids. Patient at present continues to be delirious, moaning, groaning, appears to be in pain. She is using very foul language, cussing with minimal examination. Objective - Vital Signs Vital signs: Vital Signs Temp 98.3 F 04/08/22 07:26 Pulse 95 04/08/22 14:00 Resp 18 04/08/22 14:00 BP 150/59 04/08/22 14:00 Pulse Ox 94 L 04/08/22 14:00 FiO2 Intake & Output 04/07/22 04/08/22 04/08/22 18:59 06:59 18:59 Output Total 700 500 Balance -700 -500 Weight 88 kg Output: Urine 700 500 Other: Voiding Method Indwelling Catheter - Exam PSYCH: Has at times pressured speech and restless Neurological exam: Patient is moaning, groaning, yelling at times. Appears to be in pain in whole body. Head is hyperextended. However it is supple. Keeps her eyes closed. Patient uses very foul language. Patient yelling "I'll ", "I saw on light". When I asked her about the current month or year, patient started cussing "you god da-----, SO _", extremely agitated, not cooperating with examination. Could not tell me the month or the year, apparently partly not volunteering to answer a question. Cranial nerves: Patient would close her eyes forcefully on trying to check the pupils. She keeps her eyes closed. Her face is symmetric. Lips are chapped, dry. She did not protrude her tongue. Her hearing appears grossly normal. Strength: Could not assess because of cooperation but moving uppers above gravity and had tremor upon lifting them. Patient's tone is increased in the a kathleen and legs. She is slightly tremulous. SOME OF THE WORK-UP DURING THIS HOSPITAL VISIT CONSISTED OF: AST 65 ALT of 59, ammonia is less than 9, glucose is 115. Calcium is 8.2 [place] B12 is 671 Serum folate is more than 20 TSH is 3.3 at 7 Urinalysis negative for urinary tract infection. Urine drug screen is positive for barbiturates others nondetected. Legionella of the urine is negative CT of the head is reported as no acute intracranial abnormality or gross space- occupying lesion by this nonenhanced computed tomography scan. I personally reviewed the CT of the head and there is no acute subacute ischemia and there is no intraparenchymal hemorrhages as appreciable. There is hyperdensity over the seems the left basal ganglia is minimal in size that can be due to calcification. MRI of the brain on 04/06/2022 inch reported as no evidence of intracranial mass, acute subacute infarct or abnormal enhancement. Nonspecific white matter changes likely related to small vessel ischemic disease. I so reviewed the MRI and agree with the report. CT of chest is reported as above described pulmonary changes are likely related to acute inflammatory/infection process likely pneumonia however associate pulmonary edema cannot be excluded. CSF: clear, colorless, rbc 0, nucleated cell 2, glucose 65 and protein is 68 (normal is 12-60) which is slightly elevated and likely reactive from underlying pneumonia. CSF gram stain: No organism. Blood culture are no growth after 24 hours. Routine EEG on 04/05/22: Mild encephalopathy. There is no focal slowing, epileptiform discharges or seizure on the EEG. - Labs CBC & Chem 7: 04/08/22 14:39 04/07/22 04:08 Labs: Abnormal Lab Results - Last 24 Hours (Table) 04/08/22 Range/Units 14:39 WBC 11.0 H (3.8-10.6) k/uL Neutrophils # 8.5 H (1.3-7.7) k/uL Microbiology - Last 24 Hours (Table) 04/04/22 14:30 Blood Culture - Preliminary Blood No Growth after 96 hours 04/04/22 14:10 Blood Culture - Preliminary Blood No Growth after 96 hours 04/05/22 16:04 CSF Gram Stain - Preliminary Cerebral Spinal Fluid CSF Culture - Preliminary Assessment and Plan Assessment: Encephalopathy with psychotic behavior of unknown etiology. Possible delirium with psychosis, perhaps due to use of steroids and infection. Patient using foul language. Not meningoencephalitis (CSF: 2 nucleated cells) MRI brain is unremarkable and EEG is negative for seizure--today somewhat better compared to yesterday. Delerium due to underlying pneumonia and medication use. Multilobar pneumonia involving the right long worse in the right lower lobe Essential hypertension Severe mitral regurgitation History of hypertension History of hyperlipidemia Bipolar Plan: Patient does not have a stroke on MRI and there is no enhancement on the MRI. She does not have any underlying infection on the CSF. Cannot absolutely rule out any underlying encephalitis such as an NMDA encephalitis or underlying cause a paraneoplastic which the pulmonary team is requesting. Dr. Karlos Wilson has ordered an NMDA receptor antibody which is send out test and will take time to o btain result. He also ordered paraneoplastic testing on CSF result. Psychiatry seen the patient, felt his delirium. Reviewed the note. Currently on Seroquel 50mg qhs and 25mg daily. Pulmonary team is on board Currently the patient is on Levofloxacin. Management difficult because of patient's severe agitation, irritation and complete lack of cooperation with examination We'll defer the rest of the medical management to primary team
[2022-04-08 22:40] LABS: African American GFR (CKD) 62.5 (60.0-200.0); Anion Gap 20.5 mmol/L (10.00-18.00); BUN/Creat Ratio 35.6 Ratio (12.00-20.00); Blood Urea Nitrogen 35.6 mg/dL (9.0-27.0); Calcium 9.1 mg/dL (8.7-10.3); Carbon Dioxide 23.5 mmol/L (20.0-27.5); Non-African American GFR(CKD) 53.9 (60.0-200.0); Potassium 4.1 mmol/L (3.5-5.5)
[2022-04-08] MEDS: ATORVASTATIN 10 MG TAB PO SCH ×2 (22:49→22:57)
[2022-04-08] MEDS: LEVOFLOXACIN 500MG-D5W PMX 500 MG in DEXTROSE/WATER 1 100ML.BAG IVPB SCH (22:49)
[2022-04-08] MEDS: lisinopriL 10 MG TAB PO SCH ×2 (22:49→22:58)
[2022-04-08] MEDS: PROPRANOLOL LA 80 MG CAP.SA.24H PO SCH ×2 (22:49→22:59)
[2022-04-08] MEDS: MELATONIN 1 MG TAB PO SCH (22:57)
[2022-04-09] MEDS: PIPERACILLIN-TAZOBACTAM 3.375 GM in SODIUM CHLORIDE 0.9% 100 ML IVPB SCH ×4 (00:36→15:28)
--- NOTE | 2022-04-09 07:23 | P.PN ---
Subjective Progress Note Date: 04/07/22 Principal diagnosis: Pneumonia Patient is a 76-year-old female with recent admission to the hospital and treated for pneumonia presented to the hospital with mental status changes did have a fever with a right-sided consolidation concerning for pneumonia and possible aspiration. Patient did have an LP completed on 04/05/2022 that was essentially normal On today's evaluation that is 04/07/2022, the patient is afebrile patient is slightly more awake and alert and is breathing comfortably denies any chest pain did have a cough no abdominal pain or diarrhea Objective - Vital Signs Vital signs: Vital Signs Temp 98.4 F 04/07/22 13:50 Pulse 82 04/07/22 13:50 Resp 20 04/07/22 13:50 BP 146/78 04/07/22 13:50 Pulse Ox 94 L 04/07/22 13:50 FiO2 Intake & Output 04/06/22 04/07/22 04/07/22 18:59 06:59 18:59 Output Total 700 Balance -700 Output: Urine 700 Other: Voiding Method Indwelling Catheter - Exam GENERAL DESCRIPTION: An elderly female lying in bed in no distress RESPIRATORY SYSTEM: Unlabored breathing , decreased breath sounds at bases HEART: S1 S2 regular rate and rhythm , ABDOMEN: Soft , no tenderness EXTREMITIES: No edema feet - Labs CBC & Chem 7: 04/08/22 14:39 04/08/22 14:39 Labs: Abnormal Lab Results - Last 24 Hours (Table) 04/07/22 04/07/22 04/07/22 Range/Units 04:08 04:08 06:53 Anion Gap 20.30 H (10.00-18.00) mmol/L BUN 33.7 H (9.0-27.0) mg/dL Est GFR (CKD-EPI)NonAf 54.4 L (60.0-200.0) BUN/Creatinine Ratio 33.94 H (12.00-20.00) Ratio POC Glucose (mg/dL) 117 H (75-99) mg/dL C-Reactive Protein 6.00 H (0.00-0.80) mg/dL Procalcitonin 0.13 H (0.02-0.09) ng/mL 04/07/22 Range/Units 11:17 Anion Gap (10.00-18.00) mmol/L BUN (9.0-27.0) mg/dL Est GFR (CKD-EPI)NonAf (60.0-200.0) BUN/Creatinine Ratio (12.00-20.00) Ratio POC Glucose (mg/dL) 105 H (75-99) mg/dL C-Reactive Protein (0.00-0.80) mg/dL Procalcitonin (0.02-0.09) ng/mL Microbiology - Last 24 Hours (Table) 04/04/22 14:30 Blood Culture - Preliminary Blood No Growth after 72 hours 04/04/22 14:10 Blood Culture - Preliminary Blood No Growth after 72 hours 04/05/22 16:04 CSF Gram Stain - Preliminary Cerebral Spinal Fluid CSF Culture - Preliminary Assessment and Plan (1) Bilateral pneumonia Current Visit: Yes Status: Acute Code(s): J18.9 - PNEUMONIA, UNSPECIFIED ORGANISM SNOMED Code(s): 064715782 Plan: 1patient presented to hospital with mental status changes confusion did have a low-grade fever with evidence of right lower and upper lobe pneumonia question of aspiration etiology, with recent admission to the hospital we need to cover for the resistant gram-negative pathogen. 2we will try to obtain a sputum for gram stain culture. 3patient to continue with Zosyn 3.375 g every 8 hours Time with Patient: Less than 30
--- NOTE | 2022-04-09 07:25 | P.PN ---
Subjective Progress Note Date: 04/08/22 Principal diagnosis: Pneumonia Patient is a 76-year-old female with recent admission to the hospital and treated for pneumonia presented to the hospital with mental status changes did have a fever with a right-sided consolidation concerning for pneumonia and possible aspiration. Patient did have an LP completed on 04/05/2022 that was essentially normal On today's evaluation that is 04/08/2022, the patient remains to be afebrile, the patient is slightly lethargic today and unable to provide any history however the patient is breathing comfortably on room air no vomiting or diarrhea has been reported by nursing staff Objective - Vital Signs Vital signs: Vital Signs Temp 98.3 F 04/08/22 07:26 Pulse 87 04/08/22 07:26 Resp 19 04/08/22 07:26 BP 158/52 04/08/22 08:54 Pulse Ox 96 04/08/22 07:26 FiO2 Intake & Output 04/07/22 04/08/22 04/08/22 18:59 06:59 18:59 Output Total 700 500 Balance -700 -500 Weight 88 kg Output: Urine 700 500 Other: Voiding Method Indwelling Catheter - Exam GENERAL DESCRIPTION: An elderly female lying in bed in no distress RESPIRATORY SYSTEM: Unlabored breathing , decreased breath sounds at bases HEART: S1 S2 regular rate and rhythm , ABDOMEN: Soft , no tenderness EXTREMITIES: No edema feet - Labs CBC & Chem 7: 04/08/22 14:39 04/08/22 14:39 Labs: Abnormal Lab Results - Last 24 Hours (Table) 04/07/22 Range/Units 04:08 Anion Gap 20.30 H (10.00-18.00) mmol/L BUN 33.7 H (9.0-27.0) mg/dL Est GFR (CKD-EPI)NonAf 54.4 L (60.0-200.0) BUN/Creatinine Ratio 33.94 H (12.00-20.00) Ratio C-Reactive Protein 6.00 H (0.00-0.80) mg/dL Microbiology - Last 24 Hours (Table) 04/04/22 14:30 Blood Culture - Preliminary Blood No Growth after 72 hours 04/04/22 14:10 Blood Culture - Preliminary Blood No Growth after 72 hours 04/05/22 16:04 CSF Gram Stain - Preliminary Cerebral Spinal Fluid CSF Culture - Preliminary Assessment and Plan (1) Bilateral pneumonia Current Visit: Yes Status: Acute Code(s): J18.9 - PNEUMONIA, UNSPECIFIED ORGANISM SNOMED Code(s): 658947377 Plan: 1patient presented to hospital with mental status changes confusion did have a low-grade fever with evidence of right lower and upper lobe pneumonia question of aspiration etiology, with recent admission to the hospital we need to cover for the resistant gram-negative pathogen. 2blood cultures have been negative so far, sputum could not be obtained 3patient currently being treated with Zosyn 3.375 g every 8 hours to continue Time with Patient: Less than 30
[2022-04-09] MEDS: SPIRONOLACTONE 25 MG TAB PO SCH (08:31)
[2022-04-09] MEDS: FUROSEMIDE 20 MG TAB PO SCH ×2 (08:31→15:23)
[2022-04-09] MEDS: QUEtiapine 25 MG TAB PO SCH ×3 (08:31→21:25)
[2022-04-09] MEDS: PRIMIDONE 250 MG TAB PO SCH ×3 (08:31→21:25)
[2022-04-09 09:35] LABS: C Reactive Protein 4.9 mg/dL (0.00-0.80)
[2022-04-09 09:39] LABS: African American GFR (CKD) 62.5 (60.0-200.0); Albumin 3.4 g/dL (3.8-4.9); Albumin/Globulin Ratio 1.1 (1.60-3.17); Anion Gap 19.1 mmol/L (10.00-18.00); BUN/Creat Ratio 33.7 Ratio (12.00-20.00); Blood Urea Nitrogen 33.7 mg/dL (9.0-27.0); Calcium 8.9 mg/dL (8.7-10.3); Carbon Dioxide 22.9 mmol/L (20.0-27.5); Globulin 3.1 g/dL (1.6-3.3); Non-African American GFR(CKD) 53.9 (60.0-200.0); Potassium 4.5 mmol/L (3.5-5.5); Total Bilirubin 0.4 mg/dL (0.30-1.20); Total Protein 6.5 g/dL (6.2-8.2)
--- NOTE | 2022-04-09 11:24 | P.PN ---
Subjective Progress Note Date: 04/08/22 76-year-old female with a known history of hypertension, hyperlipidemia, GERD, bipolar disorder and previous history of smoking presents to ER with complaints of worsening shortness of breath. Patient was admitted to hospital due to right lung pneumonia and was continued on antibiotics in the form of ceftriaxone azithromycin. Patient was discharged home with oral antibiotic course. Patient did improve clinically and was discharged home. Patient was also found to have severe MR and had cardiac catheterization on 03/01/2022 which was nonobstructive. AMY showed thickening of the anterior and posterior mitral leaflets and severe MR. Ejection fraction 50%. Patient was started on 20 mg twice daily upon discharge. On admission patient has been afebrile. Blood pressures 186/103 and pulse 79 respiration 18 and pulse ox 97% on room air. Laboratory data showed WBC 11.9 hemoglobin 11.2 platelets 404 sodium 136 potassium 4.1 chloride 99 bicarb is 26 BUN 21 creatinine 0.77 and blood sugar 115 liver enzymes showed AST 65 ALT 59 alk phos 483 albumin 3.3 Urinalysis negative for infection is positive for barbiturates. Chest x-ray showed patchy bilateral of infiltrate/pneumonia with small effusion likely superimposed on a background COPD, chronic interstitial lung disease. EKG showed sinus rhythm CT head showed no acute intracranial abnormality or gross space-occupying lesion by this nonenhanced CT scan. 04/06/2022 the patient is seen and evaluated with daughter and at bedside; remains confused and the mentation continues to be altered. Despite all this, the patient is not having any respiratory decompensation. In view of her underlying altered mentation, a neurologic outpatient is been requested. CAT scan of the brain was negative. The patient underwent a lumbar puncture that showed no acute abnormalities. She will further have an MRI of the brain. Meanwhile, the patient remains on same antibiotic coverage. The patient remains on Levaquin. I'm essentially doubting the possibility of pneumonia and there could be another process involving the patient's lungs including the possibility of malignancy. The patient's BUN is at 32 with a creatinine of 1.1 and sodium level of 136. Her neurologic exam is nonfocal. She continues to be altered. The Legionella urine antigen antigen was negative. Patient remains on Solu-Medrol 40 mg IV every 12 hours, neurology has evaluated patient; in view of negative. Patient is recommended MRI of the brain for further evaluation of mental status 04/07/2022. Patient is currently lying in bed. delirious and confused. Saturating at 96% on room air. Patient had workup including MRI of the brain and lumbar puncture. MRI of the brain showed intracranial mass, acute/subacute infarct or abnormal enhancement. Prednisone has been discontinued. Laboratory data showed sodium 139 potassium 4.0 chloride 96 BUN 33.7 and creatinine 1.0 and pro 0.13 Patient Is Being Continued on Antibiotics the Form of Zosyn and Levaquin. 04/08/2022 Patient is lying in the bed. delirious and disoriented. Could not provide any history. Moaning and groaning. Otherwise patient has been afebrile. Currently on room air. Laboratory data showed WBC 11.0 hemoglobin 11.9 and platelets 413 BUN 35.6 and creatinine 1.0 Blood sugar was 98 and calcium 9.1 CSF cultures negative so far. Patient is being continued on antibiotics in the form ofLevaquin and Zosyn. ID and neurology is on board. Patient is refusing to take oral medications. Current medications reviewed. Objective - Vital Signs Vital signs: Vital Signs Temp 98.3 F 04/08/22 07:26 Pulse 95 04/08/22 14:00 Resp 18 04/08/22 14:00 BP 150/59 04/08/22 14:00 Pulse Ox 94 L 04/08/22 14:00 FiO2 Intake & Output 04/08/22 04/08/22 04/09/22 06:59 18:59 06:59 Output Total 500 Balance -500 Weight 88 kg Output: Urine 500 Other: Voiding Method Indwelling Catheter - Exam PHYSICAL EXAMINATION: Patient is lying in the bed comfortably, no acute distress, patient is moaning and groaning and talking to herself. HEENT: Normocephalic. Neck is supple. Pupils reactive. Nostrils clear. Oral cavity is moist. Neck reveals no JVD, carotid bruits, or thyromegaly. CHEST EXAMINATION: Trachea is central. Symmetrical expansion. Bibasilar diminished sounds. Lung pascual clear to auscultation and percussion. CARDIAC: Normal S1, S2 with no gallops. No murmurs ABDOMEN: Soft. Bowel sounds normal. No organomegaly. No abdominal bruits. Extremities: reveal no edema. No clubbing or cyanosis Neurologically awake, alert, oriented x0. No gross focal deficits noted Skin: No rash or skin lesions. Psychiatric: Could not be assessed. Musculoskeletal: No joint swelling or deformity. = - Labs CBC & Chem 7: 04/08/22 14:39 04/09/22 04:43 Labs: Abnormal Lab Results - Last 24 Hours (Table) 04/08/22 Range/Units 14:39 WBC 11.0 H (3.8-10.6) k/uL Neutrophils # 8.5 H (1.3-7.7) k/uL Microbiology - Last 24 Hours (Table) 04/04/22 14:30 Blood Culture - Preliminary Blood No Growth after 96 hours 04/04/22 14:10 Blood Culture - Preliminary Blood No Growth after 96 hours 04/05/22 16:04 CSF Gram Stain - Preliminary Cerebral Spinal Fluid CSF Culture - Preliminary Assessment and Plan Assessment: Altered mental status possible metabolic encephalopathy /sepsis. Patient had workup including MRI of the brain and lumbar puncture. Workup has been negative so far. Possible delirious/steroid psychosis is in consideration. Worsening shortness of breath due to multilobar pneumonia versus acute CHF Acute CHF with diastolic dysfunction with valvular abnormalities/severe MR. Recent echocardiogram showed ejection fraction 50%. Uncontrolled hypertension Recent admission with pneumonia and was on antibiotics in the form of ceftriaxo ne azithromycin with clinical improvement before discharge. Mild transaminitis Hypertension Hyperlipidemia GERD Bipolar/depression Previous history of smoking DVT prophylaxis Plan: Patient will be continued on antibiotics in the form of Zosyn and Levaquin. . Start back on losartan and propranolol and titrate dose as needed. Continue with Lasix. Changed to by mouth. Also on Aldactone. MRI of the brain is negative for any acute process. CSF culture no growth as per preliminary report. Patient is being continued on current psychiatric medications. Pulmonary and neurology and ID is on board. follow-up closely. Prognosis is guarded this time. Time with Patient: Greater than 30
--- NOTE | 2022-04-09 13:42 | P.PN ---
Progress Note - Text Progress Note Date: 04/09/22 Interval History: Patient was seen today for psychiatric follow-up regarding patient's delirium. Patient states that patient remains the same and has been continuing to refuse medications and continues to be confused and yelling out at times. Patient was seen today in the exact same posture as she was yesterday with her arms open and her head tilted back. Patient was mumbling at times and cussing/swearing however was illogical in her thought process and nonsensical. Patient did not follow creative services writer's commands and did not answer questions appropriately at all. Patient does have mild tremor in both her upper extremities. Mental Status Exam: General Appearance: Patient appears to be somnolent however is responding to some questions. Her arms are spread open in her head is tilted back. Eyes closed. Patient appears to have fair hygiene and grooming wearing hospital gown Behavior: Patient is calmly lying in bed without any agitated behavior. Somewhat responsive Speech: Patient's speech Bizarre and disorganized. Mumbling, swearing Mood/Affect: Unable to assess Suicidality/Homicidality: Unable to assess Perceptions: Unable to assess Though content/process: Patient is mumbling, nonsensical Memory and concentration: AOX1, grossly disorganized with poor attention span, does not know her location or date Judgment and insight: Poor IMPRESSIONS: Delirium, likely secondary to medications i.e. steroids and medication, infection? PLAN: -At this time patient DOES NOT meet criteria for inpatient psychiatric admission. -Delirium precautions recommended with patient including - avoiding use of narcotics and [employer]IST sedatives, limit anticholinergic medications when possible, frequent re-orientation, minimize use of restraints, open window shades during the day and close them at night -Would recommend the following medication changes/additions: Continue with current treatment of underlying infection and medical comorbidities. melatonin 2 mg daily at bedtime for sleep. haldol im prn for agitation/psychosis. Seroquel to 75 mg daily at bedtime +25 mg daily for psychosis. patient is not taking her meds. d/c ativan as that may be worsening patients delirium. -Communicated plan to patient's nurse -At this time psychiatry will continue to follow along. -Please contact with any questions.
[2022-04-09] MEDS: diphenhydrAMINE 50 MG/ML 1 ML VIAL IVP PRN ×2 (16:33→22:35)
[2022-04-09] MEDS: lisinopriL 10 MG TAB PO SCH ×2 (21:19→21:25)
[2022-04-09] MEDS: LEVOFLOXACIN 500MG-D5W PMX 500 MG in DEXTROSE/WATER 1 100ML.BAG IVPB SCH (21:19)
[2022-04-09] MEDS: ATORVASTATIN 10 MG TAB PO SCH ×2 (21:19→21:24)
[2022-04-09] MEDS: MELATONIN 1 MG TAB PO SCH ×2 (21:19→21:25)
[2022-04-09] MEDS: PROPRANOLOL LA 80 MG CAP.SA.24H PO SCH ×2 (21:19→21:25)
[2022-04-10] MEDS: PIPERACILLIN-TAZOBACTAM 3.375 GM in SODIUM CHLORIDE 0.9% 100 ML IVPB SCH ×4 (01:04→23:26)
--- NOTE | 2022-04-10 07:21 | P.PN ---
Subjective Progress Note Date: 04/09/22 04/09/2022: Patient essentially unchanged. Still with significant neck hyperextension, bilateral torticollis. Patient was sleeping when I arrived. However on examination, started moaning, groaning, crying. Patient mumbles. 04/08/2022: Patient was seen for a follow-up. Patient initially seen by Dr. Slade Wilson. Please refer to his note for details. Patient is a 76-year-old female with recent pneumonia, has continued to have confusion since pneumonia, patient on antibiotics and steroids. Patient at present continues to be delirious, moaning, groaning, appears to be in pain. She is using very foul language, cussing with minimal examination. Objective - Vital Signs Vital signs: Vital Signs Temp 99.1 F 04/09/22 07:55 Pulse 97 04/09/22 07:55 Resp 18 04/09/22 07:55 BP 164/67 04/09/22 07:55 Pulse Ox 96 04/09/22 07:55 FiO2 Intake & Output 04/08/22 04/09/22 04/09/22 18:59 06:59 18:59 Output Total 200 Balance -200 Weight 86 kg Output: Urine 200 Other: Voiding Method Indwelling Catheter Indwelling Catheter Indwelling Catheter - Exam Neurological exam: Patient was asleep when I arrived. During the process of examination, patient woke up, and started moaning, groaning, appears to be in pain. Head is hyperextended. Keeps her eyes closed. Cranial nerves: Patient would close her eyes forcefully on trying to check the pupils. She keeps her eyes closed. Her face is symmetric. Lips are chapped, dry. She did not protrude her tongue. Her hearing appears grossly normal. Strength: Could not assess because of cooperation but moving uppers above gravity and had tremor upon lifting them. Patient's tone is very significantly increased in the arms and legs, and is very rigid. She is slightly tremulous wi th manually raising her arms. Reflexes are diminished. Lantus light. SOME OF THE WORK-UP DURING THIS HOSPITAL VISIT CONSISTED OF: AST 65 ALT of 59, ammonia is less than 9, glucose is 115. Calcium is 8.2 Leeanna B12 is 671 Serum folate is more than 20 TSH is 3.3 at 7 Urinalysis negative for urinary tract infection. Urine drug screen is positive for barbiturates others nondetected. Legionella of the urine is negative CT of the head is reported as no acute intracranial abnormality or gross space-o ccupying lesion by this nonenhanced computed tomography scan. I personally reviewed the CT of the head and there is no acute subacute ischemia and there is no intraparenchymal hemorrhages as appreciable. There is hyperdensity over the seems the left basal ganglia is minimal in size that can be due to calcification. MRI of the brain on 04/06/2022 inch reported as no evidence of intracranial mass, acute subacute infarct or abnormal enhancement. Nonspecific white matter changes likely related to small vessel ischemic disease. I so reviewed the MRI and agree with the report. CT of chest is reported as above described pulmonary changes are likely related to acute inflammatory/infection process likely pneumonia however associate pulmonary edema cannot be excluded. CSF: clear, colorless, rbc 0, nucleated cell 2, glucose 65 and protein is 68 (normal is 12-60) which is slightly elevated and likely reactive from underlying pneumonia. CSF gram stain: No organism. Blood culture are no growth after 24 hours. Routine EEG on 04/05/22: Mild encephalopathy. There is no focal slowing, epileptiform discharges or seizure on the EEG. - Labs CBC & Chem 7: 04/08/22 14:39 04/09/22 04:43 Labs: Abnormal Lab Results - Last 24 Hours (Table) 04/08/22 04/08/22 04/09/22 Range/Units 14:39 14:39 04:43 WBC 11.0 H (3.8-10.6) k/uL Neutrophils # 8.5 H (1.3-7.7) k/uL Anion Gap 20.50 H 19.10 H (10.00-18.00) mmol/L BUN 35.6 H 33.7 H (9.0-27.0) mg/dL Est GFR (CKD-EPI)NonAf 53.9 L 53.9 L (60.0-200.0) BUN/Creatinine Ratio 35.60 H 33.70 H (12.00-20.00) Ratio C-Reactive Protein 4.90 H (0.00-0.80) mg/dL Albumin 3.4 L (3.8-4.9) g/dL Albumin/Globulin Ratio 1.10 L (1.60-3.17) g/dL Microbiology - Last 24 Hours (Table) 04/05/22 16:04 CSF Gram Stain - Preliminary Cerebral Spinal Fluid CSF Culture - Preliminary 04/04/22 14:30 Blood Culture - Preliminary Blood No Growth after 96 hours 04/04/22 14:10 Blood Culture - Preliminary Blood No Growth after 96 hours Assessment and Plan Assessment: Encephalopathy with psychotic behavior of unknown etiology. Possible delirium w ith psychosis, perhaps due to use of steroids and infection. Not meningoencephalitis (CSF: 2 nucleated cells) MRI brain is unremarkable and EEG is negative for seizure. Possible dystonia, rule out extrapyramidal side effects Delerium due to underlying pneumonia and medication use. Multilobar pneumonia involving the right long worse in the right lower lobe, with sepsis Severe mitral regurgitation History of hypertension History of hyperlipidemia Bipolar disorder Plan: Patient does not have a stroke on MRI and there is no enhancement on the MRI. She does not have any underlying cranial infection on the CSF. Cannot absolutely rule out any underlying encephalitis such as an NMDA encephalitis or underlying cause a paraneoplastic syndrome. Dr. Karlos Wilson has ordered an NMDA receptor antibody which is send out test and will take time to obtain result. He also ordered paraneoplastic testing on CSF result. Psychiatry seen the patient, felt his delirium. Reviewed the note. Currently on Seroquel 50mg qhs and 25mg daily. Patient also on high dose of primidone 750 mg a day. We will check primidone, Mysoline level. Anti-jocelyn antibodies CPK Empiric treatment with Benadryl 25 mg IV every 6 hours for possible dystonia. Discussed with psychiatry. Pulmonary team is on board Currently the patient is on Levofloxacin and Zosyn. ID following. We'll defer the rest of the medical management to primary team
[2022-04-10] MEDS: PRIMIDONE 250 MG TAB PO SCH ×2 (07:25→22:19)
[2022-04-10] MEDS: SPIRONOLACTONE 25 MG TAB PO SCH (07:25)
[2022-04-10] MEDS: QUEtiapine 25 MG TAB PO SCH ×2 (07:25→22:19)
[2022-04-10] MEDS: FUROSEMIDE 20 MG TAB PO SCH ×2 (07:25→17:18)
--- NOTE | 2022-04-10 14:48 | P.PN ---
Progress Note - Text Progress Note Date: 04/10/22 Interval History: Patient was seen today for psychiatric follow-up regarding patient's delirium. Patient states that patient remains the same and has been continuing to refuse medications. Patient was given 1 dose of IV Benadryl last night. Patient continues to still be confused and was less responsive today with the appeals writer and continues to mumble words. She did not answer any questions appropriately or not answer any questions at all. Patient was seen today in the exact same posture as she was yesterday with her arms open and her head tilted back. She was illogical in her thought process and nonsensical. Patient does have mild tremor in both her upper extremities. Mental Status Exam: General Appearance: Patient appears to be somnolent however is responding to some questions. Her arms are spread open in her head is tilted back. Eyes closed. Patient appears to have fair hygiene and grooming wearing hospital gown Behavior: Patient is calmly lying in bed without any agitated behavior. Minimally responsive Speech: Patient's speech Bizarre and disorganized. Mumbling Mood/Affect: Unable to assess Suicidality/Homicidality: Unable to assess Perceptions: Unable to assess Though content/process: Patient is mumbling, nonsensical Memory and concentration: Unable to assess Judgment and insight: Poor IMPRESSIONS: Delirium, likely secondary to medications i.e. steroids and medication, infection? vs catatonia PLAN: -At this time patient DOES NOT meet criteria for inpatient psychiatric admission. -Delirium precautions recommended with patient including - avoiding use of narcotics and [employer]ER sedatives, limit anticholinergic medications when possible, frequent re-orientation, minimize use of restraints, open window shades during the day and close them at night -Would recommend the following medication changes/additions: Continue with current treatment of underlying infection and medical comorbidities. melatonin 2 mg daily at bedtime for sleep. haldol im prn for agitation/psychosis. Seroquel to 75 mg daily at bedtime +25 mg daily for psychosis. patient is not taking her meds. -Spoke with Dr. Martinez over the phone, patient's case. Discussed different treatment strategies and options. We'll decide to go ahead with repeat EEG tomorrow and try Benadryl IV again today. -Communicated plan to patient's nurse -At this time psychiatry will continue to follow along. -Please contact with any questions.
[2022-04-10] MEDS ORDERED: diphenhydrAMINE 50 MG/ML 1 ML VIAL IVP STA (15:05)
--- NOTE | 2022-04-10 16:47 | P.PN ---
Subjective Progress Note Date: 04/10/22 04/10/2022: Patient was seen for a follow-up. Patient not moaning as much. Please refer to examination below. Still mumbling speech. Patient received Benadryl 25 mg IV yesterday at around 4:30 PM. Per nurse report, she seemed more calm and was answering some questions which she was not doing earlier. Patient received a second dose of Benadryl at 10:35 PM last night. Has not received the third dose as yet. 04/09/2022: Patient essentially unchanged. Still with significant neck hyperextension, bilateral torticollis. Patient was sleeping when I arrived. However on examination, started moaning, groaning, crying. Patient mumbles. 04/08/2022: Patient was seen for a follow-up. Patient initially seen by Dr. Karlos Wilson. Please refer to his note for details. Patient is a 76-year-old female with recent pneumonia, has continued to have confusion since pneumonia, patient on antibiotics and steroids. Patient at present continues to be delirious, moaning, groaning, appears to be in pain. She is using very foul language, cussing with minimal examination. Objective - Vital Signs Vital signs: Vital Signs Temp 98.8 F 04/10/22 14:00 Pulse 90 04/10/22 14:00 Resp 17 04/10/22 14:00 BP 157/73 04/10/22 14:00 Pulse Ox 91 L 04/10/22 14:00 FiO2 Intake & Output 04/09/22 04/10/22 04/10/22 18:59 06:59 18:59 Output Total 250 Balance -250 Weight 88 kg Output: Urine 250 Uretheral (Dowling) 250 Other: Voiding Method Indwelling Catheter Indwelling Catheter Indwelling Catheter - Exam Neurological exam: Patient was asleep when I arrived. On waking patient up, patient did not moan and groan as much. Head is not as hyperextended. Keeps her eyes closed. Cranial nerves: Patient would close her eyes forcefully on trying to check the pupils. She keeps her eyes closed. Her face is symmetric. She did not protrude her tongue. Her hearing appears grossly normal, although difficult to assess. Strength: Could not assess because of cooperation but moving uppers above gravity and had tremor upon lifting them. Patient able to passively flex her elbows bilaterally, and was not yelling and crying like yesterday. Even her legs were not as rigid. SOME OF THE WORK-UP DURING THIS HOSPITAL VISIT CONSISTED OF: AST 65 ALT of 59, ammonia is less than 9, glucose is 115. Calcium is 8.2 Sargent B12 is 671 Serum folate is more than 20 TSH is 3.3 at 7 Urinalysis negative for urinary tract infection. Urine drug screen is positive for barbiturates others nondetected. Legionella of the urine is negative CT of the head is reported as no acute intracranial abnormality or gross space- occupying lesion by this nonenhanced computed tomography scan. I personally reviewed the CT of the head and there is no acute subacute ischemia and there is no intraparenchymal hemorrhages as appreciable. There is hyperdensity over the seems the left basal ganglia is minimal in size that can be due to calcification. MRI of the brain on 04/06/2022 inch reported as no evidence of intracranial mass, acute subacute infarct or abnormal enhancement. Nonspecific white matter changes likely related to small vessel ischemic disease. I so reviewed the MRI and agree with the report. CT of chest is reported as above described pulmonary changes are likely related to acute inflammatory/infection process likely pneumonia however associate pulmonary edema cannot be excluded. CSF: clear, colorless, rbc 0, nucleated cell 2, glucose 65 and protein is 68 (normal is 12-60) which is slightly elevated and likely reactive from underlying pneumonia. CSF gram stain: No organism. CSF viral cultures came back negative. Serum HSV-1 and HSV 2 PCR came back negative Blood culture are no growth after 24 hours. Routine EEG on 04/05/22: Mild encephalopathy. There is no focal slowing, epi leptiform discharges or seizure on the EEG. - Labs CBC & Chem 7: 04/11/22 06:25 04/11/22 06:25 Labs: Abnormal Lab Results - Last 24 Hours (Table) 04/09/22 04/09/22 Range/Units 14:22 14:22 Creatine Kinase 204 H (26-186) U/L Phenobarbital 8.5 L (15.0-40.0) ug/mL Microbiology - Last 24 Hours (Table) 04/05/22 16:04 CSF Gram Stain - Final Cerebral Spinal Fluid CSF Culture - Final 04/04/22 14:30 Blood Culture - Preliminary Blood No Growth after 120 hours 04/04/22 14:10 Blood Culture - Preliminary Blood No Growth after 120 hours Assessment and Plan Assessment: Encephalopathy with psychotic behavior of unknown etiology. Possible delirium with psychosis, perhaps due to use of steroids and infection. Not meningo encephalitis (CSF: 2 nucleated cells) MRI brain is unremarkable and EEG is negative for seizure. Possible dystonia, rule out extrapyramidal side effects. Rule out catatonia. Delerium due to underlying pneumonia and medication use. Multilobar pneumonia involving the right long worse in the right lower lobe, with sepsis Severe mitral regurgitation History of hypertension History of hyperlipidemia Bipolar disorder Plan: Patient has received 2 doses of Benadryl IV push yesterday at 14:33 PM and 10:35 PM. Her rigidity is slightly better today. We will give another bigger dose of Benadryl 50 mg IV and see the response. Discussed with psychiatry. If patient does not improve with Benadryl, then Ativan will be tried for possible catatonia. Discussed with Dr. Martin in detail. Dr Martin recommended a repeat EEG. Patient does not have a stroke on MRI and there is no enhancement on the MRI. She does not have any underlying cranial infection on the CSF. Cannot absolutely rule out any underlying encephalitis such as an NMDA encephalitis or underlying cause a paraneoplastic syndrome. Dr. Karlos Wilson has ordered an NMDA receptor antibody which is send out test and will take time to obtain result. He also ordered paraneoplastic testing on CSF result. Psychiatry seen the patient, felt his delirium. Reviewed the note. Currently on Seroquel 75mg qhs and 25mg daily. Patient also on high dose of primidone 750 mg a day. Primidone level < 1.0, phenobarbital 8.5 (15-40). Anti-jocelyn antibodies pending CPK 204(26-186) Currently the patient is on Levofloxacin and Zosyn. ID following. We'll defer the rest of the medical management to primary team Addendum 6:30 PM: Patient received Benadryl 50 mg IV push at 5:34 PM. I saw patient an hour later. Patient herself stating that she is feeling better. She was not moaning, groaning. I was able to bend her arms at the elbow much easily. Her neck appears less rigid. Informed Dr. Martin about this positive response via text.
[2022-04-10] MEDS: LEVOFLOXACIN 500MG-D5W PMX 500 MG in DEXTROSE/WATER 1 100ML.BAG IVPB SCH (22:16)
[2022-04-10] MEDS: PROPRANOLOL LA 80 MG CAP.SA.24H PO SCH (22:19)
[2022-04-10] MEDS: MELATONIN 1 MG TAB PO SCH (22:19)
[2022-04-10] MEDS: lisinopriL 10 MG TAB PO SCH (22:19)
[2022-04-10] MEDS: ATORVASTATIN 10 MG TAB PO SCH (22:19)
--- NOTE | 2022-04-11 02:36 | XR ---
EXAM: XR Chest, 1 View CLINICAL HISTORY: Reason: risk for aspiration TECHNIQUE: Frontal view of the chest. COMPARISON: April 08, 2022 FINDINGS: Lungs: Prominent interstitial markings throughout both lung suggesting mild emphysema, unchanged. No focal infiltrate or consolidation is seen. Pleural space: Unremarkable. No pneumothorax. Heart: Unremarkable. No cardiomegaly. Mediastinum: Unremarkable. Bones/joints: Unremarkable. Vasculature: The aortic arch is mildly calcified but nondilated. Upper abdomen: There is no pneumoperitoneum under the diaphragm. IMPRESSION: Prominent interstitial markings throughout both lung suggesting mild emphysema, unchanged. No focal infiltrate or consolidation is seen.
[2022-04-11] MEDS: PRIMIDONE 250 MG TAB PO SCH ×2 (07:28→20:28)
[2022-04-11] MEDS: FUROSEMIDE 20 MG TAB PO SCH ×2 (07:28→16:43)
[2022-04-11] MEDS: QUEtiapine 25 MG TAB PO SCH (07:28)
[2022-04-11] MEDS: SPIRONOLACTONE 25 MG TAB PO SCH (07:29)
[2022-04-11] MEDS: PIPERACILLIN-TAZOBACTAM 3.375 GM in SODIUM CHLORIDE 0.9% 100 ML IVPB SCH ×3 (07:56→23:12)
[2022-04-11] MEDS: NYSTATIN 100,000 UNIT/ML SUSP 500,000 UNIT/5 ML CUP PO SCH ×4 (07:57→20:28)
[2022-04-11 09:31] LABS: Basophils # (A) 0.09 X 10*3/uL (0.00-0.10); Basophils % (A) 0.8 %; Eosinophils # (A) 0.18 X 10*3/uL (0.04-0.35); Eosinophils % (A) 1.6 %; HCT 34.7 % (37.2-46.3); HGB 10.4 g/dL (12.0-15.0); Immature Grans, Automated 0.8 %; Lymphocytes # (A) 1.18 X 10*3/uL (0.90-5.00); Lymphocytes % (A) 10.2 %; MCH 27.8 pg (27.0-32.0); MCV 92.8 fL (80.0-97.0); Mean Platelet Volume 12.1 fL (9.5-12.2); Monocytes # (A) 0.84 X 10*3/uL (0.20-1.00); Monocytes % (A) 7.3 %; NRBC Per 100 WBC 0 /100 WBCS (0.0-0.0); Neutrophils # (A) 9.14 X 10*3/uL (1.80-7.70); Neutrophils % (A) 79.3 %; Platelet Count 344 X 10*3/uL (140-440); RBC 3.74 X 10*6/uL (4.10-5.20); WBC 11.52 X 10*3/uL (4.50-10.00)
[2022-04-11 09:48] LABS: African American GFR (CKD) 81.8 (60.0-200.0); BUN/Creat Ratio 27.5 Ratio (12.00-20.00); Calcium 8.5 mg/dL (8.7-10.3); Non-African American GFR(CKD) 70.6 (60.0-200.0)
[2022-04-11] MEDS ORDERED: LORazepam 2 MG/ML INJ IV STA ×2 (10:30→14:06)
[2022-04-11] MEDS ORDERED: levETIRAcetam IV 1,500 MG in SALINE 1 100ML.BAG IVPB STA (11:16)
--- NOTE | 2022-04-11 11:21 | P.PN ---
Subjective Progress Note Date: 04/09/22 76-year-old female with a known history of hypertension, hyperlipidemia, GERD, bipolar disorder and previous history of smoking presents to ER with complaints of worsening shortness of breath. Patient was admitted to hospital due to right lung pneumonia and was continued on antibiotics in the form of ceftriaxone azithromycin. Patient was discharged home with oral antibiotic course. Patient did improve clinically and was discharged home. Patient was also found to have severe MR and had cardiac catheterization on 03/01/2022 which was nonobstructive. AMY showed thickening of the anterior and posterior mitral leaflets and severe MR. Ejection fraction 50%. Patient was started on 20 mg twice daily upon discharge. On admission patient has been afebrile. Blood pressures 186/103 and pulse 79 respiration 18 and pulse ox 97% on room air. Laboratory data showed WBC 11.9 hemoglobin 11.2 platelets 404 sodium 136 potassium 4.1 chloride 99 bicarb is 26 BUN 21 creatinine 0.77 and blood sugar 115 liver enzymes showed AST 65 ALT 59 alk phos 483 albumin 3.3 Urinalysis negative for infection is positive for barbiturates. Chest x-ray showed patchy bilateral of infiltrate/pneumonia with small effusion likely superimposed on a background COPD, chronic interstitial lung disease. EKG showed sinus rhythm CT head showed no acute intracranial abnormality or gross space-occupying lesion by this nonenhanced CT scan. 04/06/2022 the patient is seen and evaluated with daughter and at bedside; remains confused and the mentation continues to be altered. Despite all this, the patient is not having any respiratory decompensation. In view of her underlying altered mentation, a neurologic outpatient is been requested. CAT scan of the brain was negative. The patient underwent a lumbar puncture that showed no acute abnormalities. She will further have an MRI of the brain. Meanwhile, the patient remains on same antibiotic coverage. The patient remains on Levaquin. I'm essentially doubting the possibility of pneumonia and there could be another process involving the patient's lungs including the possibility of malignancy. The patient's BUN is at 32 with a creatinine of 1.1 and sodium level of 136. Her neurologic exam is nonfocal. She continues to be altered. The Legionella urine antigen antigen was negative. Patient remains on Solu-Medrol 40 mg IV every 12 hours, neurology has evaluated patient; in view of negative. Patient is recommended MRI of the brain for further evaluation of mental status 04/07/2022. Patient is currently lying in bed. delirious and confused. Saturating at 96% on room air. Patient had workup including MRI of the brain and lumbar puncture. MRI of the brain showed intracranial mass, acute/subacute infarct or abnormal enhancement. Prednisone has been discontinued. Laboratory data showed sodium 139 potassium 4.0 chloride 96 BUN 33.7 and creatinine 1.0 and pro 0.13 Patient Is Being Continued on Antibiotics the Form of Zosyn and Levaquin. 04/08/2022 Patient is lying in the bed. delirious and disoriented. Could not provide any history. Moaning and groaning. Otherwise patient has been afebrile. Currently on room air. Laboratory data showed WBC 11.0 hemoglobin 11.9 and platelets 413 BUN 35.6 and creatinine 1.0 Blood sugar was 98 and calcium 9.1 CSF cultures negative so far. Patient is being continued on antibiotics in the form ofLevaquin and Zosyn. ID and neurology is on board. Patient is refusing to take oral medications. 04/09/2022 Patient is lying in the bed. Neck in the extended position. Moaning and groaning. Able to respond with verbal stimuli but could not communicate. Patient has been afebrile. Next and also some nausea and vomiting. Laboratory data showed BUN 33.7 and creatinine 1.0. Patient is not eating. Started on IV hydration at 50 mL per hour normal saline. Blood pressure is 100. Patient remained on antibiotics no cough Zosyn and Levaquin. Chest x-ray on 04/08/2022 showed correlate for pneumonia. Neurology and psychiatric is on board. Current medications reviewed. Objective - Vital Signs Vital signs: Vital Signs Temp 100.8 F H 04/09/22 14:00 Pulse 106 H 04/09/22 14:00 Resp 18 04/09/22 14:00 BP 136/65 04/09/22 14:00 Pulse Ox 93 L 04/09/22 14:00 FiO2 Intake & Output 04/09/22 04/09/22 04/10/22 06:59 18:59 06:59 Output Total 200 Balance -200 Weight 86 kg Output: Urine 200 Other: Voiding Method Indwelling Catheter Indwelling Catheter Indwelling Catheter - Exam PHYSICAL EXAMINATION: Patient is lying in the bed with neck extended position.., no acute distress, patient is moaning and groaning and talking to herself. HEENT: Normocephalic. Neck is supple. Pupils reactive. Nostrils clear. Oral cavi ty is moist. Neck reveals no JVD, carotid bruits, or thyromegaly. CHEST EXAMINATION: Trachea is central. Symmetrical expansion. Bibasilar diminished sounds. Lung pascual clear to auscultation and percussion. CARDIAC: Normal S1, S2 with no gallops. No murmurs ABDOMEN: Soft. Bowel sounds normal. No organomegaly. No abdominal bruits. Extremities: reveal no edema. No clubbing or cyanosis Neurologically awake, alert, oriented x0. No gross focal deficits noted Skin: No rash or skin lesions. Psychiatric: Could not be assessed. Musculoskeletal: No joint swelling or deformity. = - Labs CBC & Chem 7: 04/11/22 06:25 04/11/22 06:25 Labs: Abnormal Lab Results - Last 24 Hours (Table) 04/09/22 Range/Units 04:43 Anion Gap 19.10 H (10.00-18.00) mmol/L BUN 33.7 H (9.0-27.0) mg/dL Est GFR (CKD-EPI)NonAf 53.9 L (60.0-200.0) BUN/Creatinine Ratio 33.70 H (12.00-20.00) Ratio C-Reactive Protein 4.90 H (0.00-0.80) mg/dL Albumin 3.4 L (3.8-4.9) g/dL Albumin/Globulin Ratio 1.10 L (1.60-3.17) g/dL Microbiology - Last 24 Hours (Table) 04/04/22 14:30 Blood Culture - Preliminary Blood No Growth after 120 hours 04/04/22 14:10 Blood Culture - Preliminary Blood No Growth after 120 hours 04/05/22 16:04 CSF Gram Stain - Preliminary Cerebral Spinal Fluid CSF Culture - Preliminary Assessment and Plan Assessment: Altered mental status possible metabolic encephalopathy with psychotic behavior. Patient had workup including MRI of the brain and lumbar puncture. Workup has been negative so far. Possible delirious/steroid psychosis is in consideration. Worsening shortness of breath due to multilobar pneumonia versus acute CHF. Improved now. Patient is on Coumadin. Acute CHF with diastolic dysfunction with valvular abnormalities/severe MR. Recent echocardiogram showed ejection fraction 50%. Uncontrolled hypertension Recent admission with pneumonia and was on antibiotics in the form of ceftriaxone azithromycin with clinical improvement before discharge. Mild transaminitis Hypertension Hyperlipidemia GERD Bipolar/depression Previous history of smoking DVT prophylaxis Plan: Patient will be continued on antibiotics in the form of Zosyn and Levaquin. . Start back on losartan and propranolol and titrate dose as needed. Continue with Lasix. Changed to by mouth. Also on Aldactone. MRI of the brain is negative for any acute process. CSF culture no growth as per preliminary report. Patient is being continued on current psychiatric medications. Pulmonary and neurology and ID is on board. follow-up closely. Prognosis is guarded this time. Time with Patient: Greater than 30
[2022-04-11] MEDS ORDERED: DEXTROSE 5% IN WATER 1,000 ML IV ONE (11:23)
--- NOTE | 2022-04-11 11:30 | P.PN ---
Subjective Progress Note Date: 04/10/22 76-year-old female with a known history of hypertension, hyperlipidemia, GERD, bipolar disorder and previous history of smoking presents to ER with complaints of worsening shortness of breath. Patient was admitted to hospital due to right lung pneumonia and was continued on antibiotics in the form of ceftriaxone azithromycin. Patient was discharged home with oral antibiotic course. Patient did improve clinically and was discharged home. Patient was also found to have severe MR and had cardiac catheterization on 03/01/2022 which was nonobstructive. AMY showed thickening of the anterior and posterior mitral leaflets and severe MR. Ejection fraction 50%. Patient was started on 20 mg twice daily upon discharge. On admission patient has been afebrile. Blood pressures 186/103 and pulse 79 respiration 18 and pulse ox 97% on room air. Laboratory data showed WBC 11.9 hemoglobin 11.2 platelets 404 sodium 136 potassium 4.1 chloride 99 bicarb is 26 BUN 21 creatinine 0.77 and blood sugar 115 liver enzymes showed AST 65 ALT 59 alk phos 483 albumin 3.3 Urinalysis negative for infection is positive for barbiturates. Chest x-ray showed patchy bilateral of infiltrate/pneumonia with small effusion likely superimposed on a background COPD, chronic interstitial lung disease. EKG showed sinus rhythm CT head showed no acute intracranial abnormality or gross space-occupying lesion by this nonenhanced CT scan. 04/06/2022 the patient is seen and evaluated with daughter and at bedside; remains confused and the mentation continues to be altered. Despite all this, the patient is not having any respiratory decompensation. In view of her underlying altered mentation, a neurologic outpatient is been requested. CAT scan of the brain was negative. The patient underwent a lumbar puncture that showed no acute abnormalities. She will further have an MRI of the brain. Meanwhile, the patient remains on same antibiotic coverage. The patient remains on Levaquin. I'm essentially doubting the possibility of pneumonia and there could be another process involving the patient's lungs including the possibility of malignancy. The patient's BUN is at 32 with a creatinine of 1.1 and sodium level of 136. Her neurologic exam is nonfocal. She continues to be altered. The Legionella urine antigen antigen was negative. Patient remains on Solu-Medrol 40 mg IV every 12 hours, neurology has evaluated patient; in view of negative. Patient is recommended MRI of the brain for further evaluation of mental status 04/07/2022. Patient is currently lying in bed. delirious and confused. Saturating at 96% on room air. Patient had workup including MRI of the brain and lumbar puncture. MRI of the brain showed intracranial mass, acute/subacute infarct or abnormal enhancement. Prednisone has been discontinued. Laboratory data showed sodium 139 potassium 4.0 chloride 96 BUN 33.7 and creatinine 1.0 and pro 0.13 Patient Is Being Continued on Antibiotics the Form of Zosyn and Levaquin. 04/08/2022 Patient is lying in the bed. delirious and disoriented. Could not provide any history. Moaning and groaning. Otherwise patient has been afebrile. Currently on room air. Laboratory data showed WBC 11.0 hemoglobin 11.9 and platelets 413 BUN 35.6 and creatinine 1.0 Blood sugar was 98 and calcium 9.1 CSF cultures negative so far. Patient is being continued on antibiotics in the form ofLevaquin and Zosyn. ID and neurology is on board. Patient is refusing to take oral medications. 04/09/2022 Patient is lying in the bed. Neck in the extended position. Moaning and groaning. Able to respond with verbal stimuli but could not communicate. Patient has been afebrile. Next and also some nausea and vomiting. Laboratory data showed BUN 33.7 and creatinine 1.0. Patient is not eating. Started on IV hydration at 50 mL per hour normal saline. Blood pressure is 100. Patient remained on antibiotics no cough Zosyn and Levaquin. Chest x-ray on 04/08/2022 showed correlate for pneumonia. Neurology and psychiatric is on board. 04/10/2022 Patient is lying in the bed with neck extended position. Still moaning and refusing medications and oral diet. Mumbled speech. Patient is able to answer simple questions sometimes. Patient was given a dose of Benadryl yesterday. Neurology is on board.. CK 204. Phenobarbital level is 8.5 and primidone less than 1. Patient has been afebrile. Remains on antibiotics the form of Levaquin and Zosyn. ID has seen the patient. Follow-up CBC and BMP tomorrow. Current medications reviewed. Objective - Vital Signs Vital signs: Vital Signs Temp 97.7 F 04/10/22 19:16 Pulse 85 04/10/22 19:16 Resp 14 06/15/22 19:16 BP 171/67 04/10/22 19:16 Pulse Ox 96 04/10/22 19:16 FiO2 Intake & Output 04/10/22 04/10/22 04/11/22 06:59 18:59 06:59 Output Total 250 350 Balance -250 -350 Weight 88 kg Output: Urine 250 350 Uretheral (Dowling) 250 Other: Voiding Method Indwelling Catheter Indwelling Catheter Indwelling Catheter - Exam PHYSICAL EXAMINATION: Patient is lying in the bed with neck extended position.., no acute distress, patient is moaning and groaning and talking to herself. HEENT: Normocephalic. Neck is supple. Pupils reactive. Nostrils clear. Oral cavity is moist. Neck reveals no JVD, carotid bruits, or thyromegaly. CHEST EXAMINATION: Trachea is central. Symmetrical expansion. Bibasilar diminished sounds. Lung pascual clear to auscultation and percussion. CARDIAC: Normal S1, S2 with no gallops. No murmurs ABDOMEN: Soft. Bowel sounds normal. No organomegaly. No abdominal bruits. Extremities: reveal no edema. No clubbing or cyanosis Neurologically awake, alert, oriented x0. No gross focal deficits noted Skin: No rash or skin lesions. Psychiatric: Could not be assessed. Musculoskeletal: No joint swelling or deformity. = - Labs CBC & Chem 7: 04/11/22 06:25 04/11/22 06:25 Labs: Abnormal Lab Results - Last 24 Hours (Table) 04/09/22 04/09/22 Range/Units 14:22 14:22 Creatine Kinase 204 H (26-186) U/L Phenobarbital 8.5 L (15.0-40.0) ug/mL Microbiology - Last 24 Hours (Table) 04/04/22 14:10 Blood Culture - Final Blood No Growth after 144 hours 04/04/22 14:30 Blood Culture - Final Blood No Growth after 144 hours 04/05/22 16:04 CSF Gram Stain - Final Cerebral Spinal Fluid CSF Culture - Final Assessment and Plan Assessment: Altered mental status possible metabolic encephalopathy with psychotic behavior. Patient had workup including MRI of the brain and lumbar puncture. Workup has been negative so far. Possible delirious/steroid psychosis is in consideration. Worsening shortness of breath due to multilobar pneumonia versus acute CHF. Improved now. Patient is on Coumadin. Acute CHF with diastolic dysfunction with valvular abnormalities/severe MR. Recent echocardiogram showed ejection fraction 50%. Uncontrolled hypertension Recent admission with pneumonia and was on antibiotics in the form of ceftriaxone azithromycin with clinical improvement before discharge. Mild transaminitis Hypertension Hyperlipidemia GERD Bipolar/depression Previous history of smoking DVT prophylaxis Plan: Patient will be continued on antibiotics in the form of Zosyn and Levaquin. continues to be encephalopathic and agitated, psychotic.. Patient was given a dose of Benadryl. Neurology is following. Patient is refusing oral diet.. Continue on losartan and propranolol and titrate dose as needed. Continue with Lasix. Changed to by mouth. Also on Aldactone. MRI of the brain is negative for any acute process. CSF culture no growth as per preliminary report. Patient is being continued on current psychiatric medications. Pulmonary and neurology and ID is on board. follow-up closely. Prognosis is guarded this time. Time with Patient: Greater than 30
--- NOTE | 2022-04-11 15:39 | P.PN ---
Progress Note - Text Progress Note Date: 04/11/22 Interval History: Patient was seen today for psychiatric follow-up regarding patient's delirium vs catatonia. Patient states that patient remains the same and has been continuing to refuse medications. Patient received one dose of 2 mg of IV Ativan this morning and apparently was talking bit more with her daughter came to visit her in morning. Patient was also not yelling out as much this morning or afternoon. Jet Handler spoke with nurse about patient's condition. Patient was seen at the bed side and continues to have her arms open and has a tremor in her bilateral upper extremities. She continues to have her eyes closed and minimally reactive responsive and not following any commands with typewriter mechanic. Jet Handler spoke with patient's daughter about plan to try Ativan IV once again and see how or if patient improves and also spoke with neurologist about treatment options and possible 24-hour EEG monitoring due to changes in EEG performed yesterday. Mental Status Exam: General Appearance: Patient appears to be somnolent, not responding to questions today. Her arms are spread open in her head is tilted back. Tremor. Eyes closed. Patient appears to have fair hygiene and grooming wearing hospital gown Behavior: Patient is calmly lying in bed without any agitated behavior. Not responding to questions. Speech: Patient's speech Mumbling Mood/Affect: Unable to assess Suicidality/Homicidality: Unable to assess Perceptions: Unable to assess Though content/process: Patient is mumbling Memory and concentration: Unable to assess Judgment and insight: Poor IMPRESSIONS: Delirium, likely secondary to medications i.e. steroids and medication, infection? vs catatonia PLAN: -At this time patient DOES NOT meet criteria for inpatient psychiatric admission. -Jet Handler spoke with patient's nurse, daughter and also neurologist about treatment options and possible diagnoses. At this time we'll try to treat for catatonia due to patient's history of bipolar disorder and being off of medications and being in a catatonic state. Will order another dose of Ativan IV today to see if she does improve. -Would recommend the following medication changes/additions:melatonin 2 mg daily at bedtime for sleep. haldol im prn for agitation/psychosis. Changed Seroquel to Prolixin 2 mg twice a day and melatonin 2 mg daily at bedtime for sleep. patient is not taking her meds and apparently will be getting an NG tube placed today.. -Spoke with Dr. Martinez over the phone, will consider possible transfer for EEG monitoring. -At this time psychiatry will continue to follow along. -Please contact with any questions.
[2022-04-11] MEDS: ATORVASTATIN 10 MG TAB PO SCH (20:27)
[2022-04-11] MEDS: PROPRANOLOL LA 80 MG CAP.SA.24H PO SCH (20:28)
[2022-04-11] MEDS: lisinopriL 10 MG TAB PO SCH (20:28)
[2022-04-11] MEDS: MELATONIN 1 MG TAB PO SCH (20:28)
[2022-04-11] MEDS: PHENobarbital SODIUM 130 MG/ML 1 ML VIAL IV SCH (20:48)
[2022-04-11] MEDS: levETIRAcetam IV 1,500 MG in SALINE 1 100ML.BAG IVPB SCH (20:53)
[2022-04-11] MEDS: LEVOFLOXACIN 500MG-D5W PMX 500 MG in DEXTROSE/WATER 1 100ML.BAG IVPB SCH (21:15)
[2022-04-11 22:25] LABS: Glucose,Whole Blood 124 mg/dL (70-110)
[2022-04-11 23:09] LABS: Appearance,Urine Clear (Clear); Bilirubin,Urine Negative (Negative); Blood,Urine Small (Negative); Color,Urine Yellow; Glucose,Urine (UA) Negative (Negative); Ketones,Urine 2+ (Negative); Leukocyte Esterase,Urine Negative (Negative); Mucus,Urine Rare /hpf; Nitrite,Urine Negative (Negative); PH, Urine 5.5 (5.0-8.0); Protein,Urine Trace (Negative); RBC,Urine 10 /hpf (0-5); Specific Gravity,Urine 1.026 (1.001-1.035); Squamous Epithelial Cell,Urine 2 /hpf (0-4); Urobilinogen,Urine <2.0 mg/dL (<2.0); WBC,Urine 4 /hpf (0-5)
[2022-04-12 00:03] LABS: Basophils # (A) 0.1 k/uL (0-0.2); Basophils % (A) 1 %; Eosinophils # (A) 0.2 k/uL (0-0.7); Eosinophils % (A) 3 %; HCT 34.6 % (34.0-46.0); HGB 10.3 gm/dL (11.4-16.0); Hypochromasia Slight; Lymphocytes # (A) 1.2 k/uL (1.0-4.8); Lymphocytes % (A) 13 %; MCH 27.8 pg (25.0-35.0); MCHC 29.7 g/dL (31.0-37.0); MCV 93.5 fL (80.0-100.0); Mean Platelet Volume 9.6; Monocytes # (A) 0.6 k/uL (0-1.0); Monocytes % (A) 6 %; Neutrophils # (A) 7.1 k/uL (1.3-7.7); Neutrophils % (A) 76 %; Platelet Count 335 k/uL (150-450); RDW 14.4 % (11.5-15.5); WBC 9.3 k/uL (3.8-10.6)
[2022-04-12 00:12] LABS: Calcium 8.1 mg/dL (8.4-10.2); Magnesium 2.1 mg/dL (1.6-2.3); Potassium 3.5 mmol/L (3.5-5.1)
[2022-04-12] MEDS ORDERED: PHENYTOIN SODIUM IVPB STA (06:00)
[2022-04-12] MEDS ORDERED: SODIUM CHLORIDE 0.9% IVPB STA (06:00)
[2022-04-12 07:25] LABS: Glucose,Whole Blood 163 mg/dL (70-110)
[2022-04-12 07:57] LABS: Basophils # (A) 0.1 k/uL (0-0.2); Basophils % (A) 1 %; Eosinophils # (A) 0.3 k/uL (0-0.7); Eosinophils % (A) 3 %; HCT 36.9 % (34.0-46.0); HGB 11.4 gm/dL (11.4-16.0); Hypochromasia Moderate; Lymphocytes # (A) 1.9 k/uL (1.0-4.8); Lymphocytes % (A) 18 %; MCH 29.3 pg (25.0-35.0); MCHC 30.8 g/dL (31.0-37.0); MCV 95.1 fL (80.0-100.0); Mean Platelet Volume 9.4; Monocytes # (A) 0.6 k/uL (0-1.0); Monocytes % (A) 6 %; Neutrophils # (A) 7.1 k/uL (1.3-7.7); Neutrophils % (A) 69 %; Platelet Count 320 k/uL (150-450); RBC 3.88 m/uL (3.80-5.40); RDW 14.8 % (11.5-15.5); WBC 10.2 k/uL (3.8-10.6)
--- NOTE | 2022-04-12 08:04 | P.PN ---
Subjective Progress Note Date: 04/11/22 04/11/2022: I was called by vending service technician at 10:16 AM about abnormal EEG. I came to see patient in the EEG department while it was running. Patient was having tremulousness intermittently of her extremities. No obvious jerking type seizure activity noted. Patient is encephalopathic and oriented 0. She would keep her eyes closed. She she would moan a little. Patient would not speak any words. 04/10/2022: Patient was seen for a follow-up. Patient not moaning as much. Please refer to examination below. Still mumbling speech. Patient received Benadryl 25 mg IV yesterday at around 4:30 PM. Per nurse report, she seemed more calm and was answering some questions which she was not doing earlier. Patient received a second dose of Benadryl at 10:35 PM last night. Has not received the third dose as yet. 04/09/2022: Patient essentially unchanged. Still with significant neck hyperextension, bilateral torticollis. Patient was sleeping when I arrived. However on examination, started moaning, groaning, crying. Patient mumbles. 04/08/2022: Patient was seen for a follow-up. Patient initially seen by Dr. Karlos Wilson. Please refer to his note for details. Patient is a 76-year-old female with recent pneumonia, has continued to have confusion since pneumonia, patient on antibiotics and steroids. Patient at present continues to be delirious, moaning, groaning, appears to be in pain. She is using very foul language, cussing with minimal examination. Objective - Vital Signs Vital signs: Vital Signs Temp 98.5 F 04/11/22 14:00 Pulse 83 04/11/22 14:00 Resp 18 04/11/22 14:00 BP 167/72 04/11/22 14:00 Pulse Ox 94 L 04/11/22 14:00 FiO2 Intake & Output 04/10/22 04/11/22 04/11/22 18:59 06:59 18:59 Output Total 350 Balance -350 Weight 88 kg Output: Urine 350 Other: Voiding Method Indwelling Catheter Indwelling Catheter Indwelling Catheter - Exam Neurological exam: Patient is encephalopathic, oriented 0. She's having tremulousness upper extremities. Patient is not as stiff in the extremities as compared to yesterday. Cranial nerves: Patient would close her eyes forcefully on trying to check the pupils. She keeps her eyes closed. Her face is symmetric. She did not protrude her tongue. Hearing cannot be assessed. Lower cranial nerves could not be assessed. Strength: Could not assess because of cooperation but moving uppers above gravity and had tremor upon lifting them. Patient able to passively flex her elbows bilaterally, and was not yelling and crying like yesterday. Even her legs were not as rigid. SOME OF THE WORK-UP DURING THIS HOSPITAL VISIT CONSISTED OF: AST 65 ALT of 59, ammonia is less than 9, glucose is 115. Calcium is 8.2 B12 is 671 Serum folate is > 20 TSH is 3.37 Urinalysis negative for urinary tract infection. Urine drug screen is positive for barbiturates others nondetected. Legionella of the urine is negative CT of the head is reported as no acute intracranial abnormality or gross space- occupying lesion by this nonenhanced computed tomography scan. I personally reviewed the CT of the head and there is no acute subacute ischemia and there is no intraparenchymal hemorrhages as appreciable. There is hyperdensity over the seems the left basal ganglia is minimal in size that can be due to calcification. MRI of the brain on 04/06/2022 reported as no evidence of intracranial mass, acu te subacute infarct or abnormal enhancement. Nonspecific white matter changes likely related to small vessel ischemic disease. I so reviewed the MRI and agree with the report. CT of chest is reported as above described pulmonary changes are likely related to acute inflammatory/infection process likely pneumonia however associate pulmonary edema cannot be excluded. CSF: clear, colorless, rbc 0, nucleated cell 2, glucose 65 and protein is 68 (normal is 12-60) which is slightly elevated and likely reactive from underlying pneumonia. CSF gram stain: No organism. CSF viral cultures came back negative. Serum HSV-1 and HSV 2 PCR came back negative. Viral cultures came back negative. NMDA antibodies negative. Blood culture are no growth after 24 hours. Routine EEG on 04/05/22: Mild encephalopathy. There is no focal slowing, epileptiform discharges or seizure on the EEG. - Labs CBC & Chem 7: 04/11/22 23:39 04/11/22 23:39 Labs: Abnormal Lab Results - Last 24 Hours (Table) 04/11/22 04/11/22 Range/Units 06:25 06:25 WBC 11.52 H (4.50-10.00) X 10*3/uL RBC 3.74 L (4.10-5.20) X 10*6/uL Hgb 10.4 L (12.0-15.0) g/dL Hct 34.7 L (37.2-46.3) % MCHC 30.0 L (32.0-37.0) g/dL RDW 15.0 H (11.5-14.5) % Immature Gran # 0.09 H (0.00-0.04) X 10*3/uL Neutrophils # 9.14 H (1.80-7.70) X 10*3/uL Sodium 151 H (135-145) mmol/L Chloride 114 H (96-109) mmol/L BUN/Creatinine Ratio 27.50 H (12.00-20.00) Ratio Glucose 113 H (70-110) mg/dL Calcium 8.5 L (8.7-10.3) mg/dL Microbiology - Last 24 Hours (Table) 04/04/22 14:10 Blood Culture - Final Blood No Growth after 144 hours 04/04/22 14:30 Blood Culture - Final Blood No Growth after 144 hours Assessment and Plan Assessment: * Worsening encephalopathy, with severely abnormal EEG and possibility of status epilepticus versus severe metabolic encephalopathy. * Encephalopathy with psychotic behavior of unknown etiology. Possible delirium with psychosis, perhaps due to use of steroids and infection. Not me ningoencephalitis (CSF: 2 nucleated cells) MRI brain is unremarkable and initial EEG is negative for seizure. * Repeat EEG severely abnormal, with evidence of high amplitude sharp appearing waves at 3 Hz. At times it appears triphasic in nature, but status epilepticus cannot be ruled out. * Possible dystonia, rule out extrapyramidal side effects. Rule out catatonia. * Delirium due to underlying pneumonia and medication use. * Pneumonia * Severe mitral regurgitation * History of hypertension * History of hyperlipidemia * Bipolar disorder Plan: Patient's EEG was severely abnormal. Patient was given Keppra 1500 mg IV stat. It also appears that patient was taking high-dose primidone 250 mg in the morning, 500 mg at night for essential tremor. Since patient arrived to the hospital on 04/04/2022, patient has received only one dose of primidone 250 mg on 04/05/2022 at 8:58 PM and one dose of primidone 500 mg at 7:19 AM on 04/07/2022. Patient could potentially be withdrawing from primidone leading to abnormal EEG and seizures. The nurse was recommended to place NG tube so patient can be given primidone. Also recommended patient to be transferred to higher level of care for continuous EEG monitoring. Case discussed with Dr. Castillo, who also reviewed patient's EEG. Agreed for the transfer. Discussed with Dr. Watson about transfer and also with the patient's nurse. I inquired with the nurse later on, and turns out, that NG tube was uns uccessful, as patient would not swallow the NG tube. She would not cooperate. At this point, I recommended phenobarbital 130 mg IV push every 12 hours, if patient was withdrawing from primidone (which is metabolized to phenobarbital). Patient will be continued on Keppra 1500 mg every 12 hours. Patient was recommended to be transferred to the ICU. Discussed with Dr. Hussein about transfer. Patient's previous MRI of the brain was negative for any acute process. Her CSF was negative for any infection. Antibodies for NMDA encephalitis also came back negative. Paraneoplastic testing on CSF result still pending. Psychiatry also on board, adjusting psych medications. Primidone level < 1.0, phenobarbital 8.5 (15-40). Anti-jocelyn antibodies pending CPK 204(26-186) Chest x-ray from today revealed prominent interstitial markings throughout both lungs suggesting mild emphysema, unchanged. No focal infiltrate or consolidation. Currently the patient is on Levofloxacin and Zosyn. WBC count 11.5, hemoglobin 10.4 and platelets 344. Sodium 151, renal functions normal. Hepatic panel normal. We'll defer the rest of the medical management to primary team and critical care. Time with Patient: Greater than 30 (Patient was seen multiple times and case discussed numerous times with physicians and staff.)
[2022-04-12 08:15] LABS: African American GFR (CKD) >90 (>60 ml/min/1.73 sqM); Anion Gap 9 mmol/L; Blood Urea Nitrogen 19 mg/dL (7-17); Calcium 8.1 mg/dL (8.4-10.2); Carbon Dioxide 23 mmol/L (22-30); Chloride 114 mmol/L (98-107); Glucose 158 mg/dL (74-99); Non-African American GFR(CKD) 85 (>60 ml/min/1.73 sqM); Sodium 146 mmol/L (137-145)
--- NOTE | 2022-04-12 08:34 | EEG ---
ELECTROENCEPHALOGRAM REPORT DATE OF SERVICE: 04/11/2022 PREAMBLE: This is a 76-year-old female with altered mental status. Patient also has possible dystonia, tremors, rule out seizure disorder. EEG FINDINGS: This is a 21 channel digital EEG recorded with video component, utilizing 10/20 international system with referential and bipolar montages. The recording starts and continues with presence of high voltage bilaterally symmetric frontally predominant sharp wave activity, which at times appears triphasic in nature and at other times appears very rhythmic, at 3 hertz, raising suspicion for epileptic in nature. This activity continued during most of the study. The patient was given 2 mg Ativan 25 minutes into the study and about a couple minutes later, high amplitude activity significantly improved and the relatively normal appearing background with mixed theta and occasional alpha activity in 6-7 hertz was seen. No significant background slowing was noted after Ativan was given. IMPRESSION: This is an abnormal EEG due to presence of continuous high amplitude bilateral, frontally predominant 3 Hz sharp waves, which at times appears triphasic and other times appears very rhythmic epileptic in nature as well. Therefore status epilepticus cannot be ruled out. After patient was given Ativan 2 mg IV, the high amplitude sharp waves were much reduced, and relatively normal-appearing background with 5-7 Hz activity was seen. Clinical correlation also recommended. Continuous EEG monitoring is recommended. SARBJIT / LENY: [id number] / MTDD
[2022-04-12] MEDS: FUROSEMIDE 20 MG TAB PO SCH (08:50)
[2022-04-12] MEDS: PRIMIDONE 250 MG TAB PO SCH (08:50)
[2022-04-12] MEDS: SPIRONOLACTONE 25 MG TAB PO SCH (08:50)
[2022-04-12] MEDS: PIPERACILLIN-TAZOBACTAM 3.375 GM in SODIUM CHLORIDE 0.9% 100 ML IVPB SCH (08:58)
[2022-04-12] MEDS: PHENobarbital SODIUM 130 MG/ML 1 ML VIAL IV SCH (09:00)
[2022-04-12] MEDS: NYSTATIN 100,000 UNIT/ML SUSP 500,000 UNIT/5 ML CUP PO SCH ×2 (09:00→12:20)
[2022-04-12] MEDS: levETIRAcetam IV 1,500 MG in SALINE 1 100ML.BAG IVPB SCH (09:05)
[2022-04-12 11:27] VITALS: BMI 31.7
--- NOTE | 2022-04-12 12:00 | P.PN ---
Subjective Progress Note Date: 04/12/22 Principal diagnosis: Altered mental status, status epilepticus 76-year-old female patient who got readmitted to the hospital after 3 days of being discharged because of altered mentation ongoing difficulties with shortness of breath and right lung pneumonia. The patient was in the hospital for the same where she was admitted on 03/29/2022. She came in for altered mentation. She was found to have a right lung pneumonia. The patient without antibiotics and she was given accommodation Rocephin and Zithromax. She improved clinically. I saw her in the hospital on 04/01/2022 and she was doing well and she was sitting up on a chair and she was on room air oxygen. The [facility] x-ray was showing patchy right-sided pulmonary infiltrates with interval improvement. The white cell count was now. The patient's UA was negative. Urine cultures was negative. The pro-calcitonin level was at 0.1. ProBNP level was 1230. She was hemodynamically stable. She was known to have valvular heart disease and she was supposed to follow-up with the cardiology group at planned for a possible TAVR at the later stage. There cardiac catheterization showed nonobstructive CAD. AMY showed thickening of the anterior and the posterior mitral valve leaflets and severe MR with an ejection fraction of 50%. The patient came in to the emergency on 04/04/2022 for the same. She was altere d mentally. Her thoughts were noncoherent. The patient had ongoing mild cough. She was complaining of pain which was diffuse body aches. No chest pain. No nausea vomiting or abdominal pain. No focal neurological deficit. She was feeling weak. Upon discharge, she was given Ceftin and prednisone burst taper. Her temperature was afebrile. BP was stable. White cell count was 11.9. BUN was 21 with a creatinine of 0.7 and the electrodes were all within normal limits. The patient's LFTs were abnormal with an AST of 65, ALT of 59 and alkaline phosphatase of 183. Urine drug screen was positive for barbiturates. Chest x-ray showed persistent right lung patchy pulmonary infiltrates, and the CAT scan of the chest was consistent with multilobar pneumonia, worse in the right lower lobe.. Based on that, the patient was admitted to the hospital. 04/05/2022, the patient remains altered and confused. She is on room air oxygen. I'm unable to explain her altered mentation and confusion on the basis of a pneumonia. In fact, despite the significant infiltration of the right lung, the patient not having any significant respiratory distress. she has no fever. Chest x-ray findings are unchanged compared to yesterday. her blood work showed a white cell count of 13 , hemoglobin of 11.9, normal coagulation profile, a pro-calcitonin level of 0.12 , normal renal function, LFTs are mildly abnormal, UA was negative, urine drug screen was also negative. CAT scan of the brain showed no acute RADIO HOST abnormalities. the patient will obviously need a neurologic evaluation. 04/06/2022, the patient remains confused and the mentation continues to be altered. Despite all this, the patient is not having any respiratory decompensation. In view of her underlying altered mentation, a neurologic outpatient is been requested. CAT scan of the brain was negative. The patient underwent a lumbar puncture that showed no acute abnormalities. She will further have an MRI of the brain. Meanwhile, the patient remains on same antibiotic coverage. The patient remains on Levaquin. I'm essentially doubting the possibility of pneumonia and there could be another process involving the patient's lungs including the possibility of malignancy. The patient's BUN is at 32 with a creatinine of 1.1 and sodium level of 136. Her neurologic exam is nonfocal. She continues to be altered. The Legionella urine antigen antigen was negative. 04/07/2022, the patient continues to have neurologic impairment and the workup is been essentially negative including a CAT scan of the brain, MRI of the brain and a lumbar puncture. Neurologist on the case. The patient is also seen by psychiatry. There is a component of delirium. Exact cause is not clear. Consider paraneoplastic. The patient is on room air oxygen pH is having any respiratory difficulties patient remains on examination Zosyn and Levaquin. A follow-up chest x-ray will be obtained tomorrow. Meanwhile, she seems to be slightly more oriented on today's evaluation she is communicating more so compared to yesterday. On blood work, no major abnormality is identified and the patient has a sodium level of 139, BUN of 33 with a creatinine of 1.0 and a potassium level of 4.0. on 04/08/2022 patient seen in follow-up on medical surgical floor, her mentation remains altered, she does not follow any commands, but her eyes are open, she doesn't track with her eyes, does not make eye contact. She moans continuously. no cough, she does not appear to be dyspneic, room air pulse ox is 96%, she's been afebrile. breathing pattern is nonlabored. Her chest x-ray from yesterday on 04/08/2022 showed elevation of the right hemidiaphragm, patchy density in the right lung base and right upper lobe. today's labs are still pending, Prograf sternal level has been stable compared the admission level, and is currently a 0.13 compared to 0.12 on admission. Patient had lumbar puncture done, and CSF cultures shown no growth thus far. Patient was reevaluated today on 04/12/22, patient was transferred to the ICU yesterday upon the recommendation of the neurologist. She was being followed all along by neurology for delirium, moaning and groaning, and altered mental status. Patient had mumbled speech, apparently the neurologist was concerned about her abnormal EEG yesterday, and the patient was having tremulousness intermittently of her extremities. Patient was showing worsening encephalopathy and considering her EEG was suggestive of status epilepticus, patient was given Keppra stat, the urologist raises the possibility of withdrawing from primidone leading to abnormal EEG and seizures. Hence arrangements were made to transfer the patient to the ICU and she seems to be calm at present, but she is not responding to any stimuli.The meantime the patient is being considered for transfer to [facility] for continuous monitoring of her seizures by EEG. Patient was given Pressure is also given phenobarbital 130 mg IV push every 12 hours. And Keppra was ordered at 1500 mg every 12 hours . Transfer planning is in progress. Chest x-ray earlier today showed improvement in her pneumonia, patient has been on Zosyn and Levaquin. Infectious disease on the case Objective - Vital Signs Vital signs: Vital Signs Temp 97.2 F L 04/12/22 08:00 Pulse 72 04/12/22 11:00 Resp 14 04/12/22 11:00 BP 119/57 04/12/22 11:00 Pulse Ox 99 04/12/22 11:00 FiO2 Intake & Output 04/11/22 04/12/22 04/12/22 18:59 06:59 18:59 Intake Total 600 350 Output Total 591 175 Balance 9 175 Weight 88 kg 89.3 kg 89.3 kg Intake: IV 600 350 Dextrose 5% in Water 1, 600 150 000 ml @ 75 mls/hr IV . [id number] ONE Rx#:[id number] Piperacillin-Tazobactam 3 100 .375 gm In Sodium Chloride 0.9% 100 ml @ 25 mls/hr IVPB Q8HR [facility] Rx# :[id number] levETIRAcetam IV 1,500 mg 100 In Saline 1 100ml.bag @ 400 mls/hr IVPB Q12HR [facility] Rx#:[id number] Output: Urine 591 175 Other: Voiding Method Indwelling Catheter Indwelling Catheter Indwelling Catheter - Exam Physical Exam: Revealed 76-year-old female calm, in no distress, does not seem to be agitated and does not seem to be moaning and groaning at present, not tremulous, patient is not responding to any stimuli. She is encephalopathic. She does have a good gag reflex, and she is able to protect her airways. Patient keeps her eyes closed. She does not protrude her tongue. HEENT:[Neck is supple.] [No neck masses.] [No thyromegaly.] [No JVD.] Chest: [Symmetrical chest expansion, diminished breath sounds at the bases no crackles or rhonchi or wheezes Cardiac Exam: [Normal S1 and S2, no S3 gallop, no murmur.] Abdomen: [Soft, nontender, no megaly, no rebound, no guarding, normal bowel sounds.] Extremities: [No clubbing, no edema, no cyanosis.] Neurological Exam: Patient is encephalopathic, oriented 0. Does not seem to respond to any stimuli, patient does not have any evidence of cross seizure activity. - Labs CBC & Chem 7: 04/12/22 07:24 04/12/22 07:24 Labs: Abnormal Lab Results - Last 24 Hours (Table) 04/11/22 04/11/22 04/11/22 Range/Units 22:22 23:03 23:39 RBC 3.70 L (3.80-5.40) m/uL Hgb 10.3 L (11.4-16.0) gm/dL MCHC 29.7 L (31.0-37.0) g/dL Sodium (137-145) mmol/L Chloride (98-107) mmol/L BUN (7-17) mg/dL Glucose (74-99) mg/dL POC Glucose (mg/dL) 124 H (70-110) mg/dL Calcium (8.4-10.2) mg/dL Urine Protein Trace H (Negative) Urine Ketones 2+ H (Negative) Urine Blood Small H (Negative) Urine RBC 10 H (0-5) /hpf Urine Mucus Rare H (None) /hpf 04/11/22 04/12/22 04/12/22 Range/Units 23:39 07:22 07:24 RBC (3.80-5.40) m/uL Hgb (11.4-16.0) gm/dL MCHC 30.8 L (31.0-37.0) g/dL Sodium 147 H (137-145) mmol/L Chloride 115 H (98-107) mmol/L BUN 19 H (7-17) mg/dL Glucose 122 H (74-99) mg/dL POC Glucose (mg/dL) 163 H (70-110) mg/dL Calcium 8.1 L (8.4-10.2) mg/dL Urine Protein (Negative) Urine Ketones (Negative) Urine Blood (Negative) Urine RBC (0-5) /hpf Urine Mucus (None) /hpf 04/12/22 Range/Units 07:24 RBC (3.80-5.40) m/uL Hgb (11.4-16.0) gm/dL MCHC (31.0-37.0) g/dL Sodium 146 H (137-145) mmol/L Chloride 114 H (98-107) mmol/L BUN 19 H (7-17) mg/dL Glucose 158 H (74-99) mg/dL POC Glucose (mg/dL) (70-110) mg/dL Calcium 8.1 L (8.4-10.2) mg/dL Urine Protein (Negative) Urine Ketones (Negative) Urine Blood (Negative) Urine RBC (0-5) /hpf Urine Mucus (None) /hpf Assessment and Plan Assessment: Impression Acute mental status change, encephalopathy, possible status epilepticus. Multilobar pneumonia, significantly improved based on chest x-ray. Severe mitral regurgitation Benign essential hypertension Dyslipidemia Essential tremors Bipolar disorder Recommendation: Agree with monitoring the patient for now in the ICU Continue seizure medications as per neurology Patient is in the process of being transferred to [facility]. Suggest discontinuing antibiotics. No need for antibiotics for her pneumonia at this point. We'll continue to follow while in the ICU. Time with Patient: Less than 30
[2022-04-12 12:02] VITALS: TEMP 97.7
--- NOTE | 2022-04-12 12:33 | P.PN ---
Subjective Progress Note Date: 04/11/22 76-year-old female with a known history of hypertension, hyperlipidemia, GERD, bipolar disorder and previous history of smoking presents to ER with complaints of worsening shortness of breath. Patient was admitted to hospital due to right lung pneumonia and was continued on antibiotics in the form of ceftriaxone azithromycin. Patient was discharged home with oral antibiotic course. Patient did improve clinically and was discharged home. Patient was also found to have severe MR and had cardiac catheterization on 03/01/2022 which was nonobstructive. AMY showed thickening of the anterior and posterior mitral leaflets and severe MR. Ejection fraction 50%. Patient was started on 20 mg twice daily upon discharge. On admission patient has been afebrile. Blood pressures 186/103 and pulse 79 respiration 18 and pulse ox 97% on room air. Laboratory data showed WBC 11.9 hemoglobin 11.2 platelets 404 sodium 136 potassium 4.1 chloride 99 bicarb is 26 BUN 21 creatinine 0.77 and blood sugar 115 liver enzymes showed AST 65 ALT 59 alk phos 483 albumin 3.3 Urinalysis negative for infection is positive for barbiturates. Chest x-ray showed patchy bilateral of infiltrate/pneumonia with small effusion likely superimposed on a background COPD, chronic interstitial lung disease. EKG showed sinus rhythm CT head showed no acute intracranial abnormality or gross space-occupying lesion by this nonenhanced CT scan. 04/06/2022 the patient is seen and evaluated with daughter and at bedside; remains confused and the mentation continues to be altered. Despite all this, the patient is not having any respiratory decompensation. In view of her underlying altered mentation, a neurologic outpatient is been requested. CAT scan of the brain was negative. The patient underwent a lumbar puncture that showed no acute abnormalities. She will further have an MRI of the brain. Meanwhile, the patient remains on same antibiotic coverage. The patient remains on Levaquin. I'm essentially doubting the possibility of pneumonia and there could be another process involving the patient's lungs including the possibility of malignancy. The patient's BUN is at 32 with a creatinine of 1.1 and sodium level of 136. Her neurologic exam is nonfocal. She continues to be altered. The Legionella urine antigen antigen was negative. Patient remains on Solu-Medrol 40 mg IV every 12 hours, neurology has evaluated patient; in view of negative. Patient is recommended MRI of the brain for further evaluation of mental status 04/07/2022. Patient is currently lying in bed. delirious and confused. Saturating at 96% on room air. Patient had workup including MRI of the brain and lumbar puncture. MRI of the brain showed intracranial mass, acute/subacute infarct or abnormal enhancement. Prednisone has been discontinued. Laboratory data showed sodium 139 potassium 4.0 chloride 96 BUN 33.7 and creatinine 1.0 and pro 0.13 Patient Is Being Continued on Antibiotics the Form of Zosyn and Levaquin. 04/08/2022 Patient is lying in the bed. delirious and disoriented. Could not provide any history. Moaning and groaning. Otherwise patient has been afebrile. Currently on room air. Laboratory data showed WBC 11.0 hemoglobin 11.9 and platelets 413 BUN 35.6 and creatinine 1.0 Blood sugar was 98 and calcium 9.1 CSF cultures negative so far. Patient is being continued on antibiotics in the form ofLevaquin and Zosyn. ID and neurology is on board. Patient is refusing to take oral medications. 04/09/2022 Patient is lying in the bed. Neck in the extended position. Moaning and groaning. Able to respond with verbal stimuli but could not communicate. Patient has been afebrile. Next and also some nausea and vomiting. Laboratory data showed BUN 33.7 and creatinine 1.0. Patient is not eating. Started on IV hydration at 50 mL per hour normal saline. Blood pressure is 100. Patient remained on antibiotics no cough Zosyn and Levaquin. Chest x-ray on 04/08/2022 showed correlate for pneumonia. Neurology and psychiatric is on board. 04/10/2022 Patient is lying in the bed with neck extended position. Still moaning and refusing medications and oral diet. Mumbled speech. Patient is able to answer simple questions sometimes. Patient was given a dose of Benadryl yesterday. Neurology is on board.. CK 204. Phenobarbital level is 8.5 and primidone less than 1. Patient has been afebrile. Remains on antibiotics the form of Levaquin and Zosyn. ID has seen the patient. Follow-up CBC and BMP tomorrow. 04/11/2022 Patient is currently lying in the bed. Able to open her eyes with verbal stim leg. Patient is still confused and obtunded. Could not communicate. Could not follow any commands. EEG was abnormal and suspected status and progress. Patient was given Keppra loading dose. Neurology is on board. Primidone level is very low and suspected withdrawal as well. Patient will be transferred to [facility] for continuous EEG monitoring. Patient has had frequent. Replace and antibodies of Levaquin and Zosyn. ID is on board. Laboratory data showed sodium level 151. IV fluids changed to D5 water. Other laboratory data reviewed. Current medications reviewed. Objective - Vital Signs Vital signs: Vital Signs Temp 98.5 F 04/11/22 14:00 Pulse 83 04/11/22 14:00 Resp 18 04/11/22 14:00 BP 167/72 04/11/22 14:00 Pulse Ox 94 L 04/11/22 14:00 FiO2 Intake & Output 04/10/22 04/11/22 04/11/22 18:59 06:59 18:59 Output Total 350 Balance -350 Weight 88 kg Output: Urine 350 Other: Voiding Method Indwelling Catheter Indwelling Catheter Indwelling Catheter - Exam PHYSICAL EXAMINATION: Patient is lying in the bed with neck extended position.., no acute distress, patient is moaning and groaning and talking to herself. HEENT: Normocephalic. Neck is supple. Pupils reactive. Nostrils clear. Oral cavity is moist. Neck reveals no JVD, carotid bruits, or thyromegaly. CHEST EXAMINATION: Trachea is central. Symmetrical expansion. Bibasilar diminished sounds. Lung pascual clear to auscultation and percussion. CARDIAC: Normal S1, S2 with no gallops. No murmurs ABDOMEN: Soft. Bowel sounds normal. No organomegaly. No abdominal bruits. Extremities: reveal no edema. No clubbing or cyanosis Neurologically awake, alert, oriented x0. No gross focal deficits noted Skin: No rash or skin lesions. Psychiatric: Could not be assessed. Musculoskeletal: No joint swelling or deformity. = - Labs CBC & Chem 7: 04/12/22 07:24 04/12/22 07:24 Labs: Abnormal Lab Results - Last 24 Hours (Table) 04/11/22 04/11/22 Range/Units 06:25 06:25 WBC 11.52 H (4.50-10.00) X 10*3/uL RBC 3.74 L (4.10-5.20) X 10*6/uL Hgb 10.4 L (12.0-15.0) g/dL Hct 34.7 L (37.2-46.3) % MCHC 30.0 L (32.0-37.0) g/dL RDW 15.0 H (11.5-14.5) % Immature Gran # 0.09 H (0.00-0.04) X 10*3/uL Neutrophils # 9.14 H (1.80-7.70) X 10*3/uL Sodium 151 H (135-145) mmol/L Chloride 114 H (96-109) mmol/L BUN/Creatinine Ratio 27.50 H (12.00-20.00) Ratio Glucose 113 H (70-110) mg/dL Calcium 8.5 L (8.7-10.3) mg/dL Microbiology - Last 24 Hours (Table) 04/04/22 14:10 Blood Culture - Final Blood No Growth after 144 hours 04/04/22 14:30 Blood Culture - Final Blood No Growth after 144 hours Assessment and Plan Assessment: Altered mental status possible metabolic encephalopathy with psychotic behavior. Patient had workup including MRI of the brain and lumbar puncture. Workup has been negative so far. Possible delirious/steroid psychosis is in consideration. Abnormal EEG. suspected status epilepticus Worsening shortness of breath due to multilobar pneumonia versus acute CHF. Improved now. Patient is on Coumadin. Acute CHF with diastolic dysfunction with valvular abnormalities/severe MR. Recent echocardiogram showed ejection fraction 50%. Uncontrolled hypertension Recent admission with pneumonia and was on antibiotics in the form of ceftriaxone azithromycin with clinical improvement before discharge. Mild transaminitis Hypertension Hyperlipidemia GERD Bipolar/depression Previous history of smoking DVT prophylaxis Plan: Patient does have abnormal EEG and suspected withdrawal seizures/status epilepticus. Patient was started on Keppra with loading dose. Will be transferred to [facility] for continuous EEG monitoring. Patient will be continued on antibiotics in the form of Zosyn and Levaquin. continues to be encephalopathic and agitated, psychotic.. Patient was given a dose of Benadryl. Neurology is following. Continue on losartan and propranolol and titrate dose as needed. Continue with Lasix. Changed to by mouth. Also on Aldactone. MRI of the brain is negative for any acute process. CSF culture no growth as per preliminary report. Patient is being continued on current psychiatric medications. Pulmonary and neurology and ID is on board. follow-up closely. Prognosis is guarded this time.
--- NOTE | 2022-04-12 13:05 | EEG ---
ELECTROENCEPHALOGRAM REPORT DATE OF PROCEDURE: 04/12/2022 ELECTROENCEPHALOGRAM (EEG) REPORT: TECHNIQUE: This is a report from a prolonged 2-1/2-hour inpatient digital video EEG performed using the 10/20 international electrode placement system. HISTORY: Pneumonia, altered mental status. CURRENT MEDICATIONS: Unknown. FINDINGS: Recording start time: 04/12/2022 at 0745 hours Recording end time: 04/12/2022 at 1020 hours EVENTS: During this 2-1/2-hour patient video EEG, no clinical or electrographic seizures were recorded. During the course of this EEG, per aircraft avionics technician annotation, left arm shaking was noted at 0856:48 hours and left arm tremors were noted at 0915:00 hours. Head shaking was noted at 0920:08 hours. These were not associated with epileptiform activity. BACKGROUND: Background frequencies consisted of unsustained 6 to 8 hertz waveforms with intermixed slower theta range slowing. ACTIVATION: Hyperventilation: Not performed. Photic stimulation: Not performed. Sleep: Drowsy. ABNORMALITIES: 1. Diffuse 4 to 7 hertz theta range slowing was seen. 2. Rare poorly formed triphasic waves were seen. IMPRESSION: Abnormal EEG. The diffuse theta range slowing mentioned above is not epileptiform in nature. The rare poorly formed triphasic waves mentioned above are not epileptiform in nature. Triphasic waves can be seen in the setting of a metabolic encephalopathy. In combination, these findings indicate mild to moderate diffuse cerebral dysfunction as may be seen in a toxo metabolic encephalopathy. No seizures were recorded. No epileptiform activity was present. MMODL / IJN: [id number] /
[2022-04-12 13:53] VITALS: BP 114/56; PULSE 63; RESP 12
--- NOTE | 2022-04-12 13:58 | P.PN ---
Progress Note - Text Progress Note Date: 04/12/22 Interval History: Patient was seen today for psychiatric follow-up regarding patient's delirium vs catatonia. Patient continues to remain to be fairly sedated today on examination. She was not responsive to any questions. She was transferred to the ICU last night. Patient continues to not be taking her medications. She received phenobarbital to help with the seizures that she was having on the EEG. Apparently patient will be transferred to [facility] for EEG monitoring. Mental Status Exam: General Appearance: Patient appears to be somnolent, not responding to questions today. Her arms are spread open in her head is tilted back. Eyes closed. Patient appears to have fair hygiene and grooming wearing hospital gown Behavior: Patient is calmly lying in bed without any agitated behavior. Not responding to questions. Speech: Unable to assess Mood/Affect: Unable to assess Suicidality/Homicidality: Unable to assess Perceptions: Unable to assess Though content/process: Unable to assess Memory and concentration: Unable to assess Judgment and insight: Poor IMPRESSIONS: Delirium, likely secondary to medications i.e. steroids and medication, infection? vs catatonia PLAN: -At this time patient DOES NOT meet criteria for inpatient psychiatric admission. -Would recommend the following medication changes/additions: melatonin 2 mg daily at bedtime for sleep. haldol im prn for agitation/psychosis. Prolixin 2 mg twice a day and melatonin 2 mg daily at bedtime for sleep. patient is not taking her meds. Patient will be transferred to [facility] today for continuous EEG monitoring and better control of the seizures. -At this time psychiatry will sign off. -Please contact with any questions.
--- NOTE | 2022-04-12 21:34 | P.PN ---
Subjective Progress Note Date: 04/09/22 Principal diagnosis: Pneumonia Patient is a 76-year-old female with recent admission to the hospital and treated for pneumonia presented to the hospital with mental status changes did have a fever with a right-sided consolidation concerning for pneumonia and possible aspiration. Patient did have an LP completed on 04/05/2022 that was essentially normal On today's evaluation that is 04/09/2022, the patient did have a low-grade fever 100.8 this morning, the patient is slightly more awake today, the patient is breathing comfortably on room air no vomiting or diarrhea has been reported by nursing staff, patient did not answer any questions Objective - Vital Signs Vital signs: Vital Signs Temp 99.1 F 04/09/22 07:55 Pulse 97 04/09/22 07:55 Resp 18 04/09/22 07:55 BP 164/67 04/09/22 07:55 Pulse Ox 96 04/09/22 07:55 FiO2 Intake & Output 04/08/22 04/09/22 04/09/22 18:59 06:59 18:59 Output Total 200 Balance -200 Weight 86 kg Output: Urine 200 Other: Voiding Method Indwelling Catheter Indwelling Catheter Indwelling Catheter - Exam GENERAL DESCRIPTION: An elderly female lying in bed in no distress RESPIRATORY SYSTEM: Unlabored breathing , decreased breath sounds at bases HEART: S1 S2 regular rate and rhythm , ABDOMEN: Soft , no tenderness EXTREMITIES: No edema feet - Labs CBC & Chem 7: 04/12/22 07:24 04/12/22 07:24 Labs: Abnormal Lab Results - Last 24 Hours (Table) 04/08/22 04/08/22 04/09/22 Range/Units 14:39 14:39 04:43 WBC 11.0 H (3.8-10.6) k/uL Neutrophils # 8.5 H (1.3-7.7) k/uL Anion Gap 20.50 H 19.10 H (10.00-18.00) mmol/L BUN 35.6 H 33.7 H (9.0-27.0) mg/dL Est GFR (CKD-EPI)NonAf 53.9 L 53.9 L (60.0-200.0) BUN/Creatinine Ratio 35.60 H 33.70 H (12.00-20.00) Ratio C-Reactive Protein 4.90 H (0.00-0.80) mg/dL Albumin 3.4 L (3.8-4.9) g/dL Albumin/Globulin Ratio 1.10 L (1.60-3.17) g/dL Microbiology - Last 24 Hours (Table) 04/05/22 16:04 CSF Gram Stain - Preliminary Cerebral Spinal Fluid CSF Culture - Preliminary 04/04/22 14:30 Blood Culture - Preliminary Blood No Growth after 96 hours 04/04/22 14:10 Blood Culture - Preliminary Blood No Growth after 96 hours Assessment and Plan (1) Bilateral pneumonia Status: Acute Code(s): J18.9 - PNEUMONIA, UNSPECIFIED ORGANISM SNOMED Code(s ): 064418956 Plan: 1patient presented to hospital with mental status changes confusion did have a low-grade fever with evidence of right lower and upper lobe pneumonia question of aspiration etiology, with recent admission to the hospital we need to cover f or the resistant gram-negative pathogen. 2blood cultures have been negative so far, sputum could not be obtained 3patient did have a new fever which will be monitored closely, strict aspiration precautions and continue with Zosyn 3.375 g every 8 hours to continue Time with Patient: Greater than 30
--- NOTE | 2022-04-12 21:36 | P.PN ---
Subjective Progress Note Date: 04/10/22 Principal diagnosis: Pneumonia Patient is a 76-year-old female with recent admission to the hospital and treated for pneumonia presented to the hospital with mental status changes did have a fever with a right-sided consolidation concerning for pneumonia and possible aspiration. Patient did have an LP completed on 04/05/2022 that was essentially normal On today's evaluation that is 04/10/2022, the patient is afebrile today, the patient is sleepy lethargic and did not provide any history the patient is breathing comfortably on room air no vomiting or diarrhea has been reported by nursing staff, Objective - Vital Signs Vital signs: Vital Signs Temp 100.1 F H 04/10/22 07:38 Pulse 97 04/10/22 07:38 Resp 18 04/10/22 07:38 BP 123/58 04/10/22 07:38 Pulse Ox 94 L 04/10/22 07:38 FiO2 Intake & Output 04/09/22 04/10/22 04/10/22 18:59 06:59 18:59 Output Total 250 Balance -250 Weight 88 kg Output: Urine 250 Uretheral (Dowling) 250 Other: Voiding Method Indwelling Catheter Indwelling Catheter Indwelling Catheter - Exam GENERAL DESCRIPTION: An elderly female lying in bed in no distress RESPIRATORY SYSTEM: Unlabored breathing , decreased breath sounds at bases HEART: S1 S2 regular rate and rhythm , ABDOMEN: Soft , no tenderness EXTREMITIES: No edema feet - Labs CBC & Chem 7: 04/12/22 07:24 04/12/22 07:24 Labs: Abnormal Lab Results - Last 24 Hours (Table) 04/09/22 04/09/22 Range/Units 14:22 14:22 Creatine Kinase 204 H (26-186) U/L Phenobarbital 8.5 L (15.0-40.0) ug/mL Microbiology - Last 24 Hours (Table) 04/05/22 16:04 CSF Gram Stain - Final Cerebral Spinal Fluid CSF Culture - Final 04/04/22 14:30 Blood Culture - Preliminary Blood No Growth after 120 hours 04/04/22 14:10 Blood Culture - Preliminary Blood No Growth after 120 hours Assessment and Plan (1) Bilateral pneumonia Status: Acute Code(s): J18.9 - PNEUMONIA, UNSPECIFIED ORGANISM SNOMED Code(s): 420828857 Plan: 1patient presented to hospital with mental status changes confusion did have a low-grade fever with evidence of right lower and upper lobe pneumonia question of aspiration etiology, with recent admission to the hospital we need to cover for the resistant gram-negative pathogen. 2blood cultures have been negative so far, sputum could not be obtained 3patient fever has resolved to continue with strict aspiration precautions and Zosyn 3.375 g every 8 hours Time with Patient: Less than 30
--- NOTE | 2022-04-12 21:37 | P.PN ---
Subjective Progress Note Date: 04/11/22 Principal diagnosis: Pneumonia Patient is a 76-year-old female with recent admission to the hospital and treated for pneumonia presented to the hospital with mental status changes did have a fever with a right-sided consolidation concerning for pneumonia and possible aspiration. Patient did have an LP completed on 04/05/2022 that was essentially normal On today's evaluation that is 04/11/2022, the patient continues to be afebrile , the patient remains to be sleepy did not answer any questions and unable to provide any history the patient is breathing comfortably on room air no vomiting or diarrhea has been reported by nursing staff, Objective - Vital Signs Vital signs: Vital Signs Temp 98.5 F 04/11/22 14:00 Pulse 83 04/11/22 14:00 Resp 18 04/11/22 14:00 BP 167/72 04/11/22 14:00 Pulse Ox 94 L 04/11/22 14:00 FiO2 Intake & Output 04/10/22 04/11/22 04/11/22 18:59 06:59 18:59 Output Total 350 Balance -350 Weight 88 kg Output: Urine 350 Other: Voiding Method Indwelling Catheter Indwelling Catheter Indwelling Catheter - Exam GENERAL DESCRIPTION: An elderly female lying in bed in no distress RESPIRATORY SYSTEM: Unlabored breathing , decreased breath sounds at bases HEART: S1 S2 regular rate and rhythm , ABDOMEN: Soft , no tenderness EXTREMITIES: No edema feet - Labs CBC & Chem 7: 04/12/22 07:24 04/12/22 07:24 Labs: Abnormal Lab Results - Last 24 Hours (Table) 04/11/22 04/11/22 Range/Units 06:25 06:25 WBC 11.52 H (4.50-10.00) X 10*3/uL RBC 3.74 L (4.10-5.20) X 10*6/uL Hgb 10.4 L (12.0-15.0) g/dL Hct 34.7 L (37.2-46.3) % MCHC 30.0 L (32.0-37.0) g/dL RDW 15.0 H (11.5-14.5) % Immature Gran # 0.09 H (0.00-0.04) X 10*3/uL Neutrophils # 9.14 H (1.80-7.70) X 10*3/uL Sodium 151 H (135-145) mmol/L Chloride 114 H (96-109) mmol/L BUN/Creatinine Ratio 27.50 H (12.00-20.00) Ratio Glucose 113 H (70-110) mg/dL Calcium 8.5 L (8.7-10.3) mg/dL Microbiology - Last 24 Hours (Table) 04/04/22 14:10 Blood Culture - Final Blood No Growth after 144 hours 04/04/22 14:30 Blood Culture - Final Blood No Growth after 144 hours Assessment and Plan (1) Bilateral pneumonia Status: Acute Code(s): J18.9 - PNEUMONIA, UNSPECIFIED ORGANISM SNOMED Code(s): 534285763 Plan: 1patient presented to hospital with mental status changes confusion did have a low-grade fever with evidence of right lower and upper lobe pneumonia question of aspiration etiology, with recent admission to the hospital we need to cover for the resistant gram-negative pathogen. 2blood cultures have been negative so far, sputum could not be obtained 3patient fever has resolved , currently workup in progress for possible continuous seizure activity, patient to Zosyn 3.375 g every 8 hours Time with Patient: Less than 30
--- NOTE | 2022-04-12 21:38 | P.PN ---
Subjective Progress Note Date: 04/12/22 Principal diagnosis: Pneumonia Patient is a 76-year-old female with recent admission to the hospital and treated for pneumonia presented to the hospital with mental status changes did have a fever with a right-sided consolidation concerning for pneumonia and possible aspiration. Patient did have an LP completed on 04/05/2022 that was essentially normal On today's evaluation that is 04/12/2022, the patient did have a seizure activity and has been transferred to the ICU, the patient remains to be afebrile , the patient remains lethargic and unable to provide any history, no vomiting or diarrhea has been reported by nursing staff, Objective - Vital Signs Vital signs: Vital Signs Temp 97.7 F 04/12/22 12:00 Pulse 76 04/12/22 12:00 Resp 17 04/12/22 12:00 BP 118/60 04/12/22 12:00 Pulse Ox 100 04/12/22 12:00 FiO2 Intake & Output 04/11/22 04/12/22 04/12/22 18:59 06:59 18:59 Intake Total 600 350 Output Total 591 205 Balance 9 145 Weight 88 kg 89.3 kg 89.3 kg Intake: IV 600 350 Dextrose 5% in Water 1, 600 150 000 ml @ 75 mls/hr IV . [id number] ONE Rx#:[id number] Piperacillin-Tazobactam 3 100 .375 gm In Sodium Chloride 0.9% 100 ml @ 25 mls/hr IVPB Q8HR [facility] Rx# :[id number] levETIRAcetam IV 1,500 mg 100 In Saline 1 100ml.bag @ 400 mls/hr IVPB Q12HR [facility] Rx#:[id number] Output: Urine 591 205 Other: Voiding Method Indwelling Catheter Indwelling Catheter Indwelling Catheter - Exam GENERAL DESCRIPTION: An elderly female lying in bed in no distress RESPIRATORY SYSTEM: Unlabored breathing , decreased breath sounds at bases HEART: S1 S2 regular rate and rhythm , ABDOMEN: Soft , no tenderness EXTREMITIES: No edema feet - Labs CBC & Chem 7: 04/12/22 07:24 04/12/22 07:24 Labs: Abnormal Lab Results - Last 24 Hours (Table) 04/11/22 04/11/22 04/11/22 Range/Units 22:22 23:03 23:39 RBC 3.70 L (3.80-5.40) m/uL Hgb 10.3 L (11.4-16.0) gm/dL MCHC 29.7 L (31.0-37.0) g/dL Sodium (137-145) mmol/L Chloride (98-107) mmol/L BUN (7-17) mg/dL Glucose (74-99) mg/dL POC Glucose (mg/dL) 124 H (70-110) mg/dL Calcium (8.4-10.2) mg/dL Urine Protein Trace H (Negative) Urine Ketones 2+ H (Negative) Urine Blood Small H (Negative) Urine RBC 10 H (0-5) /hpf Urine Mucus Rare H (None) /hpf 04/11/22 04/12/22 04/12/22 Range/Units 23:39 07:22 07:24 RBC (3.80-5.40) m/uL Hgb (11.4-16.0) gm/dL MCHC 30.8 L (31.0-37.0) g/dL Sodium 147 H (137-145) mmol/L Chloride 115 H (98-107) mmol/L BUN 19 H (7-17) mg/dL Glucose 122 H (74-99) mg/dL POC Glucose (mg/dL) 163 H (70-110) mg/dL Calcium 8.1 L (8.4-10.2) mg/dL Urine Protein (Negative) Urine Ketones (Negative) Urine Blood (Negative) Urine RBC (0-5) /hpf Urine Mucus (None) /hpf 04/12/22 Range/Units 07:24 RBC (3.80-5.40) m/uL Hgb (11.4-16.0) gm/dL MCHC (31.0-37.0) g/dL Sodium 146 H (137-145) mmol/L Chloride 114 H (98-107) mmol/L BUN 19 H (7-17) mg/dL Glucose 158 H (74-99) mg/dL POC Glucose (mg/dL) (70-110) mg/dL Calcium 8.1 L (8.4-10.2) mg/dL Urine Protein (Negative) Urine Ketones (Negative) Urine Blood (Negative) Urine RBC (0-5) /hpf Urine Mucus (None) /hpf Assessment and Plan (1) Bilateral pneumonia Status: Acute Code(s): J18.9 - PNEUMONIA, UNSPECIFIED ORGANISM SNOMED Code(s): 970656114 Plan: 1patient presented to hospital with mental status changes confusion did have a low-grade fever with evidence of right lower and upper lobe pneumonia question of aspiration etiology, with recent admission to the hospital we need to cover for the resistant gram-negative pathogen. 2blood cultures have been negative so far, sputum could not be obtained 3patient with a seizure activity and possible transfer to [facility] for continuous EEG monitoring, patient to continue Zosyn 3.375 g every 8 hours to finish a ten-day course of therapy Time with Patient: Less than 30
--- NOTE | 2022-04-16 14:42 | CDI ---
Documentation Clarification Form Date: 04/16/2022 02:25:00 PM From: Carleen Galicia Admit Date: 04/04/2022 01:35:00 PM Patient Name: Ashley Wilson Visit Number: [id number] Discharge Date: 04/12/2022 02:05:00 PM ATTENTION: The Clinical Documentation Specialists (CDI) and [facility] Coding Staff appreciate your assistance in clarifying documentation. Please respond to the clarification below the line at the bottom and electronically sign. The CDI & [facility] Coding staff will review the response and follow-up if needed. Please note: Queries are made part of the Legal Health Record. If you have any questions, please contact the author of this message via ITS. Dr. Amadeo Watson The patient presented with altered mental status. Per PN 04/09 and 04/10 Delirium due to multilobar pneumonia with sepsis or medication use. Sepsis diagnosis not carried through chart. Additional clarification regarding if patient had sepsis was it POA or was it ruled out is requested. History/Risk Factors: Patient with pneumonia and altered mental status possibly medication induced. Clinical Indicators: WBC: 11.9 Blood cultures: negative Vitals signs: 98.4 F, 79 bpm, 18, 186/103, 97% RA Treatment: Antibiotics ID Consult: Pneumonia with sepsis, possibly aspiration, possible medication. Antibiotics: Ceftin, Zosyn, Levaquin In your professional opinion, please clarify if patient had sepsis, was it ruled out, was it POA. [ x ] Sepsis POA [ ] Sepsis, Not POA [ ] Sepsis ruled out [ ] Severe Sepsis with organ failure [ ] Septic Shock [ ] SIRS, without underlying infectious process [ ] Other, please specify [ ] Unable to determine SIRS Criteria: 2 or more of the following may indicate SIRS -Temperature < 96.8F (36C) or > 101.0F (38.3C) -Heart Rate > 90 bpm -Respiratory Rate > 20 breaths/min or PaCO2 < 32 mmHg -White Blood Cell Count > 12,000 or < 4,000 cells/mm3 or > 10% bands MTDD
== END 2022-04-12 14:05 | disposition short-term general hospital (02) | DRG 871 ==
LOC: EC 11:34 → 4SSUR 13:35 → 2SICU 04-11 22:37
PROVIDERS: ADMIT Internal Medicine; ATTEND Internal Medicine
PROC: 009U3ZX Drainage of Spinal Canal, Percutaneous Approach, Diagnostic (ICD-10-PCS; principal; 2022-04-05 16:00)
DX: A41.9 Sepsis, unspecified organism (principal); G92.8 Other toxic encephalopathy; I50.33 Acute on chronic diastolic (congestive) heart failure; J18.0 Bronchopneumonia, unspecified organism; J44.0 Chronic obstructive pulmonary disease with (acute) lower respiratory infection; T38.0X5A Adverse effect of glucocorticoids and synthetic analogues, initial encounter; E78.5 Hyperlipidemia, unspecified; F31.9 Bipolar disorder, unspecified; G25.0 Essential tremor; G40.901 Epilepsy, unspecified, not intractable, with status epilepticus; I08.1 Rheumatic disorders of both mitral and tricuspid valves; I11.0 Hypertensive heart disease with heart failure; I25.10 Atherosclerotic heart disease of native coronary artery without angina pectoris; I70.0 Atherosclerosis of aorta; K21.9 Gastro-esophageal reflux disease without esophagitis; M43.6 Torticollis; Z79.01 Long term (current) use of anticoagulants; Z79.899 Other long term (current) drug therapy; Z87.01 Personal history of pneumonia (recurrent); Z87.891 Personal history of nicotine dependence; R74.01 Elevation of levels of liver transaminase levels; Z79.52 Long term (current) use of systemic steroids; R42 Dizziness and giddiness; Z81.8 Family history of other mental and behavioral disorders; Z90.89 Acquired absence of other organs; Z60.2 Problems related to living alone; Z88.2 Allergy status to sulfonamides; Z88.8 Allergy status to other drugs, medicaments and biological substances
CPT/HCPCS: 36415; 62270; 70450; 70553; 71045; 71046; 71260; 80048; 80053; 80184; 80188; 80306; 81001; 81003; 82140; 82550; 82607; 82746; 82945; 83519; 83735; 83873; 83880; 84145; 84157; 84443; 84484; 85025; 85610; 85730; 86140; 86255; 87040; 87070; 87205; 87252; 87449; 87496; 87498; 87529; 87635; 87798; 89050; 93005; 95713; 95816; 96361; 96365; 96366; 96367; 96372; 96375; 96376; 99285

== ENCOUNTER → 2023-03-20 | Outpatient (CLI) | payer MEDICARE ==
--- NOTE | 2023-03-20 20:05 | BD ---
EXAMINATION TYPE: Axial Bone Density DATE OF EXAM: 03/20/2023 CLINICAL HISTORY: 77 years old Female. ICD-10 CODE: Z78.0 MENOPAUSAL STATE, Z13.820 SCREEN FOR OSTEO POROSIS Nuclear Medicine Study in the last 2 weeks: No Barium Study in the last week: No : No Height: 64" Weight: 200.1 FRAX RISK QUESTIONS: Alcohol (3 or more units per day): No Family History (Parent hip fracture): No Glucocorticoids (More than 3mos): No (Ex: prednisone, prednisolone, methylprednisolone, dexamethasone, and hydrocortisone). History of Fracture in Adulthood: No Secondary Osteoporosis: 1. Type 1 Diabetes: No 2. Hyperthyroidism: No 3. Menopause before 45: No 4. Malnutrition: No 5. Chronic liver disease: No Rheumatoid Arthritis: No Current Tobacco Use: No RISK FACTORS HISTORY OF: Hip Fracture (Right/Left): No Spine Fracture: No History of Wrist Fracture: No Surgery to Spine/Hip(right/left)/Wrist (right/left): No Family History of Osteoporosis: No Active: Yes Diet low in dairy products/other sources of calcium: No Postmenopausal woman: Yes Lost more than 2 inches in height since high school: Yes Frequent falls: Yes Poor Health: No Hyperparathyroidism: No Adrenal Insufficiency: No MEDICATIONS: Prednisone or other steroids: No Thyroid Medications: No Osteoporosis Medications: No Additional Medications: Simvastatin, Vitamin B, Nasal spray, zyrtec, ibuprofen, primidone, mirtazapin e, bupropion, lisinopril, propranolol Additional History: None EXAM MEASUREMENTS: Bone mineral densitometry was performed using the kajeet System. Bone mineral density as measured about the Lumbar spine is: ----- L1-L4(G/cm2): 1.056 T Score Values are as follows: ----- L1: -1.2 ----- L2: -1.8 ----- L3: -0.6 ----- L4: -0.9 ----- L1-L4: -1.0 Z Score Values are as follows: ----- L1: -0.2 ----- L2: -0.8 ----- L3: 0.3 ----- L4: 0.0 ----- L1-L4: -0.1 Baseline @[facility] Bone mineral density about the R hip (g/cm2): 0.894 Bone mineral density about the L hip (g/cm2): 0.912 T Score values are as follows: -----R Neck: -0.8 -----L Neck: -0.8 -----R Total: -0.9 -----L Total: -0.8 Z Score values are as follows: -----R Neck: 0.7 -----L Neck: 0. -----R Total: 0.5 -----L Total: 0.6 Baseline @ [facility] FRAX%s: The graph provided illustrates a 10.2% chance for a major osteoporotic fx and a 1.7% chance f or the hips probability for fx in 10 years time. IMPRESSION: Normal (Values between +1 and -1 indicate normal bone mass). However, note that measurements are bor dering on osteopenia in the lumbar spine. Consider repeating this study in 5 years or sooner if there is some new clinical indication. NOTE: T-SCORE=SD OF THE YOUNG ADULT MEAN.
== END | disposition home or self-care (01) ==
LOC: RADBDWWP 14:37
PROVIDERS: ATTEND Family Medicine
DX: Z13.820 Encounter for screening for osteoporosis (principal); M85.89 Other specified disorders of bone density and structure, multiple sites; Z78.0 Asymptomatic menopausal state
CPT/HCPCS: 77080